=== PATIENT | female | born 1935 | race Caucasian/White ===

== ENCOUNTER 2016-08-29 16:06 | Observation (INO) | payer MEDICARE, OTHER ==
[2016-08-29 18:08] LABS: Hematocrit 27 % (35-47); Hemoglobin 8.6 g/dl (12.0-16.0); Mean Corpuscular HGB Conc 32 g/dl (31-36); Mean Corpuscular Hemoglobin 31 pg (27-31); Mean Corpuscular Volume 96 fL (80-97); Mean Platelet Volume 8 um3 (7.4-10.4); Red Blood Count 2.82 10^6/ul (4.0-5.4); Red Cell Distribution Width 15 % (10.5-15); White Blood Count 8.7 10^3/ul (3.5-10.8)
[2016-08-29 18:19] LABS: Albumin 4.2 g/dL (3.2-5.2); BUN/Creatinine Ratio 22.4 (8-20); Calcium 9.8 mg/dL (8.6-10.3); EGFR African American 18.7 (>60); EGFR Non-African American 14.5 (>60); Globulin 3.3 g/dL (2-4); Potassium 3.4 mmol/L (3.5-5.0); Total Bilirubin 0.4 mg/dL (0.2-1.0); Total Protein 7.5 g/dL (6.4-8.9)
[2016-08-29] MEDS ORDERED: NS 0.9% 1000 ML* 1,000 ML IV ONE (20:37)
[2016-08-29] MEDS ORDERED: Pantoprazole IV* 40 MG IV ONE (20:37)
--- NOTE | 2016-08-29 20:49 | ED ---
maeve Mccoy Timothy, scribed for Jarocho Molina MD on 08/29/16 at 1620 . GI/ HPI - HPI Summary HPI Summary: Annmarie Manning is an 81 yo female presenting to [facility] with blood in her stool, sent from [facility] for evaluation of bleeding, melena, and now anemia. Pt states she is here for admission and blood transfusion. She currently feels lightheaded and weak. Her PMHx includes thyroid disease, A fib, aortic and mitral valve disorder, hTN, RBBB, renal failure (not on dialysis). Her PCP is Dr. Brown. - History of Current Complaint Time Seen by Provider: 08/29/16 16:15 Stated Complaint: BLOOD IN STOOL Hx Obtained From: Patient Onset/Duration: Started Hours Ago, Still Present Timing: Constant Severity: Moderate Current Severity: Moderate Pain Intensity: 0 Associated Signs and Symptoms: Positive: Weakness, Black Tarry Stool, Lightheadedness - Additional Pertinent History Primary Care Physician: [id number] - Allergy/Home Medications Allergies/Adverse Reactions: Allergies Allergy/AdvReac Type Severity Reaction Status Date / Time Celecoxib [From Celebrex] Allergy Mild Rash Verified 05/23/16 11:38 Codeine Allergy Unknown Verified 05/23/16 11:38 Reaction Details BETABLOCKERS AdvReac Intermediate See Comment Uncoded 05/23/16 11:38 PMH/Surg Hx/FS Hx/Imm Hx Endocrine/Hematology History: Reports: Hx Anticoagulant Therapy, Hx Thyroid Disease Denies: Hx Diabetes Cardiovascular History: Reports: Hx Hypercholesterolemia, Hx Hypertension, Hx Valvular Heart Disease - aortic and mitral valve disorder, Other Cardiovascular Problems/Disorders - A-FIB, RBBB Denies: Hx Angina, Hx Congestive Heart Failure, Hx Pacemaker/ICD Respiratory History: Denies: Hx Asthma, Other Respiratory Problems/Disorders History: Reports: Hx Chronic Renal Failure - has fistula, never had dialysis Denies: Hx Renal Disease Musculoskeletal History: Reports: Hx Arthritis - left knee replacement march 2016 Sensory History: Reports: Hx Cataracts, Hx Contacts or Glasses Denies: Hx Hearing Aid Opthamlomology History: Reports: Hx Cataracts, Hx Contacts or Glasses Neurological History: Denies: Other Neuro Impairments/Disorders Psychiatric History: Denies: Hx Panic Disorder - Cancer History Hx Chemotherapy: No Hx Radiation Therapy: No Hx Palliative Cancer Treatment: No - Surgical History Surgery Procedure, Year, and Place: BILATERAL CATARACT REMOVAL/[place] SURGERY Hx Anesthesia Reactions: No Infectious Disease History: No Infectious Disease History: Denies: Hx Clostridium Difficile, Hx Hepatitis, Hx Human Immunodeficiency Virus (HIV), Hx of Known/Suspected MRSA, Hx Shingles, Hx Tuberculosis, Hx Known/ Suspected VRE, Hx Known/Suspected VRSA, History Other Infectious Disease, Traveled Outside the [place] in Last 30 Days - Family History Known Family History: Positive: Cardiac Disease - Social History Alcohol Use: None Substance Use Type: Reports: None Smoking Status (MU): Never Smoked Tobacco Have You Smoked in the Last Year: No Review of Systems Constitutional: Other - anemia Eyes: Negative ENT: Negative Cardiovascular: Negative Respiratory: Negative Gastrointestinal: Other - melena Genitourinary: Negative Musculoskeletal: Negative Skin: Negative Neurological: Other - lightheadedness Positive: Weakness Psychological: Normal All Other Systems Reviewed And Are Negative: Yes Physical Exam Triage Information Reviewed: Yes Vital Signs On Initial Exam: Initial Vitals Temp Pulse Resp BP Pulse Ox 97.0 F 78 20 121/54 100 08/29/16 16:08 08/29/16 16:08 08/29/16 16:08 08/29/16 16:08 08/29/16 16:08 Vital Signs Reviewed: Yes Appearance: Positive: Well-Appearing, No Pain Distress Skin: Positive: Warm, Skin Color Reflects Adequate Perfusion, Dry Head/Face: Positive: Normal Head/Face Inspection Eyes: Positive: Normal ENT: Positive: Normal ENT inspection Neck: Positive: Supple, Nontender Respiratory/Lung Sounds: Positive: Clear to Auscultation, Breath Sounds Present Cardiovascular: Positive: RRR Abdomen Description: Positive: Nontender, Soft Bowel Sounds: Positive: Present Musculoskeletal: Positive: Normal Neurological: Positive: Normal Psychiatric: Positive: Normal, Affect/Mood Appropriate Diagnostics - Vital Signs Vital Signs Temp Pulse Resp BP Pulse Ox 08/29/16 16:08 97.0 F 78 20 121/54 100 - Laboratory Lab Results: Lab Results 08/29/16 08/29/16 08/29/16 Range/Units 16:30 16:30 16:30 WBC 8.7 (3.5-10.8) 10^3/ul RBC 2.82 L (4.0-5.4) 10^6/ul Hgb 8.6 L (12.0-16.0) g/dl Hct 27 L (35-47) % MCV 96 (80-97) fL MCH 31 (27-31) pg MCHC 32 (31-36) g/dl RDW 15 (10.5-15) % Plt Count 197 (150-450) 10^3/ul MPV 8 (7.4-10.4) um3 Neut % (Auto) 75.2 (38-83) % Lymph % (Auto) 16.1 L (25-47) % Gila % (Auto) 5.9 (1-9) % Eos % (Auto) 2.1 (0-6) % Baso % (Auto) 0.7 (0-2) % Absolute Neuts (auto) 6.6 (1.5-7.7) 10^3/ul Absolute Lymphs (auto) 1.4 (1.0-4.8) 10^3/ul Absolute Monos (auto) 0.5 (0-0.8) 10^3/ul Absolute Eos (auto) 0.2 (0-0.6) 10^3/ul Absolute Basos (auto) 0.1 (0-0.2) 10^3/ul Absolute Nucleated RBC 0.01 10^3/ul Nucleated RBC % 0.1 INR (Anticoag Therapy) 0.90 (0.89-1.11) APTT 27.2 (26.0-36.3) seconds Sodium 136 (133-145) mmol/L Potassium 3.4 L (3.5-5.0) mmol/L Chloride 102 (101-111) mmol/L Carbon Dioxide 28 (22-32) mmol/L Anion Gap 6 (2-11) mmol/L BUN 69 H (6-24) mg/dL Creatinine 3.08 H (0.51-0.95) mg/dL Est GFR ( Amer) 18.7 (>60) Est GFR (Non-Af Amer) 14.5 (>60) BUN/Creatinine Ratio 22.4 H (8-20) Glucose 107 H (70-100) mg/dL Calcium 9.8 (8.6-10.3) mg/dL Total Bilirubin 0.40 (0.2-1.0) mg/dL AST 20 (13-39) U/L ALT 10 (7-52) U/L Alkaline Phosphatase 73 (34-104) U/L Total Protein 7.5 (6.4-8.9) g/dL Albumin 4.2 (3.2-5.2) g/dL Globulin 3.3 (2-4) g/dL Albumin/Globulin Ratio 1.3 (1-3) Result Diagrams: 08/29/16 16:30 08/29/16 16:30 Lab Statement: Any lab studies that have been ordered have been reviewed, and results considered in the medical decision making process. - EKG 1715 EKG Interpretation: Afib @ 59 BPM, RBBB, unchanged from 05/23/16 Re-Evaluation - Re-Evaluation First Eval Re-Evaluation Time: 19:12 Change: Unchanged Comment: Pt is refusing to be discharged. Second Eval Re-Evaluation Time: 20:03 Change: Unchanged Comment: Pt is informed of Dr. Marquez's recommendations. GIGU Course/Dx - Course Assessment/Plan: Annmarie Manning is an 81 yo female presenting to [facility] sent by Dr. Brown for melena, anemia, and weakness/lightheadedness. After review of her lab work and EKG, as well as discussion with Dr. Marquez, she will be signed out to Dr. Cardoza pending repeat H&H and other lab studies. - Diagnoses Provider Diagnoses: Anemia - Physician Notifications Discussed Care Of Patient With: 1623 - Dr. Garnica (GI and internal medicine) - discussed Pt condition. 1831 - Dr. Mullins (oncology and internal medicine) - discussed Pt condition, recommends discharging Pt. 1955 - Dr. Marquez ( hospitalist) - discussed Pt condition, recommends to check stool for blood. 2038 - Dr. Marquez (hospitalist) - discussed positive blood in stool. Discharge - Discharge Plan Condition: Stable Disposition: OTHER Discharge Disposition Comment: signed out to Dr. Cardoza Patient Education Materials: Anemia (ED) Referrals: Cesar Brown MD [Primary Care Provider] - Peterson Mejia MD [Medical Doctor] - 2 Days Additional Instructions: Please follow up with Dr. Mejia regarding your visit to the emergency department today. Return to the emergency department with any new or recurring symptoms. The documentation as recorded by the maeve churchill Timothy accurately reflects the service I personally performed and the decisions made by , Jarocho Molina MD.
[2016-08-29 22:33] LABS: Hematocrit 23 % (35-47); Hemoglobin 7.5 g/dl (12.0-16.0)
--- NOTE | 2016-08-29 23:21 | HP ---
H&P (Free Text) History and Physical: PCP: Ema Brown MD Date/Time of Evaluation: 08/29/2016 3269 CC: sent in by PCP for concern of GI bleed HPI: Mrs Manning is an 81YO female admitted 05/23-05/25/2017 for a suspected subacute GI bleed. She had a follow up appointment with her PCP today who reportedly checked a HGB finding it significantly worse as well as finding blood in her stool. Per her report, she was told to come to the ED for admission , a blood transfusion, and an endoscopy to "cauterize my ulcer". However, upon arrival her HGB here was 8.6, the highest it's been since April 2016. She was not tachycardic, hypotensive, or tachypneic. In fact, she states her SOB which worsened around the time of her May admission is much improved. Stool occult blood is positive. She was given ~800-1000cc NS with her HGB rechecked at 7.5 qualifying her for admission. She states that while her EGD in May was negative, she followed up with Dr Mejia and had a negative colonoscopy ~2 weeks after discharge. Additionally she underwent repeat EGD at the end of Jul 2016 finding an ulcer. The colonoscopy report describes 3 small polyps and diffuse diverticulosis, otherwise normal. The repeat EGD report could not be found. 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 hypothyroidism HLD OA osteoporosis Allergies Celecoxib [From Celebrex] Allergy (Mild, Verified 05/23/16 11:38) Rash Codeine Allergy (Verified 05/23/16 11:38) Unknown Reaction Details BETABLOCKERS Adverse Reaction (Intermediate, Uncoded 05/23/16 11:38) See Comment [facility] Ambulatory Orders Gabapentin CAP(*) [Neurontin 100 mg CAP(*)] 100 mg PO BID 03/17/16 Metolazone 2.5 mg PO DAILY PRN 03/17/16 Diltiazem HCl Extended Release [Diltiazem HCl ER] 240 mg PO DAILY 05/23/16 Furosemide TAB* [Lasix TAB*] 40 mg PO BID 05/23/16 Levothyroxine TAB* [Synthroid 25 MCG TAB*] 50 mcg PO DAILY 05/23/16 Multivitamins/Minerals TAB* [Thera M Plus TAB*] 1 tab PO DAILY 05/23/16 Ferrous Sulfate [Fe Tabs] 325 mg PO DAILY #30 tab 05/25/16 Acetaminophen TAB* [Tylenol TAB*] 1 tab PO BEDTIME PRN 08/29/16 Cholecalciferol [Vitamin D3] 2,000 unit PO DAILY 08/29/16 Omeprazole CAP* [Prilosec CAP* 20 MG] 20 mg PO DAILY 08/29/16 Senna TAB* [Senokot TAB*] 1 tab PO DAILY 08/29/16 PSurgHx L TKA AV fistula placement in anticipation of dialysis SocHx: no tobacco, alcohol, or recreational drugs; lives alone, uses a cane; full code status FamHx: positive for HTN & HLD ROS: as above, otherwise reviewed and all were negative Constitutional: NAD, normally developed, obese white female vitals: Vital Signs Temp 36.1 C 08/29/16 16:08 Pulse 76 08/29/16 22:25 Resp 20 08/29/16 16:08 BP 113/45 08/29/16 22:25 Pulse Ox 95 08/29/16 22:25 Intake & Output 08/28/16 08/29/16 08/29/16 23:59 11:59 23:59 Weight 76.204 kg HEENM: atraumatic; sclera/conjunctiva: non-icteric/clear; hearing: clinically intact; oropharynx: clear, mucosa moist Neck: soft tissue: non-tender; thyroid: normal Pulmonary: clear to auscultation bilaterally, good aeration, no accessory muscle use CV: RR/RR, normal S1S2, no carotid bruit, no jugular venous distention, 2+ B DP/ PT, no edema Abdominal: soft, non-distended, non-tender, no rebound/guarding/rigidity, normoactive bowel sounds, no hepatosplenomegaly or masses, no costovertebral angle tenderness Musculoskeletal: general: grossly intact; gait: stable Integumental: normal appearance and texture of exposed skin Psychiatric orientation: AA&O to PPS affect: calm mood: cooperative eye contact: good content: reliable responses: timely insight: good Testing: Lab Results 08/29/16 08/29/16 08/29/16 Range/Units 16:30 16:30 16:30 WBC 8.7 (3.5-10.8) 10^3/ul RBC 2.82 L (4.0-5.4) 10^6/ul Hgb 8.6 L (12.0-16.0) g/dl Hct 27 L (35-47) % MCV 96 (80-97) fL MCH 31 (27-31) pg MCHC 32 (31-36) g/dl RDW 15 (10.5-15) % Plt Count 197 (150-450) 10^3/ul MPV 8 (7.4-10.4) um3 Neut % (Auto) 75.2 (38-83) % Lymph % (Auto) 16.1 L (25-47) % Reeves % (Auto) 5.9 (1-9) % Eos % (Auto) 2.1 (0-6) % Baso % (Auto) 0.7 (0-2) % Absolute Neuts (auto) 6.6 (1.5-7.7) 10^3/ul Absolute Lymphs (auto) 1.4 (1.0-4.8) 10^3/ul Absolute Monos (auto) 0.5 (0-0.8) 10^3/ul Absolute Eos (auto) 0.2 (0-0.6) 10^3/ul Absolute Basos (auto) 0.1 (0-0.2) 10^3/ul Absolute Nucleated RBC 0.01 10^3/ul Nucleated RBC % 0.1 INR (Anticoag Therapy) 0.90 (0.89-1.11) APTT 27.2 (26.0-36.3) seconds Sodium 136 (133-145) mmol/L Potassium 3.4 L (3.5-5.0) mmol/L Chloride 102 (101-111) mmol/L Carbon Dioxide 28 (22-32) mmol/L Anion Gap 6 (2-11) mmol/L BUN 69 H (6-24) mg/dL Creatinine 3.08 H (0.51-0.95) mg/dL Est GFR ( Amer) 18.7 (>60) Est GFR (Non-Af Amer) 14.5 (>60) BUN/Creatinine Ratio 22.4 H (8-20) Glucose 107 H (70-100) mg/dL Calcium 9.8 (8.6-10.3) mg/dL Total Bilirubin 0.40 (0.2-1.0) mg/dL AST 20 (13-39) U/L ALT 10 (7-52) U/L Alkaline Phosphatase 73 (34-104) U/L Total Protein 7.5 (6.4-8.9) g/dL Albumin 4.2 (3.2-5.2) g/dL Globulin 3.3 (2-4) g/dL Albumin/Globulin Ratio 1.3 (1-3) 08/29/16 Range/Units 22:30 WBC (3.5-10.8) 10^3/ul RBC (4.0-5.4) 10^6/ul Hgb 7.5 L (12.0-16.0) g/dl Hct 23 L (35-47) % MCV (80-97) fL MCH (27-31) pg MCHC (31-36) g/dl RDW (10.5-15) % Plt Count (150-450) 10^3/ul MPV (7.4-10.4) um3 Neut % (Auto) (38-83) % Lymph % (Auto) (25-47) % Reeves % (Auto) (1-9) % Eos % (Auto) (0-6) % Baso % (Auto) (0-2) % Absolute Neuts (auto) (1.5-7.7) 10^3/ul Absolute Lymphs (auto) (1.0-4.8) 10^3/ul Absolute Monos (auto) (0-0.8) 10^3/ul Absolute Eos (auto) (0-0.6) 10^3/ul Absolute Basos (auto) (0-0.2) 10^3/ul Absolute Nucleated RBC 10^3/ul Nucleated RBC % INR (Anticoag Therapy) (0.89-1.11) APTT (26.0-36.3) seconds Sodium (133-145) mmol/L Potassium (3.5-5.0) mmol/L Chloride (101-111) mmol/L Carbon Dioxide (22-32) mmol/L Anion Gap (2-11) mmol/L BUN (6-24) mg/dL Creatinine (0.51-0.95) mg/dL Est GFR ( Amer) (>60) Est GFR (Non-Af Amer) (>60) BUN/Creatinine Ratio (8-20) Glucose (70-100) mg/dL Calcium (8.6-10.3) mg/dL Total Bilirubin (0.2-1.0) mg/dL AST (13-39) U/L ALT (7-52) U/L Alkaline Phosphatase (34-104) U/L Total Protein (6.4-8.9) g/dL Albumin (3.2-5.2) g/dL Globulin (2-4) g/dL Albumin/Globulin Ratio (1-3) ECG, personally reviewed: AFIB RBBB rate 59, similar to 05/23/2016 Impression: 81F presenting with heme positive stool and a 1point drop in hemaglobin after 1L NS DIAGNOSIS & PLAN Primary GI bleed : observe overnight : NPO x/ meds : serial H&H : IVFs : hold furosemide & metolazone : if no clinically significant further decrease in HGB, may f/u w/ PCP; otherwise consider GI consult : supplemental oxygen : supportive care hypoKalemia : replace & recheck Secondary moderate to severe aortic stenosis : monitor volume status closely : hold furosemide & metolazone in setting of potential GI bleeding AFIB : rate controlled : continue diltiazem HTN : continue diltiazem 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
[2016-08-30] MEDS ORDERED: Melatonin (NF) 3 MG TAB PO PRN (00:01)
[2016-08-30] MEDS ORDERED: Acetaminophen TAB* 325 MG PO PRN (00:01)
[2016-08-30] MEDS ORDERED: Pantoprazole IV* 40 MG IV ONE (00:02)
[2016-08-30] MEDS ORDERED: NS 0.9% 1000 ML* 1,000 ML IV SCH (00:15)
[2016-08-30] MEDS ORDERED: Pantoprazole IV* 80 MG in NS 0.9% 250 ML* 250 ML IVPB SCH (01:00)
[2016-08-30 02:20] LABS: Hematocrit 24 % (35-47); Hemoglobin 7.7 g/dl (12.0-16.0)
[2016-08-30 05:46] LABS: Hematocrit 24 % (35-47); Hemoglobin 7.6 g/dl (12.0-16.0)
[2016-08-30] MEDS ORDERED: Levothyroxine TAB* 25 MCG TAB PO SCH (06:00)
[2016-08-30 07:39] VITALS: BP 119/58
[2016-08-30] MEDS ORDERED: Gabapentin CAP(*) 100 MG PO SCH (09:00)
[2016-08-30] MEDS ORDERED: Omeprazole CAP* 20 MG PO SCH (09:00)
[2016-08-30] MEDS ORDERED: Senna TAB PO SCH (09:00)
[2016-08-30] MEDS ORDERED: Diltiazem CD CAP* 240 MG PO SCH (09:00)
[2016-08-30 10:06] LABS: Calcium 8.6 mg/dL (8.6-10.3); EGFR African American 19.6 (>60); EGFR Non-African American 15.3 (>60); Potassium 3.5 mmol/L (3.5-5.0)
[2016-08-30 10:17] LABS: Hematocrit 25 % (35-47)
--- NOTE | 2016-08-30 10:55 | PN ---
Subjective Date of Service: 08/30/16 Interval History: Patient seen this morning. No complaints. Has been NPO. No abdominal pain. Family History: Unchanged from Admission Social History: Unchanged from Admission Past Medical History: Unchanged from Admission Objective Active Medications: Acetaminophen (Tylenol Tab*) 650 mg PO Q6H PRN PRN Reason: FEVER/PAIN Diltiazem HCl (Cardizem Cd Cap*) 240 mg PO DAILY [facility] Last Admin: 08/30/16 09:29 Dose: 240 mg Gabapentin (Neurontin Cap(*)) 100 mg PO BID [facility] Last Admin: 08/30/16 09:31 Dose: 100 mg Sodium Chloride (Ns 0.9% 1000 Ml*) 1,000 mls @ 125 mls/hr IV PER RATE [facility] Last Admin: 08/30/16 03:14 Dose: 125 mls/hr Pantoprazole Sodium 80 mg/ (Sodium Chloride) 250 mls @ 25 mls/hr IVPB Q10H [facility] Last Admin: 08/30/16 03:13 Dose: 25 mls/hr Levothyroxine Sodium (Synthroid Tab*) 50 mcg PO DAILY@0600 [facility] Last Admin: 08/30/16 05:28 Dose: 50 mcg Melatonin (Melatonin (Nf)) 3 mg PO BEDTIME PRN; Protocol PRN Reason: Sleep Omeprazole (Prilosec Cap*) 20 mg PO DAILY [facility] Last Admin: 08/30/16 09:32 Dose: 20 mg Senna (Senokot Tab*) 1 tab PO DAILY [facility] Last Admin: 08/30/16 09:29 Dose: Not Given Vital Signs 08/30/16 08/30/16 08/30/16 02:00 03:00 04:49 Temperature 97.9 F Pulse Rate 79 83 Respiratory 16 Rate Blood Pressure 106/43 122/54 (mmHg) O2 Sat by Pulse 92 96 93 Oximetry 08/30/16 08/30/16 08/30/16 07:36 07:57 09:31 Temperature 98.1 F Pulse Rate 75 Respiratory 20 18 20 Rate Blood Pressure 119/58 (mmHg) O2 Sat by Pulse 96 Oximetry Oxygen Devices in Use Now: None Appearance: Elderly, F, sitting in chair in NAD Eyes: No Scleral Icterus Ears/Nose/Mouth/Throat: Mucous Membranes Moist Neck: NL Appearance and Movements; NL JVP Respiratory: Symmetrical Chest Expansion and Respiratory Effort, Clear to Auscultation Cardiovascular: NL Sounds; No Murmurs; No JVD, RRR Abdominal: NL Sounds; No Tenderness; No Distention Lymphatic: No Cervical Adenopathy Extremities: - - Trace LE edema, SCDs Skin: No Rash or Ulcers Neurological: Alert and Oriented x 3 Result Diagrams: 08/30/16 09:52 08/30/16 05:06 Additional Lab and Data: Assess/Plan/Problems-Billing Assessment: Anemia in an 81 yo F with hx of GI bleed, aortic stenosis - Patient Problems (1) Anemia Current Visit: Yes Comment: Not convinced she is having any active bleeding. Hb has been stable here, stop trending. Positive guaiac may be due to PO iron. Outpatient labs obtained (07/18 Hb 8.2, 08/01 Hb 10, 08/29 Hb 7.8). Wondering if was spurious. Will ask GI whether EGD is even indicated, may d/c home on continued PPI therapy and PO iron. (2) Moderate aortic stenosis Current Visit: No Comment: Stop IVF, holding diuretics (3) Afib Current Visit: No Comment: Continue CCB. Not on AC (4) DVT prophylaxis Current Visit: No Comment: SCDs
--- NOTE | 2016-08-31 06:12 | DS ---
DISCHARGE SUMMARY: DATE OF ADMISSION: 08/29/16 DATE OF DISCHARGE: 08/30/16 PRIMARY CARE PROVIDER: Dr. Brown. PRINCIPAL DISCHARGE DIAGNOSIS: Anemia. SECONDARY DIAGNOSES: 1. [id number] aortic stenosis. 2. Atrial fibrillation. 3. Hypertension. 4. Chronic kidney disease. 5. Hypothyroidism. 6. Hyperlipidemia. 7. Osteoarthritis. 8. Osteoporosis. STUDIES DONE DURING HOSPITALIZATION: No studies done during hospitalization. DISCHARGE MEDICATION REGIMEN: 1. Lasix 40 mg by mouth 2 times daily. 2. Senna 1 tablet by mouth daily. 3. Omeprazole 20 mg by mouth daily. 4. Vitamin D3 2000 units by mouth daily. 5. Tylenol 325 mg by mouth at bedtime as needed for pain. 6. Diltiazem 240 mg by mouth daily. 7. Synthroid 50 mcg by mouth daily. 8. Gabapentin 100 mg by mouth 2 times daily. 9. Ferrous sulfate 325 mg by mouth daily. 10. Multivitamin 1 tablet by mouth daily. 11. Metolazone 2.5 mg by mouth daily as needed for edema. HISTORY OF PRESENT ILLNESS AND HOSPITAL SUMMARY: Please see the full history and physical by Dr. Chadd Marquez for full details. Briefly, Ms. Manning is an 81- year-old female with a past medical history as above as well as GI bleed in May 2016, who presented to the hospital. She was sent in by her PCP, due to concerns for possible recurrence of GI bleed. In the ED, the patient's hemoglobin was stable; however, did drop some with IV fluids. However, after that, it remained stable on four consecutive draws. The patient had Hemoccult positive stool; however, she is taking iron supplements. I got in touch with Dr. Brown's office to have more recent labs from his system, which showed a hemoglobin of 8.2 on July 18, hemoglobin of 10 on August 01, and hemoglobin of 7.8 on August 29, just prior to this admission. I do not think that the patient has an active bleed ongoing. I spoke with Dr. Cobian, who is covering the GI consultation service for Dr. Mejia, who also agreed and did not feel that an EGD was indicated at this time. He recommends continuing omeprazole and iron supplementation and she will follow up with Dr. Mejia in the clinic in the next week or so. TIME SPENT: Total time spent on this discharge 40 minutes. This is a summary of the hospitalization. Please see the full medical records for further details. CC: Dr. Brown; Dr. Mejia, GI* [id number]/[facility] #: [id number] [facility]
== END 2016-08-30 13:30 | disposition home or self-care (01) ==
LOC: ED 16:06 → MEDTELE 08-30 01:38
PROVIDERS: ADMIT Hospitalist; ATTEND Hospitalist
DX: D64.9 Anemia, unspecified (principal); I35.0 Nonrheumatic aortic (valve) stenosis; I48.91 Unspecified atrial fibrillation; I12.9 Hypertensive chronic kidney disease with stage 1 through stage 4 chronic kidney disease, or unspecified chronic kidney disease; N18.9 Chronic kidney disease, unspecified; E03.9 Hypothyroidism, unspecified; E78.5 Hyperlipidemia, unspecified; M19.90 Unspecified osteoarthritis, unspecified site; M81.0 Age-related osteoporosis without current pathological fracture
CPT/HCPCS: 36415; 80048; 80053; 82272; 85014; 85018; 85025; 85610; 85730; 86850; 86900; 86901; 93005; 94760; 96374; 96375; 99284; A9270-GY; G0378

== ENCOUNTER 2018-11-20 10:11 | Inpatient (IN) | payer MEDICARE, OTHER ==
--- OUTSIDE RECORDS SUMMARY | 2018-11-20 10:40 | XMS REPORT | Continuity of Care Document ---
:1935 External Reference #:[id number] Author Name Demetrius Cobian MD Address [facility] [place] [address] Care Team Providers Name Role Phone Cesar Brown MD Care Team Information Personnel Recruiter Unavailable Cesar Brown MD Primary Care Physician Unavailable Payers Date Identification Numbers Payment Provider Subscriber Policy Number: [id number] Medicare Sarbjit Lovell PayID: [id number] [facility] [address] [facility] [address] Policy Number: [id number] [facility] Sarbjit Lovell Group Number: [id number] [address] PayID: [id number] [place] [address] Advance Directives Description No Information Available Problems Active Problems Provider Date Acute posthemorrhagic anemia Onset: Atrial fibrillation Onset: Chronic kidney disease stage 4 Onset: H/O: anticoagulant therapy Onset: For resuscitation Onset: Gastrointestinal hemorrhage Onset: Hyperkalemia Onset: Hyperlipidemia Onset: Hyponatremia Onset: Hypothyroidism Onset: Aortic valve stenosis Onset: Peripheral nerve disease Onset: Anemia following acute postoperative Onset: blood loss History of total knee arthroplasty Onset: End-stage renal disease Onset: Anemia Onset: Essential hypertension Riya Gibbs PA-C Onset: 08/14/2018 Iron deficiency anemia Riya Gibbs PA-C Onset: 08/14/2018 Melena Riya Gibbs PA-C Onset: 08/14/2018 Family History Description No Information Available Social History Type Date Description Comments Sex Unknown ETOH Use Denies alcohol use Tobacco Use Start: Unknown Patient has never smoked Smoking Status Reviewed: 08/14/18 Patient has never smoked Allergies, Adverse Reactions, Alerts Active Allergies Reaction Severity Comments Date Celebrex 05/31/2016 Beta Adrenergic Blockers 05/31/2016 Medications Active Medications SIG Qnty Indications Ordering Provider Date Omeprazole 1 by mouth every 90caps Cesar Brown MD 08/01/2018 20mg Capsules day Levothyroxine Sodium Take 1 Tablet By 90tabs Cesar Brown MD 12/12/2016 Mouth Every Day 50mcg Tablets Tylenol Bedtime prn For Unknown 08/29/2016 325mg Tablets Pain Nystatin apply 2-3 times 1units Cesar Brown MD 06/20/2016 [id number]/GM daily Powder Metolazone 1 by mouth every 60tabs Cesar Brown MD 06/20/2016 2.5mg Tablets day as needed edema Fe Tabs 2 Daily 30tabs Unknown 05/25/2016 325(65Fe) mg Tablets Diltiazem HCL ER Every Day Unknown 05/23/2016 240mg Caps ER 24HR Lasix Every Day Unknown 05/23/2016 40mg Tablets Neurontin bid Unknown 03/17/2016 100mg Capsules History Medications Ranitidine HCL Take 1 Tablet By 90tabs Cesar Brown MD 12/12/2016 - Mouth Every Day 08/14/2018 150mg Tablets Vitamin D3 Every Day Unknown 08/29/2016 - 1000Unit 08/14/2018 Tablets Prilosec Every Day Unknown 08/29/2016 - 20mg 08/14/[address] Armendariz-Flavor Packs As directed 4000ml K92.1 DENZEL Duran-Renee 2015 - 06/03/2016 240gm Solution Rec Colyte With Flavor by mouth as 4000ml Peterson Mejia MD 05/31/2016 - Packs directed 08/01/2016 240gm Solution Rec Synthroid Every Day Unknown 05/23/2016 - 25mcg 08/01/2016 Tablets Colace Twice Daily prn Unknown 05/23/2016 - 100mg For Constipation 08/14/2018 Capsules Coumadin 1700 Unknown 05/23/2016 - 2.5mg 08/01/2016 Tablets Synthroid Every Day Unknown 05/23/2016 - 25mcg 08/14/2018 Tablets Levothyroxine 1 by mouth every 90tabs Cesar Brown MD 04/19/2016 - Sodium day 08/14/2018 75mcg Tablets Metolazone Every Day prn For Unknown 03/17/2016 - 2.5mg Edema 08/14/2018 Tablets Cartia XT take 1 capsule 90caps Cesar Brown MD 01/23/2012 - 240mg daily 08/01/2016 Caps ER 24HR Coumadin 1/2 po qd or as 90tabs Cesar Brown MD 12/29/2006 - 5mg directed. 08/01/2016 Tablets Ferrous Sulfate 1 tab by mouth bid Cesar Brown MD - 08/01/2016 325(65Fe) mg Tablets Senna Lax 1 qd Cesar Brown MD - 8.6mg 08/14/2018 Tablets Vitamin D3 Super 1 by mouth every Cesar Brown MD - Strength day 08/14/2018 2000Unit Capsules Senna Lax 1 qod Cesar Brown MD - 8.6mg 08/14/2018 Tablets Immunizations Description No Information Available Vital Signs Date Vital Result Comment 08/14/2018 9:36am Height 62.5 inches 5'2.50" Weight 160.00 lb BP Systolic 115 mmHg BP Diastolic 55 mmHg Heart Rate 66 /min BMI (Body Mass Index) 28.8 kg/m2 09/05/2016 11:29am Height 62.5 inches 5'2.50" Weight 172.00 lb BP Systolic 114 mmHg BP Diastolic 66 mmHg Heart Rate 72 /min BMI (Body Mass Index) 31.0 kg/m2 08/01/2016 2:41pm Height 62.5 inches 5'2.50" Weight 168.00 lb BP Systolic 122 mmHg BP Diastolic 70 mmHg Heart Rate 78 /min BMI (Body Mass Index) 30.2 kg/m2 05/31/2016 11:11am Height 62.5 inches 5'2.50" Weight 170.00 lb BP Systolic 124 mmHg BP Diastolic 68 mmHg Heart Rate 72 /min BMI (Body Mass Index) 30.6 kg/m2 Results Test Date Facility Test Result H/L Range Note CBC Auto Diff 11/01/2018 [facility] White Blood Count 7.4 10^3/uL N 3.5-10.8 Red Blood Count 3.93 10^6/uL N 3.70-4.87 Hemoglobin 12.5 g/dL N 12.0-16.0 Hematocrit 37 % N 35-47 Mean Corpuscular Volume 93 fL N 80-97 Mean Corpuscular Hemoglobin 32 pg High 27-31 Mean Corpuscular HGB Conc 34 g/dL N 31-36 Red Cell Distribution Width 15 % N 10.5-15 Platelet Count 172 10^3/uL N 150-450 Mean Platelet Volume 7.6 fL N 7.4-10.4 Abs Neutrophils 5.4 10^3/uL N 1.5-7.7 Abs Lymphocytes 1.3 10^3/uL N 1.0-4.8 Abs Monocytes 0.5 10^3/uL N 0-0.8 Abs Eosinophils 0.1 10^3/uL N 0-0.6 Abs Basophils 0.0 10^3/uL N 0-0.2 Abs Nucleated RBC 0.0 10^3/uL Granulocyte % 73.1 % Lymphocyte % 17.3 % Monocyte % 7.0 % Eosinophil % 1.9 % Basophil % 0.7 % Nucleated Red Blood Cells % 0.0 Laboratory test 08/19/2018 [facility] Clotest SEE RESULT 1 finding BELOW CBC W/Auto 09/05/2016 [facility] White Blood 7.6 3/UL 4.8-10 Differential(!) [address] Count Ser .8 [place] [address] Auto CNT [phone] RBC Red Blood Count 2.46 X106/UL Low 4.20-6.20 Hemoglobin Blood 7.4 g/dL Low 12.0-18.0 Hematocrit 26.4 % Low 35-52 MCV (Corpuscular Volume) 107.1 FL High 79-97 MCH (Corpuscular Hemoglobin) 30.0 pg 27-31 MCHC (Corpuscular Hemog Conc) 28.0 g/dL Low 32.0-36.0 RDW 17.8 % High 10.5-15.0 Platelet Count Blood Auto CNT 190 X103/UL 150-450 MPV 6.4 FL Low 7.4-10.4 Lymph% 14.4 % Low 20.0-45.0 [place]% 10.6 % High 1.0-9.0 Neutrophil % 75.0 % 38.0-83.0 Absolute Lymphocytes 1.1 X103/UL 1.0-4.8 Absolute Monocytes 0.8 X103/UL 0.0-0.8 Absolute Neutrophils 5.7 X103/UL 1.5-7.7 Laboratory test 09/05/2016 [facility] Ferritin 11.8 Low 24-250 [address] Ser/Plas ng/[place] [address] Mass/Vol(!) [phone] Laboratory 08/30/2016 N2N/CCD Import Hematocrit 25 % Low 35-47 Studies Hemoglobin 8.0 g/dL Low 12.0-16.0 Laboratory Studies 08/30/2016 N2N/CCD Import Anion Gap 9 mmol/L 2-11 BUN/Creatinine Ratio 22.0 High 8-20 Blood Urea Nitrogen 65 mg/dL High 6-24 Calcium Level 8.6 mg/dL 8.6-10.3 Carbon Dioxide Level 26 mmol/L 22-32 Chloride Level 106 mmol/L 101-111 Creatinine 2.95 mg/dL High 0.51-0.95 Estimated GFR () 19.6 Estimated GFR (Non- 15.3 Glucose Level 131 mg/dL High 70-100 Potassium Level 3.5 mmol/L 3.5-5.0 Sodium Level 141 mmol/L 133-145 Laboratory Studies 08/29/2016 N2N/CCD Import Absolute Basophils 0.1 10^3/ ul 0-0.2 (auto) Absolute Eosinophils (auto) 0.2 10^3/ul 0-0.6 Absolute Lymphocytes (auto) 1.4 10^3/ul 1.0-4.8 Absolute Monocytes (auto) 0.5 10^3/ul 0-0.8 Absolute Neutrophils (auto) 6.6 10^3/ul 1.5-7.7 Activated Partial Thromboplast Time 27.2 seconds 26.0-36.3 Alanine Aminotransferase (Alt/SGPT) 10 U/L 7-52 Albumin 4.2 g/dL 3.2-5.2 Albumin/Globulin Ratio 1.3 1-3 Alkaline Phosphatase 73 U/L 34-104 Aspartate Amino Transf (Ast/Sgot) 20 U/L 13-39 Basophils (%) (Auto) 0.7 % 0-2 Eosinophils (%) (Auto) 2.1 % 0-6 Globulin 3.3 g/dL 2-4 International Ratio (Anticoag Ther) 0.90 0.89-1.11 Lymphocytes (%) (Auto) 16.1 % Low 25-47 Mean Corpuscular Hemoglobin 31 pg 27-31 Mean Corpuscular Hemoglobin Concent 32 g/dL 31-36 Mean Corpuscular Volume 96 fL 80-97 Mean Platelet Volume 8 um3 7.4-10.4 Monocytes (%) (Auto) 5.9 % 1-9 Neutrophils (%) (Auto) 75.2 % 38-83 Nucleated RBC Absolute Count (auto) 0.01 10^3/ul Nucleated Red Blood Cells % 0.1 Platelet Count 197 10^3/ul 150-450 Red Blood Count 2.82 10^6/ul Low 4.0-5.4 Red Cell Distribution Width 15 % 10.5-15 Total Bilirubin 0.40 mg/dL 0.2-1.0 Total Protein 7.5 g/dL 6.4-8.9 White Blood Count 8.7 10^3/ul 3.5-10.8 Laboratory test 08/01/2016 [facility] Erythropoietin 73.9 mIU/mL Abnormal 2.6 - 2 finding 18.5 Laboratory test 06/20/2016 N2N/CCD Import BUN 34 mg/dL High 6-26 finding BUN/Creat Ratio 15.5 CALC 8.0-36.0 Calcium 9.8 mg/dL 8.6-10.2 Carbon Dioxide 24 mEq/L 21-32 Chloride 97 mEq/L 94-112 Creatinine 2.2 mg/dL High 0.6-1.4 GFR 28 ml/min/1.73m^ Low >=60 GFR Non- 23 ml/min/1.73m^ Low >=60 Glucose 100 mg/dL 70-105 Potassium 3.6 mEq/L 3.6-5.5 Sodium 139 mEq/L 134-149 TSH 2.44 mIU/L 0.50-6.00 Laboratory test 06/07/2016 [facility] Surgical SEE RESULT 3 finding Pathology BELOW Laboratory test 06/01/2016 N2N/CCD Import Hematocrit 25.2 % Low 36.1 - finding (Fma/CMC/CTX) 50.3 Hemoglobin (Fma/CMC/CTX) 7.9 g/dL Low 12.1 - 17.2 Lymph% 11.0 % Low 17.0-48.0 Mean Corpuscular Hemo Concen 31.3 Low 32.0-36.0 Mean Corpuscular Hemoglobin 25.3 Low 27.6-33.3 Mean Corpuscular Vol 81 Low 82.2-97.4 Mean Platelet Volume 6.6 5.5-11.0 Mixed% 6.2 Neutrophils % 82.8 Platelets 219 10^3/ul 150-400 RBC 3.12 Low 3.90-5.70 RDW 17.2 High 11.6-13.7 WBC 6.9 3.6-9.6 4 Laboratory Studies 05/25/2016 N2N/CCD Import Anion Gap 8 mmol/L 2-11 BUN/Creatinine Ratio 18.7 8-20 Blood Urea Nitrogen 52 mg/dL High 6-24 Calcium Level 8.4 mg/dL Low 8.6-10.3 Carbon Dioxide Level 23 mmol/L 22-32 Chloride Level 106 mmol/L 101-111 Creatinine 2.78 mg/dL High 0.51-0.95 Estimated GFR () 21.0 Estimated GFR (Non- 16.4 Glucose Level 100 mg/dL 70-100 Hematocrit 25 % Low 35-47 Hemoglobin 7.9 g/dL Low 12.0-16.0 Mean Corpuscular Hemoglobin 25 pg Low 27-31 Mean Corpuscular Hemoglobin Concent 32 g/dL 31-36 Mean Corpuscular Volume 78 fL Low 80-97 Mean Platelet Volume 7 um3 Low 7.4-10.4 Platelet Count 234 10^3/ul 150-450 Potassium Level 3.9 mmol/L 3.5-5.0 Red Blood Count 3.19 10^6/ul Low 4.0-5.4 Red Cell Distribution Width 19 % High 10.5-15 Sodium Level 137 mmol/L 133-145 White Blood Count 8.6 10^3/ul 3.5-10.8 Laboratory 05/24/2016 N2N/CCD Import International Ratio 2.59 High 0.89- 1.11 Studies (Anticoag Ther) Laboratory 05/24/2016 N2N/CCD Import Percent Iron 3 % Low 15-55 Studies Saturation Total Iron Binding Capacity 438 g/dL 250-450 Unsaturated Iron Binding 423.96405 g/dL Laboratory Studies 05/23/2016 N2N/CCD Import Lactic Acid Level 1.5 mmol/L 0.5-2.0 Laboratory Studies 05/23/2016 N2N/CCD Import Absolute 0.1 10^3/ul 0-0.2 Basophils (auto) Absolute Eosinophils (auto) 0.1 10^3/ul 0-0.6 Absolute Lymphocytes (auto) 0.5 10^3/ul Low 1.0-4.8 Absolute Monocytes (auto) 0.6 10^3/ul 0-0.8 Absolute Neutrophils (auto) 7.7 10^3/ul 1.5-7.7 Alanine Aminotransferase (Alt/SGPT) 21 U/L 7-52 Albumin 3.6 g/dL 3.2-5.2 Albumin/Globulin Ratio 1.1 1-3 Alkaline Phosphatase 83 U/L 34-104 Aspartate Amino Transf (Ast/Sgot) 22 U/L 13-39 B-Type Natriuretic Peptide 599 pg/mL High Basophils (%) (Auto) 1.0 % 0-2 C-Reactive Protein 21.93 mg/L High 0-5.00 Eosinophils (%) (Auto) 1.1 % 0-6 Globulin 3.4 g/dL 2-4 Lymphocytes (%) (Auto) 5.1 % Low 25-47 Monocytes (%) (Auto) 6.8 % 1-9 Neutrophils (%) (Auto) 86.0 % High 38-83 Nucleated RBC Absolute Count (auto) 0.06 10^3/ul Nucleated Red Blood Cells % 0.6 Thyroid Stimulating Hormone (TSH) 1.61 mcIU/mL 0.34-5.60 Total Bilirubin 0.60 mg/dL 0.2-1.0 Total Protein 7.0 g/dL 6.4-8.9 Troponin I 0.02 ng/mL 1 SEE RESULT BELOW Name: SARBJIT LOVELL : [address]: Demetrius Cobian MD Acct: [id number] Unit: [id number] AGE: 83 Location: ENDO Re08/19/18 SEX: F Status: REG REF SPEC: [id number] HAI: 08/19/18-[address]: Demetrius Cobian MD REQ: [id number] RECD: 08/19/18 STATUS: COMP OTHR DR: Cesar Brown MD _ SOURCE: GAS ANTRUM SPDESC: ORDERED: Clotest Procedure Result Reported Site Clotest Final 08/20/18711 ML Clotest Negative * - Main Lab . END OF REPORT DEPARTMENT OF PATHOLOGY, [address] [place] [address] Demetri Elliott M.D. Director [facility] # [id number] SEE RESULT BELOW Name: SARBJIT LOVELL : [address]: Demetrius Cobian MD Acct: [id number] Unit: [id number] AGE: 83 Location: ENDO Re08/19/18 SEX: F Status: REG REF SPEC: [id number] HAI: 08/19/18-14[address] [facility] [address]: Demetrius Cobian MD REQ: [id number] RECD: 08/19/18-151 STATUS: CHANI AKPOOR DR: Cesar Brown MD _ SOURCE: GAS ANTRUM SPDESC: ORDERED: Clotest Procedure Result Reported Site Clotest Final 08/20/18711 ML Clotest Negative * ML - Main Lab . END OF REPORT DEPARTMENT OF PATHOLOGY, [address] [place] [address] Demetri Elliott M.D. Director [facility] # [id number] 2 Test Performed by: [facility] [place] [address] Assistant Unit Forester: Jeramy Pa II, M.D., Ph.D. 3 SEE RESULT BELOW Name: SARBJIT LOVELL : [address]: Peterson Mejia MD Acct: [id number] Unit: [id number] AGE: 81 Location: ENDO Re06/07/16 SEX: F Status: DEP REF SPEC: [id number] HAI: 06/07/161140 [facility] DR: Peterson Mejia MD REQ: [id number] RECD: 06/07/166749 STATUS: BARRY KAPO[place] DR: Cesar Brown MD _ ORDERED: LEVEL IV FINAL DIAGNOSIS Colon, transverse, biopsy: -- Tubular adenoma. -- No high grade dysplasia or malignancy. CLINICAL HISTORY Anemia, blood in stool POST-OPERATIVE DIAGNOSIS Colonoscopy into cecum, prep fair - 3 polyps removed, diffuse diverticulosis. Conclusions/Plan: Three polyps removed GROSS DESCRIPTION The specimen is received in formalin labeled, Transverse Colon Polyps, and consists of two berger irregular to polypoid soft tissue fragments measuring 0.4 x 0.3 x 0.2 cm and 0.5 x 0.3 x 0.2 cm, which are submitted entirely in one cassette. Signed (signature on file) Carly Diaz MD 02/14 1058 END OF REPORT * ML=Testing performed at Main Lab DEPARTMENT OF PATHOLOGY, [address] [place] [address] Demetri Elliott M.D. Director [facility] # [id number] SEE RESULT BELOW Name: SARBJIT LOVELL : [address]: Peterson Mejia MD Acct: [id number] Unit: [id number] AGE: 81 Location: ENDO Re06/07/16 SEX: F Status: DEP REF SPEC: [id number] HAI: 06/07/161140 SUBM DR: Peterson Mejia MD REQ: [id number] RECD: 06/07/162857 STATUS: BARRY KAPO[place] DR: Cesar Brown MD _ ORDERED: LEVEL IV FINAL DIAGNOSIS Colon, transverse, biopsy: -- Tubular adenoma. -- No high grade dysplasia or malignancy. CLINICAL HISTORY Anemia, blood in stool POST-OPERATIVE DIAGNOSIS Colonoscopy into cecum, prep fair - 3 polyps removed, diffuse diverticulosis. Conclusions/Plan: Three polyps removed GROSS DESCRIPTION The specimen is received in formalin labeled, Transverse Colon Polyps, and consists of two berger irregular to polypoid soft tissue fragments measuring 0.4 x 0.3 x 0.2 cm and 0.5 x 0.3 x 0.2 cm, which are submitted entirely in one cassette. Signed (signature on file) Carly Diaz MD 02/14 1058 END OF REPORT * ML=Testing performed at Main Lab DEPARTMENT OF PATHOLOGY, [address] [place] [address] Demetri Elliott M.D. Director [facility] # [id number] 4 result john'd provider aware Procedures Date Code Description Status 08/19/2018 96297 EGD+Biopsy Single Or Multiple Completed 10/11/2016 55403 Moderate Sedation Services; Same Phys Each Additional 15 Completed Mins 10/11/2016 51551 Moderate Sedation Services; Same Phys Each Additional 15 Completed Mins 10/11/2016 17675 Esoph. With Sub.Injection Completed 10/02/2016 77523 Capsule Endoscopy Completed 09/19/2016 5 Small Balance Write Off Completed 09/06/2016 13607 EGD- Upper Endoscopy Completed 06/07/2016 54766 Colonoscopy W/ Snare RM Of Polyp/Tumor/Lesion Completed 05/24/2016 88231 EGD+Biopsy Single Or Multiple Completed Encounters Type Date Location Provider Dx Diagnosis Office Visit 08/14/2018 [facility] Riya Hernandez D50.9 Iron deficiency 9:45a [facility] PA-C anemia, unspecified K92.1 Melena Z79.01 [facility] (current) use of anticoagulants Office Visit 09/05/2016 [facility] Peterson Monahan D50.0 Iron deficiency 11:45a [facility] Herman Mejia MD anemia secondary to blood loss (chronic) Office Visit 08/01/2016 [facility] Peterson Monahan D50.9 Iron deficiency 3:00p Bunny Mejia MD anemia, unspecified R06.02 Shortness of breath Office Visit 05/31/2016 11:15a [facility] Alba Thompson, K92.1 [facility] stanley Lindenecho MAHONEY-Renee D50.0 Iron deficiency anemia secondary to blood loss (chronic) Plan of Treatment No Information Available
--- NOTE | 2018-11-20 10:46 | ED ---
Adult Trauma - HPI Summary HPI Summary: An 83 y/o female brought in by [facility] ambulance presents to [facility] with a chief complaint of right hip pain post fall today. At triage she rated her pain as an 8/10 in severity. She says that she is unsure how she fell. She reports that she was at home, walked into back porch and found herself on the floor. Pt states she "must have passed out" as she does not have memory of the fall. She lives alone and was able to signal for help from her medical alert device. She claims that she cannot move her right leg and has pain down to her right ankle. Pt denies other injuries or complaints. no cp, sob, abd pain. No n/v/d. No fever, chills, rash. No blood HEENT. Pt does have a h/o A fib and ESRD on dialysis She last had dialysis one day ago. - History of Current Complaint Chief Complaint: EDHipPelvisInjury Stated Complaint: RT HIP PAIN Time Seen by Provider: 11/20/18 10:27 Hx Obtained From: Patient, EMS Mechanism of Injury: Fall Loss of Consciousness: unsure Onset/Duration: Started Hours Ago, Still Present Onset of Pain: Immediate, Post Accident, Prior to Arrival Onset Severity: Severe Current Severity: Severe Pain Intensity: 8 Pain Scale Used: 0-10 Numeric Location: Extremities - right lower extremity Aggravating Factor(s): Movement Alleviating Factor(s): Nothing Associated Signs & Symptoms: Positive: Loss of Consciousness - possible. Negative: Fever - Additional Pertinent History Primary Care Physician: [id number] - Allergy/Home Medications Allergies/Adverse Reactions: Allergies Allergy/AdvReac Type Severity Reaction Status Date / Time celecoxib Allergy Mild Rash Verified 08/05/18 11:35 Beta-Blockers Allergy Dizziness Verified 08/05/18 11:35 (Beta-Adrenergic Bloc codeine Allergy Unknown Verified 08/05/18 11:35 Reaction Details Home Medications: Home Medications Prochlorperazine TAB* [Compazine Tab*] 5 mg PO Q6H PRN 11/20/18 [History Confirmed 11/20/18] PMH/Surg Hx/FS Hx/Imm Hx Previously Healthy: No Endocrine/Hematology History: Reports: Hx Anticoagulant Therapy - None current, Hx Thyroid Disease Denies: Hx Diabetes Cardiovascular History: Reports: Hx Hypercholesterolemia, Hx Hypertension, Hx Valvular Heart Disease - aortic and mitral valve disorder, Other Cardiovascular Problems/Disorders - A-FIB, RBBB Denies: Hx Angina, Hx Congestive Heart Failure, Hx Pacemaker/ICD Respiratory History: Denies: Hx Asthma, Other Respiratory Problems/Disorders GI History: Reports: Hx Ulcer - upper GI done 07/18 History: Reports: Hx Chronic Renal Failure - has fistula, never had dialysis Denies: Hx Renal Disease Musculoskeletal History: Reports: Hx Arthritis - left knee replacement march 2016 Sensory History: Reports: Hx Cataracts, Hx Contacts or Glasses Denies: Hx Hearing Aid Opthamlomology History: Reports: Hx Cataracts, Hx Contacts or Glasses Neurological History: Denies: Other Neuro Impairments/Disorders Psychiatric History: Denies: Hx Panic Disorder - Cancer History Hx Chemotherapy: No Hx Radiation Therapy: No Hx Palliative Cancer Treatment: No - Surgical History Surgery Procedure, Year, and Place: BILATERAL CATARACT REMOVAL/[place] SURGERY Hx Anesthesia Reactions: No Infectious Disease History: No Infectious Disease History: Denies: Hx Clostridium Difficile, Hx Hepatitis, Hx Human Immunodeficiency Virus (HIV), Hx of Known/Suspected MRSA, Hx Shingles, Hx Tuberculosis, Hx Known/ Suspected VRE, Hx Known/Suspected VRSA, History Other Infectious Disease, Traveled Outside the [place] in Last 30 Days - Family History Known Family History: Positive: Cardiac Disease - Social History Occupation: Retired Lives: Alone Alcohol Use: None Substance Use Type: Reports: None Smoking Status (MU): Never Smoked Tobacco Have You Smoked in the Last Year: No Review of Systems Negative: Fever ENT: Negative Respiratory: Negative Gastrointestinal: Negative Positive: Arthralgia - right hip pain, ankle pain, Myalgia - right lower extremity pain Neurological: Other - positive: possible LOC All Other Systems Reviewed And Are Negative: Yes Physical Exam - Summary Physical Exam Summary: Vital Signs Reviewed: Yes A+Ox3, no distress Eyes: Conjunctiva Clear, TIMMY. EOM intact and full ENT: Hearing grossly normal TM x 2 clear, mmoist, uvula midline, no exudate, no erythema Neck: Positive: Supple Respiratory: Positive: No respiratory distress, No accessory muscle use + CTA throughout no w/r Cardiovascular: IRR nl s1, s2 no m/r CBT <2 sec foot warm abd soft + BS nt/nd no guarding, no distension. easily reducible umbilical hernia Musculoskeletal Exam: upper ext without deformity, pain - good ROM RLE slightly short, externally rotated Pain with palp along femur. No knee pain. no tib/fib pain + flextext ankle- not full - with discomfort in mid Neurological: Positive: Alert, + sensation throughout + movement left foot Psychological: Positive: Normal Response To Family Skin: Positive: no rash, no ecchymosis Triage Information Reviewed: Yes Vital Signs On Initial Exam: Initial Vitals Temp Pulse Resp BP Pulse Ox 96.5 F 57 18 124/52 100 11/20/18 10:25 11/20/18 10:25 11/20/18 10:25 11/20/18 10:25 11/20/18 10:25 Diagnostics - Vital Signs Vital Signs Temp Pulse Resp BP Pulse Ox 11/20/18 10:25 96.5 F 57 18 124/52 100 - Laboratory Result Diagrams: 11/20/18 11:59 11/20/18 11:59 Lab Statement: Any lab studies that have been ordered have been reviewed, and results considered in the medical decision making process. - Radiology CXR Radiology Interpretation Completed By: Radiologist Summary of Radiographic Findings: CARDIOMEGALY. INTERSTITIAL EDEMA WITH SUGGESTION OF LEFT PLEURAL EFFUSION. ED physician has reviewed this imaging report. femur x-ray Radiology Interpretation Completed By: Radiologist Summary of Radiographic Findings: Basicervical fracture on the RIGHT femoral neck with varus angulation. ED physician has reviewed this imaging report. hip/pelvis x-ray Radiology Interpretation Completed By: Radiologist Summary of Radiographic Findings: Basicervical fracture on the RIGHT femoral neck with varus angulation. ED physician has reviewed this imaging report. - CT cervical spine CT Interpretation Completed By: Radiologist Summary of CT Findings: Multilevel degenerative disc disease without evidence of fracture. ED physician has reviewed this imaging report. Brain CT Interpretation Completed By: Radiologist Summary of CT Findings: NO EVIDENCE FOR ACUTE INTRACRANIAL ABNORMALITY. ED physician has reviewed this imaging report. - EKG 11:28 Cardiac Rate: Other Rate - Atrial fibrillation at 61 bpm EKG Rhythm: Atrial Fibrillation Summary of EKG Findings: Atrial fibrillation at 61 bpm, RBBB, no change from August 2016. Re-Evaluation - Re-Evaluation First Eval Re-Evaluation Time: 12:15 Change: Improved Comment: Morphine helped, the patient's CTs were negative and is getting x-rays done. Second Eval Re-Evaluation Time: 12:38 Change: Improved Comment: discussed results. pain is well controlled. will put catheter in. Third Eval Re-Evaluation Time: 13:00 Adult Trauma Course/Dx - Course Course Of Treatment: Pt presents s/p fall at home - pt unsure why fell - walked into porch and found self on ground. Pt states may have passed out. Pt with right femur pain - unable to bear weight, move. Denies paresthesia. VSs. Pt with obvious discomfort RLE - distal CSM intact. Neurologic intact. Will check labs, EKG, head CT, C spine CT for fall. hip xray. analgesia. pt in agreement with plan - Diagnoses Provider Diagnoses: Femoral neck fracture, Fall, Syncope - Physician Notifications Time Discussed With Above Provider: 12:51 - Dr Torres - will see pt - Critical Care Time Critical Care Time: 30-74 min Discharge - Sign-Out/Discharge Documenting (check all that apply): Patient Departure Patient Received Moderate/Deep Sedation with Procedure: No - Discharge Plan Condition: Good Disposition: ADMITTED TO [facility] - Billing Disposition and Condition Condition: GOOD Disposition: Admitted to [facility] - Attestation Statements Document Initiated by Scribe: Yes Documenting Scribe: Finn Godoy Provider For Whom Scribe is Documenting (Include Credential): Bibiana Beasley MD Scribe Attestation: I, Finn Godoy, scribed for Bibiana Beasley MD on 11/20/18 at 1740. Scribe Documentation Reviewed: Yes Provider Attestation: The documentation as recorded by the Finn churchill accurately reflects the service I personally performed and the decisions made by me, Bibiana Beasley MD Status of Scribe Document: Viewed
[2018-11-20] MEDS ORDERED: NS 0.9% 1000 ML** 1,000 ML IV ONE (11:01)
[2018-11-20] MEDS ORDERED: Morphine 4 MG/ML VIAL (1 ml) 4 MG/ML VIAL IV ONE (11:03)
[2018-11-20] MEDS ORDERED: Ondansetron INJ* 2 MG/ML VIAL IV ONE (11:03)
[2018-11-20 12:20] LABS: ABS Basophils 0.1 10^3/ul (0-0.2); ABS Eosinophils 0.1 10^3/ul (0-0.6); ABS Lymphocytes 0.5 10^3/ul (1.0-4.8); ABS Monocytes 0.4 10^3/ul (0-0.8); ABS Neutrophils 6.7 10^3/ul (1.5-7.7); Eosinophil % 0.7 %; Hematocrit 35 % (35-47); Hemoglobin 11.6 g/dL (12.0-16.0); Lymphocyte % 6.8 %; Mean Corpuscular HGB Conc 34 g/dL (31-36); Mean Corpuscular Hemoglobin 31 pg (27-31); Mean Corpuscular Volume 93 fL (80-97); Mean Platelet Volume 7.3 fL (7.4-10.4); Platelet Count 167 10^3/uL (150-450); Red Blood Count 3.73 10^6 /uL (3.70-4.87); Red Cell Distribution Width 16 % (10.5-15); White Blood Count 7.7 10^3/uL (3.5-10.8)
[2018-11-20 12:27] LABS: INR 1.03 (0.82-1.09)
[2018-11-20 12:37] LABS: Albumin 4.2 g/dL (3.2-5.2); Albumin/Globulin Ratio 1.6 (1-3); BUN/Creatinine Ratio 8.8 (8-20); Calcium 9.3 mg/dL (8.6-10.3); EGFR African American 10.9 (>60); Globulin 2.7 g/dL (2-4); Magnesium 2.3 mg/dL (1.9-2.7); Potassium 3.5 mmol/L (3.5-5.0); Total Bilirubin 0.7 mg/dL (0.2-1.0); Total Protein 6.9 g/dL (6.4-8.9)
[2018-11-20] MEDS ORDERED: Docusate CAP* 100 MG PO PRN (15:16)
[2018-11-20] MEDS ORDERED: Senna TAB PO PRN (15:22)
[2018-11-20] MEDS ORDERED: Metolazone TAB* 5 MG PO PRN (15:22)
[2018-11-20] MEDS ORDERED: Morphine INJ* 2 MG/ML 1 ML SYRINGE (TWO MG - NEW SYRINGE VERSION) IV PRN (15:30)
[2018-11-20] MEDS ORDERED: Cyclobenzaprine TAB* 10 MG PO PRN (15:37)
--- NOTE | 2018-11-20 16:36 | CONS ---
CONSULTATION REPORT: DATE OF CONSULT: 11/20/18 ATTENDING ORTHOPEDIC PROVIDER: Dr. Ricardo Pedersen. CHIEF COMPLAINT: Right hip pain. HISTORY OF PRESENT ILLNESS: The patient is an 83-year-old female who presented to the emergency room after a fall at home, landing on her right hip. Her past medical history is significant for history of GI bleed; atrial fibrillation, not on any anticoagulation due to history of GI bleed; hypertension; aortic stenosis; dialysis at [facility] Tuesdays, and Saturdays. The patient states that fall occurred at her residence where she lives alone while she was walking with her walker. She does not recall tripping, dizziness , lightheadedness, chest pain or shortness of breath. She simply fell to the ground without warning landing on her right hip. She did not hit her head or lose consciousness. She reports no other injuries. She has a Life Alert and was able to call for help. Pain is localized to her right hip. It is sharp in nature, better with rest, worse with any movement of the right hip. She has no history of heart attack, stroke, or blood clot. She has no history of adverse reactions from anesthesia. PAST MEDICAL HISTORY: GI bleed; atrial fibrillation; hypertension; aortic stenosis; dialysis Tuesdays, , Saturdays. PAST SURGICAL HISTORY: Left total knee replacement. HOME MEDICATIONS: ALLERGIES: Include CELEBREX and BETA BLOCKERS. FAMILY HISTORY: No family history of adverse effects of anesthesia. SOCIAL HISTORY: The patient lives alone and cares for herself. Within her home , she walks by keeping balance on her furniture. Outside of the home, she uses a cane or a walker. She does not drink alcohol, smoke or use illicit drugs. REVIEW OF SYSTEMS: General: Negative for recent illness, fever or chills. HEENT: Negative for any acute change in vision, headache, or head trauma. Cardio: Denies chest pain or history of [place]. Confirms history of AFib as well as aortic stenosis with audible heart murmur. Respiratory: No shortness of breath or cough. Abdomen: No abdominal pain, nausea, vomiting or diarrhea. : No dysuria. Musculoskeletal: Positive for right hip pain. Neuro: Sensation is intact throughout all extremities. Patient does not report any numbness or paresthesias. Hematology: No history of blood clots. Skin: Reports skinning her right elbow. No other lesions or rash. PHYSICAL EXAM: Vital Signs: Temperature 97.5, pulse rate 59, respiratory rate 16, oxygen saturation 97 on room air, blood pressure 115/59. General: The patient appears well. She is in no acute distress. She is alert and oriented to person, place and time. HEENT: Normocephalic, atraumatic. Extraocular movements intact. Moist mucous membranes. Cardio: S1, S2. Audible systolic murmur. Respiratory: Clear to auscultation bilaterally without wheezes, rales or rhonchi. Abdomen: Bowel sounds are normoactive, nontender to palpation without guarding or rigidity. Musculoskeletal: Bilateral upper extremities: The skin envelope is intact. There is no obvious deformity, nontender to palpation. Nonpainful active flexion, extension of digits, wrist, elbows and forward flexion of shoulders. Lower extremities: Left lower extremity, skin envelope is intact . No obvious bony deformity, nontender to palpation. Active nonpainful flexion, extension of digits, ankle, knee and hip. Negative for log roll at the right hip. Right lower extremity, skin envelope is intact. Lower extremity is externally rotated and shortened. She is tender to palpation over the right hip. She is nontender otherwise from mid femur distally. She is able to flex and extend at the ankle and digits without pain. Any knee or hip movement produces pain in the hip. Neuro: Sensation is intact to light tough throughout bilateral upper and lower extremities. Vascular: DP pulses 2+ bilaterally. Capillary refill less than 2 seconds distally and bilateral upper and lower extremities. Psych: Appropriate affect. Skin: Small abrasion over the right elbow. DIAGNOSTIC STUDIES: Right hip, pelvis x-ray: Basicervical fracture of the right femoral neck with varus angulation. ASSESSMENT: Right femoral neck fracture. PLAN: The patient needs a CBC, BMP, type and screen and INR prior to surgery. She will need to have a hemiarthroplasty of her right hip. She should be on bedrest, nonweightbearing of her right lower extremity. The patient is aware and agreeable to right hip hemiarthroplasty as soon as she is medically optimized. Dr. Pedersen will see the patient this evening. She should use SCDs. She should be n.p.o. at midnight for potential surgery on 11/21/18 and also hold chemical DVT prophylaxis after midnight with anticipation of potential surgery tomorrow. VIRAL CHUN [id number]/[facility] #: [id number] [facility] HEALTHLin
[2018-11-20 20:17] LABS: Urine Appearance Cloudy; Urine Bacteria 3+ (Absent); Urine Bilirubin Negative (Negative); Urine Blood 2+ (Negative); Urine Color Yellow; Urine Glucose Negative (Negative); Urine Ketones Negative (Negative); Urine Nitrite Negative (Negative); Urine Protein 2+(100 mg/dL) (Negative); Urine Red Blood Cell 3+(>10/hpf) (Absent); Urine Specific Gravity 1.012 (1.010-1.030); Urine Squamous Epithelial Cell Present (Absent); Urine Urobilinogen Negative (Negative); Urine White Blood Cell 1+(6-10/hpf) (Absent)
--- NOTE | 2018-11-20 21:34 | HP ---
CC: Dr. Brown* HISTORY AND PHYSICAL: DATE OF ADMISSION: 11/20/18 PROVIDER: Sharon Ortiz NP. PRIMARY CARE PROVIDER: Dr. Brown. ATTENDING PHYSICIAN WHILE IN THE HOSPITAL: Dr. Kate Zapata* (dictated by Sharon Ortiz NP). CHIEF COMPLAINT: Fall. HISTORY OF PRESENT ILLNESS: Ms. Manning is an 83-year-old female with a past medical history significant for amhglxtx-nl-vhsndh aortic stenosis, atrial fibrillation, hypertension, stage 5 kidney disease; on hemodialysis, hypothyroid , hyperlipidemia, obstructive sleep apnea, osteoporosis, and recent history of GI bleed in August 2018 who presented to the emergency room after a fall complaining of right hip pain. The patient reports that she walked to her paper box and retrieved her paper and she was walking back onto her porch. She reports that she set her paper on the steps and then was reaching behind her for her chair and her chair was not there. The next thing she remembers is that she was on the ground and had severe pain in her right hip. She does report that she fell on her right side. The patient does report that prior to her fall today she has had right hip pain for approximately 1 week. She denied any dizziness. Denied any loss of consciousness. Denied any neck pain. While in the emergency room, the patient had routine lab work drawn and x-rays. She was found to have a basicervical fracture of the right femoral neck with valgus angulation. Due to her right hip fracture, we were asked to see and evaluate the patient for admission. PAST MEDICAL HISTORY: Significant for: 1. Lmgiutiz-js-jvntbb aortic stenosis. 2. Atrial fibrillation, not on anticoagulation, stopped Coumadin in August 2018. 3. Hypertension. 4. Chronic kidney disease stage 5, on hemodialysis, Sunday, , Sunday. 5. Hypothyroid. 6. Hyperlipidemia. 7. Obstructive sleep apnea. 8. Osteoporosis. 9. History of GI bleed in August 2018. PAST SURGICAL HISTORY: 1. AV fistula on the left. 2. Left total knee arthroplasty. HOME MEDICATIONS: 1. Vitamin D 2000 units p.o. daily. 2. Compazine 5 mg p.o. q.6 hours as needed. 3. Colace 100 mg p.o. b.i.d. p.r.n. 4. Acetaminophen 325 mg p.o. at bedtime p.r.n. 5. Diltiazem 240 mg p.o. daily. 6. Senna 1 tab p.o. p.r.n. 7. Omeprazole 20 mg p.o. daily. 8. Levothyroxine 50 mcg p.o. daily. 9. Gabapentin 100 mg p.o. b.i.d. 10. Furosemide 40 mg p.o. b.i.d. 11. Metolazone 2.5 mg p.o. daily p.r.n. ALLERGIES: She has an allergy to BETA BLOCKERS, CODEINE, CELECOXIB. FAMILY HISTORY: Father with an MN at age 68. No reported history of diabetes. Mother with history of breast cancer. SOCIAL HISTORY: The patient denies any tobacco, alcohol, or illicit drug use. She lives alone. Surrogate decision maker in the event she is unable to make her own decisions is her son, Celio. She is a full code. REVIEW OF SYSTEMS: She denies any fevers, chills, unintended weight loss. Denies any chest pain or edema, cough, hemoptysis, or shortness of breath. No nausea, vomiting, diarrhea, or abdominal pain. She denies any gross hematuria, dysuria, focal weakness, or sensory loss. Denies any visual complaints or dysphasia. She does complain of right hip pain. She denies any rashes. She does have an abrasion noted to her right elbow. No psychosis or anxiety. PHYSICAL EXAMINATION GENERAL: At this time, Ms. Manning is an 83-year-old female. She is alert and oriented x3, resting on the stretcher in the emergency room. She is in no acute distress. VITAL SIGNS: Blood pressure 115/59, heart rate 62, respirations are 20, O2 saturation 96%, temperature was 97.6. HEENT: Head is atraumatic, normocephalic. Eyes: EOMs are intact. Sclerae anicteric and not pale. Oral mucosa appeared to be moist. NECK: Supple. She has no C-spine tenderness to palpation. LUNGS: Clear to auscultation bilaterally. No wheezes, rales, or rhonchi. CARDIAC: S1, S2. She does have a murmur. No rubs or gallops. She does have an irregular rhythm. ABDOMEN: Soft, nontender. Bowel sounds are present x4. EXTREMITIES: She does have pain with palpation to the right hip. She also has an abrasion noted to the left elbow. Pedal pulses are +2 bilaterally. Sensation is intact to all extremities. NEUROLOGIC: The patient is awake, alert, oriented x3. Speech is clear. Thought process is intact. There are no gross focal deficits. Cranial nerves II through XII are grossly intact. SKIN: She has an abrasion noted to her right elbow. LABORATORY DATA AND DIAGNOSTIC STUDIES: WBCs are 7.7, RBCs 3.73, hemoglobin 11.6, hematocrit is 35, platelet count 167. INR is 1.03. Sodium 137, potassium 3.5, chloride 100, carbon dioxide is 25, anion gap is 12, BUN was 41, creatinine 4.65, glucose was 149. ASTs were 17, ALTs were 12, alkaline phosphatase was 137. Urine is currently pending. She had a CT of the brain, radiologist's impression: No acute intracranial pathology. She had a CT of the cervical spine, radiologist's impression: Multilevel degenerative disk disease without evidence of fracture. She had a chest x-ray, radiologist's impression: Cardiomegaly, interstitial edema with suggestion of left pleural effusion. The patient was noted to have basicervical fracture of the right femoral neck with valgus angulation. She had a hip and pelvis x-ray, which showed the fracture of the right femoral neck. She had an electrocardiogram, which showed atrial fibrillation with a right bundle- branch block at a rate of 61. ASSESSMENT AND PLAN: Ms. Manning is an 83-year-old female with a past medical history significant for frenxmga-ww-akdwgi aortic stenosis, atrial fibrillation , hypertension, chronic kidney disease stage 5; on hemodialysis, hypothyroid, hyperlipidemia, and history of recent gastrointestinal bleed who presented to the emergency room after a fall and was found to have a right hip fracture. She will be admitted inpatient for: 1. Status post fall, right hip pain. The patient does have a right hip fracture after her fall. I suspect this is the reason for her pain. Orthopedics was consulted and saw the patient in the emergency room. She will go to the OR tomorrow for surgery. The patient has a known history of aortic stenosis. Her last echocardiogram was from 06/03/18. At that time, she had normal global wall motion, EF was 50% to 55%. The right atrial cavity is moderately to severely dilated. She had Doppler evidence of grade 3 diastolic dysfunction. The right ventricular cavity is mildly dilated, moderate aortic valve stenosis, [place] mitral valve grade 1 regurgitation, moderately restricted mitral valve leaflets, mild mitral valve stenosis, moderate pulmonary hypertension, pulmonic valve with mild regurgitation, aortic root was normal. The patient has an average risk of serious complication of 12.6%, any complication of 13.3, risk of pneumonia is 1.9%, cardiac complication 2.6%, is 3.2%, return to the OR 2.6%, readmission is 11.4%, discharge to residential or rehab facility is 66%. Given the patient's chronic conditions, the patient will be at high risk of surgical intervention of her right hip. I would recommend that the patient have dialysis prior to her surgery. This is scheduled for tomorrow morning. Surgery is again scheduled at 1 p.m. I would use caution in giving the patient IV fluids as she is currently on hemodialysis and has a history of dgwpoafy-hc-qpauus aortic stenosis and atrial fibrillation. 2. End-stage renal disease. The patient should have hemodialysis tomorrow morning prior to her surgical intervention for her right hip fracture. 3. Atrial fibrillation. The patient is currently not on anticoagulation for her atrial fibrillation as she did have a recent gastrointestinal bleed in August 2018 and was taken off anticoagulation at that time. I would recommend that we continue her home medication as previously prescribed, metoprolol 12.5 mg. 4. Hypertension. The patient should continue on home hypertension medications as previously prescribed. 5. History of gastrointestinal bleed. The patient does have a history of gastrointestinal bleed. She denies any black or tarry stools at this time. She denies any vomiting of blood. I would proceed with caution due to recent gastrointestinal bleed with anticoagulation. 6. FEN. The patient can have a heart-healthy, caffeine-okay diet. 7. Code status. She is a full code. 8. DVT prophylaxis. I will place her on heparin subcu with holding after midnight. 9. Disposition. The patient will be placed inpatient on short-stay surgical on telemetry. TIME SPENT: Time spent on this admission was approximately 60 minutes, greater than half that time was spent at the bedside reviewing events leading thus far to her hospitalization, performing my physical exam, reviewing my plan of care. I have discussed this with my attending, Dr. Kate Zapata; she is in agreement with my plan. SHARON ORTIZ, TICKET PULLER [id number]/[facility] #: [id number] [facility]IT[facility]in
[2018-11-20] MEDS ORDERED: Heparin VIAL(*) 5000 UNITS/ML VIAL (FIVE THOUSAND) SUBCUT SCH (22:00)
[2018-11-20] MEDS: Gabapentin CAP(*) 100 MG PO SCH (22:32)
[2018-11-20] MEDS: Furosemide TAB* 40 MG PO SCH (22:33)
[2018-11-21 00:27] LABS: TSH (Thyroid Stimulating Horm) 2.16 mcIU/mL (0.34-5.60)
[2018-11-21] MEDS: Levothyroxine TAB* 50 MCG TAB PO SCH (05:19)
[2018-11-21 05:49] LABS: ABS Eosinophils 0.1 10^3/ul (0-0.6); ABS Lymphocytes 0.8 10^3/ul (1.0-4.8); ABS Monocytes 0.5 10^3/ul (0-0.8); ABS Neutrophils 6.3 10^3/ul (1.5-7.7); Eosinophil % 1.3 %; Hematocrit 32 % (35-47); Hemoglobin 10.7 g/dL (12.0-16.0); Lymphocyte % 9.6 %; Mean Corpuscular HGB Conc 33 g/dL (31-36); Mean Corpuscular Hemoglobin 31 pg (27-31); Mean Corpuscular Volume 93 fL (80-97); Mean Platelet Volume 7.3 fL (7.4-10.4); Platelet Count 153 10^3/uL (150-450); Red Blood Count 3.46 10^6 /uL (3.70-4.87); Red Cell Distribution Width 16 % (10.5-15); White Blood Count 7.8 10^3/uL (3.5-10.8)
[2018-11-21 06:05] LABS: BUN/Creatinine Ratio 8.7 (8-20); EGFR African American 8.9 (>60); EGFR Non-African American 7.4 (>60); Potassium 4.3 mmol/L (3.5-5.0)
[2018-11-21 06:11] LABS: INR 0.98 (0.82-1.09)
[2018-11-21] MEDS ORDERED: Diltiazem CD CAP* 240 MG PO SCH (09:00)
[2018-11-21] MEDS ORDERED: EPOETIN ALFA-EPBX * 3,000 UNIT/ML VIAL IV ONE (09:00)
[2018-11-21 10:25] LABS: Hepatitis B Surface Antigen Nonreactive (Nonreactive)
[2018-11-21] MEDS: Cholecalciferol TAB* 1000 UNITS PO SCH (10:47)
[2018-11-21] MEDS: Diltiazem CD CAP* 120 MG PO SCH (10:47)
[2018-11-21] MEDS: Furosemide TAB* 40 MG PO SCH ×2 (10:47→21:14)
[2018-11-21] MEDS: Gabapentin CAP(*) 100 MG PO SCH ×2 (10:48→21:14)
[2018-11-21] MEDS: Pantoprazole TAB * 40 MG TAB PO SCH (10:48)
[2018-11-21] MEDS: cefTRIAXone(*) 1 GM in NS 0.9% 50 ML* 50 ML IVPB SCH (12:05)
[2018-11-21] MEDS ORDERED: fentaNYL* 50 MCG/ML 2 ML VIAL (100 MCG VIAL) ONE (12:50)
[2018-11-21] MEDS ORDERED: HYDROmorphone INJ1* 1 MG/ML SYRINGE ONE (12:50)
[2018-11-21] MEDS ORDERED: Rocuronium* 10 MG/ML VIAL ONE (12:50)
[2018-11-21] MEDS ORDERED: Midazolam* 1 MG/ML 2 ML VIAL (2 MG) ONE (12:50)
[2018-11-21] MEDS ORDERED: Etomidate* 2 MG/ML 10 ML VIAL ONE (12:50)
[2018-11-21] MEDS ORDERED: Lidocaine 2% PF * 5 ML VIAL ONE (12:51)
[2018-11-21] MEDS ORDERED: Phenylephrine 10 MG/ML VIAL* 1 ML VIAL ONE (12:53)
[2018-11-21] MEDS ORDERED: Phenylephrine 40 MCG/ML SYRINGE ONE (12:53)
--- NOTE | 2018-11-21 12:54 | PN ---
PROGRESS NOTE/DIALYSIS NOTE: DATE OF SERVICE: 11/21/18 Please note, this is a brief dialysis note. SUBJECTIVE: The patient was seen and examined during dialysis. The patient tolerating the procedure well. Her usual prescription is being used. Vitals and labs have been reviewed. PHYSICAL EXAM: HEENT: NCAT. Heart: S1, S2 present, regular at time of exam. Lungs: Decreased breath sounds bilaterally. Abdomen: Soft. Extremities: Noted to have some edema. Neuro: Alert, oriented. ASSESSMENT AND PLAN: The patient tolerating her dialysis session well with no problems. The patient is scheduled for surgery around 1 p.m. today. The patient is usually a Sunday, , Sunday dialysis patient. As we do not have acute dialysis in the hospital on Sunday, we will evaluate her clinical status tomorrow to decide if she needs additional HD session tomorrow after her surgery. [id number]/[facility] #: [id number] MTDD
[2018-11-21 13:40] LABS: Hematocrit 34 % (35-47); Hemoglobin 11.4 g/dL (12.0-16.0); Mean Corpuscular HGB Conc 34 g/dL (31-36); Mean Corpuscular Hemoglobin 31 pg (27-31); Mean Corpuscular Volume 92 fL (80-97); Platelet Count 153 10^3/uL (150-450); Red Blood Count 3.69 10^6 /uL (3.70-4.87); Red Cell Distribution Width 16 % (10.5-15); White Blood Count 8.6 10^3/uL (3.5-10.8)
[2018-11-21] MEDS ORDERED: Buffered Lidocaine 1% SYRIN* 1 ML/SYRINGE INTRADERM ONE (13:44)
[2018-11-21 13:56] LABS: BUN/Creatinine Ratio 6.9 (8-20); Calcium 9.4 mg/dL (8.6-10.3); EGFR African American 21.4 (>60); EGFR Non-African American 17.7 (>60); Potassium 3.7 mmol/L (3.5-5.0)
[2018-11-21] MEDS ORDERED: ceFAZolin 2 GM PREMIX in ORs 2 GM/50 ML BAG IVPB ONE (13:56)
[2018-11-21] MEDS ORDERED: Bupivacaine 0.25% EPI 200,000* 30 ML SDV ONE (14:57)
[2018-11-21] MEDS ORDERED: Metoclopramide IV* 5 MG/ML 2 ML VIAL ONE (15:34)
[2018-11-21] MEDS ORDERED: Ondansetron INJ* 2 MG/ML VIAL ONE (15:56)
[2018-11-21] MEDS ORDERED: Sugammadex * 200 MG/2 ML VIAL IV PUSH ONE (16:00)
[2018-11-21] MEDS ORDERED: fentaNYL* 50 MCG/ML 2 ML VIAL (100 MCG VIAL) IV PRN (17:10)
[2018-11-21] MEDS ORDERED: DiMENhydriNATE IV* 50 MG/ML VIAL IV PUSH PRN (17:10)
[2018-11-21] MEDS ORDERED: Acetaminophen IV 1GM/100ML * 1,000 MG/100 ML VIAL IVPB ONE (17:10)
[2018-11-21] MEDS ORDERED: Naloxone* 0.4 MG/ML 1 ML VIAL IV PRN (17:10)
--- NOTE | 2018-11-21 17:54 | PN ---
Subjective Date of Service: 11/21/18 Interval History: Patient seen and examined in PACU. Post-anesthesia, very lethargic, family at bedside. Wakes to tactile stimulation. VS stable. Per ortho service, no acute intraoperative events. Received 1500ml IVF during procedure, blood loss minimal. Objective Active Medications: Cholecalciferol (Vitamin D Tab*) 2,000 units PO DAILY [facility] Last Admin: 11/21/18 10:47 Dose: Not Given Cyclobenzaprine HCl (Flexeril Tab*) 10 mg PO Q12H PRN PRN Reason: SPASMS Diltiazem HCl (Cardizem Cd Cap*) 120 mg PO DAILY [facility] Last Admin: 11/21/18 10:47 Dose: Not Given Dimenhydrinate (Dramamine Iv*) 25 mg IV PUSH ONCE PRN PRN Reason: NAUSEA/VOMITING Docusate Sodium (Colace Cap*) 100 mg PO BID PRN PRN Reason: CONSTIPATION Fentanyl Citrate (Fentanyl*) 25 mcg IV Q2M PRN PRN Reason: PAIN - MODERATE Furosemide (Lasix Tab*) 40 mg PO BID [facility] Last Admin: 11/21/18 10:47 Dose: Not Given Gabapentin (Neurontin Cap(*)) 100 mg PO BID [facility] Last Admin: 11/21/18 10:48 Dose: Not Given Ceftriaxone Sodium 1 gm/ (Sodium Chloride) 50 mls @ 200 mls/hr IVPB Q24H [facility] Last Admin: 11/21/18 12:05 Dose: 200 mls/hr Levothyroxine Sodium (Synthroid Tab*) 50 mcg PO DAILY@0600 [facility] Last Admin: 11/21/18 05:19 Dose: 50 mcg Metolazone (Zaroxolyn Tab*) 2.5 mg PO DAILY PRN PRN Reason: edema Morphine Sulfate (Morphine Inj (Syringe))*) 1 mg IV Q4H PRN PRN Reason: PAIN Last Admin: 11/20/18 17:16 Dose: 1 mg Naloxone HCl (Narcan*) 0.08 mg IV Q2M PRN PRN Reason: severe induced resp depression Pantoprazole Sodium (Protonix Tab*) 40 mg PO DAILY [facility] Last Admin: 11/21/18 10:48 Dose: Not Given Senna (Senokot Tab*) 1 tab PO DAILY PRN PRN Reason: CONSTIPATION Vital Signs - 8 hr 11/21/18 12:13 Temperature 97.9 F Pulse Rate 55 Respiratory 16 Rate Blood Pressure 107/44 (mmHg) O2 Sat by Pulse 95 Oximetry Oxygen Devices in Use Now: Simple Face Mask Appearance: drowsy, NAD Eyes: No Scleral Icterus, PERRLA Ears/Nose/Mouth/Throat: - - dry oral mucosa Neck: NL Appearance and Movements; NL JVP, Trachea Midline Respiratory: Symmetrical Chest Expansion and Respiratory Effort, Clear to Auscultation Cardiovascular: NL Sounds; No Murmurs; No JVD, RRR, No Edema Abdominal: NL Sounds; No Tenderness; No Distention, - - hypoactive BS Extremities: - - hip precautions, wedge in place Skin: No Rash or Ulcers Neurological: - - post-anesthesia state Result Diagrams: 11/21/18 12:40 11/21/18 12:40 Microbiology and Other Data: Microbiology 11/20/18 20:00 Urine Culture - Preliminary Urine Escherichia Coli Assess/Plan/Problems-Billing Assessment: This is an 83 year old female with hx of ESRD on HD T//Sun, , afib, HTN, ASHOK that presented to ER with mechanical fall and hip pain found to have right femoral neck fracture. - Patient Problems (1) Fracture of femoral neck, right Code(s): S72.001A - FRACTURE OF UNSP PART OF NECK OF RIGHT FEMUR, INIT SNOMED Code(s): 2895242 Comment: - POD0 ORIF, POC as per ortho - Hip precautions - Pain control, DVT prophy with heparin (GI bleed on coumadin, and patient on dialysis) - Bowel regimen (2) Afib Code(s): I48.91 - UNSPECIFIED ATRIAL FIBRILLATION SNOMED Code(s): 55465040 Comment: - Recent GI bleed on coumadin - Irregular, rate controlled on diltiazem - continue telemetry (3) Hypothyroidism Code(s): E03.9 - HYPOTHYROIDISM, UNSPECIFIED SNOMED Code(s): 41825587 Comment: - Levothyroxine daily (4) Moderate aortic stenosis Code(s): I35.0 - NONRHEUMATIC AORTIC (VALVE) STENOSIS SNOMED Code(s): 99553010 Comment: - continue lasix BID - continue telemetry (5) ESRD (end stage renal disease) Code(s): N18.6 - END STAGE RENAL DISEASE SNOMED Code(s): 06632507 Comment: - HD on //Sun - Had pre-op dialysis today, will be put on dialysis schedule for tomorrow (no inpatient dialysis on the weekend) (6) DVT prophylaxis Code(s): RNE2650 - SNOMED Code(s): 834839669 Comment: - SCDs, heparin - Will have to discuss longer term AC with Nephrology for 30 days post surgery (7) Full code status Code(s): Z78.9 - OTHER SPECIFIED HEALTH STATUS SNOMED Code(s): 803435836 Status and Disposition: Inpatient, likely [facility] at discharge.
[2018-11-21] MEDS ORDERED: Acetaminophen IV 1GM/100ML * 100 ML ONE (18:35)
[2018-11-21] MEDS ORDERED: oxyCODONE TAB* 5 MG TAB PO PRN ×2 (19:44→19:53)
[2018-11-21] MEDS ORDERED: Ondansetron INJ* 2 MG/ML VIAL IV PRN (19:53)
[2018-11-21] MEDS ORDERED: NS 0.9% 1000 ML** 1,000 ML IV SCH (20:00)
--- NOTE | 2018-11-21 23:58 | OP ---
DATE OF OPERATION: 11/21/18 - ROOM #337 DATE OF : 35 ATTENDING SURGEON: Ricardo Pedersen MD SHAKER SCREEN OPERATOR: Karissa Pillai RPA ANESTHESIA: General endotracheal. PRE-OP DIAGNOSIS: Displaced right femoral neck fracture. POST-OP DIAGNOSIS: Displaced right femoral neck fracture. OPERATIVE PROCEDURE: Right hip hemiarthroplasty. ESTIMATED BLOOD LOSS: Less than 75 cc. COMPLICATIONS: None. HARDWARE: Anya #9 M/L Taper, -3.5 mm, 28 mm head, 47 mm bipolar head. SUMMARY: Ms. Manning is an 83-year-old female who has renal failure. She does do dialysis 3 times a week and who still lives at home. Yesterday, she had tripped, landing hard on her right side. She was unable to get up and was brought to the emergency room here at [facility] [place] [facility]. X-rays were taken which found a displaced right femoral neck fracture. She was admitted by the hospitalist service and coordination was made with dialysis service, so that she would have dialysis this morning and will be able to go to the OR this afternoon. She was declared medically optimized, but high risk for surgery. I discussed with Ms. Manning and her family that the usual risk of surgery such as infection, scar formation, stiffness, DVT, pulmonary embolism, leg length discrepancy and instability also applied, plus she had the added risks of her medical complications. Even though she was high risk, they all had wished to proceed. DESCRIPTION OF PROCEDURE: The patient was brought to the OR and an A-line was placed. General endotracheal anesthesia was then established. She was transferred to the OR table and then rolled into the left lateral decubitus position. Axillary roll was placed and she was adjusted on the bed and care was taken to make sure that she was nicely padded. Pegboard had been used underneath and pegs were placed to hold her in place. Right hip area was prepped and then draped. Skin over the incision layer was infiltrated using 0.5 % Marcaine with epinephrine and 15 cc will be used and an additional 15 cc will be used deeper in an about hip to help with postoperative pain control. Incision was carried down through the skin and subcutaneous tissues. Small bleeders encountered were ligated using electrocautery. Fascia laterally was exposed and then sharply incised. Charnley retractor was placed and nice exposure of the short external rotators was obtained. Hohmann had been placed under the gluteus medius/gluteus minimus. Using electro-cautery, short external rotators were taken down and hematoma was evident. Remnant of capsule that was still remaining on the back side of the femoral neck was taken off and taken down using electrocautery. Using a bone hook and pulling the femur forward, nice exposure of the fracture was obtained. Cork screw was placed into the femoral head and nice bites obtained. She had very good suction fit. She still had her labrum intact and the Skid was then used to remove the femoral head. Head measured 47 mm in diameter and this corresponded well as I had measured on the template on the x-rays for 45 mm. Acetabulum was repeatedly swept for loose bony pieces and several were found. Part of the pulvinar was taken down as it was bulging upwards into the acetabulum as well. Damp lap was then was placed into the acetabulum and nice exposure of the femoral neck was obtained. Cutting guide was placed and femoral neck was marked and then reciprocating saw was used to resect the jagged edge of the fractured neck. Box osteotome was then used open the femoral canal and the canal finder was easily passed. Beginning with a 4-broach, she was progressively broach and she seems to correspond well to templating where I attempted to template her to a 9. The 9 had really nice fit and she was then trialed with standard neck and +0 28 mm head and 47 mm bipolar head. She seemed little long and trialing with the -3.5 seemed to have much better fit and I could bring her into extension without the knee extending. She was exclusively stable as I could hyperflex her easily and she could be internally rotated past 60 degrees and still did not come out with the hip in neutral and even in full adduction and rotating to 60 degrees, she did not lever out. Hip was then eventually dislocated and the stem was still solid within the femoral canal. Stem was removed and hip was copiously pulse lavaged. Implants were brought on the table. 9 M/L Taper was then impacted in to place. Head was assembled on the taper beginning with a -3 mm 28 mm head, the polyethylene liner and then the 47 mm shell. This was then nicely located. Capsule and short external rotators were repaired together to the back side of the femur. Hip was again copiously pulse lavaged and fascia repaired was using interrupted #1 Vicryl sutures. Subcutaneous tissues were reapproximated using 2-0 Vicryl. Skin was closed using christie. Sterile dressing was applied. The patient was rolled on the hospital bed and extubated in the OR. She was then stable and transferred to the recovery room. [id number]/CPS #: [id number] MTDD
[2018-11-22] MEDS: Levothyroxine TAB* 50 MCG TAB PO SCH (05:26)
[2018-11-22 07:18] LABS: Hematocrit 31 % (35-47); Hemoglobin 10.4 g/dL (12.0-16.0); Mean Platelet Volume 7.3 fL (7.4-10.4); Platelet Count 130 10^3/uL (150-450)
[2018-11-22 07:23] LABS: BUN/Creatinine Ratio 7.5 (8-20); Calcium 8.4 mg/dL (8.6-10.3); EGFR Non-African American 11.6 (>60); Potassium 4.3 mmol/L (3.5-5.0)
[2018-11-22] MEDS: Furosemide TAB* 40 MG PO SCH ×2 (09:00→21:45)
[2018-11-22] MEDS ORDERED: EPOETIN ALFA-EPBX * 4,000 UNIT/ML VIAL IV ONE (11:00)
[2018-11-22] MEDS: cefTRIAXone(*) 1 GM in NS 0.9% 50 ML* 50 ML IVPB SCH (11:30)
[2018-11-22] MEDS ORDERED: Epoetin Alfa (NF) 3,000 UNITS/ML VIAL IV ONE (11:45)
--- NOTE | 2018-11-22 13:34 | PN ---
Progress Note - Progress Note Date of Service: 11/22/18 SOAP: Subjective: []Patient seen at bedside in dialysis, just finished. Minimal complaints of hip pain. Denies SOB, CP, nausea. Objective: [] Vital Signs Temp 100.1 F 11/22/18 07:35 Pulse 89 11/22/18 07:35 Resp 15 11/22/18 07:35 BP 108/38 11/22/18 07:35 Pulse Ox 99 11/22/18 07:35 Intake & Output 11/21/18 11/22/18 11/22/18 18:59 06:59 18:59 Intake Total 1875 150 794 Output Total 330 125 Balance 1545 25 794 Intake: IV Fluids 1620 794 NS 1520 794 NS 100ML, Cefazolin 2G 100 IVPB 55 Ceftriaxone 55 Oral 200 150 Output: Osullivan 180 125 Estimated Blood Loss 150 Other: # Bowel Movements 0 Laboratory Results - last 24 hr 11/21/18 11/21/18 11/22/18 12:40 12:40 06:56 WBC 8.6 RBC 3.69 L Hgb 11.4 L Hct 34 L MCV 92 MCH 31 MCHC 34 RDW 16 H Plt Count 153 MPV 7.0 L Sodium 133 L 132 L Potassium 3.7 4.3 Chloride 96 L 100 L Carbon Dioxide 28 22 Anion Gap 9 10 BUN 18 28 H Creatinine 2.59 H 3.73 H Est GFR ( Amer) 21.4 14.0 Est GFR (Non-Af Amer) 17.7 11.6 BUN/Creatinine Ratio 6.9 L 7.5 L Glucose 103 H 96 Calcium 9.4 8.4 L 11/22/18 06:56 WBC RBC Hgb 10.4 L Hct 31 L MCV MCH MCHC RDW Plt Count 130 L MPV 7.3 L Sodium Potassium Chloride Carbon Dioxide Anion Gap BUN Creatinine Est GFR ( Amer) Est GFR (Non-Af Amer) BUN/Creatinine Ratio Glucose Calcium Right hip dressing is dry and intact +DF right ankle sensation and circulation intact distally Assessment: []s/p right hip hemiarthroplasty for femoral neck fracture POD#1 Plan: []PT/OT WBAT RLE Posterior hip precautions Heparin as per medicine for DVT prophylaxis Dressing change 11/23
[2018-11-22] MEDS: Diltiazem CD CAP* 120 MG PO SCH (14:19)
[2018-11-22] MEDS: Cholecalciferol TAB* 1000 UNITS PO SCH (14:20)
[2018-11-22] MEDS: Heparin VIAL(*) 5000 UNITS/ML VIAL (FIVE THOUSAND) SUBCUT SCH ×2 (14:20→22:05)
[2018-11-22] MEDS: Gabapentin CAP(*) 100 MG PO SCH ×2 (14:20→22:29)
[2018-11-22] MEDS: Pantoprazole TAB * 40 MG TAB PO SCH (16:16)
--- NOTE | 2018-11-22 18:52 | PN ---
Subjective Date of Service: 11/22/18 Interval History: Patient seen and examined. No acute events today. Had dialysis this AM, tolerated well. Lasix held per RN for low BP after dialysis. No bowel movement for several days. States surgical pain well controlled. Objective Active Medications: Cholecalciferol (Vitamin D Tab*) 2,000 units PO DAILY [facility] Last Admin: 11/22/18 14:20 Dose: 2,000 units Cyclobenzaprine HCl (Flexeril Tab*) 10 mg PO Q12H PRN PRN Reason: SPASMS Last Admin: 11/22/18 14:21 Dose: 10 mg Diltiazem HCl (Cardizem Cd Cap*) 120 mg PO DAILY [facility] Last Admin: 11/22/18 14:19 Dose: 120 mg Docusate Sodium (Colace Cap*) 100 mg PO BID PRN PRN Reason: CONSTIPATION Last Admin: 11/22/18 14:19 Dose: 100 mg Furosemide (Lasix Tab*) 40 mg PO BID [facility] Last Admin: 11/22/18 09:00 Dose: Not Given Gabapentin (Neurontin Cap(*)) 100 mg PO BID [facility] Last Admin: 11/22/18 14:20 Dose: 100 mg Heparin Sodium (Porcine) (Heparin Vial(*)) 5,000 units SUBCUT Q8H [facility] Last Admin: 11/22/18 14:20 Dose: 5,000 units Ceftriaxone Sodium 1 gm/ (Sodium Chloride) 50 mls @ 200 mls/hr IVPB Q24H [facility] Last Admin: 11/22/18 11:30 Dose: 200 mls/hr Levothyroxine Sodium (Synthroid Tab*) 50 mcg PO DAILY@0600 [facility] Last Admin: 11/22/18 05:26 Dose: 50 mcg Metolazone (Zaroxolyn Tab*) 2.5 mg PO DAILY PRN PRN Reason: edema Morphine Sulfate (Morphine Inj (Syringe))*) 1 mg IV Q4H PRN PRN Reason: PAIN Last Admin: 11/20/18 17:16 Dose: 1 mg Ondansetron HCl (Zofran Inj*) 4 mg IV Q4H PRN PRN Reason: NAUSEA Oxycodone HCl (Roxycodone Tab*) 2.5 mg PO Q4H PRN PRN Reason: PAIN - MODERATE Oxycodone HCl (Roxycodone Tab*) 5 mg PO Q4H PRN PRN Reason: PAIN - SEVERE Pantoprazole Sodium (Protonix Tab*) 40 mg PO DAILY [facility] Last Admin: 11/22/18 16:16 Dose: 40 mg Senna (Senokot Tab*) 1 tab PO DAILY PRN PRN Reason: CONSTIPATION Vital Signs - 8 hr 11/22/18 11/22/18 11/22/18 14:20 14:21 15:10 Temperature 99.1 F Pulse Rate 94 Respiratory 20 20 16 Rate Blood Pressure 99/55 (mmHg) O2 Sat by Pulse 98 Oximetry 11/22/18 15:27 Temperature 99.1 F Pulse Rate 94 Respiratory 16 Rate Blood Pressure 99/55 (mmHg) O2 Sat by Pulse 98 Oximetry Oxygen Devices in Use Now: None Appearance: alert, NAD Eyes: No Scleral Icterus, PERRLA Ears/Nose/Mouth/Throat: NL Teeth, Lips, Gums, Mucous Membranes Moist Neck: NL Appearance and Movements; NL JVP, Trachea Midline Respiratory: Symmetrical Chest Expansion and Respiratory Effort, Clear to Auscultation Cardiovascular: NL Sounds; No Murmurs; No JVD - irregular, systolic murmur noted , No Edema, - Abdominal: NL Sounds; No Tenderness; No Distention Extremities: No Clubbing, Cyanosis - dressing CDI Skin: No Rash or Ulcers Neurological: Alert and Oriented x 3 Nutrition: Taking PO's Result Diagrams: 11/22/18 06:56 11/22/18 06:56 Microbiology and Other Data: Microbiology 11/20/18 20:00 Urine Culture - Preliminary Urine Escherichia Coli Assess/Plan/Problems-Billing Assessment: This is an 83 year old female with hx of ESRD on HD T//Sun, , afib, HTN, ASHOK that presented to ER with mechanical fall and hip pain found to have right femoral neck fracture. - Patient Problems (1) Fracture of femoral neck, right Code(s): S72.001A - FRACTURE OF UNSP PART OF NECK OF RIGHT FEMUR, INIT SNOMED Code(s): 7907553 Comment: - POD1 ORIF, POC as per ortho - Hip precautions - Pain control, DVT prophy with heparin (GI bleed on coumadin, and patient on dialysis) - Increase bowel regimen today (2) Afib Code(s): I48.91 - UNSPECIFIED ATRIAL FIBRILLATION SNOMED Code(s): 81710520 Comment: - Recent GI bleed on coumadin - Irregular, rate controlled on diltiazem - continue telemetry (3) Hypothyroidism Code(s): E03.9 - HYPOTHYROIDISM, UNSPECIFIED SNOMED Code(s): 45347692 Comment: - Levothyroxine daily (4) Moderate aortic stenosis Code(s): I35.0 - NONRHEUMATIC AORTIC (VALVE) STENOSIS SNOMED Code(s): 54781883 Comment: - continue lasix BID - continue telemetry (5) ESRD (end stage renal disease) Code(s): N18.6 - END STAGE RENAL DISEASE SNOMED Code(s): 98298843 Comment: - HD on T//Sun - Had dialysis and Sunday (normally T//Sun) - Will defer to nephrology for continued ESRD management, currently stable (6) DVT prophylaxis Code(s): POE1877 - SNOMED Code(s): 085974730 Comment: - SCDs, heparin - Will have to discuss longer term AC with Nephrology for 30 days post surgery and ongoing for afib given recent GI bleed (7) Full code status Code(s): Z78.9 - OTHER SPECIFIED HEALTH STATUS SNOMED Code(s): 917569144 Status and Disposition: Inpatient, likely [facility] at discharge, referral made for PMRU.
[2018-11-22] MEDS ORDERED: NS 0.9% 1000 ML** 1,000 ML IV ONE (20:28)
[2018-11-22 20:54] LABS: ABS Lymphocytes 0.7 10^3/ul (1.0-4.8); ABS Neutrophils 8.6 10^3/ul (1.5-7.7); Eosinophil % 0.3 %; Hematocrit 29 % (35-47); Hemoglobin 9.8 g/dL (12.0-16.0); Lymphocyte % 6.4 %; Mean Corpuscular HGB Conc 34 g/dL (31-36); Mean Corpuscular Hemoglobin 32 pg (27-31); Mean Corpuscular Volume 92 fL (80-97); Mean Platelet Volume 7.4 fL (7.4-10.4); Platelet Count 124 10^3/uL (150-450); Red Blood Count 3.09 10^6 /uL (3.70-4.87); Red Cell Distribution Width 17 % (10.5-15); White Blood Count 10.3 10^3/uL (3.5-10.8)
--- NOTE | 2018-11-22 22:06 | PN ---
DIALYSIS NOTE: DATE OF VISIT: 11/22/18 DATE OF DIALYSIS: 11/22/18 Please note, this is a brief dialysis note. SUBJECTIVE: The patient was seen and examined at bedside. Did well with her surgery yesterday, rece ived about 1.5 L of fluids. Vitals and labs have been reviewed. PHYSICAL EXAM: HEENT: NCAT. Heart: S1, S2 present, regular at time of exam. Lungs: Decreased elton ath sounds bilaterally. Abdomen: Soft. Extremities: Noted to have some edema. Neuro: Alert, rodney ented. ASSESSMENT AND PLAN: End-stage renal disease, on hemodialysis. The patient is tolerating her dialys is session well today. The patient was dialyzed today as she just had surgery yesterday. We will pl an UF to her dry weight. The patient denies any problems during dialysis. We will plan to dialyze h er again either on Sunday or Sunday, mostly with planned dialysis session on Sunday. [id number]/[facility] #: [id number]
[2018-11-22] MEDS: Docusate CAP* 100 MG PO SCH (22:41)
[2018-11-23] MEDS: Heparin VIAL(*) 5000 UNITS/ML VIAL (FIVE THOUSAND) SUBCUT SCH ×2 (05:36→13:32)
[2018-11-23 05:37] LABS: Hematocrit 27 % (35-47); Hemoglobin 9.3 g/dL (12.0-16.0); Mean Platelet Volume 7.4 fL (7.4-10.4); Platelet Count 107 10^3/uL (150-450)
[2018-11-23] MEDS: Levothyroxine TAB* 50 MCG TAB PO SCH (05:38)
[2018-11-23 05:55] LABS: BUN/Creatinine Ratio 8.3 (8-20); Calcium 8.7 mg/dL (8.6-10.3); EGFR African American 16.4 (>60); EGFR Non-African American 13.6 (>60); Potassium 3.8 mmol/L (3.5-5.0)
[2018-11-23] MEDS: Gabapentin CAP(*) 100 MG PO SCH ×2 (08:52→21:22)
[2018-11-23] MEDS: Cholecalciferol TAB* 1000 UNITS PO SCH (08:52)
[2018-11-23] MEDS: Docusate CAP* 100 MG PO SCH ×2 (08:52→21:14)
[2018-11-23] MEDS: Pantoprazole TAB * 40 MG TAB PO SCH (08:52)
[2018-11-23] MEDS: Diltiazem CD CAP* 120 MG PO SCH (08:53)
[2018-11-23] MEDS: cefTRIAXone(*) 1 GM in NS 0.9% 50 ML* 50 ML IVPB SCH (08:53)
[2018-11-23] MEDS: Furosemide TAB* 20 MG PO SCH ×2 (09:11→21:14)
--- NOTE | 2018-11-23 10:51 | PN ---
Progress Note - Progress Note Date of Service: 11/23/18 SOAP: Subjective: []Patient seen lying in bed. Minimal complaints of hip pain. Denies SOB, CP, nausea. Objective: [] Dressing is c/d/i. Dressing changed today. incision is c/d no drainage or erythema. +DF right ankle sensation and circulation intact distally Vital Signs Temp 99.0 F 11/23/18 07:55 Pulse 79 11/23/18 07:55 Resp 14 11/23/18 08:52 BP 90/44 11/23/18 07:55 Pulse Ox 91 11/23/18 07:55 Intake & Output 11/22/18 11/23/18 11/23/18 18:59 06:59 18:59 Intake Total 1034 1579 65 Output Total 100 80 Balance 934 1499 65 Intake: IV Fluids 794 999 10 NS 794 999 10 IVPB 55 Ceftriaxone 55 Oral 240 580 Output: Osullivan 100 80 Other: # Bowel Movements 0 Assessment: []s/p right hip hemiarthroplasty for femoral neck fracture POD#2 Plan: []PT/OT WBAT RLE Posterior hip precautions Heparin as per medicine for DVT prophylaxis
--- NOTE | 2018-11-23 16:38 | PN ---
Subjective Date of Service: 11/23/18 Interval History: Patient seen and examined. OOB to chair, feeling tired but better than yesterday. States she wishes she was improving "faster", but is not complaining of any surgical pain, denies any SOB, no dizziness, no chest pain, no headache. Objective Active Medications: Apixaban (Eliquis*) 2.5 mg PO BID [facility] Cholecalciferol (Vitamin D Tab*) 2,000 units PO DAILY [facility] Last Admin: 11/23/18 08:52 Dose: 2,000 units Cyclobenzaprine HCl (Flexeril Tab*) 10 mg PO Q12H PRN PRN Reason: SPASMS Last Admin: 11/22/18 14:21 Dose: 10 mg Diltiazem HCl (Cardizem Cd Cap*) 120 mg PO DAILY [facility] Last Admin: 11/23/18 08:53 Dose: 120 mg Docusate Sodium (Colace Cap*) 100 mg PO BID [facility] Last Admin: 11/23/18 08:52 Dose: 100 mg Furosemide (Lasix Tab*) 20 mg PO BID [facility] Last Admin: 11/23/18 09:11 Dose: Not Given Gabapentin (Neurontin Cap(*)) 100 mg PO BID [facility] Last Admin: 11/23/18 08:52 Dose: 100 mg Ceftriaxone Sodium 1 gm/ (Sodium Chloride) 50 mls @ 200 mls/hr IVPB Q24H [facility] Last Admin: 11/23/18 08:53 Dose: 200 mls/hr Lactulose (Lactulose*) 30 ml PO DAILY [facility] Last Admin: 11/23/18 08:53 Dose: 30 ml Levothyroxine Sodium (Synthroid Tab*) 50 mcg PO DAILY@0600 [facility] Last Admin: 11/23/18 05:38 Dose: 50 mcg Metolazone (Zaroxolyn Tab*) 2.5 mg PO DAILY PRN PRN Reason: edema Morphine Sulfate (Morphine Inj (Syringe))*) 1 mg IV Q4H PRN PRN Reason: PAIN Last Admin: 11/20/18 17:16 Dose: 1 mg Ondansetron HCl (Zofran Inj*) 4 mg IV Q4H PRN PRN Reason: NAUSEA Oxycodone HCl (Roxycodone Tab*) 2.5 mg PO Q4H PRN PRN Reason: PAIN - MODERATE Oxycodone HCl (Roxycodone Tab*) 5 mg PO Q4H PRN PRN Reason: PAIN - SEVERE Pantoprazole Sodium (Protonix Tab*) 40 mg PO DAILY [facility] Last Admin: 11/23/18 08:52 Dose: 40 mg Senna (Senokot Tab*) 1 tab PO DAILY PRN PRN Reason: CONSTIPATION Vital Signs - 8 hr 11/23/18 11/23/18 11/23/18 08:52 11:06 11:36 Temperature 98.6 F Pulse Rate 77 Respiratory 14 16 16 Rate Blood Pressure 90/40 (mmHg) O2 Sat by Pulse 100 Oximetry Oxygen Devices in Use Now: Nasal Cannula Appearance: alert, NAD Eyes: No Scleral Icterus, PERRLA Ears/Nose/Mouth/Throat: NL Teeth, Lips, Gums, Mucous Membranes Moist Neck: NL Appearance and Movements; NL JVP Respiratory: Symmetrical Chest Expansion and Respiratory Effort, Clear to Auscultation Cardiovascular: NL Sounds; No Murmurs; No JVD - irregular, No Edema Abdominal: NL Sounds; No Tenderness; No Distention Extremities: No Edema, No Clubbing, Cyanosis, - - tender over surgical site Neurological: Alert and Oriented x 3, NL Muscle Strength and Tone Nutrition: Taking PO's Result Diagrams: 11/23/18 05:09 11/23/18 05:09 Microbiology and Other Data: Microbiology 11/20/18 20:00 Urine Culture - Preliminary Urine Escherichia Coli Assess/Plan/Problems-Billing Assessment: This is an 83 year old female with hx of ESRD on HD T//Sun, , afib, HTN, ASHOK that presented to ER with mechanical fall and hip pain found to have right femoral neck fracture. - Patient Problems (1) Fracture of femoral neck, right Code(s): S72.001A - FRACTURE OF UNSP PART OF NECK OF RIGHT FEMUR, INIT SNOMED Code(s): 6468230 Comment: - POD2 ORIF, POC as per ortho - Hip precautions - Pain control, DVT prophylaxis with eliquis 2.5mg BID, discussed with nephrology - Continue bowel regimen, had BM today (2) Afib Code(s): I48.91 - UNSPECIFIED ATRIAL FIBRILLATION SNOMED Code(s): 51437555 Comment: - Recent GI bleed on coumadin - Discussed AC with Dr Dany given ESRD, will start Eliquis 2.5mg BID tonight as she needs AC post fracture and will also cover her for afib. If patient wishes to stay on eliquis after 30 days, the benefits and risks should be discussed with her biology instructor given her recent GI bleed on coumadin - Rate controlled on diltiazem - Continue telemetry (3) Hypothyroidism Code(s): E03.9 - HYPOTHYROIDISM, UNSPECIFIED SNOMED Code(s): 77975609 Comment: - Levothyroxine daily (4) Moderate aortic stenosis Code(s): I35.0 - NONRHEUMATIC AORTIC (VALVE) STENOSIS SNOMED Code(s): 47489034 Comment: - Hold diuretics, BP soft last 24 hours, continue to monitor BP closely - continue telemetry (5) ESRD (end stage renal disease) Code(s): N18.6 - END STAGE RENAL DISEASE SNOMED Code(s): 65588919 Comment: - HD on T//Sun - Had dialysis and Sunday (normally T//Sun) - Will defer to nephrology for continued ESRD management, currently stable (6) DVT prophylaxis Code(s): TCM3251 - SNOMED Code(s): 493150538 Comment: - SCDs, transitioning to Eliquis this evening (7) Full code status Code(s): Z78.9 - OTHER SPECIFIED HEALTH STATUS SNOMED Code(s): 729190693 Status and Disposition: Inpatient, likely [facility] at discharge, referral made for PMRU.
[2018-11-23] MEDS: Apixaban* 2.5 MG TAB PO SCH (21:22)
[2018-11-24] MEDS: Levothyroxine TAB* 50 MCG TAB PO SCH (05:39)
[2018-11-24 06:02] LABS: Hematocrit 27 % (35-47); Hemoglobin 8.8 g/dL (12.0-16.0); Mean Platelet Volume 7.5 fL (7.4-10.4); Platelet Count 128 10^3/uL (150-450)
[2018-11-24 06:19] LABS: BUN/Creatinine Ratio 10.2 (8-20); Calcium 8.9 mg/dL (8.6-10.3); EGFR African American 11.3 (>60); EGFR Non-African American 9.3 (>60); Potassium 4.1 mmol/L (3.5-5.0)
[2018-11-24] MEDS: Furosemide TAB* 20 MG PO SCH (08:38)
[2018-11-24] MEDS: Docusate CAP* 100 MG PO SCH ×3 (08:38→20:53)
[2018-11-24] MEDS: cefTRIAXone(*) 1 GM in NS 0.9% 50 ML* 50 ML IVPB SCH (09:27)
[2018-11-24] MEDS: Pantoprazole TAB * 40 MG TAB PO SCH (09:34)
[2018-11-24] MEDS: Diltiazem CD CAP* 120 MG PO SCH (09:34)
[2018-11-24] MEDS: Gabapentin CAP(*) 100 MG PO SCH ×2 (09:34→20:54)
[2018-11-24] MEDS: Apixaban* 2.5 MG TAB PO SCH ×2 (09:34→20:54)
[2018-11-24] MEDS: Cholecalciferol TAB* 1000 UNITS PO SCH (09:35)
[2018-11-24] MEDS: Acetaminophen TAB* 325 MG PO PRN ×2 (10:08→16:42)
--- NOTE | 2018-11-24 11:22 | PN ---
Progress Note - Progress Note Date of Service: 11/24/18 SOAP: Subjective: Patient seen at bedside. Minimal complaints of hip pain, admits to mild pain along the medial patella, no pain elsewhere in the knee. Denies SOB, CP, nausea. Objective: +DF right ankle sensation and circulation intact distally Dressing is c/d/i She can fully extend her knee without pain. She has TTP along the medial patella. No joint line tenderness. No TTP along the anterior portion of the patella Vital Signs Temp 98.2 F 11/24/18 07:46 Pulse 74 11/24/18 07:46 Resp 18 11/24/18 09:34 BP 95/39 11/24/18 07:46 Pulse Ox 95 11/24/18 07:46 Intake & Output 11/23/18 11/24/18 11/24/18 18:59 06:59 18:59 Intake Total 295 440 80 Output Total 25 225 75 Balance 270 215 5 Intake: IV Fluids 10 80 Ceftriaxone 55 NS 10 25 IVPB 55 Ceftriaxone 55 Oral 230 440 Output: Osullivan 25 225 75 Other: # Bowel Movements 1 0 Estimated Stool Amount Large Assessment: []s/p right hip hemiarthroplasty for femoral neck fracture POD#3 Plan: []PT/OT WBAT RLE Posterior hip precautions Heparin as per medicine for DVT prophylaxis
--- NOTE | 2018-11-24 18:58 | PN ---
Subjective Date of Service: 11/24/18 Interval History: Resting in recliner on assessment. Reports moderate pain to right knee. Denies right hip pain. Denies cp, sob, fever, chills, palpitations. Objective Active Medications: Acetaminophen (Tylenol Tab*) 650 mg PO Q6H PRN PRN Reason: FEVER/PAIN Last Admin: 11/24/18 16:42 Dose: 650 mg Apixaban (Eliquis*) 2.5 mg PO BID [facility] Last Admin: 11/24/18 09:34 Dose: 2.5 mg Cholecalciferol (Vitamin D Tab*) 2,000 units PO DAILY [facility] Last Admin: 11/24/18 09:35 Dose: 2,000 units Cyclobenzaprine HCl (Flexeril Tab*) 10 mg PO Q12H PRN PRN Reason: SPASMS Last Admin: 11/22/18 14:21 Dose: 10 mg Diltiazem HCl (Cardizem Cd Cap*) 120 mg PO DAILY [facility] Last Admin: 11/24/18 09:34 Dose: 120 mg Docusate Sodium (Colace Cap*) 100 mg PO BID [facility] Last Admin: 11/24/18 08:38 Dose: Not Given Furosemide (Lasix Tab*) 20 mg PO BID [facility] Last Admin: 11/24/18 08:38 Dose: Not Given Gabapentin (Neurontin Cap(*)) 100 mg PO BID [facility] Last Admin: 11/24/18 09:34 Dose: 100 mg Ceftriaxone Sodium 1 gm/ (Sodium Chloride) 50 mls @ 200 mls/hr IVPB Q24H [facility] Last Admin: 11/24/18 09:27 Dose: 200 mls/hr Lactulose (Lactulose*) 30 ml PO DAILY [facility] Last Admin: 11/24/18 08:38 Dose: Not Given Levothyroxine Sodium (Synthroid Tab*) 50 mcg PO DAILY@0600 [facility] Last Admin: 11/24/18 05:39 Dose: 50 mcg Metolazone (Zaroxolyn Tab*) 2.5 mg PO DAILY PRN PRN Reason: edema Morphine Sulfate (Morphine Inj (Syringe))*) 1 mg IV Q4H PRN PRN Reason: PAIN Last Admin: 11/20/18 17:16 Dose: 1 mg Ondansetron HCl (Zofran Inj*) 4 mg IV Q4H PRN PRN Reason: NAUSEA Oxycodone HCl (Roxycodone Tab*) 2.5 mg PO Q4H PRN PRN Reason: PAIN - MODERATE Oxycodone HCl (Roxycodone Tab*) 5 mg PO Q4H PRN PRN Reason: PAIN - SEVERE Pantoprazole Sodium (Protonix Tab*) 40 mg PO DAILY [facility] Last Admin: 11/24/18 09:34 Dose: 40 mg Senna (Senokot Tab*) 1 tab PO DAILY PRN PRN Reason: CONSTIPATION Vital Signs - 8 hr 11/24/18 11/24/18 11:15 15:54 Temperature 98.1 F 98.2 F Pulse Rate 70 60 Respiratory 16 18 Rate Blood Pressure 97/39 88/35 (mmHg) O2 Sat by Pulse 95 Oximetry Oxygen Devices in Use Now: None Appearance: Comfortable, NAD Eyes: No Scleral Icterus Ears/Nose/Mouth/Throat: Clear Oropharnyx, Mucous Membranes Moist Neck: NL Appearance and Movements; NL JVP Respiratory: Symmetrical Chest Expansion and Respiratory Effort, Clear to Auscultation Cardiovascular: NL Sounds; No Murmurs; No JVD, RRR, No Edema Abdominal: NL Sounds; No Tenderness; No Distention Lymphatic: No Cervical Adenopathy Extremities: No Clubbing, Cyanosis Skin: No Rash or Ulcers Neurological: Alert and Oriented x 3 Nutrition: Taking PO's Result Diagrams: 11/24/18 05:35 11/24/18 05:35 Additional Lab and Data: Laboratory Results - last 24 hr 11/24/18 11/24/18 05:35 05:35 Hgb 8.8 L Hct 27 L Plt Count 128 L MPV 7.5 Sodium 134 L Potassium 4.1 Chloride 101 Carbon Dioxide 23 Anion Gap 10 BUN 46 H Creatinine 4.51 H Est GFR ( Amer) 11.3 Est GFR (Non-Af Amer) 9.3 BUN/Creatinine Ratio 10.2 Glucose 107 H Calcium 8.9 Microbiology and Other Data: Microbiology 11/20/18 20:00 Urine Urine Culture - Final Escherichia Coli Assess/Plan/Problems-Billing Assessment: This is an 83 year old female with hx of ESRD on HD T//Sun, , afib, HTN, ASHOK that presented to ER with mechanical fall and hip pain found to have right femoral neck fracture. - Patient Problems (1) Fracture of femoral neck, right Comment: - POD 3 ORIF, POC as per ortho - Hip precautions - Pain control, DVT prophylaxis with eliquis 2.5mg BID, discussed with nephrology - Continue bowel regimen - Remove bellamy soon. (2) Afib Comment: - Recent GI bleed on coumadin - AC was discussed with Dr Saenz given ESRD by previous provider; Started on Eliquis 2.5mg BID as she needs AC post fracture and will also cover her for afib. If patient wishes to stay on eliquis after 30 days, the benefits and risks should be discussed with her offset pressman given her recent GI bleed on coumadin - Rate controlled on diltiazem - Continue telemetry (3) Anemia Comment: - Mildly anemic. - Could be secondary to surgery and ESRD. - Monitor H&H - Asymptomatic (4) Hypothyroidism Comment: - Levothyroxine daily (5) Moderate aortic stenosis Comment: - Hold diuretics, BP soft last 24 hours, continue to monitor BP closely - continue telemetry (6) ESRD (end stage renal disease) Comment: - HD on / - Had dialysis and Sunday (normally T//Sun) - Will defer to nephrology for continued ESRD management who report she will be on inpatient schedule for Sunday and if discharged she can resume outpatient schedule for Sunday at 0600 (7) UTI (urinary tract infection) Comment: - Grew > 100,000 Ecoli - On Rocephin (8) DVT prophylaxis Comment: - Eliquis (9) Full code status Status and Disposition: Inpatient, likely [facility] at discharge, referral made for PMRU. Attending: Aristeo Mullins
[2018-11-25 05:14] LABS: ABS Eosinophils 0.2 10^3/ul (0-0.6); ABS Lymphocytes 0.5 10^3/ul (1.0-4.8); ABS Monocytes 0.6 10^3/ul (0-0.8); ABS Neutrophils 6.1 10^3/ul (1.5-7.7); Eosinophil % 3.1 %; Hematocrit 27 % (35-47); Hemoglobin 9.2 g/dL (12.0-16.0); Lymphocyte % 7.3 %; Mean Corpuscular HGB Conc 34 g/dL (31-36); Mean Corpuscular Hemoglobin 32 pg (27-31); Mean Corpuscular Volume 94 fL (80-97); Mean Platelet Volume 7.1 fL (7.4-10.4); Platelet Count 153 10^3/uL (150-450); Red Blood Count 2.92 10^6 /uL (3.70-4.87); Red Cell Distribution Width 18 % (10.5-15); White Blood Count 7.6 10^3/uL (3.5-10.8)
[2018-11-25 05:36] LABS: BUN/Creatinine Ratio 12.2 (8-20); Calcium 8.6 mg/dL (8.6-10.3); EGFR Non-African American 7.4 (>60); Potassium 4.4 mmol/L (3.5-5.0)
[2018-11-25] MEDS: Levothyroxine TAB* 50 MCG TAB PO SCH (06:15)
[2018-11-25] MEDS: Gabapentin CAP(*) 100 MG PO SCH ×2 (09:33→21:14)
[2018-11-25] MEDS: cefTRIAXone(*) 1 GM in NS 0.9% 50 ML* 50 ML IVPB SCH (09:34)
[2018-11-25] MEDS: Cholecalciferol TAB* 1000 UNITS PO SCH (09:34)
[2018-11-25] MEDS: Diltiazem CD CAP* 120 MG PO SCH (09:34)
[2018-11-25] MEDS: Apixaban* 2.5 MG TAB PO SCH ×2 (09:34→21:14)
[2018-11-25] MEDS: Acetaminophen TAB* 325 MG PO PRN (09:35)
[2018-11-25] MEDS: Docusate CAP* 100 MG PO SCH ×2 (09:35→21:13)
[2018-11-25] MEDS: Pantoprazole TAB * 40 MG TAB PO SCH (09:35)
--- NOTE | 2018-11-25 10:50 | PN ---
Progress Note - Progress Note Date of Service: 11/25/18 SOAP: Subjective: Patient seen at bedside. Minimal complaints of hip pain, admits to mild pain along the medial patella although she states it is slightly improved, no pain elsewhere in the knee. Denies SOB, CP, nausea. Objective: +DF right ankle sensation and circulation intact distally Dressing is c/d/i She can fully extend her knee without pain. She has TTP along the medial patella. No joint line tenderness. No TTP along the anterior portion of the patella Vital Signs Temp 97.7 F 11/25/18 07:25 Pulse 84 11/25/18 07:25 Resp 18 11/25/18 09:33 BP 101/51 11/25/18 07:25 Pulse Ox 96 11/25/18 07:25 Intake & Output 11/24/18 11/25/18 11/25/18 18:59 06:59 18:59 Intake Total 750 500 80 Output Total 115 300 250 Balance 635 200 -170 Weight 190 lb 3.2 oz Intake: IV Fluids 80 80 Ceftriaxone 55 55 NS 25 25 Oral 670 500 Output: Osullivan 115 300 250 Other: # Bowel Movements 0 Assessment: []s/p right hip hemiarthroplasty for femoral neck fracture POD#4 Plan: []PT/OT WBAT RLE Posterior hip precautions Heparin as per medicine for DVT prophylaxis
--- NOTE | 2018-11-25 15:05 | PN ---
Subjective Date of Service: 11/25/18 Interval History: Resting in bed on assessment. Denies right hip or knee pain today. Reports she feels "well". Reports she was able to get up to the chair with physical therapy yesterday. Denies cp, sob, palpitations, fever, chills, numbness/tingling. Objective Active Medications: Acetaminophen (Tylenol Tab*) 650 mg PO Q6H PRN PRN Reason: FEVER/PAIN Last Admin: 11/25/18 09:35 Dose: 650 mg Apixaban (Eliquis*) 2.5 mg PO BID [facility] Last Admin: 11/25/18 09:34 Dose: 2.5 mg Cholecalciferol (Vitamin D Tab*) 2,000 units PO DAILY [facility] Last Admin: 11/25/18 09:34 Dose: 2,000 units Cyclobenzaprine HCl (Flexeril Tab*) 10 mg PO Q12H PRN PRN Reason: SPASMS Last Admin: 11/22/18 14:21 Dose: 10 mg Diltiazem HCl (Cardizem Cd Cap*) 120 mg PO DAILY [facility] Last Admin: 11/25/18 09:34 Dose: 120 mg Docusate Sodium (Colace Cap*) 100 mg PO BID [facility] Last Admin: 11/25/18 09:35 Dose: 100 mg Gabapentin (Neurontin Cap(*)) 100 mg PO BID [facility] Last Admin: 11/25/18 09:33 Dose: 100 mg Ceftriaxone Sodium 1 gm/ (Sodium Chloride) 50 mls @ 200 mls/hr IVPB Q24H [facility] Last Admin: 11/25/18 09:34 Dose: 200 mls/hr Lactulose (Lactulose*) 30 ml PO DAILY [facility] Last Admin: 11/25/18 09:35 Dose: Not Given Levothyroxine Sodium (Synthroid Tab*) 50 mcg PO DAILY@0600 [facility] Last Admin: 11/25/18 06:15 Dose: 50 mcg Metolazone (Zaroxolyn Tab*) 2.5 mg PO DAILY PRN PRN Reason: edema Morphine Sulfate (Morphine Inj (Syringe))*) 1 mg IV Q4H PRN PRN Reason: PAIN Last Admin: 11/20/18 17:16 Dose: 1 mg Ondansetron HCl (Zofran Inj*) 4 mg IV Q4H PRN PRN Reason: NAUSEA Oxycodone HCl (Roxycodone Tab*) 2.5 mg PO Q4H PRN PRN Reason: PAIN - MODERATE Oxycodone HCl (Roxycodone Tab*) 5 mg PO Q4H PRN PRN Reason: PAIN - SEVERE Pantoprazole Sodium (Protonix Tab*) 40 mg PO DAILY [facility] Last Admin: 11/25/18 09:35 Dose: 40 mg Senna (Senokot Tab*) 1 tab PO DAILY PRN PRN Reason: CONSTIPATION Vital Signs - 8 hr 11/25/18 11/25/18 11/25/18 07:25 08:00 09:33 Temperature 97.7 F Pulse Rate 84 Respiratory 18 18 18 Rate Blood Pressure 101/51 (mmHg) O2 Sat by Pulse 96 Oximetry 11/25/18 11:24 Temperature 98.3 F Pulse Rate 79 Respiratory 18 Rate Blood Pressure 103/49 (mmHg) O2 Sat by Pulse 96 Oximetry Oxygen Devices in Use Now: Nasal Cannula Appearance: Comfortable, NAD Eyes: No Scleral Icterus Ears/Nose/Mouth/Throat: Clear Oropharnyx, Mucous Membranes Moist Neck: NL Appearance and Movements; NL JVP Respiratory: Symmetrical Chest Expansion and Respiratory Effort, Clear to Auscultation Cardiovascular: NL Sounds; No Murmurs; No JVD, RRR, - - Bilateral mild LE edeam right > left Abdominal: NL Sounds; No Tenderness; No Distention Lymphatic: No Cervical Adenopathy Extremities: No Clubbing, Cyanosis Skin: No Rash or Ulcers, - - Dressing to right hip CDI Neurological: Alert and Oriented x 3, NL Muscle Strength and Tone Nutrition: Taking PO's Result Diagrams: 11/25/18 05:09 11/25/18 05:09 Additional Lab and Data: Laboratory Results - last 24 hr 11/25/18 11/25/18 05:09 05:09 WBC 7.6 RBC 2.92 L Hgb 9.2 L Hct 27 L MCV 94 MCH 32 H MCHC 34 RDW 18 H Plt Count 153 MPV 7.1 L Neut % (Auto) 81.4 Lymph % (Auto) 7.3 Schley % (Auto) 7.7 Eos % (Auto) 3.1 Baso % (Auto) 0.5 Absolute Neuts (auto) 6.1 Absolute Lymphs (auto) 0.5 L Absolute Monos (auto) 0.6 Absolute Eos (auto) 0.2 Absolute Basos (auto) 0.0 Absolute Nucleated RBC 0.0 Nucleated RBC % 0.0 Sodium 134 L Potassium 4.4 Chloride 101 Carbon Dioxide 21 L Anion Gap 12 H BUN 67 H Creatinine 5.48 H Est GFR ( Amer) 9.0 Est GFR (Non-Af Amer) 7.4 BUN/Creatinine Ratio 12.2 Glucose 112 H Calcium 8.6 Microbiology and Other Data: Microbiology 11/20/18 20:00 Urine Urine Culture - Final Escherichia Coli Assess/Plan/Problems-Billing Assessment: This is an 83 year old female with hx of ESRD on HD /, , afib, HTN, ASHOK that presented to ER with mechanical fall and hip pain found to have right femoral neck fracture. - Patient Problems (1) Fracture of femoral neck, right Comment: - POD 4 ORIF, POC as per ortho - Hip precautions - Pain control, DVT prophylaxis with eliquis 2.5mg BID, discussed with nephrology - Continue bowel regimen - Osullivan removed today. Awaiting void. Post void bladder scan ordered. (2) Afib Comment: - Recent GI bleed on coumadin - AC was discussed with Dr Saenz given ESRD by previous provider; Started on Eliquis 2.5mg BID as she needs AC post fracture and will also cover her for afib. If patient wishes to stay on eliquis after 30 days, the benefits and risks should be discussed with her pointing machine operator given her recent GI bleed on coumadin - Rate controlled on diltiazem - Continue telemetry (3) Anemia Comment: - Mildly anemic, but stable. - Could be secondary to surgery and ESRD. - Monitor H&H - Asymptomatic (4) Hypothyroidism Comment: - Levothyroxine daily (5) Moderate aortic stenosis Comment: - Diuretics held given soft BPs - Normotensive today. Resume home Lasix BID at lower dose initially. - Continue telemetry (6) ESRD (end stage renal disease) Comment: - HD on - Had dialysis and Sunday (normally ) - Will defer to nephrology for continued ESRD management - Going to dialysis today per RN (7) UTI (urinary tract infection) Comment: - Grew > 100,000 Ecoli - Had 5 days of Rocephin. Transition to PO Keflex for 2 more days. (8) DVT prophylaxis Comment: - [place] (9) Full code status Status and Disposition: Inpatient, likely [facility] at discharge, referral made for PMRU. Attending: Aristeo Mullins
[2018-11-25] MEDS ORDERED: Epoetin Alfa (NF) 3,000 UNITS/ML VIAL IV ONE (16:30)
[2018-11-25] MEDS ORDERED: EPOETIN ALFA-EPBX * 3,000 UNIT/ML VIAL IV ONE (17:00)
[2018-11-25] MEDS ORDERED: Heparin DIALYSIS ONLY(*) 1,000 UNITS/ML VIAL DIALYSIS ONE (17:00)
[2018-11-25] MEDS: Furosemide TAB* 20 MG PO SCH (19:39)
[2018-11-26] MEDS: Levothyroxine TAB* 50 MCG TAB PO SCH (05:19)
[2018-11-26 05:41] LABS: BUN/Creatinine Ratio 12.4 (8-20); Calcium 8.7 mg/dL (8.6-10.3); EGFR African American 14.2 (>60); EGFR Non-African American 11.7 (>60); Potassium 3.8 mmol/L (3.5-5.0)
--- NOTE | 2018-11-26 08:16 | PN ---
Progress Note - Progress Note Date of Service: 11/26/18 SOAP: Subjective: resting comfortably with no complaints of pain Objective: Vital Signs Temp Pulse Resp BP Pulse Ox 99.4 F 72 18 100/44 96 11/26/18 03:44 11/26/18 03:44 11/26/18 03:44 11/26/18 03:44 11/26/18 03:44 Laboratory Last Values WBC 7.6 10^3/uL (3.5-10.8) 11/25/18 05:09 RBC 2.92 10^6 /uL (3.70-4.87) L 11/25/18 05:09 Hgb 9.2 g/dL (12.0-16.0) L 11/25/18 05:09 Hct 27 % (35-47) L 11/25/18 05:09 MCV 94 fL (80-97) 11/25/18 05:09 MCH 32 pg (27-31) H 11/25/18 05:09 MCHC 34 g/dL (31-36) 11/25/18 05:09 RDW 18 % (10.5-15) H 11/25/18 05:09 Plt Count 153 10^3/uL (150-450) 11/25/18 05:09 MPV 7.1 fL (7.4-10.4) L 11/25/18 05:09 Neut % (Auto) 81.4 % 11/25/18 05:09 Lymph % (Auto) 7.3 % 11/25/18 05:09 [place] % (Auto) 7.7 % 11/25/18 05:09 Eos % (Auto) 3.1 % 11/25/18 05:09 Baso % (Auto) 0.5 % 11/25/18 05:09 Absolute Neuts (auto) 6.1 10^3/ul (1.5-7.7) 11/25/18 05:09 Absolute Lymphs (auto) 0.5 10^3/ul (1.0-4.8) L 11/25/18 05:09 Absolute Monos (auto) 0.6 10^3/ul (0-0.8) 11/25/18 05:09 Absolute Eos (auto) 0.2 10^3/ul (0-0.6) 11/25/18 05:09 Absolute Basos (auto) 0.0 10^3/ul (0-0.2) 11/25/18 05:09 Absolute Nucleated RBC 0.0 10^3/ul 11/25/18 05:09 Nucleated RBC % 0.0 11/25/18 05:09 INR (Anticoag Therapy) 0.98 (0.82-1.09) 11/21/18 05:14 Sodium 132 mmol/L (135-145) L 11/26/18 05:18 Potassium 3.8 mmol/L (3.5-5.0) 11/26/18 05:18 Chloride 97 mmol/L (101-111) L 11/26/18 05:18 Carbon Dioxide 26 mmol/L (22-32) 11/26/18 05:18 Anion Gap 9 mmol/L (2-11) 11/26/18 05:18 BUN 46 mg/dL (6-24) H 11/26/18 05:18 Creatinine 3.70 mg/dL (0.51-0.95) H 11/26/18 05:18 Est GFR ( Amer) 14.2 (>60) 11/26/18 05:18 Est GFR (Non-Af Amer) 11.7 (>60) 11/26/18 05:18 BUN/Creatinine Ratio 12.4 (8-20) 11/26/18 05:18 Glucose 108 mg/dL (70-100) H 11/26/18 05:18 POC Glucose (mg/dL) 140 mg/dL (70-100) H 11/22/18 20:22 Calcium 8.7 mg/dL (8.6-10.3) 11/26/18 05:18 Magnesium 2.3 mg/dL (1.9-2.7) 11/20/18 11:59 Total Bilirubin 0.70 mg/dL (0.2-1.0) 11/20/18 11:59 AST 17 U/L (13-39) 11/20/18 11:59 ALT 12 U/L (7-52) 11/20/18 11:59 Alkaline Phosphatase 137 U/L (34-104) H 11/20/18 11:59 Total Protein 6.9 g/dL (6.4-8.9) 11/20/18 11:59 Albumin 4.2 g/dL (3.2-5.2) 11/20/18 11:59 Globulin 2.7 g/dL (2-4) 11/20/18 11:59 Albumin/Globulin Ratio 1.6 (1-3) 11/20/18 11:59 TSH 2.16 mcIU/mL (0.34-5.60) 11/20/18 11:59 Urine Color Yellow 11/20/18 20:00 Urine Appearance Cloudy 11/20/18 20: Urine pH 5.0 (5-9) 11/20/18 20:00 Ur Specific [place] 1.012 (1.010-1.030) 11/20/18 20:00 Urine Protein 2+(100 mg/dl) (Negative) A 11/20/18 20:00 Urine Ketones Negative (Negative) 11/20/18 20:00 Urine Blood 2+ (Negative) A 11/20/18 20:00 Urine Nitrate Negative (Negative) 11/20/18 20:00 Urine Bilirubin Negative (Negative) 11/20/18 20:00 Urine Urobilinogen Negative (Negative) 11/20/18 20:00 Ur Leukocyte Esterase Trace (Negative) A 11/20/18 20:00 Urine WBC (Auto) 1+(6-10/hpf) (Absent) A 11/20/18 20:00 Urine RBC (Auto) 3+(>10/hpf) (Absent) A 11/20/18 20:00 Ur Squamous Epith Cells Present (Absent) A 11/20/18 20:00 Urine Bacteria 3+ (Absent) A 11/20/18 20:00 Urine Glucose Negative (Negative) 11/20/18 20:00 Urine Ascorbic Acid * (Negative) A 11/20/18 20:00 Hep Bs Antigen Nonreactive (Nonreactive) 11/20/18 11:59 Blood Type O Positive 11/20/18: Antibody Screen Negative 11/20/18:59 incision: c/d; dressing changed PE: able to dorsi flex/plantar flex, intact sensation, 2+DP pulse Assessment: s/p right hip gio Plan: 1) Continue DVT prophylaxis 2) PT/OT-WBAT with hip precautions 3) pain medication prn
[2018-11-26] MEDS: Cholecalciferol TAB* 1000 UNITS PO SCH (08:23)
[2018-11-26] MEDS: Gabapentin CAP(*) 100 MG PO SCH (08:23)
[2018-11-26] MEDS: Furosemide TAB* 20 MG PO SCH (08:23)
[2018-11-26] MEDS: Pantoprazole TAB * 40 MG TAB PO SCH (08:24)
[2018-11-26] MEDS: Diltiazem CD CAP* 120 MG PO SCH (08:24)
[2018-11-26] MEDS: Acetaminophen TAB* 325 MG PO PRN (08:25)
[2018-11-26] MEDS: Apixaban* 2.5 MG TAB PO SCH (08:25)
[2018-11-26] MEDS: Docusate CAP* 100 MG PO SCH (08:26)
[2018-11-26] MEDS ORDERED: Cephalexin CAP* 500 MG PO SCH (09:00)
[2018-11-26] MEDS ORDERED: cefTRIAXone(*) 1 GM in NS 0.9% 50 ML* 50 ML IVPB SCH (09:00)
--- NOTE | 2018-11-26 10:30 | PN ---
PROGRESS NOTE/DIALYSIS NOTE: DATE OF SERVICE: 11/25/18 DATE OF DIALYSIS: 11/25/18/Sunday. This is a brief dialysis note. SUBJECTIVE: The patient seen and examined. The patient tolerated her dialysis well. Her usual prescription was followed and goal for you have to dry weight. PHYSICAL EXAM: HEENT: NCAT. Heart: S1, S2 present. Regular at time of exam. Lungs: Decreased breath sounds bilaterally. Abdomen: Soft. Extremities : Noted to have minimal edema. Neuro: Alert, oriented x3. ASSESSMENT AND PLAN: Case also discussed with the hospitalist team. We will schedule further dialysis sessions based on her discharge plan with respect to her outpatient spot. The patient currently has a spot on Sunday, , Sunday in the morning and if she ends up going to rehab in the hospital or outside, can come to her usual outpatient appointments. We will follow with a medical team. [id number]/CPS #: [id number] ROBERT
[2018-11-26] MEDS ORDERED: Heparin DIALYSIS ONLY(*) 1,000 UNITS/ML VIAL DIALYSIS ONE ×2 (12:00)
[2018-11-26] MEDS ORDERED: Heparin VIAL(*) 10000 UNITS/ML VIAL (TEN THOUSAND) ONE (12:08)
[2018-11-26 14:24] VITALS: BP 98/39
--- NOTE | 2018-11-26 14:33 | DS ---
CC: Dr. Brown; Dr. Saenz; Dr. Pedersen* DISCHARGE SUMMARY: DATE OF ADMISSION: 11/20/18 DATE OF DISCHARGE: 11/26/18 ATTENDING PHYSICIAN: Dr. Tiffanie Cordova* (dictated by Laquita Camargo NP) PRIMARY CARE PROVIDER: Dr. Brown. OUTPATIENT CINDER BLOCK MAKER: Dr. Saenz. PHYSICIAN ON CONSULTATION: Dr. Pedersen, orthopedist. PRIMARY DIAGNOSES: 1. Fracture of the right femoral neck, status post ORIF. 2. Atrial fibrillation. 3. Anemia. 4. Hypothyroidism. 5. Moderate aortic stenosis. 6. End-stage renal disease. 7. Urinary tract infection. HISTORY OF PRESENT ILLNESS/HOSPITAL COURSE: Ms. Manning is an 83-year-old female with a past medical history significant for [id number] aortic stenosis, atrial fibrillation, hypertension, stage V chronic kidney disease, on hemodialysis, hypothyroidism, hyperlipidemia, obstructive sleep apnea, osteoporosis, and recent history of GI bleed in August 2018, who presented to the emergency department on 11/20/18 with complaints of right hip pain. Please see history and physical dictated by Sharon Ortiz NP, for complete summary of the events leading up to this hospitalization, but in short, the patient had a mechanical fall when she missed a chair and found her right side. While in the emergency department, she had imaging, which revealed basicervical fracture of the right femoral neck with valgus angulation. Given the findings, the patient was admitted to short-stay surgical, and Orthopedics were consulted. While in the hospital, the patient was evaluated by Orthopedics, who decided surgical intervention would be appropriate. Risk assessment for surgery was completed and the patient agreed to surgery. The patient underwent a right hip hemiarthroplasty on 11/21/18. Since that time, the patient has been on short- stay surgical unit recovering and receiving therapy services. The patient was evaluated by Physical Therapy and it was deemed that she would benefit from acute rehab at [facility]. It should also be mentioned that during this hospitalization, the patient was noted to have a urinalysis that was consistent with a urinary tract infection and her culture grew E. coli. Therefore, she was started on ceftriaxone. The patient has completed a 6-day course and therefore does not need any further antibiotics. In addition, the patient did have a Osullivan in the postoperative period, which has been removed and she is voiding without difficulty. The patient only voids small amount given her ESRD. Finally, the patient has been followed by Nephrology, who has been monitoring her ESRD and scheduling her inpatient dialysis. The patient's last dialysis was yesterday, 11/25/18. The patient is stable for discharge to [facility] today. REVIEW OF SYSTEMS: The patient reports mild swelling to bilateral lower extremities. The patient reports mild pain to right hip and right knee, which has much improved from previously. The patient reports the pain is well controlled with current pain medication regimen. The patient denies numbness and tingling. The patient denies chest pain, palpitations, shortness of breath, nausea, vomiting, diarrhea, burning with urination, cough, fever, chills. A 14- point review of systems was completed and all other were negative. PHYSICAL EXAMINATION: Vital Signs: Temperature 99.0, HR 77, RR 15, O2 saturation 96% on 2L, BP 103/50. General: Ms. Manning is an 83-year-old female, who is sitting on the edge of the bed. Appears to be stated age. Appears to be in no acute distress. HEENT: EOMs intact. Oral mucosa is moist without lesions. Posterior pharynx is clear. Neck: Supple. No lymphadenopathy. Respiratory: Lungs are clear to auscultation. No wheezes, rhonchi, or rubs. Cardiac: S1, S2 present. The patient has systolic murmur. Regular rate and rhythm. No rubs or gallops. Abdomen: Soft, nontender. Bowel sounds normoactive. Last BM was last night. Extremities: The patient has trace to + 1 pedal edema on right lower extremity and trace edema to left lower extremity. Pedal pulses are 2+ bilaterally. No clubbing or cyanosis. Musculoskeletal: The patient reports mild right hip pain that is tolerable. No other pain or deformities. Skin: Skin is grossly intact without lesions. Dressing to right hip is clean, dry, and intact. Neuro: Neuro exam is grossly intact. The patient is free from any focal deficits or weakness. DIAGNOSTIC STUDIES/LABORATORY DATA: WBC 7.6, hemoglobin 9.2, hematocrit 27, platelets 153. Sodium 132, potassium 3.8, chloride 97, carbon dioxide 26, BUN 46, creatinine 3.70, glucose 108. DISCHARGE PLAN/FOLLOWUP: 1. Right hip hemiarthroplasty/right femoral neck fracture: The patient is postop day 5. The patient should continue hip precautions. The patient should continue physical therapy and occupational therapy. The patient is to weight bear as tolerated. The patient should continue DVT prophylaxis and p.r.n. pain medication. The patient should also continue bowel medication. The patient should follow up with Orthopedics. 2. Atrial fibrillation: The patient has known atrial fibrillation and is rate controlled on diltiazem. The patient should continue her diltiazem. It should be mentioned that the patient was previously on Coumadin and it was stopped given a gastrointestinal bleed in August 2018. The patient is currently renally dosed on Eliquis and this was discussed with Dr. Saenz, Nephrology before it was started and she agreed with the plan. The patient will need to stay on Eliquis 30 days for anticoagulation post fracture. If she wishes to stay on Eliquis after 30 days, the benefits and risks should be discussed with her and her assistant sales director given her recent gastrointestinal bleed on Coumadin. I would also recommend routinely monitoring her H and H. 3. Anemia: The patient is noted to be mildly anemic at 9.2 and 27. This has been stable since the postop period. The patient has no signs of overt bleeding. It should be noted that the patient's hemoglobin and hematocrit baseline is variable probably given her ESRD. I would monitor her hemoglobin and hematocrit routinely. 4. Hypothyroid: The patient should continue her levothyroxine daily. 5. Moderate aortic stenosis: The patient should continue her Lasix as previously prescribed. 6. Endstage renal disease: As mentioned above, the patient has had hemodialysis while in the hospital. Her normal hemodialysis days as an outpatient are Sunday, , and Sunday. Her last hemodialysis was yesterday on 11/25/18. I have been in contact with Nephrology, Dr. Saenz, who reports that she will receive a short dialysis session today 11/26/18 before going to [facility] and then she can resume her normal dialysis outpatient appointments starting with morning and then she will continue her Sunday, , and Sunday schedule. 7. Urinary tact infection: As mentioned above, the patient had UA which is concerning for urinary tract infection and her culture grew greater than 10,000 E. coli. The patient has had 6 days of Rocephin. She will not need any further antibiotics at this time. 8. Followup: The patient should follow up with her primary care provider after discharge from [facility]. The patient will be followed by [facility] on [facility]. The patient should follow up with Orthopedics as they recommend. TIME SPENT: Approximately 40 minutes was spent on this discharge; greater than half of the time was spent [id number] with the patient discussing discharge plans and instructions. This is a summarized report of a complex medical history and hospital stay. For further details, please see the entire medical record. This plan was discussed with my attending, Dr. Cordova, who agrees with my plan. LAQUITA CAMARGO, KIKO [id number]/[facility] #: [id number] ROBERT
--- NOTE | 2018-11-26 20:49 | PN ---
DIALYSIS NOTE: DATE OF DIALYSIS: 11/26/18 SUBJECTIVE: The patient seen and examined at dialysis and the patient tolerating the procedure well. PHYSICAL EXAM: HEENT: NCAT. Heart: S1, S2 present. Regular at the time of exam. Lungs: Clear to auscultation bilaterally. Abdomen: Soft. Extremities : Noted to have edema. Neuro: Alert and oriented. ASSESSMENT AND PLAN: End-stage renal disease, on hemodialysis. The patient was dialyzed yesterday; however, as the patient is going to be discharged to [facility] today, we will dialyze the patient again today and the patient can come to her outpatient appointment from PM. Her slot has been switched to 6:30 in the morning, so she can participate in the rehab activities, and the patient can come from [facility] to her outpatient dialysis sessions on Sunday, , Sunday 6:30 in the morning, to be there at 6 a.m. The patient tolerating today's session well. HD orders discussed with the patient's nurse. [id number]/[facility] #: [id number] ROBERT
== END 2018-11-26 15:15 | DRG 469 ==
LOC: ED 10:11 → SSU 14:59
PROVIDERS: ADMIT Internal Medicine; ATTEND Orthopaedic Surgery
PROC: 5A1D70Z Performance of Urinary Filtration, Intermittent, Less than 6 Hours Per Day (ICD-10-PCS; 2018-11-21)
PROC: 0SRR0JA Replacement of Right Hip Joint, Femoral Surface with Synthetic Substitute, Uncemented, Open Approach (ICD-10-PCS; principal; 2018-11-21 13:00)
PROC: 5A1D70Z Performance of Urinary Filtration, Intermittent, Less than 6 Hours Per Day (ICD-10-PCS; 2018-11-22)
PROC: 5A1D70Z Performance of Urinary Filtration, Intermittent, Less than 6 Hours Per Day (ICD-10-PCS; 2018-11-23)
PROC: 5A1D70Z Performance of Urinary Filtration, Intermittent, Less than 6 Hours Per Day (ICD-10-PCS; 2018-11-25)
DX: S72.041A Displaced fracture of base of neck of right femur, initial encounter for closed fracture (principal); N18.6 End stage renal disease; J90 Pleural effusion, not elsewhere classified; I12.0 Hypertensive chronic kidney disease with stage 5 chronic kidney disease or end stage renal disease; N39.0 Urinary tract infection, site not specified; S50.312A Abrasion of left elbow, initial encounter; W08.XXXA Fall from other furniture, initial encounter; I48.91 Unspecified atrial fibrillation; D64.9 Anemia, unspecified; E03.9 Hypothyroidism, unspecified; I35.0 Nonrheumatic aortic (valve) stenosis; B96.20 Unspecified Escherichia coli [E. coli] as the cause of diseases classified elsewhere; E78.5 Hyperlipidemia, unspecified; G47.33 Obstructive sleep apnea (adult) (pediatric); M81.0 Age-related osteoporosis without current pathological fracture; I45.10 Unspecified right bundle-branch block; Z96.652 Presence of left artificial knee joint; Y92.009 Unspecified place in unspecified non-institutional (private) residence as the place of occurrence of the external cause; Z79.1 Long term (current) use of non-steroidal anti-inflammatories (NSAID); Z99.2 Dependence on renal dialysis; Z79.899 Other long term (current) drug therapy; Z88.5 Allergy status to narcotic agent; Z88.8 Allergy status to other drugs, medicaments and biological substances; Z82.49 Family history of ischemic heart disease and other diseases of the circulatory system; Z80.3 Family history of malignant neoplasm of breast
CPT/HCPCS: 36415; 70450; 71045; 72125; 72170; 80048; 80053; 81003; 81015; 83735; 84443; 85014; 85018; 85025; 85027; 85049; 85610; 86850; 86900; 86901; 87077; 87086; 87186; 87340; 93005; 99284; A9270-GY; C1776; G8978-GP-CM; G8979-GP-CK; G8987-GO-CM; G8988-GO-CI; J0690; J0696; J1170; J1644; J2250; J2270; J2405; J2765; J3010; Q5106

== ENCOUNTER 2018-11-26 09:55 | Inpatient (IN) | payer MEDICARE, OTHER ==
[2018-11-26] MEDS ORDERED: Senna TAB PO PRN (17:48)
[2018-11-26] MEDS ORDERED: oxyCODONE TAB* 5 MG TAB PO PRN (18:02)
[2018-11-26] MEDS: Acetaminophen TAB* 325 MG PO PRN (19:21)
--- NOTE | 2018-11-26 20:23 | HP ---
ADMISSION HISTORY AND PHYSICAL: DATE OF ADMISSION: 11/26/18 REASON FOR ADMISSION: Right hip fracture. HISTORY OF PRESENT ILLNESS: Annmarie Manning is an 83-year-old white female. She has a medical history significant for aortic stenosis as well as atrial fibrillation. She also has a history of end-stage renal disease and is on hemodialysis 3 times a week. On 11/20/18, the patient had gone across the street to get her mail and was coming back in to her porch. She somewhat lost her balance and reached out for a chair, but missed the chair and fell to the ground. She lied on the ground for a few minutes, but nobody could hear her. She pressed her MedicAlert button and EMS arrived. They called [facility] and she was brought by ambulance to [facility]. She had x-rays taken in the emergency room, which showed a basicervical fracture of the femoral neck of the right hip. She also had a CAT scan of her brain, which was negative and a CAT scan of the cervical spine, which did not reveal a fracture. The patient was admitted to the hospital. She was admitted to the medical service and had a consultation done by Dr. Pedersen. She was taken to the operating room on 11/21/18 after she had dialysis. She underwent a right hip hemiarthroplasty. Postoperatively, the patient continued to receive dialysis. She was started on Eliquis for DVT prophylaxis. She was put on a proton pump inhibitor because the patient did have a recent GI bleed. The patient was felt to have physical therapy and occupational therapy needs. She is now being admitted for inpatient rehab so that she might return to independent living. PAST MEDICAL HISTORY: Significant for the aforementioned end-stage renal disease. She also has a history of atrial fibrillation, a recent GI bleed, hypertension, hypothyroidism, obstructive sleep apnea. She was on Coumadin for atrial fibrillation, but this was stopped after her GI bleed this year. Her GI bleed was in late August. MEDICATIONS: Current medications include: 1. Eliquis. 2. Cardizem. 3. Lasix. 4. Gabapentin. 5. Synthroid. 6. Oxycodone. 7. Protonix. ALLERGIES: She has allergies to BETA-BLOCKERS and CELEBREX as well as CODEINE. SOCIAL HISTORY: She is a nonsmoker, nondrinker. She lives alone. She was driving herself to dialysis 3 times a week. She lives in a 1-story house. She lives in [place]. She has a son who lives in [place]. She has 4 steps to enter her house. REVIEW OF SYSTEMS: The patient reports no current shortness of breath or chest pain. PHYSICAL EXAMINATION VITAL SIGNS: The patient's temperature is 97.9, blood pressure is 102/42, pulse 76, respirations 20. HEENT: Her extraocular movements are intact. Tongue is midline. NECK: Supple. LUNGS: Lungs sound clear to auscultation bilaterally. HEART: Heart sounds are regular. There is a grade 2/6 holosystolic murmur. ABDOMEN: Soft and nontender. EXTREMITIES: Her right hip has a wound, which is clean and dry. She has a shunt in her left arm. Peripheral pulses were intact. NEUROLOGIC: Sensation may have been diminished in her feet. Her muscle strength was about 5/5 in her arms, 3/5 in the right leg secondary to pain and 5 /5 in the left leg. FUNCTIONAL EXAM: She transfers with moderate amount of assistance. ASSESSMENT: Right hip fracture in a patient with end-stage renal disease, on hemodialysis. PLAN: Integrate her into a comprehensive and therapeutic rehab program with the following goals: 1. Physical Therapy will see with the patient. They are going to work on functional transfer training, ambulation training with a walker. 2. Occupational Therapy will see the patient, work on her activities of daily living including toileting and toilet transfers. 3. Eliquis for DVT prophylaxis. 4. For atrial fibrillation, we will continue Cardizem. 5. For her end-stage renal disease, we are going to continue hemodialysis. 6. Continue Synthroid for hypothyroidism. 7. Continue Protonix for recent history of GI bleed. 8. Retort Operator will be closely involved and make sure that any services and equipment the patient requires are in place prior to discharge. 9. Advance directives: The patient is a full code. 10. Family training as appropriate. 11. Home with appropriate services. ESTIMATED LENGTH OF STAY: 12 to 14 days. [id number]/[facility] #: [id number] ROBERT
[2018-11-26] MEDS: Apixaban* 2.5 MG TAB PO SCH (20:57)
[2018-11-26] MEDS: Gabapentin CAP(*) 100 MG PO SCH (20:57)
[2018-11-26] MEDS: Docusate CAP* 100 MG PO SCH (20:58)
[2018-11-27 04:56] LABS: ABS Eosinophils 0.3 10^3/ul (0-0.6); ABS Lymphocytes 0.8 10^3/ul (1.0-4.8); ABS Monocytes 0.7 10^3/ul (0-0.8); ABS Neutrophils 4.5 10^3/ul (1.5-7.7); Hematocrit 26 % (35-47); Hemoglobin 8.7 g/dL (12.0-16.0); Lymphocyte % 12.4 %; Mean Corpuscular HGB Conc 34 g/dL (31-36); Mean Corpuscular Hemoglobin 31 pg (27-31); Mean Corpuscular Volume 93 fL (80-97); Mean Platelet Volume 6.9 fL (7.4-10.4); Platelet Count 183 10^3/uL (150-450); Red Blood Count 2.79 10^6 /uL (3.70-4.87); Red Cell Distribution Width 17 % (10.5-15); White Blood Count 6.3 10^3/uL (3.5-10.8)
[2018-11-27] MEDS: Levothyroxine TAB* 25 MCG TAB PO SCH (05:05)
[2018-11-27 05:13] LABS: Albumin 3.1 g/dL (3.2-5.2); Albumin/Globulin Ratio 1.1 (1-3); BUN/Creatinine Ratio 12.5 (8-20); Calcium 9.1 mg/dL (8.6-10.3); EGFR African American 14.9 (>60); EGFR Non-African American 12.4 (>60); Globulin 2.9 g/dL (2-4); Potassium 4.2 mmol/L (3.5-5.0); Total Bilirubin 0.6 mg/dL (0.2-1.0)
[2018-11-27] MEDS: Apixaban* 2.5 MG TAB PO SCH ×2 (09:29→20:27)
[2018-11-27] MEDS: Furosemide TAB* 40 MG PO SCH ×2 (09:29→16:52)
[2018-11-27] MEDS: Gabapentin CAP(*) 100 MG PO SCH ×2 (09:30→20:27)
[2018-11-27] MEDS: Pantoprazole TAB * 40 MG TAB PO SCH (09:30)
[2018-11-27] MEDS: Diltiazem CD CAP* 120 MG PO SCH (09:30)
[2018-11-27] MEDS: Docusate CAP* 100 MG PO SCH ×2 (09:31→20:28)
[2018-11-27] MEDS: Acetaminophen TAB* 325 MG PO PRN (09:36)
[2018-11-27] MEDS: Nystatin TOP POWDER* 15 GM BTL TOPICAL SCH (20:41)
--- NOTE | 2018-11-27 20:53 | PN ---
Progress Note Date of Service: 11/27/18 Note: SARBJIT LOVELL was visited. Therapy notes read and reviewed. Her Hb/Hct stable. She has no complaints of pain. She will have HD tomorrow. She is otherwise ok, a yeasty rash under breasts. Current Medications: Active Medications Generic Name Dose Route Start Last Admin Trade Name Freq PRN Reason Stop Dose Admin Acetaminophen 650 mg 11/26/18 17:48 11/27/18 09:36 Tylenol Tab* PO 650 mg Q6H PRN Administration FEVER/PAIN Apixaban 2.5 mg 11/26/18 21:00 11/27/18 20:27 Eliquis* PO 2.5 mg BID GULSHAN Administration Diltiazem HCl 120 mg 11/27/18 09:00 11/27/18 09:30 Cardizem Cd Cap* PO 120 mg DAILY GULSHAN Administration Docusate Sodium 100 mg 11/26/18 21:00 11/27/18 20:28 Colace Cap* PO Not Given BID GULSHAN Furosemide 40 mg 11/27/18 08:00 11/27/18 16:52 Lasix Tab* PO 40 mg 0800,1700 GULSHAN Administration Gabapentin 100 mg 11/26/18 21:00 11/27/18 20:27 Neurontin Cap(*) PO 100 mg BID GULSHAN Administration Levothyroxine Sodium 50 mcg 11/27/18 06:00 11/27/18 05:05 Synthroid Tab* PO 50 mcg DAILY@0600 GULSHAN Administration Nystatin 1 applic 11/27/18 21:00 11/27/18 20:41 Nystatin Top Powder* TOPICAL 1 applic BID GULSHAN Administration Oxycodone HCl 2.5 mg 11/26/18 18:02 Roxycodone Tab* PO Q6H PRN PAIN - MODERATE TO SEVERE Pantoprazole Sodium 40 mg 11/27/18 09:00 11/27/18 09:30 Protonix Tab* PO 40 mg DAILY GULSHAN Administration Senna 2 tab 11/26/18 17:48 Senokot Tab* PO BEDTIME PRN CONSTIPATION Vital Signs: Vital Signs Temp Pulse Resp BP Pulse Ox 97.5 F 72 18 113/45 100 11/27/18 16:20 11/27/18 16:20 11/27/18 20:27 11/27/18 16:20 11/27/18 17:44 Lab Results: Laboratory Results - last 24 hr 11/27/18 11/27/18 04:48 04:49 WBC 6.3 RBC 2.79 L Hgb 8.7 L Hct 26 L MCV 93 MCH 31 MCHC 34 RDW 17 H Plt Count 183 MPV 6.9 L Neut % (Auto) 72.0 Lymph % (Auto) 12.4 Charles % (Auto) 11.0 Eos % (Auto) 4.0 Baso % (Auto) 0.6 Absolute Neuts (auto) 4.5 Absolute Lymphs (auto) 0.8 L Absolute Monos (auto) 0.7 Absolute Eos (auto) 0.3 Absolute Basos (auto) 0.0 Absolute Nucleated RBC 0.0 Nucleated RBC % 0.0 Sodium 132 L Potassium 4.2 Chloride 96 L Carbon Dioxide 27 Anion Gap 9 BUN 44 H Creatinine 3.53 H Est GFR ( Amer) 14.9 Est GFR (Non-Af Amer) 12.4 BUN/Creatinine Ratio 12.5 Glucose 101 H Calcium 9.1 Total Bilirubin 0.60 AST 17 ALT 5 L Alkaline Phosphatase 99 Total Protein 6.0 L Albumin 3.1 L Globulin 2.9 Albumin/Globulin Ratio 1.1 Exam: HEENT: EOMI LUNGS: Clear bilaterally HEART: II/ Holosystolic murmur, heart sounds regular ABDOMEN: Soft, +BS EXTREMITIES: Right hip wound C/D/I NEUROLOGIC: alert, oriented. Muscle strength 5/5 except RLE due to pain Assessment/Plan: 1. Right hip Fracture: S/P HAP. PT/OT. WBAT 2. ESRD: HD tomorrow, // 3. Atrial fibrillation: Cardizem CD. Eliquis for now 4. GI Bleed: PPI daily. Monitor Hb/Hct 5. DVT Prophylaxis: Eliquis 6. Advanced Directives: Full Code 11/27/18 20:51 11/27/18 20:54
[2018-11-28] MEDS: Acetaminophen TAB* 325 MG PO PRN ×3 (03:47→22:25)
[2018-11-28] MEDS: Levothyroxine TAB* 25 MCG TAB PO SCH (07:07)
[2018-11-28] MEDS: Nystatin TOP POWDER* 15 GM BTL TOPICAL SCH ×2 (08:13→21:02)
[2018-11-28] MEDS: Furosemide TAB* 40 MG PO SCH ×2 (08:15→16:35)
[2018-11-28] MEDS: Apixaban* 2.5 MG TAB PO SCH ×2 (08:15→20:52)
[2018-11-28] MEDS: Gabapentin CAP(*) 100 MG PO SCH ×2 (08:15→20:52)
[2018-11-28] MEDS: Docusate CAP* 100 MG PO SCH ×2 (08:15→20:54)
[2018-11-28] MEDS: Pantoprazole TAB * 40 MG TAB PO SCH (08:16)
[2018-11-28] MEDS: Diltiazem CD CAP* 120 MG PO SCH (08:25)
--- NOTE | 2018-11-28 19:14 | PN ---
Progress Note Date of Service: 11/28/18 Note: SARBJIT LOVELL was visited. Therapy notes read and reviewed. She complains of a lack of appetite but otherwise is doing okay. Pain complaints minimal. Current Medications: Active Medications Generic Name Dose Route Start Last Admin Trade Name Freq PRN Reason Stop Dose Admin Acetaminophen 650 mg 11/26/18 17:48 11/28/18 16:35 Tylenol Tab* PO 650 mg Q6H PRN Administration FEVER/PAIN Apixaban 2.5 mg 11/26/18 21:00 11/28/18 08:15 Eliquis* PO 2.5 mg BID GULSHAN Administration Diltiazem HCl 120 mg 11/27/18 09:00 11/28/18 08:25 Cardizem Cd Cap* PO 120 mg DAILY GULSHAN Administration Docusate Sodium 100 mg 11/26/18 21:00 11/28/18 08:15 Colace Cap* PO 100 mg BID GULSHAN Administration Furosemide 40 mg 11/27/18 08:00 11/28/18 16:35 Lasix Tab* PO 40 mg 0800,1700 GULSHAN Administration Gabapentin 100 mg 11/26/18 21:00 11/28/18 08:15 Neurontin Cap(*) PO 100 mg BID GULSHAN Administration Levothyroxine Sodium 50 mcg 11/27/18 06:00 11/28/18 07:07 Synthroid Tab* PO 50 mcg DAILY@0600 GULSHAN Administration Nystatin 1 applic 11/27/18 21:00 11/28/18 08:13 Nystatin Top Powder* TOPICAL 1 applic BID GULSHAN Administration Oxycodone HCl 2.5 mg 11/26/18 18:02 Roxycodone Tab* PO Q6H PRN PAIN - MODERATE TO SEVERE Pantoprazole Sodium 40 mg 11/27/18 09:00 11/28/18 08:16 Protonix Tab* PO 40 mg DAILY GULSHAN Administration Senna 2 tab 11/26/18 17:48 Senokot Tab* PO BEDTIME PRN CONSTIPATION Vital Signs: Vital Signs Temp Pulse Resp BP Pulse Ox 98.1 F 77 14 100/49 99 11/28/18 16:06 11/28/18 16:06 11/28/18 16:06 11/28/18 16:06 11/28/18 17:53 Exam: HEENT: EOMI LUNGS: Clear bilaterally HEART: II/ Holosystolic murmur, heart sounds regular ABDOMEN: Soft, +BS EXTREMITIES: Right hip wound C/D/I NEUROLOGIC: alert, oriented. Muscle strength 5/5 except RLE due to pain Assessment/Plan: 1. Right hip Fracture: S/P HAP. PT/OT. WBAT 2. ESRD: HD // 3. Atrial fibrillation: Cardizem CD. Eliquis for now 4. GI Bleed: PPI daily. Monitor Hb/Hct 5. DVT Prophylaxis: Eliquis 6. Advanced Directives: Full Code 11/28/18 19:14
[2018-11-29] MEDS: Levothyroxine TAB* 25 MCG TAB PO SCH (05:30)
[2018-11-29] MEDS: Gabapentin CAP(*) 100 MG PO SCH ×2 (07:34→20:59)
[2018-11-29] MEDS: Diltiazem CD CAP* 120 MG PO SCH (07:34)
[2018-11-29] MEDS: Docusate CAP* 100 MG PO SCH ×2 (07:35→21:20)
[2018-11-29] MEDS: Furosemide TAB* 40 MG PO SCH ×2 (07:35→17:09)
[2018-11-29] MEDS: Pantoprazole TAB * 40 MG TAB PO SCH (07:35)
[2018-11-29] MEDS: Apixaban* 2.5 MG TAB PO SCH ×2 (07:35→21:00)
[2018-11-29] MEDS: Nystatin TOP POWDER* 15 GM BTL TOPICAL SCH ×2 (07:36→21:19)
[2018-11-29] MEDS: Acetaminophen TAB* 325 MG PO PRN ×2 (10:04→15:59)
--- NOTE | 2018-11-29 12:38 | PMRUTEAM ---
PMRU: Team Meeting Current Status: Nursing: Current Status Skin Deviations [Bilateral Rash Buttocks] Skin Deviations [Left Upper Other Anterior Arm] Skin Deviations [Right Elbow] Abrasion Skin Deviations [Bilateral Abrasion Posterior Thigh] Skin Deviations [Right Hip] Incision Skin Deviation Description [ washed, dried, cream applied Bilateral Buttocks] Skin Deviation Description [ fistula Left Upper Anterior Arm] Skin Deviation Description [ reddened d/t fall prior to adm Right Elbow] Skin Deviation Description [ scabbed, healing Bilateral Posterior Thigh] Skin Deviation Description [ drsg in place Right Hip] Physical Therapy: Current Status Bed Mobility Assistance Min Assist Transfer Mobility Assistance Contact Guard Assist Transfer/Bed Mobility Rolling Walker Recommended Devices Ambulation Assistance Supervision,Contact Guard Assist Ambulation Assistive Devices Rolling Walker Number of Feet Patient 200, 100, 50 Ambulated Stairs Assistance Contact Guard Assist Stairs Recommended Devices Two Rails Number of Stairs 2x2 Occupational Therapy: Current Status Upper Body Dressing Min Assist Lower Body Dressing Mod Assist Bathing Min Assist Toileting Max Asst Toilet Transfer Min Assist Eating Ind with Adaptive Equip Rec Therapy: Current Status Summary of Assessment and Pt. was open to conversation. 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 Pt. identified with numerous interests and active involvement in them prior to admission . Pt. states she is happy with her life and hopeful she can continue with her many interests after d/c. Treatment Goals Pt. will engage in leisure activities while on the unit. Treatment Plan Provide recreation therapy services and encourage involvement. Social Work: Current Status Discharge Plan return home with home care svs and family support Potential for Family Training TBD Anticipated Discharge Home Destination Discharge With home care svs and family support Goals: Physical Therapy: Initial Goals Bed Mobility Assistance Independent Transfer Mobility Assistance Independent Transfer/Bed Mobility Rolling Walker Recommended Devices Ambulation Independent Ambulation Recommended Devices Rolling Walker Ambulation Distance 150 Stairs Assistance Independent Stair Recommended Devices One Rail Number of Stairs 12 Physical Therapy: Updated Goals Transfer/Bed Mobility Rolling Walker Recommended Devices Occupational Therapy: Initial Goals Goals to be Completed in (Days 14-21 ) Upper Body Bathing Routine Independent Lower Body Bathing Routine Modified Independent with Upper Body Dressing Routine Independent Lower Body Dressing Routine Modified Independent with Toilet Hygeine and Clothing Modified Independent with Management Routine Toilet Transfer Routine Modified Independent with Step-In Shower Transfer Modified Independent with Routine Tub Transfer Routine Modified Independent with Functional Transfers for ADL Modified Independent with Grooming Routine Independent Feeding Routine Independent Light Housekeeping Tasks Modified Independent with Light Housekeeping Tasks light meal prep Genna Assistive Devices Social Work: Goals Discharge Plan return home with home care svs and family support Potential for Family Training TBD Anticipated Discharge Home Destination Discharge With home care svs and family support Care Plan: Care Plan ADL's - Improve/Maintain Start: 11/27/18 15:42 Freq: DAILY Status: Active Target: Protocol: Activity Type Activity Date Activity User E-Sign Co-Sign Detail Recorded Client Recorded Date Recorded By Document 11/28/18 12:57 [id number] 11/28/18 12:57 [id number] 11/28/18 12:57 PMRU Outcome: ADL's/ADL Transfers Orders/Interventions Occupational Therapy Evaluation & Treatment Communication Tool in Patient Room Device Yes Address Deficits Secondary To: s/p R hip hemiarthroplast y Patient to receive OT 5x/wk for 60-120 Therex min/day Self Care Management Group Therapy UE/LE ADL's with Assist Yes: Genna ADL Transfers with Assist Yes: Genna Toileting: Transfers,Clothing Management Yes: Genna ,Hygeine w/Assist Light Kitchen/Laundry w/Assist Yes: Genna Progression Toward Outcome/Goals Progressing Outcome/Goals Met Pt participated well in ADL treatment session, able to utilize AE with some initial assistance, will benefit from continued practice with AE during ADL routine. Cardiovascular- Improve/Maintain Start: 11/26/18 21:17 Freq: QSHIFT Status: Active Target: Protocol: Activity Type Activity Date Activity User E-Sign Co-Sign Detail Recorded Client Recorded Date Recorded By Document 11/28/18 18:01 [id number] 11/28/18 18:03 [id number] 11/28/18 18:01 PMRU Outcome: Cardiovascular Vital Signs q Shift for 48hrs Then BID Yes Daily Weight Ordered Yes Current Cardiovascular Outcome/Goal Maintain/ Achieve Baseline HR, BP , Perfusion Maintain/ Achieve Hemodynamic Stability Free of Abnormal Cardiac Symptoms Progression Toward Outcome/Goal Progressing DVT Prophylaxis- Improve/Maintain Start: 11/26/18 21:17 Freq: QSHIFT Status: Active Target: Protocol: Activity Type Activity Date Activity User E-Sign Co-Sign Detail Recorded Client Recorded Date Recorded By Document 11/28/18 18:01 [id number] 11/28/18 18:03 [id number] 11/28/18 18:01 PMRU Outcome: DVT Prophylaxis Outcome/Goals Remains Free of DVT Progression Toward Outcome/Goals Progressing /GI-Improve/Maintain Start: 11/26/18 21:17 Freq: QSHIFT Status: Active Target: Protocol: Activity Type Activity Date Activity User E-Sign Co-Sign Detail Recorded Client Recorded Date Recorded By Document 11/28/18 18:01 [id number] 11/28/18 18:03 [id number] 11/28/18 18:01 PMRU Outcome: Genitourinary/ Gastrointestinal Genitourinary- Outcome/Goals Maintain/ Achieve Urinary Continence Remain Free of Hospital- Acquired UTI Gastrointestinal-Outcome/Goals Remain Free of Emesis Progression Toward Outcome/Goals - Progressing Progression Toward Outcome/Goals - GI Progressing Pain/Comfort- Improve/Maintain Start: 11/26/18 21:17 Freq: QSHIFT Status: Active Target: Protocol: Activity Type Activity Date Activity User E-Sign Co-Sign Detail Recorded Client Recorded Date Recorded By Document 11/28/18 18:01 [id number] 11/28/18 18:03 [id number] 11/28/18 18:01 PMRU Outcome: Pain/Comfort Outcome/Goals Demonstrates Knowledge and Use of Available Comfort Measures Achieves Acceptable Comfort/Pain Level as Determined by Patient/Condit Maintain Comfort Level Allowing Patient to Fully Participate in Rehab Progression Toward Outcome/Goals Progressing Safety- Improve/Maintain Start: 11/26/18 21:17 Freq: QSHIFT Status: Active Target: Protocol: Activity Type Activity Date Activity User E-Sign Co-Sign Detail Recorded Client Recorded Date Recorded By Document 11/28/18 18:01 [id number] 11/28/18 18:03 [id number] 11/28/18 18:01 PMRU Outcome: Safety Outcome/Goals Remain Free of Injury or Harm Cooperates with Safety Measures for Least Restrictive Environment Prevent Falls/ Injury Progression Toward Outcome/Goals Progressing Skin- Improve/Maintain Start: 11/26/18 21:30 Freq: QSHIFT Status: Active Target: Protocol: Activity Type Activity Date Activity User E-Sign Co-Sign Detail Recorded Client Recorded Date Recorded By Document 11/28/18 18:01 [id number] 11/28/18 18:03 [id number] 11/28/18 18:01 PMRU Outcome: Skin Skin Risk Level Low Outcome/Goals Maintain/ Improve Skin Intergrity Free from Decubitus Surgical Incisions Healing Progression Toward Outcome/Goals Progressing Medicine Note: Length of Stay: 10 days Anticipated Discharge Destination: Home Tentative Discharge Date: 12/10/18 Discharged to: Home
--- NOTE | 2018-11-29 14:19 | PN ---
Progress Note Date of Service: 11/29/18 Note: SARBJIT LOVELL was visited. Therapy notes read and reviewed. She was discussed in interdisciplinary plan of care rounds. She is doing pretty well and has no complaints today. Current Medications: Active Medications Generic Name Dose Route Start Last Admin Trade Name Freq PRN Reason Stop Dose Admin Acetaminophen 650 mg 11/26/18 17:48 11/29/18 10:04 Tylenol Tab* PO 650 mg Q6H PRN Administration FEVER/PAIN Apixaban 2.5 mg 11/26/18 21:00 11/29/18 07:35 Eliquis* PO 2.5 mg BID GULSHAN Administration Diltiazem HCl 120 mg 11/27/18 09:00 11/29/18 07:34 Cardizem Cd Cap* PO 120 mg DAILY GULSHAN Administration Docusate Sodium 100 mg 11/26/18 21:00 11/29/18 07:35 Colace Cap* PO 100 mg BID GULSHAN Administration Furosemide 40 mg 11/27/18 08:00 11/29/18 07:35 Lasix Tab* PO 40 mg 0800,1700 GULSHAN Administration Gabapentin 100 mg 11/26/18 21:00 11/29/18 07:34 Neurontin Cap(*) PO 100 mg BID GULSHAN Administration Levothyroxine Sodium 50 mcg 11/27/18 06:00 11/29/18 05:30 Synthroid Tab* PO 50 mcg DAILY@0600 GULSHAN Administration Nystatin 1 applic 11/27/18 21:00 11/29/18 07:36 Nystatin Top Powder* TOPICAL 1 applic BID GULSHAN Administration Oxycodone HCl 2.5 mg 11/26/18 18:02 Roxycodone Tab* PO Q6H PRN PAIN - MODERATE TO SEVERE Pantoprazole Sodium 40 mg 11/27/18 09:00 11/29/18 07:35 Protonix Tab* PO 40 mg DAILY GULSHAN Administration Senna 2 tab 11/26/18 17:48 Senokot Tab* PO BEDTIME PRN CONSTIPATION Vital Signs: Vital Signs Temp Pulse Resp BP Pulse Ox 98.0 F 65 18 103/43 96 11/29/18 05:49 11/29/18 05:49 11/29/18 12:10 11/29/18 05:49 11/29/18 05:49 Exam: HEENT: EOMI LUNGS: Clear bilaterally HEART: II/ Holosystolic murmur, heart sounds regular ABDOMEN: Soft, +BS EXTREMITIES: Right hip wound C/D/I NEUROLOGIC: alert, oriented. Muscle strength 5/5 except RLE due to pain Assessment/Plan: 1. Right hip Fracture: S/P HAP. PT/OT. WBAT 2. ESRD: HD // 3. Atrial fibrillation: Cardizem CD. Eliquis for now 4. GI Bleed: PPI daily. Monitor Hb/Hct 5. DVT Prophylaxis: Eliquis 6. Advanced Directives: Full Code 11/29/18 14:19
[2018-11-30] MEDS: Levothyroxine TAB* 25 MCG TAB PO SCH (05:40)
[2018-11-30] MEDS: Gabapentin CAP(*) 100 MG PO SCH ×2 (07:43→19:38)
[2018-11-30] MEDS: Diltiazem CD CAP* 120 MG PO SCH (07:43)
[2018-11-30] MEDS: Apixaban* 2.5 MG TAB PO SCH ×2 (07:43→19:39)
[2018-11-30] MEDS: Furosemide TAB* 40 MG PO SCH ×2 (07:43→16:58)
[2018-11-30] MEDS: Docusate CAP* 100 MG PO SCH ×2 (07:44→19:43)
[2018-11-30] MEDS: Pantoprazole TAB * 40 MG TAB PO SCH (07:44)
[2018-11-30] MEDS: Nystatin TOP POWDER* 15 GM BTL TOPICAL SCH ×2 (07:44→19:44)
[2018-11-30] MEDS: Acetaminophen TAB* 325 MG PO PRN ×2 (08:03→19:39)
--- NOTE | 2018-11-30 21:22 | PN ---
Progress Note Date of Service: 11/30/18 Note: SARBJIT LOVELL was visited. Therapy notes read and reviewed. She had some left shoulder pain in HD this morning but otherwise is ok Current Medications: Active Medications Generic Name Dose Route Start Last Admin Trade Name Freq PRN Reason Stop Dose Admin Acetaminophen 650 mg 11/26/18 17:48 11/30/18 19:39 Tylenol Tab* PO 650 mg Q6H PRN Administration FEVER/PAIN Apixaban 2.5 mg 11/26/18 21:00 11/30/18 19:39 Eliquis* PO 2.5 mg BID GULSHAN Administration Diltiazem HCl 120 mg 11/27/18 09:00 11/30/18 07:43 Cardizem Cd Cap* PO 120 mg DAILY GULSHAN Administration Docusate Sodium 100 mg 11/26/18 21:00 11/30/18 19:43 Colace Cap* PO Not Given BID GULSHAN Furosemide 40 mg 11/27/18 08:00 11/30/18 16:58 Lasix Tab* PO 40 mg 0800,1700 GULSHAN Administration Gabapentin 100 mg 11/26/18 21:00 11/30/18 19:38 Neurontin Cap(*) PO 100 mg BID GULSHAN Administration Levothyroxine Sodium 50 mcg 11/27/18 06:00 11/30/18 05:40 Synthroid Tab* PO 50 mcg DAILY@0600 GULSHAN Administration Nystatin 1 applic 11/27/18 21:00 11/30/18 19:44 Nystatin Top Powder* TOPICAL Not Given BID GULSHAN Oxycodone HCl 2.5 mg 11/26/18 18:02 Roxycodone Tab* PO Q6H PRN PAIN - MODERATE TO SEVERE Pantoprazole Sodium 40 mg 11/27/18 09:00 11/30/18 07:44 Protonix Tab* PO 40 mg DAILY GULSHAN Administration Senna 2 tab 11/26/18 17:48 Senokot Tab* PO BEDTIME PRN CONSTIPATION Vital Signs: Vital Signs Temp Pulse Resp BP Pulse Ox 97.7 F 72 16 115/44 95 11/30/18 15:58 11/30/18 15:58 11/30/18 19:38 11/30/18 15:58 11/30/18 18:10 Exam: HEENT: EOMI LUNGS: Clear bilaterally HEART: II/ Holosystolic murmur, heart sounds regular ABDOMEN: Soft, +BS EXTREMITIES: Right hip wound C/D/I NEUROLOGIC: alert, oriented. Muscle strength 5/5 except RLE due to pain Assessment/Plan: 1. Right hip Fracture: S/P HAP. PT/OT. WBAT 2. ESRD: HD // 3. Atrial fibrillation: Cardizem CD. Eliquis for now 4. GI Bleed: PPI daily. Monitor Hb/Hct 5. DVT Prophylaxis: Eliquis 6. Advanced Directives: Full Code 11/30/18 21:22
[2018-12-01] MEDS: Levothyroxine TAB* 25 MCG TAB PO SCH (06:30)
[2018-12-01] MEDS: Furosemide TAB* 40 MG PO SCH ×2 (09:35→17:02)
[2018-12-01] MEDS: Apixaban* 2.5 MG TAB PO SCH ×2 (09:36→20:12)
[2018-12-01] MEDS: Pantoprazole TAB * 40 MG TAB PO SCH (09:36)
[2018-12-01] MEDS: Diltiazem CD CAP* 120 MG PO SCH (09:36)
[2018-12-01] MEDS: Docusate CAP* 100 MG PO SCH ×2 (09:36→20:13)
[2018-12-01] MEDS: Gabapentin CAP(*) 100 MG PO SCH ×2 (09:37→20:12)
[2018-12-01] MEDS: Nystatin TOP POWDER* 15 GM BTL TOPICAL SCH ×2 (09:37→20:13)
--- NOTE | 2018-12-01 12:52 | PN ---
Progress Note Date of Service: 12/01/18 Note: SARBJIT LOVELL was visited. Nursing notes read and reviewed. She offers no complaints today. Feels good. No shoulder pain. Appetite better Current Medications: Active Medications Generic Name Dose Route Start Last Admin Trade Name Freq PRN Reason Stop Dose Admin Acetaminophen 650 mg 11/26/18 17:48 11/30/18 19:39 Tylenol Tab* PO 650 mg Q6H PRN Administration FEVER/PAIN Apixaban 2.5 mg 11/26/18 21:00 12/01/18 09:36 Eliquis* PO 2.5 mg BID GULSHAN Administration Diltiazem HCl 120 mg 11/27/18 09:00 12/01/18 09:36 Cardizem Cd Cap* PO 120 mg DAILY GULSHAN Administration Docusate Sodium 100 mg 11/26/18 21:00 12/01/18 09:36 Colace Cap* PO Not Given BID GULSHAN Furosemide 40 mg 11/27/18 08:00 12/01/18 09:35 Lasix Tab* PO 40 mg 0800,1700 GULSHAN Administration Gabapentin 100 mg 11/26/18 21:00 12/01/18 09:37 Neurontin Cap(*) PO 100 mg BID GULSHAN Administration Levothyroxine Sodium 50 mcg 11/27/18 06:00 12/01/18 06:30 Synthroid Tab* PO 50 mcg DAILY@0600 GULSHAN Administration Nystatin 1 applic 11/27/18 21:00 12/01/18 09:37 Nystatin Top Powder* TOPICAL Not Given BID GULSHAN Oxycodone HCl 2.5 mg 11/26/18 18:02 Roxycodone Tab* PO Q6H PRN PAIN - MODERATE TO SEVERE Pantoprazole Sodium 40 mg 11/27/18 09:00 12/01/18 09:36 Protonix Tab* PO 40 mg DAILY GULSHAN Administration Senna 2 tab 11/26/18 17:48 Senokot Tab* PO BEDTIME PRN CONSTIPATION Vital Signs: Vital Signs Temp Pulse Resp BP Pulse Ox 98.4 F 70 18 111/49 97 12/01/18 06:48 12/01/18 06:48 12/01/18 09:37 12/01/18 06:48 12/01/18 08:00 Exam: HEENT: EOMI LUNGS: Clear bilaterally HEART: II/ Holosystolic murmur, heart sounds regular ABDOMEN: Soft, +BS EXTREMITIES: Right hip wound C/D/I NEUROLOGIC: alert, oriented. Muscle strength 5/5 except RLE due to pain Assessment/Plan: 1. Right hip Fracture: S/P HAP. PT/OT. WBAT 2. ESRD: HD // 3. Atrial fibrillation: Cardizem CD. Eliquis for now 4. GI Bleed: PPI daily. Monitor Hb/Hct 5. DVT Prophylaxis: Eliquis 6. Advanced Directives: Full Code 12/01/18 12:52
[2018-12-02] MEDS: Levothyroxine TAB* 25 MCG TAB PO SCH (05:59)
[2018-12-02] MEDS: Pantoprazole TAB * 40 MG TAB PO SCH (08:56)
[2018-12-02] MEDS: Diltiazem CD CAP* 120 MG PO SCH (08:56)
[2018-12-02] MEDS: Apixaban* 2.5 MG TAB PO SCH ×2 (08:56→19:55)
[2018-12-02] MEDS: Gabapentin CAP(*) 100 MG PO SCH ×2 (08:56→19:55)
[2018-12-02] MEDS: Furosemide TAB* 40 MG PO SCH ×2 (08:56→17:02)
[2018-12-02] MEDS: Docusate CAP* 100 MG PO SCH ×2 (08:56→20:04)
[2018-12-02] MEDS: Nystatin TOP POWDER* 15 GM BTL TOPICAL SCH ×2 (08:57→19:56)
--- NOTE | 2018-12-02 18:44 | PN ---
Progress Note Date of Service: 12/02/18 Note: SARBJIT LOVELL was visited. Therapy notes read and reviewed. Tired after therapy today, otherwise doing ok. Eating well. Current Medications: Active Medications Generic Name Dose Route Start Last Admin Trade Name Freq PRN Reason Stop Dose Admin Acetaminophen 650 mg 11/26/18 17:48 11/30/18 19:39 Tylenol Tab* PO 650 mg Q6H PRN Administration FEVER/PAIN Apixaban 2.5 mg 11/26/18 21:00 12/02/18 08:56 Eliquis* PO 2.5 mg BID GULSHAN Administration Diltiazem HCl 120 mg 11/27/18 09:00 12/02/18 08:56 Cardizem Cd Cap* PO 120 mg DAILY GULSHAN Administration Docusate Sodium 100 mg 11/26/18 21:00 12/02/18 08:56 Colace Cap* PO Not Given BID GULSHAN Furosemide 40 mg 11/27/18 08:00 12/02/18 17:02 Lasix Tab* PO 40 mg 0800,1700 GULSHAN Administration Gabapentin 100 mg 11/26/18 21:00 12/02/18 08:56 Neurontin Cap(*) PO 100 mg BID GULSHAN Administration Levothyroxine Sodium 50 mcg 11/27/18 06:00 12/02/18 05:59 Synthroid Tab* PO 50 mcg DAILY@0600 GULSHAN Administration Nystatin 1 applic 11/27/18 21:00 12/02/18 08:57 Nystatin Top Powder* TOPICAL Not Given BID GULSHAN Oxycodone HCl 2.5 mg 11/26/18 18:02 Roxycodone Tab* PO Q6H PRN PAIN - MODERATE TO SEVERE Pantoprazole Sodium 40 mg 11/27/18 09:00 12/02/18 08:56 Protonix Tab* PO 40 mg DAILY GULSHAN Administration Senna 2 tab 11/26/18 17:48 Senokot Tab* PO BEDTIME PRN CONSTIPATION Vital Signs: Vital Signs Temp Pulse Resp BP Pulse Ox 97.7 F 59 20 104/46 100 12/02/18 16:06 12/02/18 16:06 12/02/18 16:06 12/02/18 16:06 12/02/18 16:52 Exam: HEENT: EOMI LUNGS: Clear bilaterally HEART: II/ Holosystolic murmur, heart sounds regular ABDOMEN: Soft, +BS EXTREMITIES: Right hip wound C/D/I NEUROLOGIC: alert, oriented. Muscle strength 5/5 except RLE due to pain Assessment/Plan: 1. Right hip Fracture: S/P HAP. PT/OT. WBAT 2. ESRD: HD // 3. Atrial fibrillation: Cardizem CD. Eliquis for now 4. GI Bleed: PPI daily. Monitor Hb/Hct 5. DVT Prophylaxis: Eliquis 6. Advanced Directives: Full Code 12/02/18 18:44
[2018-12-03] MEDS: Levothyroxine TAB* 25 MCG TAB PO SCH (05:49)
[2018-12-03] MEDS: Diltiazem CD CAP* 120 MG PO SCH (07:29)
[2018-12-03] MEDS: Apixaban* 2.5 MG TAB PO SCH ×2 (07:29→20:09)
[2018-12-03] MEDS: Pantoprazole TAB * 40 MG TAB PO SCH (07:29)
[2018-12-03] MEDS: Gabapentin CAP(*) 100 MG PO SCH ×2 (07:29→20:09)
[2018-12-03] MEDS: Furosemide TAB* 40 MG PO SCH ×2 (07:29→16:53)
[2018-12-03] MEDS: Nystatin TOP POWDER* 15 GM BTL TOPICAL SCH (07:29)
[2018-12-03] MEDS: Docusate CAP* 100 MG PO SCH ×2 (07:31→20:13)
--- NOTE | 2018-12-03 12:48 | PMRUTEAM ---
PMRU: Team Meeting Current Status: Nursing: Current Status Skin Deviations [Right Upper Other Medial Thigh] Skin Deviations [Bilateral Rash Buttocks] Skin Deviations [Left Upper Other Anterior Arm] Skin Deviations [Right Elbow] Abrasion Skin Deviations [Bilateral Rash Posterior Thigh] Skin Deviations [Right Hip] Incision Skin Deviation Description [ pt c/o pruritis; no obvious deviation noted; Right Upper Medial Thigh] lotion applied Skin Deviation Description [ lotion applied Bilateral Buttocks] Skin Deviation Description [ dialysis fistula Left Upper Anterior Arm] Skin Deviation Description [ sl reddened - unchanged on adm Right Elbow] Skin Deviation Description [ scabbed, healing Bilateral Posterior Thigh] Skin Deviation Description [ incision intact with christie-open to air Right Hip] Bladder Current Status voids occasionally. dialysis patient Bowel Current Status declined colace this am. Nutrition Current Status appetite good Medication Current Status routine neurontin given this am. no pain. Physical Therapy: Current Status Bed Mobility Assistance Not Tested Transfer Mobility Assistance Supervision Transfer/Bed Mobility Rolling Walker Recommended Devices Ambulation Assistance Supervision Ambulation Assistive Devices Rolling Walker Number of Feet Patient 150' Ambulated Stairs Assistance Supervision,Contact Guard Assist Stairs Recommended Devices Straight Cane,One Rail Number of Stairs 2 x 3 Curb Not Tested Objective Comments tenzin works on stair ascent and descent with sc. needs cuing for procedure and steadying primarily on descent. patient improves throughout session. Occupational Therapy: Current Status Upper Body Dressing Supervision Lower Body Dressing Min Assist Bathing Min Assist Toileting Supervision Toilet Transfer Supervision Shower Transfer Progress n/a Eating Independent Rec Therapy: Current Status Summary of Assessment and Pt. was open to conversation. 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 Pt. identified with numerous interests and active involvement in them prior to admission . Pt. states she is happy with her life and hopeful she can continue with her many interests after d/c. Treatment Goals Pt. will engage in leisure activities while on the unit. Treatment Plan Provide recreation therapy services and encourage involvement. Social Work: Current Status Discharge Plan return home with home care svs and family support Potential for Family Training TBD pt lives alone Anticipated Discharge Home Destination Discharge With home care svs and family support Nutrition: Current Status Monitoring Pt with hx ESRD on HD 3x/week. Pt s/p fall at home with R hip fx, s/p R hip hemiarthroplasty 11/21. Pt on appropriate renal diet (K+ restriction, low sodium), and is eating 100% of meals per meal record. K+ 4.2, BUN/Cr 44/3.53 (11/27). Eating independently without evidence of difficulty chewing/swallowing per nursing assessments. Regular BMs noted per stool record. Skin intact with low risk for breakdown per Jeovany 18. Full assessment to follow today. Goals: Physical Therapy: Initial Goals Bed Mobility Assistance Independent Transfer Mobility Assistance Independent Transfer/Bed Mobility Rolling Walker Recommended Devices Ambulation Independent Ambulation Recommended Devices Rolling Walker Ambulation Distance 150 Stairs Assistance Independent Stair Recommended Devices One Rail Number of Stairs 12 Physical Therapy: Updated Goals Transfer/Bed Mobility Rolling Walker Recommended Devices Occupational Therapy: Initial Goals Goals to be Completed in (Days 14- ) Upper Body Bathing Routine Independent Lower Body Bathing Routine Modified Independent with Upper Body Dressing Routine Independent Lower Body Dressing Routine Modified Independent with Toilet Hygeine and Clothing Modified Independent with Management Routine Toilet Transfer Routine Modified Independent with Step-In Shower Transfer Modified Independent with Routine Tub Transfer Routine Modified Independent with Functional Transfers for ADL Modified Independent with Grooming Routine Independent Feeding Routine Independent Light Housekeeping Tasks Modified Independent with Light Housekeeping Tasks light meal prep Genna Assistive Devices Nursing: Goals Bladder Goal independent Bowel Goal bm 12/02 Nutrition Goal 100 % of all meals consumed Medication Goal independent Nutrition: Goals Intervention Goals 1. Intake will remain adequate to meet needs in setting of HD 2. renal labs will remain within acceptable limits in setting of ESRD 3. Pt will maintain regular bowel pattern without constipation/diarrhea 4. Skin will remain intact without breakdown Social Work: Goals Discharge Plan return home with home care svs and family support Potential for Family Training TBD pt lives alone Anticipated Discharge Home Destination Discharge With home care svs and family support Care Plan: Care Plan ADL's - Improve/Maintain Start: 11/27/18 15:42 Freq: DAILY Status: Active Target: Protocol: Activity Type Activity Date Activity User E-Sign Co-Sign Detail Recorded Client Recorded Date Recorded By Document 11/29/18 15:00 [id number] 11/29/18 15:00 [id number] 11/29/18 15:00 PMRU Outcome: ADL's/ADL Transfers Orders/Interventions Occupational Therapy Evaluation & Treatment Communication Tool in Patient Room Device Yes Address Deficits Secondary To: s/p R hip hemiarthroplast y Patient to receive OT 5x/wk for 60-120 Therex min/day Self Care Management Group Therapy UE/LE ADL's with Assist Yes: Genna ADL Transfers with Assist Yes: Genna Toileting: Transfers,Clothing Management Yes: Genna ,Hygeine w/Assist Light Kitchen/Laundry w/Assist Yes: Genna Progression Toward Outcome/Goals Progressing Outcome/Goals Met Pt participated well in treatment session, c/o hip/groin pain, but able to participate well in session . Cardiovascular- Improve/Maintain Start: 11/26/18 21:17 Freq: QSHIFT Status: Active Target: Protocol: Activity Type Activity Date Activity User E-Sign Co-Sign Detail Recorded Client Recorded Date Recorded By Document 12/03/18 08:00 [id number] 12/03/18 09:12 [id number] 12/03/18 08:00 PMRU Outcome: Cardiovascular Vital Signs q Shift for 48hrs Then BID Yes Daily Weight Ordered Yes Current Cardiovascular Outcome/Goal Maintain/ Achieve Baseline HR, BP , Perfusion Improve HR Within Prescribed Parameters Free of Abnormal Cardiac Symptoms Progression Toward Outcome/Goal Progressing DVT Prophylaxis- Improve/Maintain Start: 11/26/18 21:17 Freq: QSHIFT Status: Active Target: Protocol: Activity Type Activity Date Activity User E-Sign Co-Sign Detail Recorded Client Recorded Date Recorded By Document 12/03/18 08:00 [id number] 12/03/18 09:12 [id number] 12/03/18 08:00 PMRU Outcome: DVT Prophylaxis Outcome/Goals Remains Free of DVT Complies with DVT Prophylaxis /Treatment Demonstrates Knowledge of DVT Prevention/ Treatment TEDS Stockings on Every AM, Off at HS Progression Toward Outcome/Goals Progressing /GI-Improve/Maintain Start: 11/26/18 21:17 Freq: QSHIFT Status: Active Target: Protocol: Activity Type Activity Date Activity User E-Sign Co-Sign Detail Recorded Client Recorded Date Recorded By Document 12/03/18 08:00 [id number] 12/03/18 09:12 [id number] 12/03/18 08:00 PMRU Outcome: Genitourinary/ Gastrointestinal Genitourinary- Outcome/Goals Maintain/ Achieve Urinary Continence Remain Free of Hospital- Acquired UTI Gastrointestinal-Outcome/Goals Maintain/ Achieve Bowel Regularity in Accordance with Pt's Baseline Remain Free of Emesis Prevent Constipation Laxatives as Ordered Progression Toward Outcome/Goals - Progressing Progression Toward Outcome/Goals - GI Progressing Pain/Comfort- Improve/Maintain Start: 11/26/18 21:17 Freq: QSHIFT Status: Active Target: Protocol: Activity Type Activity Date Activity User E-Sign Co-Sign Detail Recorded Client Recorded Date Recorded By Document 12/03/18 08:00 [id number] 12/03/18 09:12 [id number] 12/03/18 08:00 PMRU Outcome: Pain/Comfort Outcome/Goals Demonstrates Knowledge and Use of Available Comfort Measures Achieves Acceptable Comfort/Pain Level as Determined by Patient/Condit Maintain Comfort Level Allowing Patient to Fully Participate in Rehab Progression Toward Outcome/Goals Progressing Outcome/Goals Met Comment routine neurontin given . no c/o pain verbalized Safety- Improve/Maintain Start: 11/26/18 21:17 Freq: QSHIFT Status: Active Target: Protocol: Activity Type Activity Date Activity User E-Sign Co-Sign Detail Recorded Client Recorded Date Recorded By Document 12/03/18 08:00 [id number] 12/03/18 09:12 [id number] 12/03/18 08:00 PMRU Outcome: Safety Outcome/Goals Remain Free of Injury or Harm Cooperates with Safety Measures for Least Restrictive Environment Prevent Falls/ Injury Progression Toward Outcome/Goals Progressing Outcome/Goals Met Comment uses gait belt appropriately Skin- Improve/Maintain Start: 11/26/18 21:30 Freq: QSHIFT Status: Active Target: Protocol: Activity Type Activity Date Activity User E-Sign Co-Sign Detail Recorded Client Recorded Date Recorded By Document 12/03/18 08:00 [id number] 12/03/18 09:12 [id number] 12/03/18 08:00 PMRU Outcome: Skin Skin Risk Level Medium Skin Orders Spenco Boots Outcome/Goals Maintain/ Improve Skin Intergrity Maintain/ Improve Wound Status Surgical Incisions Healing Progression Toward Outcome/Goals Progressing Outcome/Goals Met Comment r hip incision intact and healing well. open to air Medicine Note: Length of Stay: 7 days Anticipated Discharge Destination: Home Tentative Discharge Date: 12/10/18 Discharged to: Home
--- NOTE | 2018-12-03 19:00 | PN ---
Progress Note Date of Service: 12/03/18 Note: SARBJIT LOVELL was visited. Therapy notes read and reviewed. She was discussed in interdisciplinary team rounds. She is doing well with therapy. Will have to do stairs with a ramp. Current Medications: Active Medications Generic Name Dose Route Start Last Admin Trade Name Freq PRN Reason Stop Dose Admin Acetaminophen 650 mg 11/26/18 17:48 11/30/18 19:39 Tylenol Tab* PO 650 mg Q6H PRN Administration FEVER/PAIN Apixaban 2.5 mg 11/26/18 21:00 12/03/18 07:29 Eliquis* PO 2.5 mg BID GULSHAN Administration Diltiazem HCl 120 mg 11/27/18 09:00 12/03/18 07:29 Cardizem Cd Cap* PO 120 mg DAILY GULSHAN Administration Docusate Sodium 100 mg 11/26/18 21:00 12/03/18 07:31 Colace Cap* PO Not Given BID GULSHAN Furosemide 40 mg 11/27/18 08:00 12/03/18 16:53 Lasix Tab* PO 40 mg 0800,1700 GULSHAN Administration Gabapentin 100 mg 11/26/18 21:00 12/03/18 07:29 Neurontin Cap(*) PO 100 mg BID GULSHAN Administration Levothyroxine Sodium 50 mcg 11/27/18 06:00 12/03/18 05:49 Synthroid Tab* PO 50 mcg DAILY@0600 GULSHAN Administration Non-Formulary Medication 1 drop 12/04/18 09:00 Senait 128 BOTH EYES DAILY GULSHAN Oxycodone HCl 2.5 mg 11/26/18 18:02 Roxycodone Tab* PO Q6H PRN PAIN - MODERATE TO SEVERE Pantoprazole Sodium 40 mg 11/27/18 09:00 12/03/18 07:29 Protonix Tab* PO 40 mg DAILY GULSHAN Administration Senna 2 tab 11/26/18 17:48 Senokot Tab* PO BEDTIME PRN CONSTIPATION Vital Signs: Vital Signs Temp Pulse Resp BP Pulse Ox 98.4 F 72 18 110/43 94 12/03/18 16:26 12/03/18 16:26 12/03/18 16:26 12/03/18 16:26 12/03/18 16:26 Exam: HEENT: EOMI LUNGS: Clear bilaterally HEART: II/ Holosystolic murmur, heart sounds regular ABDOMEN: Soft, +BS EXTREMITIES: Right hip wound C/D/I NEUROLOGIC: alert, oriented. Muscle strength 5/5 except RLE due to pain Assessment/Plan: 1. Right hip Fracture: S/P HAP. PT/OT. WBAT 2. ESRD: HD // 3. Atrial fibrillation: Cardizem CD. Eliquis for now 4. GI Bleed: PPI daily. Monitor Hb/Hct 5. DVT Prophylaxis: Eliquis 6. Advanced Directives: Full Code 12/03/18 19:01
[2018-12-03] MEDS: Acetaminophen TAB* 325 MG PO PRN (20:15)
[2018-12-04 05:24] LABS: ABS Basophils 0.1 10^3/ul (0-0.2); ABS Eosinophils 0.1 10^3/ul (0-0.6); ABS Lymphocytes 0.9 10^3/ul (1.0-4.8); ABS Monocytes 0.6 10^3/ul (0-0.8); ABS Neutrophils 5.9 10^3/ul (1.5-7.7); Eosinophil % 1.9 %; Hematocrit 19 % (35-47); Hemoglobin 6.6 g/dL (12.0-16.0); Lymphocyte % 11.6 %; Mean Corpuscular HGB Conc 34 g/dL (31-36); Mean Corpuscular Hemoglobin 32 pg (27-31); Mean Corpuscular Volume 92 fL (80-97); Platelet Count 324 10^3/uL (150-450); Red Blood Count 2.08 10^6 /uL (3.70-4.87); Red Cell Distribution Width 17 % (10.5-15); White Blood Count 7.6 10^3/uL (3.5-10.8)
[2018-12-04 05:42] LABS: Albumin 3.1 g/dL (3.2-5.2); Albumin/Globulin Ratio 1.2 (1-3); BUN/Creatinine Ratio 11.5 (8-20); Calcium 9.1 mg/dL (8.6-10.3); EGFR African American 14.3 (>60); EGFR Non-African American 11.8 (>60); Globulin 2.5 g/dL (2-4); Potassium 4.1 mmol/L (3.5-5.0); Total Bilirubin 0.5 mg/dL (0.2-1.0); Total Protein 5.6 g/dL (6.4-8.9)
[2018-12-04] MEDS: Levothyroxine TAB* 25 MCG TAB PO SCH (05:59)
[2018-12-04] MEDS: Gabapentin CAP(*) 100 MG PO SCH ×2 (08:34→20:55)
[2018-12-04] MEDS: Apixaban* 2.5 MG TAB PO SCH (08:34)
[2018-12-04] MEDS: Pantoprazole TAB * 40 MG TAB PO SCH (08:34)
[2018-12-04] MEDS: Diltiazem CD CAP* 120 MG PO SCH (08:34)
[2018-12-04] MEDS: Furosemide TAB* 40 MG PO SCH ×2 (08:34→18:10)
[2018-12-04] MEDS: Docusate CAP* 100 MG PO SCH ×2 (08:35→20:54)
[2018-12-04] MEDS: MURO BOTH EYES SCH (11:48)
--- NOTE | 2018-12-04 19:32 | PN ---
Progress Note Date of Service: 12/04/18 Note: SARBJIT LOVELL was visited. Therapy notes read and reviewed. On routine labs this morning, her hemoglobin was 6.6 with a hematocrit of 19. She was asymptomatic. He Eliquis was stopped and she received a unit of PRBCs. Another CBC is ordered for tomorrow. This is similar to her hospitalization in May, when she had a drop in hemoglobin to 6. She was seen by Dr. Mejia and had a colonoscopy and EGD. Will discuss with GI tomorrow. She can not have anticoagulation Current Medications: Active Medications Generic Name Dose Route Start Last Admin Trade Name Freq PRN Reason Stop Dose Admin Acetaminophen 650 mg 11/26/18 17:48 12/03/18 20:15 Tylenol Tab* PO 650 mg Q6H PRN Administration FEVER/PAIN Diltiazem HCl 120 mg 11/27/18 09:00 12/04/18 08:34 Cardizem Cd Cap* PO 120 mg DAILY GULSHAN Administration Docusate Sodium 100 mg 11/26/18 21:00 12/04/18 08:35 Colace Cap* PO Not Given BID GULSHAN Furosemide 40 mg 11/27/18 08:00 12/04/18 18:10 Lasix Tab* PO Not Given 0800,1700 GULSHAN Gabapentin 100 mg 11/26/18 21:00 12/04/18 08:34 Neurontin Cap(*) PO 100 mg BID GULSHAN Administration Levothyroxine Sodium 50 mcg 11/27/18 06:00 12/04/18 05:59 Synthroid Tab* PO 50 mcg DAILY@0600 GULSHAN Administration Pto: Senait 128 Drop 1 drop 12/04/18 09:00 12/04/18 11:48 BOTH EYES 1 drop DAILY GULSHAN Administration Oxycodone HCl 2.5 mg 11/26/18 18:02 Roxycodone Tab* PO Q6H PRN PAIN - MODERATE TO SEVERE Pantoprazole Sodium 40 mg 11/27/18 09:00 12/04/18 08:34 Protonix Tab* PO 40 mg DAILY GULSHAN Administration Senna 2 tab 11/26/18 17:48 Senokot Tab* PO BEDTIME PRN CONSTIPATION Vital Signs: Vital Signs Temp Pulse Resp BP Pulse Ox 98.5 F 70 18 105/47 95 12/04/18 19:15 12/04/18 19:15 12/04/18 19:15 12/04/18 19:15 12/04/18 19:15 Lab Results: Laboratory Results - last 24 hr 12/04/18 12/04/18 12/04/18 05:14 05:14 05:14 WBC 7.6 RBC 2.08 L Hgb 6.6 L Hct 19 L MCV 92 MCH 32 H MCHC 34 RDW 17 H Plt Count 324 MPV 6.0 L Neut % (Auto) 78.0 Lymph % (Auto) 11.6 [place] % (Auto) 7.5 Eos % (Auto) 1.9 Baso % (Auto) 1.0 Absolute Neuts (auto) 5.9 Absolute Lymphs (auto) 0.9 L Absolute Monos (auto) 0.6 Absolute Eos (auto) 0.1 Absolute Basos (auto) 0.1 Absolute Nucleated RBC 0.0 Nucleated RBC % 0.0 Sodium 133 L Potassium 4.1 Chloride 98 L Carbon Dioxide 28 Anion Gap 7 BUN 42 H Creatinine 3.66 H Est GFR ( Amer) 14.3 Est GFR (Non-Af Amer) 11.8 BUN/Creatinine Ratio 11.5 Glucose 99 Calcium 9.1 Total Bilirubin 0.50 AST 13 ALT 6 L Alkaline Phosphatase 86 Total Protein 5.6 L Albumin 3.1 L Globulin 2.5 Albumin/Globulin Ratio 1.2 Blood Type O Positive Antibody Screen Negative Crossmatch See Detail Exam: HEENT: EOMI LUNGS: Clear bilaterally HEART: II/ Holosystolic murmur, heart sounds regular ABDOMEN: Soft, +BS EXTREMITIES: Right hip wound C/D/I NEUROLOGIC: alert, oriented. Muscle strength 5/5 except RLE due to pain Assessment/Plan: 1. Right hip Fracture: S/P HAP. PT/OT. WBAT 2. ESRD: HD // 3. Atrial fibrillation: Cardizem CD. Eliquis d/c'd 4. GI Bleed: PPI daily. Hb/Hct again shows a large drop. CBC in am, will d/w GI tomorrow 5. DVT Prophylaxis: Eliquis d/c'd 6. Advanced Directives: Full Code 12/04/18 19:32
[2018-12-04] MEDS: Acetaminophen TAB* 325 MG PO PRN (20:55)
[2018-12-05 05:25] LABS: ABS Basophils 0.1 10^3/ul (0-0.2); ABS Eosinophils 0.1 10^3/ul (0-0.6); ABS Lymphocytes 1.1 10^3/ul (1.0-4.8); ABS Monocytes 0.5 10^3/ul (0-0.8); Eosinophil % 1.9 %; Hematocrit 23 % (35-47); Hemoglobin 7.8 g/dL (12.0-16.0); Lymphocyte % 13.5 %; Mean Corpuscular HGB Conc 34 g/dL (31-36); Mean Corpuscular Hemoglobin 31 pg (27-31); Mean Corpuscular Volume 92 fL (80-97); Mean Platelet Volume 6.3 fL (7.4-10.4); Platelet Count 323 10^3/uL (150-450); Red Cell Distribution Width 17 % (10.5-15); White Blood Count 7.8 10^3/uL (3.5-10.8)
[2018-12-05] MEDS: Levothyroxine TAB* 25 MCG TAB PO SCH (05:46)
[2018-12-05] MEDS: Furosemide TAB* 40 MG PO SCH ×2 (07:27→17:00)
[2018-12-05] MEDS: Pantoprazole TAB * 40 MG TAB PO SCH (07:27)
[2018-12-05] MEDS: Gabapentin CAP(*) 100 MG PO SCH ×2 (07:28→21:47)
[2018-12-05] MEDS: MURO BOTH EYES SCH (07:28)
[2018-12-05] MEDS: Diltiazem CD CAP* 120 MG PO SCH (07:28)
[2018-12-05] MEDS: Docusate CAP* 100 MG PO SCH ×2 (07:29→21:47)
--- NOTE | 2018-12-05 18:00 | CONS ---
CC: Dr. Cobian * CONSULTATION REPORT: DATE OF CONSULT: 12/05/18 REASON FOR CONSULT: Anemia. HISTORY OF PRESENT ILLNESS: This is a pleasant 83-year-old female with a past medical history of aortic stenosis, AFib, end-stage renal disease; on hemodialysis Sunday; ; Saturdays who on 11/20/18 lost her balance and fell and broke the femoral neck of the right hip. She was taken to the operating room on 11/21/18. Postoperatively, she has done well. 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 She did have a push enteroscopy with AVM ablation by Dr. Mejia in 2016. However, given the recent fracture, she was started on Eliquis for DVT prophylaxis. After the Eliquis was started, it has been noted that her hemoglobin has been downtrending. She denies any black or blood in the stool. Denies any diarrhea or constipation; however, she states occasionally the stool will be a little bit loose in nature. She denies any abdominal pain. Denies any dysphagia or odynophagia. Denies any weight loss or gain. No skin rash or lesions. Appetite has been good. The remainder of the 14 -point review of systems is grossly negative. PAST MEDICAL HISTORY: Multiple endoscopies and colonoscopies and push enteroscopy. The last EGD was done by Dr. Cobian in August 2018 without a clear source of bleeding. No AVMs were visualized. She was recommended to have a capsule endoscopy, but was unable to swallow the capsule. Other medical history includes end-stage renal disease, AFib, hypothyroidism, obstructive sleep apnea. MEDICATIONS: Prior to admission were: 1. Eliquis, now held. 2. Cardizem. 3. Lasix. 4. Gabapentin. 5. Synthroid. 6. Oxycodone. 7. Protonix. ALLERGIES: Include BETA ADRIANA, CELEBREX, and CODEINE. FAMILY HISTORY: No family history of colorectal cancer or IBD. SOCIAL HISTORY: Nonsmoker, nondrinker. REVIEW OF SYSTEMS: Remainder of the 14-point review of systems is grossly negative. PHYSICAL EXAM: Vital Signs: Blood pressure is 118/41, pulse is 67, temperature is 98.2, respiratory rate is 18, she is 92% on room air. In general , alert and oriented x3, in no acute distress. HEENT: Atraumatic, normocephalic. Pupils equal, round, reactive to light. Extraocular movements are intact. Neck: Supple. Trachea midline. Lungs: Clear to auscultation bilaterally. Heart: Irregular rate and rhythm. Systolic ejection murmur appreciated. Abdomen: Soft and nontender. Bowel sounds positive. No guarding or rebound. Extremities: Shunt in left arm. Psych: Appropriate mood and affect. DIAGNOSTIC STUDIES/LAB DATA: Hemoglobin 7.8 with a low of 6.6 on 12/04/18. Previously had normal hemoglobin on 11/01/18 of 12.5. Platelet count 323. Sodium 133, chloride 98, BUN 42, creatinine 3.66. AST is 13, ALT is 6, albumin is 3.1. ASSESSMENT AND PLAN: This is an 83-year-old female with history of occult gastrointestinal bleed with extensive workup in the past, eventually finding small- bowel avascular formation, who now presents with worsening anemia after anticoagulation postop. 1. Anemia due to chronic blood loss, high suspicion for avascular formation that may have been exacerbated by the Eliquis usage. Eliquis has widely been held. She had an appropriate rise with her transfusion to 7.8. Given the recent Eliquis, I think it would be appropriate to consider doing a push enteroscopy to evaluate for potential avascular formations within the small- bowel including the proximal jejunum. We will plan on push enteroscopy with Dr. Cobian on 12/06/18. She unfortunately was not able to swallow a capsule. If further evaluation considered in the future, we can endoscopically place capsule. 2. End-stage renal disease, on hemodialysis on Sunday, , and Sunday per primary team. 3. Recent hip fracture per primary team. [id number]/[facility] #: [id number] [facility]
--- NOTE | 2018-12-05 19:41 | PN ---
Progress Note Date of Service: 12/05/18 Note: SARBJIT LOVELL was visited. Therapy notes read and reviewed. She is now off anticoagulation and her Hb fernando after transfusion to 7.8. A GI consult was obtained and she will have a push endoscopy tomorrow Current Medications: Active Medications Generic Name Dose Route Start Last Admin Trade Name Freq PRN Reason Stop Dose Admin Acetaminophen 650 mg 11/26/18 17:48 12/04/18 20:55 Tylenol Tab* PO 650 mg Q6H PRN Administration FEVER/PAIN Diltiazem HCl 120 mg 11/27/18 09:00 12/05/18 07:28 Cardizem Cd Cap* PO 120 mg DAILY GULSHAN Administration Docusate Sodium 100 mg 11/26/18 21:00 12/05/18 07:29 Colace Cap* PO Not Given BID GULSHAN Furosemide 40 mg 11/27/18 08:00 12/05/18 17:00 Lasix Tab* PO 40 mg 0800,1700 GULSHAN Administration Gabapentin 100 mg 11/26/18 21:00 12/05/18 07:28 Neurontin Cap(*) PO 100 mg BID GULSHAN Administration Levothyroxine Sodium 50 mcg 11/27/18 06:00 12/05/18 05:46 Synthroid Tab* PO 50 mcg DAILY@0600 GULSHAN Administration Pto: Senait 128 Drop 1 drop 12/04/18 09:00 12/05/18 07:28 BOTH EYES 1 drop DAILY GULSHAN Administration Oxycodone HCl 2.5 mg 11/26/18 18:02 Roxycodone Tab* PO Q6H PRN PAIN - MODERATE TO SEVERE Pantoprazole Sodium 40 mg 11/27/18 09:00 12/05/18 07:27 Protonix Tab* PO 40 mg DAILY GULSHAN Administration Senna 2 tab 11/26/18 17:48 Senokot Tab* PO BEDTIME PRN CONSTIPATION Vital Signs: Vital Signs Temp Pulse Resp BP Pulse Ox 98.3 F 64 22 110/47 97 12/05/18 16:50 12/05/18 16:50 12/05/18 17:11 12/05/18 16:50 12/05/18 17:11 Lab Results: Laboratory Results - last 24 hr 12/05/18 05:14 WBC 7.8 RBC 2.50 L Hgb 7.8 L Hct 23 L MCV 92 MCH 31 MCHC 34 RDW 17 H Plt Count 323 MPV 6.3 L Neut % (Auto) 77.2 Lymph % (Auto) 13.5 [place] % (Auto) 6.4 Eos % (Auto) 1.9 Baso % (Auto) 1.0 Absolute Neuts (auto) 6.0 Absolute Lymphs (auto) 1.1 Absolute Monos (auto) 0.5 Absolute Eos (auto) 0.1 Absolute Basos (auto) 0.1 Absolute Nucleated RBC 0.0 Nucleated RBC % 0.0 Exam: HEENT: EOMI LUNGS: Clear bilaterally HEART: II/ Holosystolic murmur, heart sounds regular ABDOMEN: Soft, +BS EXTREMITIES: Right hip wound C/D/I NEUROLOGIC: alert, oriented. Muscle strength 5/5 except RLE due to pain Assessment/Plan: 1. Right hip Fracture: S/P HAP. PT/OT. WBAT 2. ESRD: HD // 3. Atrial fibrillation: Cardizem CD. Eliquis d/c'd 4. GI Bleed: PPI daily. Hb/Hct again shows a large drop. CBC in am, will d/w GI tomorrow 5. DVT Prophylaxis: Eliquis d/c'd 6. Advanced Directives: Full Code 12/05/18 19:42
[2018-12-06 05:12] LABS: ABS Basophils 0.1 10^3/ul (0-0.2); ABS Eosinophils 0.1 10^3/ul (0-0.6); ABS Lymphocytes 1.1 10^3/ul (1.0-4.8); ABS Monocytes 0.5 10^3/ul (0-0.8); ABS Neutrophils 6.2 10^3/ul (1.5-7.7); Eosinophil % 1.4 %; Hematocrit 22 % (35-47); Hemoglobin 7.7 g/dL (12.0-16.0); Lymphocyte % 13.6 %; Mean Corpuscular HGB Conc 35 g/dL (31-36); Mean Corpuscular Hemoglobin 32 pg (27-31); Mean Corpuscular Volume 93 fL (80-97); Mean Platelet Volume 6.3 fL (7.4-10.4); Platelet Count 333 10^3/uL (150-450); Red Cell Distribution Width 17 % (10-15)
[2018-12-06] MEDS: Levothyroxine TAB* 25 MCG TAB PO SCH (05:37)
[2018-12-06] MEDS: Diltiazem CD CAP* 120 MG PO SCH (09:27)
[2018-12-06] MEDS: Furosemide TAB* 40 MG PO SCH ×2 (09:27→17:12)
[2018-12-06] MEDS: Pantoprazole TAB * 40 MG TAB PO SCH (09:28)
[2018-12-06] MEDS: MURO BOTH EYES SCH (09:28)
[2018-12-06] MEDS: Gabapentin CAP(*) 100 MG PO SCH ×2 (09:28→20:56)
[2018-12-06] MEDS: Docusate CAP* 100 MG PO SCH ×2 (09:29→20:56)
--- NOTE | 2018-12-06 10:04 | PN ---
Progress Note Date of Service: 12/06/18 Note: SARBJIT LOVELL was visited. Nursing and therapy notes read and reviewed. No chest pain, shortness of breath or abdominal pain. Denies any lightheaded or dizziness. Scheduled for EGD today. Current Medications: Active Medications Generic Name Dose Route Start Last Admin Trade Name Freq PRN Reason Stop Dose Admin Acetaminophen 650 mg 11/26/18 17:48 12/04/18 20:55 Tylenol Tab* PO 650 mg Q6H PRN Administration FEVER/PAIN Diltiazem HCl 120 mg 11/27/18 09:00 12/06/18 09:27 Cardizem Cd Cap* PO 120 mg DAILY GULSHAN Administration Docusate Sodium 100 mg 11/26/18 21:00 12/06/18 09:29 Colace Cap* PO Not Given BID GULSHAN Furosemide 40 mg 11/27/18 08:00 12/06/18 09:27 Lasix Tab* PO 40 mg 0800,1700 GULSHAN Administration Gabapentin 100 mg 11/26/18 21:00 12/06/18 09:28 Neurontin Cap(*) PO 100 mg BID GULSHAN Administration Levothyroxine Sodium 50 mcg 11/27/18 06:00 12/06/18 05:37 Synthroid Tab* PO 50 mcg DAILY@0600 GULSHAN Administration Pto: Senait 128 Drop 1 drop 12/04/18 09:00 12/06/18 09:28 BOTH EYES 1 drop DAILY GULSHAN Administration Oxycodone HCl 2.5 mg 11/26/18 18:02 Roxycodone Tab* PO Q6H PRN PAIN - MODERATE TO SEVERE Pantoprazole Sodium 40 mg 11/27/18 09:00 12/06/18 09:28 Protonix Tab* PO 40 mg DAILY GULSHAN Administration Senna 2 tab 11/26/18 17:48 Senokot Tab* PO BEDTIME PRN CONSTIPATION Vital Signs: Vital Signs Temp Pulse Resp BP Pulse Ox 98.3 F 77 14 114/50 92 12/06/18 05:00 12/06/18 05:00 12/06/18 09:28 12/06/18 05:00 12/06/18 05:00 Lab Results: Laboratory Results - last 24 hr 12/06/18 04:54 WBC 8.0 RBC 2.40 L Hgb 7.7 L Hct 22 L MCV 93 MCH 32 H MCHC 35 RDW 17 H Plt Count 333 MPV 6.3 L Neut % (Auto) 77.5 Lymph % (Auto) 13.6 [place] % (Auto) 6.8 Eos % (Auto) 1.4 Baso % (Auto) 0.7 Absolute Neuts (auto) 6.2 Absolute Lymphs (auto) 1.1 Absolute Monos (auto) 0.5 Absolute Eos (auto) 0.1 Absolute Basos (auto) 0.1 Absolute Nucleated RBC 0.0 Nucleated RBC % 0.0 + blood in stool Exam: GEN: no acute distress. alert and appropriate LUNGS: Clear to auscultation bilaterally HEART: II/ Holosystolic murmur, regular rate and rhythm ABDOMEN: Soft, + bowel sounds, non-tender, non-distended EXTREMITIES: No edema. NEUROLOGIC: Visited with her standing up with walker. Able to DF toes. Normal BLE sensation. Demonstrated few steps and turning with supervision. Appears stable. No loss of balance. Assessment/Plan: 1. Right hip Fracture: S/P hemiarthroplasty. PT/OT. WBAT 2. ESRD: hemodialysis // 3. Atrial fibrillation: Cardizem CD. Eliquis d/c'd due to blood loss 4. 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 PPI daily. Off eliquis. Seen by GI, Dr. Leslie and plan is for EGD with Dr. Cobian today. Hgb/Hct stable post transfusion 12/04/18. Follow CBC. 5. DVT Prophylaxis: Eliquis d/c'd. SCDs/TEDs. Chemical ppx contraindicated due to GI bleed 6. Advanced Directives: Full Code 12/06/18 10:04
[2018-12-07 05:13] LABS: ABS Basophils 0.1 10^3/ul (0-0.2); ABS Eosinophils 0.2 10^3/ul (0-0.6); ABS Lymphocytes 0.8 10^3/ul (1.0-4.8); ABS Monocytes 0.6 10^3/ul (0-0.8); ABS Neutrophils 7.1 10^3/ul (1.5-7.7); Eosinophil % 1.9 %; Hematocrit 23 % (35-47); Hemoglobin 7.7 g/dL (12.0-16.0); Mean Corpuscular HGB Conc 33 g/dL (31-36); Mean Corpuscular Hemoglobin 31 pg (27-31); Mean Corpuscular Volume 93 fL (80-97); Mean Platelet Volume 6.4 fL (7.4-10.4); Platelet Count 330 10^3/uL (150-450); Red Blood Count 2.48 10^6 /uL (3.70-4.87); Red Cell Distribution Width 17 % (10-15); White Blood Count 8.7 10^3/uL (3.5-10.8)
[2018-12-07] MEDS: Levothyroxine TAB* 25 MCG TAB PO SCH (05:45)
[2018-12-07] MEDS: Furosemide TAB* 40 MG PO SCH ×2 (08:33→16:16)
[2018-12-07] MEDS: MURO BOTH EYES SCH (08:35)
--- NOTE | 2018-12-07 10:43 | PN ---
Progress Note Date of Service: 12/07/18 Note: SARBJIT LOVELL was visited. Nursing and therapy notes read and reviewed. No chest pain, shortness of breath or abdominal pain. EGD yesterday was well tolerated. No AVM or bleeding source seen by Dr. Cobian. He said bed course may be to hold anticoagulation. No lightheaded or dizziness. No nausea or vomiting. Her stools are still black. She reports lost nightgown earlier in the week and staff has been unable to locate. Current Medications: Active Medications Generic Name Dose Route Start Last Admin Trade Name Freq PRN Reason Stop Dose Admin Acetaminophen 650 mg 11/26/18 17:48 12/04/18 20:55 Tylenol Tab* PO 650 mg Q6H PRN Administration FEVER/PAIN Diltiazem HCl 120 mg 11/27/18 09:00 12/06/18 09:27 Cardizem Cd Cap* PO 120 mg DAILY GULSHAN Administration Docusate Sodium 100 mg 11/26/18 21:00 12/06/18 20:56 Colace Cap* PO Not Given BID GULSHAN Furosemide 40 mg 11/27/18 08:00 12/07/18 08:33 Lasix Tab* PO 40 mg 0800,1700 GULSHAN Administration Gabapentin 100 mg 11/26/18 21:00 12/06/18 20:56 Neurontin Cap(*) PO 100 mg BID GULSHAN Administration Levothyroxine Sodium 50 mcg 11/27/18 06:00 12/07/18 05:45 Synthroid Tab* PO 50 mcg DAILY@0600 GULSHAN Administration Pto: Senait 128 Drop 1 drop 12/04/18 09:00 12/07/18 08:35 BOTH EYES 1 drop DAILY GULSHAN Administration Oxycodone HCl 2.5 mg 11/26/18 18:02 Roxycodone Tab* PO Q6H PRN PAIN - MODERATE TO SEVERE Pantoprazole Sodium 40 mg 11/27/18 09:00 12/06/18 09:28 Protonix Tab* PO 40 mg DAILY GULSHAN Administration Senna 2 tab 11/26/18 17:48 Senokot Tab* PO BEDTIME PRN CONSTIPATION Vital Signs: Vital Signs Temp Pulse Resp BP Pulse Ox 98.0 F 71 20 109/44 93 12/07/18 05:13 12/07/18 05:13 12/07/18 05:13 12/07/18 05:13 12/07/18 05:13 Lab Results: Laboratory Results - last 24 hr 12/07/18 04:57 WBC 8.7 RBC 2.48 L Hgb 7.7 L Hct 23 L MCV 93 MCH 31 MCHC 33 RDW 17 H Plt Count 330 MPV 6.4 L Neut % (Auto) 81.5 Lymph % (Auto) 9.0 [place] % (Auto) 6.9 Eos % (Auto) 1.9 Baso % (Auto) 0.7 Absolute Neuts (auto) 7.1 Absolute Lymphs (auto) 0.8 L Absolute Monos (auto) 0.6 Absolute Eos (auto) 0.2 Absolute Basos (auto) 0.1 Absolute Nucleated RBC 0.0 Nucleated RBC % 0.0 Exam: GEN: no acute distress. alert and appropriate LUNGS: Clear to auscultation bilaterally HEART: II/ Holosystolic murmur, regular rate and rhythm ABDOMEN: Soft, + bowel sounds, non-tender, non-distended EXTREMITIES: No edema. NEUROLOGIC: BLE motor 5/5 with some limitation to right hip and knee due to pain. normal sensation. Assessment/Plan: 1. Right hip Fracture: S/P hemiarthroplasty. PT/OT. WBAT 2. ESRD: hemodialysis // 3. Atrial fibrillation: Stacey ESCALANTE. Eliquis d/c'd due to blood loss. I d/w there is an increased risk of stroke off Eliquis. She is aware. 4. GI Bleed: EGD 12/06/18 without source visualized. H/H has been stable last 3 days since off Eliquis. Per GI should stay off anticoagulation. 5. DVT Prophylaxis: Eliquis d/c'd. SCDs/TEDs. Chemical ppx contraindicated due to GI bleed. I discussed with her increased risk for DVT, PE and stroke while off Eliquis and have to weigh risks and benefits. She is ok staying off Eliquis and using SCDs/TEDs while here. I advised her to also keep up with ankle pumps and exercises to prevent DVT. She understands. 6. Advanced Directives: Full Code 7. I will message refinery operator crude unit about her lost nightgown. It was her favorite. 12/07/18 10:39
[2018-12-07] MEDS: Pantoprazole TAB * 40 MG TAB PO SCH (13:55)
[2018-12-07] MEDS: Gabapentin CAP(*) 100 MG PO SCH ×2 (13:55→21:57)
[2018-12-07] MEDS: Diltiazem CD CAP* 120 MG PO SCH (13:55)
[2018-12-07] MEDS: Docusate CAP* 100 MG PO SCH ×2 (13:56→21:55)
[2018-12-08] MEDS: Levothyroxine TAB* 25 MCG TAB PO SCH (06:05)
[2018-12-08] MEDS: Furosemide TAB* 40 MG PO SCH ×2 (07:56→17:02)
[2018-12-08] MEDS: Pantoprazole TAB * 40 MG TAB PO SCH (07:56)
[2018-12-08] MEDS: Diltiazem CD CAP* 120 MG PO SCH (07:56)
[2018-12-08] MEDS: Gabapentin CAP(*) 100 MG PO SCH ×2 (07:56→22:19)
[2018-12-08] MEDS: MURO BOTH EYES SCH (07:57)
[2018-12-08] MEDS: Docusate CAP* 100 MG PO SCH ×2 (08:01→21:49)
--- NOTE | 2018-12-08 09:30 | PN ---
Progress Note Date of Service: 12/08/18 Note: SARBJIT LOVELL was visited. Nursing notes read and reviewed. No issues with dialysis yesterday. No chest pain, shortness of breath or abdominal pain. Current Medications: Active Medications Generic Name Dose Route Start Last Admin Trade Name Freq PRN Reason Stop Dose Admin Acetaminophen 650 mg 11/26/18 17:48 12/04/18 20:55 Tylenol Tab* PO 650 mg Q6H PRN Administration FEVER/PAIN Diltiazem HCl 120 mg 11/27/18 09:00 12/08/18 07:56 Cardizem Cd Cap* PO 120 mg DAILY GULSHAN Administration Docusate Sodium 100 mg 11/26/18 21:00 12/08/18 08:01 Colace Cap* PO Not Given BID GULSHAN Furosemide 40 mg 11/27/18 08:00 12/08/18 07:56 Lasix Tab* PO 40 mg 0800,1700 GULSHAN Administration Gabapentin 100 mg 11/26/18 21:00 12/08/18 07:56 Neurontin Cap(*) PO 100 mg BID GULSHAN Administration Levothyroxine Sodium 50 mcg 11/27/18 06:00 12/08/18 06:05 Synthroid Tab* PO 50 mcg DAILY@0600 GULSHAN Administration Pto: Senait 128 Drop 1 drop 12/04/18 09:00 12/08/18 07:57 BOTH EYES 1 drop DAILY GULSHAN Administration Oxycodone HCl 2.5 mg 11/26/18 18:02 Roxycodone Tab* PO Q6H PRN PAIN - MODERATE TO SEVERE Pantoprazole Sodium 40 mg 11/27/18 09:00 12/08/18 07:56 Protonix Tab* PO 40 mg DAILY GULSHAN Administration Senna 2 tab 11/26/18 17:48 Senokot Tab* PO BEDTIME PRN CONSTIPATION Vital Signs: Vital Signs Temp Pulse Resp BP Pulse Ox 98.1 F 74 18 111/43 94 12/08/18 06:16 12/08/18 06:16 12/08/18 07:56 12/08/18 06:16 12/08/18 08:00 Exam: GEN: no acute distress. alert and appropriate LUNGS: Clear to auscultation bilaterally HEART: II/ Holosystolic murmur, regular rate and rhythm ABDOMEN: Soft, + bowel sounds, non-tender, non-distended EXTREMITIES: No edema. [place] to right hip c/d/i NEUROLOGIC: BLE motor 5/5 with some limitation to right hip and knee due to pain. normal sensation. Assessment/Plan: 1. Right hip Fracture: S/P hemiarthroplasty. f/u Dr. Pedersen. PT/OT. WBAT 2. ESRD: hemodialysis 3. Atrial fibrillation: Cardizem CD. Eliquis d/c'd due to blood loss. I d/w her there is an increased risk of stroke off Eliquis. She is aware. 4. GI Bleed: EGD 12/06/18 without source visualized. H/H has been stable since off Eliquis. Per GI should stay off anticoagulation. Recheck CBC Sunday. If stable d/c IV. 5. DVT Prophylaxis: Eliquis d/c'd. SCDs/TEDs. Chemical ppx contraindicated due to GI bleed. I discussed with her increased risk for DVT, PE and stroke while off Eliquis and have to weigh risks and benefits. She is ok staying off Eliquis and using SCDs/TEDs while here. I advised her to also keep up with ankle pumps and exercises to prevent DVT. She understands. 6. Advanced Directives: Full Code 7. I messaged community product specialist about her lost nightgown. 8. Estimated LOS: anticipate d/c Sunday12/08/18 09:27
[2018-12-09] MEDS: Levothyroxine TAB* 25 MCG TAB PO SCH (05:37)
[2018-12-09 05:57] LABS: ABS Basophils 0.1 10^3/ul (0-0.2); ABS Eosinophils 0.2 10^3/ul (0-0.6); ABS Lymphocytes 0.8 10^3/ul (1.0-4.8); ABS Monocytes 0.5 10^3/ul (0-0.8); ABS Neutrophils 5.6 10^3/ul (1.5-7.7); Eosinophil % 2.8 %; Hematocrit 23 % (35-47); Hemoglobin 7.7 g/dL (12.0-16.0); Lymphocyte % 11.3 %; Mean Corpuscular HGB Conc 34 g/dL (31-36); Mean Corpuscular Hemoglobin 32 pg (27-31); Mean Corpuscular Volume 93 fL (80-97); Mean Platelet Volume 6.3 fL (7.4-10.4); Platelet Count 298 10^3/uL (150-450); Red Blood Count 2.45 10^6 /uL (3.70-4.87); Red Cell Distribution Width 17 % (10-15); White Blood Count 7.2 10^3/uL (3.5-10.8)
[2018-12-09] MEDS: Furosemide TAB* 40 MG PO SCH ×2 (08:20→16:49)
[2018-12-09] MEDS: Docusate CAP* 100 MG PO SCH ×2 (08:20→19:56)
[2018-12-09] MEDS: Gabapentin CAP(*) 100 MG PO SCH ×2 (08:21→19:56)
[2018-12-09] MEDS: Pantoprazole TAB * 40 MG TAB PO SCH (08:21)
[2018-12-09] MEDS: Diltiazem CD CAP* 120 MG PO SCH (08:21)
[2018-12-09] MEDS: MURO BOTH EYES SCH (08:22)
--- NOTE | 2018-12-09 18:28 | PN ---
Progress Note Date of Service: 12/09/18 Note: SARBJIT LOVELL was visited. Therapy notes read and reviewed. I met with her son and discussed home therapies, and regulations governing them, rationale for stopping anticoagulation, medical update. They will go home tomorrow. Family plans to transport to dialysis Current Medications: Active Medications Generic Name Dose Route Start Last Admin Trade Name Freq PRN Reason Stop Dose Admin Acetaminophen 650 mg 11/26/18 17:48 12/04/18 20:55 Tylenol Tab* PO 650 mg Q6H PRN Administration FEVER/PAIN Diltiazem HCl 120 mg 11/27/18 09:00 12/09/18 08:21 Cardizem Cd Cap* PO 120 mg DAILY GULSHAN Administration Docusate Sodium 100 mg 11/26/18 21:00 12/09/18 08:20 Colace Cap* PO Not Given BID GULSHAN Furosemide 40 mg 11/27/18 08:00 12/09/18 16:49 Lasix Tab* PO 40 mg 0800,1700 GULSHAN Administration Gabapentin 100 mg 11/26/18 21:00 12/09/18 08:21 Neurontin Cap(*) PO 100 mg BID GULSHAN Administration Levothyroxine Sodium 50 mcg 11/27/18 06:00 12/09/18 05:37 Synthroid Tab* PO 50 mcg DAILY@0600 GULSHAN Administration Pto: Senait 128 Drop 1 drop 12/04/18 09:00 12/09/18 08:22 BOTH EYES 1 drop DAILY GULSHAN Administration Oxycodone HCl 2.5 mg 11/26/18 18:02 Roxycodone Tab* PO Q6H PRN PAIN - MODERATE TO SEVERE Pantoprazole Sodium 40 mg 11/27/18 09:00 12/09/18 08:21 Protonix Tab* PO 40 mg DAILY GULSHAN Administration Senna 2 tab 11/26/18 17:48 Senokot Tab* PO BEDTIME PRN CONSTIPATION Vital Signs: Vital Signs Temp Pulse Resp BP Pulse Ox 97.6 F 80 18 111/48 97 12/09/18 16:56 12/09/18 16:56 12/09/18 16:56 12/09/18 16:56 12/09/18 16:56 Lab Results: Laboratory Results - last 24 hr 12/09/18 05:32 WBC 7.2 RBC 2.45 L Hgb 7.7 L Hct 23 L MCV 93 MCH 32 H MCHC 34 RDW 17 H Plt Count 298 MPV 6.3 L Neut % (Auto) 77.7 Lymph % (Auto) 11.3 [place] % (Auto) 7.3 Eos % (Auto) 2.8 Baso % (Auto) 0.9 Absolute Neuts (auto) 5.6 Absolute Lymphs (auto) 0.8 L Absolute Monos (auto) 0.5 Absolute Eos (auto) 0.2 Absolute Basos (auto) 0.1 Absolute Nucleated RBC 0.0 Nucleated RBC % 0.0 Exam: GENERAL: no acute distress. alert and appropriate LUNGS: Clear to auscultation bilaterally HEART: II/ Holosystolic murmur, regular rate and rhythm ABDOMEN: Soft, + bowel sounds, non-tender, non-distended EXTREMITIES: No edema. NEUROLOGIC: BLE motor 5/5 with some limitation to right hip and knee due to pain. normal sensation. Assessment/Plan: 1. Right hip Fracture: S/P hemiarthroplasty. f/u Dr. Pedersen. PT/OT. WBAT 2. ESRD: hemodialysis // 3. Atrial fibrillation: Cardizem CD. Eliquis d/c'd due to blood loss. 4. GI Bleed: EGD 12/06/18 without source visualized. H/H has been stable since off Eliquis. 5. DVT Prophylaxis: Eliquis d/c'd. SCDs/TEDs. 6. Advanced Directives: Full Code 7. Estimated LOS: anticipate d/c Sunday12/09/18 18:29
[2018-12-10] MEDS: Levothyroxine TAB* 25 MCG TAB PO SCH (06:09)
[2018-12-10 06:34] VITALS: BP 124/51
[2018-12-10] MEDS: Diltiazem CD CAP* 120 MG PO SCH (08:05)
[2018-12-10] MEDS: Furosemide TAB* 40 MG PO SCH (08:05)
[2018-12-10] MEDS: Gabapentin CAP(*) 100 MG PO SCH (08:05)
[2018-12-10] MEDS: Docusate CAP* 100 MG PO SCH (08:05)
[2018-12-10] MEDS: Pantoprazole TAB * 40 MG TAB PO SCH (08:06)
[2018-12-10] MEDS: MURO BOTH EYES SCH (08:07)
--- NOTE | 2018-12-13 21:15 | DS ---
CC: Dr. Cesar Brown * DISCHARGE SUMMARY: DATE OF ADMISSION: 11/26/18 DATE OF DISCHARGE: 12/10/18 DISCHARGE DIAGNOSES: 1. Right hip fracture. 2. End-stage renal disease, on hemodialysis. 3. Atrial fibrillation. 4. Gastrointestinal bleed. 5. Hypothyroidism. 6. Hypertension. HISTORY OF PRESENT ILLNESS AND HOSPITAL COURSE: For complete history of the events leading up to her rehab stay, please see the history and physical dictated by me on 11/26/18. While on the rehab unit, the patient was fairly stable from medical point of view. She was maintained on Eliquis for DVT prophylaxis. Routine labs drawn on 12/04/18 showed a drop in her hemoglobin and hematocrit. Her hemoglobin had dropped to 6.6 and hematocrit was 19. She was transfused 1 unit of packed cells. A GI consultation with Dr. Leslie was done on 12/05/18. Arrangements were made for the patient to have a push endoscopy done. She had the procedure performed by Dr. Cobian on 12/06/18. No source of bleeding was found. Her Eliquis had been stopped after her drop in her hemoglobin and hematocrit. Her hemoglobin and hematocrit remained stable following that. After transfusion on 12/05/18, her hemoglobin was 7.8, hematocrit was 23. At the time of discharge, her hemoglobin was 7.7 and hematocrit was 23. The patient otherwise was medically stable. The patient was seen by both Physical Therapy and Occupational Therapy and made good gains with both disciplines. With physical therapy at the time of admission, the patient required contact guard for transfers. She was able to ambulate 40 feet with contact guard and a rolling walker. With occupational therapy at the time of admission, the patient required min assist for upper body dressing, total assistance for lower body dressing, max assist for toileting. By the time of discharge, the patient was independent in transfers, independent ambulating 150 feet with a walker, independent with a stair and 1 rail going up and down 4 steps, she was independent dressing, independent toileting and toilet transfers. The patient was discharged home on 12/10/18. Please note that the patient did get dialysis while on the rehab unit on Tuesdays, , and Saturdays. Also note, the patient's christie were removed prior to discharge. DISCHARGE DIET: Renal. DISCHARGE MEDICATIONS: 1. Tylenol 650 mg every 6 hours as needed. 2. Cardizem CD 120 mg daily. 3. Lasix 40 mg at 8 a.m. and 5 p.m. 4. Neurontin 100 mg twice daily. 5. Synthroid 50 mcg daily. 6. Omeprazole 20 mg daily. SERVICES AFTER DISCHARGE: Through visiting nurse service, she will have home nursing, home physical therapy, home occupational therapy, and a home health aide. FOLLOWUP: Follow up with Dr. Ricardo Pedersen in 1 to 2 weeks. She will also follow up with her primary care doctor, Dr. Cesar Brown. CONDITION AT DISCHARGE: Stable. TIME SPENT: Time for this discharge was approximately 50 minutes, greater than half of that was spent with the patient and her son and [id number] explaining post rehabilitation therapies, services, and followup. [id number]/[facility] #: [id number] MTDD
== END 2018-12-10 17:35 | disposition home health service (06) | DRG 559 ==
LOC: PMRU 15:31
PROVIDERS: ADMIT Physical Medicine & Rehabilitation; ATTEND Physical Medicine & Rehabilitation
PROC: F07Z5ZZ Bed Mobility Treatment (ICD-10-PCS; 2018-11-26)
PROC: F07Z9ZZ Gait Training/Functional Ambulation Treatment (ICD-10-PCS; 2018-11-26)
PROC: F07Z8ZZ Transfer Training Treatment (ICD-10-PCS; 2018-11-26)
PROC: F08Z0ZZ Bathing/Showering Techniques Treatment (ICD-10-PCS; 2018-11-26)
PROC: F08Z1ZZ Dressing Techniques Treatment (ICD-10-PCS; 2018-11-26)
PROC: F08Z3ZZ Feeding/Eating Treatment (ICD-10-PCS; 2018-11-26)
PROC: 30233N1 Transfusion of Nonautologous Red Blood Cells into Peripheral Vein, Percutaneous Approach (ICD-10-PCS; principal; 2018-12-04)
DX: S72.001D Fracture of unspecified part of neck of right femur, subsequent encounter for closed fracture with routine healing (principal); N18.6 End stage renal disease; I12.0 Hypertensive chronic kidney disease with stage 5 chronic kidney disease or end stage renal disease; K92.2 Gastrointestinal hemorrhage, unspecified; I35.0 Nonrheumatic aortic (valve) stenosis; D50.0 Iron deficiency anemia secondary to blood loss (chronic); I48.91 Unspecified atrial fibrillation; E03.9 Hypothyroidism, unspecified; G47.33 Obstructive sleep apnea (adult) (pediatric); R01.1 Cardiac murmur, unspecified; W18.30XD Fall on same level, unspecified, subsequent encounter; Z99.2 Dependence on renal dialysis; Z79.899 Other long term (current) drug therapy; Z88.5 Allergy status to narcotic agent; Z88.8 Allergy status to other drugs, medicaments and biological substances
CPT/HCPCS: 36415; 80053; 82272; 85025; 86850; 86900; 86901; 86922; A9270-GY; P9016

== ENCOUNTER → 2019-05-30 08:23 | Day surgery (SDC) | payer MEDICARE, OTHER ==
[~2019-05-30 08:23] MED LIST: Acetaminophen TAB* 325 MG PO PRN; Cholecalciferol TAB* 1000 UNITS PO SCH; DILTIAZEM HCL 240 MG PO SCH; FOLIC ACID PO SCH; Furosemide TAB* 40 MG PO SCH; Gabapentin CAP(*) 100 MG PO SCH; Heparin 2 UNITS/ML IVPREMIX* 2,000 ML IV ONE; Iodixanol 320 (CONTRAST) 100 ML SDV ONE; Levothyroxine TAB* 25 MCG TAB PO SCH; Lidocaine 1% INJ* 10 MG/ML 30 ML SDV ONE; Midazolam* 1 MG/ML 5 ML VIAL (5 MG) ONE; NS 0.9% 1000 ML** 1,000 ML IV SCH; Omeprazole CAP (NF) 20 MG CAP.DR PO SCH; VIT B COMPLX C PO SCH; ZINC PO SCH; [UNRECOGNIZED DRUG - OTHER] PO SCH; fentaNYL* 50 MCG/ML 2 ML VIAL (100 MCG VIAL) ONE
[2019-05-30 09:34] LABS: Activated Partial Thrombo Time 32.2 seconds (26.0-38.0); INR 1.03 (0.82-1.09)
--- NOTE | 2019-05-30 12:26 | CATH ---
CC: Dr. Cesar Brown; Dr. Casper, [facility]; Dr. Boni Khan, [facility], [facility] * CARDIAC CATHETERIZATION REPORT: DATE OF PROCEDURE: 05/30/19 - [facility] CATH INDICATION FOR THE PROCEDURE: The patient diagnosed with severe aortic stenosis , now for coronary arteriography as part of a pre-TAVR procedure. PROCEDURE: Coronary arteriography, placement of a Mynx closure device in the right femoral groin. CONSENT: The patient was interviewed and examined in the holding area where the risks and benefits were explained. She understood them and wished to proceed. APPROACH UTILIZED: The right radial artery was assessed and found to be heavily calcified and small in nature in the mid portion of the forearm, as such the decision was made to go via the right femoral artery. PRE-CARDIAC CATHETERIZATION LABORATORY RESULTS: Hemoglobin and hematocrit of 12.8 and 38 with a platelet count of 116,000, BUN and creatinine of 38 and 4.26 (patient is on hemodialysis). EQUIPMENT UTILIZED: 1. Right radial artery sheath 5-Jamaican Ariana 11-cm sheath. 2. Diagnostic coronary catheters, a 5-Jamaican FL4 and a 5-Jamaican FR4 curved catheter. 3. Closure device utilized was a 5-Jamaican Mynx closure device. MEDICATIONS: Given during the procedure included: 1. Versed 0.5 mg IV. 2. Xylocaine 1% locally. DESCRIPTION OF PROCEDURE: The patient was brought to the cardiovascular laboratory where a formal time-out was performed. She was prepped and draped in sterile fashion and the right coronary was anesthetized with 1% lidocaine. The right femoral artery was cannulated with an anterior wall only stick performed. The sheath was placed and coronary arteriography was performed. At the end of the case, an injection was made into the right femoral sheath to assess the eligibility to use closure device. It was found to be acceptable for this and as such, a 5- Jamaican Mynx closure device was deployed with reported good hemostasis. The total contrast used was 55 cc of Visipaque dye. The radiation exposure included 6.9 minutes of fluoro time. The air kerma radiation was 1012 milligray. The DAP radiation was 6202 microgray per meter squared. RESULTS: CORONARY ARTERIOGRAPHY: A. Left coronary artery: 1. Left main: There was calcium seen in the left main into the proximal and mid LAD and proximal circumflex. The distal left main had a 30% narrowing noted. 2. Left anterior descending artery: The ostium in the left anterior descending artery appeared to have a 65% calcified lesion. The proximal LAD had a mild-to- moderate narrowing of 40% to 45%, followed by a 75% to 80% lesion after the take off of a first diagonal branch. The rest of the LAD did not have significant disease. 3. Circumflex artery: The circumflex appeared to be a co-dominant system with multiple obtuse marginal branches ending in the low lying posterior left ventricular branch, which probably paralleled a posterior descending artery from the right coronary artery. The circumflex artery had a bifurcating first obtuse marginal branch with a small superior branch with a bifurcating lower branch, which had 45% to 50% narrowing within its proximal portion. Of note, the left coronary artery did appear to supply collateral blood flow , which appeared to be to the posterior descending artery of the right coronary artery, which was extremely small in caliber. B. Right coronary artery - a probable dominant vessel, although difficulty to assess totally occluded in its proximal portion with some bridging collaterals, which poorly filled the mid vessel. There was no good blood flow seen to be getting to the inferior surface from the right coronary artery. OVERALL ASSESSMENT: Significant coronary artery disease involving a 75% to 80% calcified mid LAD with moderate ostial disease of the LAD of 65% with calcium. Distal left main had a 30% narrowing noted. The circumflex had mild-to- moderate disease in its lower branch of the first obtuse marginal branch and the right coronary artery, which probably was a dominant vessel was totally occluded, most likely chronic with bridging collaterals, which did not fill the distal vessel well at all. Collateral blood flow was seen from the left system to the right system as described above. This information will be shared with Dr. Boni Khan, who will make decisions for timing of TAVR and potential intervention due to coronary artery disease. Consideration for perhaps rotational atherectomy of the mid LAD with stent placement with possible DFR and/or FFR of that area of the vessel at that point to see if the lesion is significant and if it is, placement of an ostial LAD stent could be considered. I do not believe the right coronary artery appears to be of a large enough size that it could be bypassed. Further analysis will be made by Dr. Khan, who is considering TAVR procedure on Mrs. Manning. [id number]/[facility] #: [id number] MTDD
[2019-05-30 14:36] VITALS: BP 132/58
== END | disposition home or self-care (01) ==
LOC: CHICATH 08:23
PROVIDERS: ATTEND Internal Medicine Cardiovascular Disease
DX: I08.0 Rheumatic disorders of both mitral and aortic valves (principal); I25.10 Atherosclerotic heart disease of native coronary artery without angina pectoris; I70.208 Unspecified atherosclerosis of native arteries of extremities, other extremity; I48.91 Unspecified atrial fibrillation; N18.6 End stage renal disease; I50.9 Heart failure, unspecified; I12.9 Hypertensive chronic kidney disease with stage 1 through stage 4 chronic kidney disease, or unspecified chronic kidney disease; E03.9 Hypothyroidism, unspecified; I45.10 Unspecified right bundle-branch block
CPT/HCPCS: 36415; 85610; 85730; 93454; C1887; J1644; J2250; J3010

== ENCOUNTER 2019-07-01 10:23 | Inpatient (IN) | payer MEDICARE, OTHER ==
--- OUTSIDE RECORDS SUMMARY | 2019-07-01 10:39 | XMS REPORT ---
:1935 Author Organization [facility] Care Team Providers Name Role Phone Unavailable Unavailable Unavailable Problems Condition Condition Condition Status Onset Resolution Last Treating Comments Name Details Category Date Date Treatment Clinician Date Encounter Encounter Diagnosis Active 2018-07 [facility] for for 08-12 [place] [facility] surgical surgical [id number] aftercare aftercare following following surgery on surgery on the the circulatory circulatory system system Hypertensiv Hypertensiv Diagnosis Active 2018-07 [facility] e heart and e heart and 08-06 [facility] chronic chronic [id number] kidney kidney 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 and stage 1 stage 1 through through stage 4 stage 4 chronic chronic kidney kidney disease, or disease, or unspecified unspecified chronic chronic kidney kidney disease disease Acute on Acute on Diagnosis Active 2018-07 [facility] chronic chronic 2- [place] [facility] diastolic diastolic [id number] (congestive (congestive ) heart ) heart failure failure 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 - [facility] disease disease [id number] 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 [facility] c aortic c aortic 08-06 [facility] (valve) (valve) [id number] stenosis stenosis 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 [facility] [place] fibrillatio fibrillatio [id number] n, n, unspecified unspecified 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 [place] [place] 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) Hypothyroid Hypothyroid Diagnosis Active Mary ism, ism, Chad unspecified unspecified [id number] Diverticulo 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 [place] intestine, intestine, [id number] part part unspecified unspecified , without , without perforation perforation or abscess or abscess without without bleeding bleeding Age-related Age-related Diagnosis Active Mary physical physical [place] debility debility [id number] Presence of Presence of Diagnosis Active Mary 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 [id number] Presence of Presence of Diagnosis Active Mary cardiac cardiac [place] pacemaker pacemaker [id number] 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 dialysis 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 (current) (current) [place] use of use of [id number] aspirin aspirin Presence of Presence of Diagnosis Active Mary right right [place] artificial artificial [id number] hip joint hip joint Presence of Presence of Diagnosis Active Mary left left [place] artificial artificial [id number] knee joint knee joint Pain frequent Pain Mgmt Resolve 2018-072019-06-11 Mary pain d 2- 12:00:00 [place] [place] 12:00: [id number] 00 Cardio pacemaker/I Cardiovasc Resolve 2018-072019-06-11 Mary CD ular d 2- 12:00:00 [facility] 12:00: [id number] 00 Respiratory dyspnea Respirator Resolve 2018-072019-06-11 Mary present y d 2- 12:00:00 [facility] 12:00: [id number] 00 Endo/Sanket anti-coagul Endo/Sanket Resolve 2018-072019-06-11 Mary ation d 2-11 12:00:00 [facility] therapy 12:00: [id number] 00 Integument surgical Integument Resolve 2018-072019-06-11 Mary wound d 2-11 12:00:00 [facility] present 12:00: [id number] 00 Nutrition nutritional Nutrition Resolve 2018-072019-06-11 Mary restriction d 2-11 12:00:00 [facility] s 12:00: [id number] 00 Neuro confusion Neuro/Emot Resolve 2018-072019-06-11 Mary present ion d 2-11 12:00:00 [facility] 12:00: [id number] 00 Activity ADL Activity Resolve 2018-072019-06-11 Mary assistance d 2-11 12:00:00 [facility] required 12:00: [id number] 00 Activity self-care Activity Resolve 2018-072019-06-11 Mary deficit d 2-11 13:30:00 [facility] 12:00: [id number] 00 Safety structural Safety Resolve 2018-072019-06-11 Mary barriers d 2-11 13:30:00 [place] present 12:00: [id number] 00 Safety fall risk Safety Resolve 2018-072019-06-11 Mary factor d 2-11 13:30:00 [facility] present 12:00: [id number] 00 Safety risk for Safety Resolve 2018-072019-06-11 Mary hospitaliza d 2-11 13:30:00 [facility] tion 12:00: [id number] 00 Medication oral med Meds Resolve 2018-072019-06-11 Mary assistance d 2-11 12:00:00 [facility] required 12:00: [id number] 00 Musculoskel transfer Musculoske Resolve 2018-072019-06-11 Mary etal assistance letal d 2-11 12:00:00 [place] required 12:00: [id number] 00 Bed mobility/tr PT/OT: Bed Resolve 2018-072019-06-11 Markos Mobility/Tr ansfer Mobility/T d 2-11 13:30:00 Nila vinson device ransfer 13:30: [id number] present 00 Bed transfer PT/OT: Bed Resolve 2018-072019-06-11 Mark[facility] Mobility/Tr deficit: Mobility/T d 2-11 13:30:00 Nila gabrielfer vehicle ransfer 13:30: [id number] 00 Balance/End balance/transaction coordinator PT/OT: Resolve 2018-072019-06-11 Markos urance rdination Balance/En d 2-11 13:30:00 Nila deficit durance 13:30: [id number] 00 OT: Self self-care OT: Resolve 2018-072019-06-11 Markos Care deficit Self-Care d 2-11 13:30:00 Nila 13:30: [id number] 00 Gait/Locomo stair PT/OT: Resolve 2018-072019-06-11 Markos tion management Gait/Locom d 2-11 13:30:00 Nila problems req otion 13:30: [id number] 00 Gait/Locomo gait PT/OT: Resolve 2018-072019-06-11 Markos tion assistive Gait/Locom d 2-11 13:30:00 Nila problems device otion 13:30: [id number] present 00 Gait/Locomo gait PT/OT: Resolve 2018-072019-06-11 Markos fernandez deficit Gait/Locom d 08-12 13:30:00 Nila problems otion 13:30: [id number] 00 Allergies, Adverse Reactions, Alerts Allergy Allergy Status Severity Reaction(s) Onset Inactive Treating Comments Name Type Date Date Clinician celebrex Unknown Active Unknown Reaction 2016-04 Wendy Unknown -19 (Tim) Heath [id number] codeine Unknown Active Unknown Reaction 2016-04 Wendy Unknown -19 (Tim) Heath [id number] beta Unknown Active Unknown Reaction 2016-04 Wendy luis e Unknown -19 (Tim) Heath [id number] Medications Ordered Filled Start Stop Current Ordering Indication Dosage Frequency Signature Comments Components Medication Medication Date Date Medication? Clinician (SIG) Name Name levothyroxi levothyroxi 2018-07- Yes Shallish Unknown Unknown ne 50 mcg ne 50 mcg 08-12 ,Cesar tablet tablet Vitamin D3 Vitamin D3 2018-07- Yes Shallish Unknown Unknown 2,000 unit 2,000 unit 08-12 ,Cesar tablet tablet gabapentin gabapentin 2018-07- Yes Shallish Unknown Unknown 100 mg 100 mg 08-12 ,Cesar capsule capsule furosemide furosemide 2018-07- Yes Shallish Unknown Unknown 40 mg 40 mg 08-12 ,Cesar tablet tablet dilTIAZem dilTIAZem 2018-07- Yes Shallish Unknown Unknown CD 120 mg CD 120 mg 08-12 ,Cesar capsule,ext capsule,ext ended ended release 24 release 24 hr hr Dialyvite 1 Dialyvite 1 2018-07- Yes Shallish Unknown Unknown mg-100 mg-100 08-12 ,Cesar mg-300 mg-300 mcg-50 mg mcg-50 mg tablet tablet Aspirin Low Aspirin Low 2018-07- Yes Shallish Unknown Unknown Dose 81 mg Dose 81 mg 08-12 ,Cesar tablet,imer tablet,imer yed release yed release clopidogrel clopidogrel 2018-07- Yes Shallish Unknown Unknown 75 mg 75 mg 08-12 ,Cesar tablet tablet atorvastati atorvastati 2018-07- Yes Shallish Unknown Unknown n 40 mg n 40 mg 08-12 ,Cesar tablet tablet omeprazole omeprazole 2018-07- Yes Shallish Unknown Unknown 20 mg 20 mg 08-12 ,Cesar capsule,del capsule,del ayed ayed release release Vital Signs Vital Name Observation Time Observation Value Comments SYSTOLIC mm[Hg] 2019-06-11 18:09:18 112 mm[Hg] mm[Hg] Method: Sit SYSTOLIC mm[Hg] 2019-06-11 18:09:18 108 mm[Hg] mm[Hg] Method: Stand DIASTOLIC mm[Hg] 2019-06-11 18:09:18 60 mm[Hg] mm[Hg] Method: Sit DIASTOLIC mm[Hg] 2019-06-11 18:09:18 66 mm[Hg] mm[Hg] Method: Stand PULSE 2019-06-11 18:09:18 65 /min /min Procedures This patient has no known procedures. Results This patient has no known results.
--- OUTSIDE RECORDS SUMMARY | 2019-07-01 10:39 | XMS REPORT ---
:1935 Author Organization [facility] Care Team Providers Name Role Phone Unavailable Unavailable Unavailable Problems Condition Condition Condition Status Onset Resolution Last Treating Comments Name Details Category Date Date Treatment Clinician Date Encounter Encounter Diagnosis Active 2018-07 [facility] for for 08-12 [place] surgical surgical [id number] aftercare aftercare following following surgery on surgery on the the circulatory circulatory system system Hypertensiv Hypertensiv Diagnosis Active 2018-07 [facility] e heart and e heart and 08-06 [place] chronic chronic [id number] kidney kidney 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 and stage 1 stage 1 through through stage 4 stage 4 chronic chronic kidney kidney disease, or disease, or unspecified unspecified chronic chronic kidney kidney disease disease Acute on Acute on Diagnosis Active 2018-07 [facility] chronic chronic 2- [place] diastolic diastolic [id number] (congestive (congestive ) heart ) heart failure failure 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 - [place] disease disease [id number] 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 [id number] [place]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 aortic 08-06 [place] (valve) (valve) [id number] stenosis stenosis 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 [place] fibrillatio fibrillatio [id number] n, n, unspecified unspecified 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 [place] anemia anemia [id number] 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) (chronic) Hypothyroid Hypothyroid Diagnosis Active Mary ism, ism, Chad unspecified unspecified [id number] Diverticulo 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 [place] intestine, intestine, [id number] part part unspecified unspecified , without , without perforation perforation or abscess or abscess without without bleeding bleeding Age-related Age-related Diagnosis Active Mary physical physical [place] debility debility [id number] Presence of Presence of Diagnosis Active 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 [id number] Presence of Presence of Diagnosis Active Mary cardiac cardiac [place] pacemaker pacemaker [id number] 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 (current) (current) [place] use of use of [id number] aspirin aspirin Presence of Presence of Diagnosis Active Mary right right [place] artificial artificial [id number] hip joint hip joint Presence of Presence of Diagnosis Active Mary left left [place] artificial artificial [id number] knee joint knee joint Pain frequent Pain Mgmt Resolve 2018-072019-06-11 Mary pain d 2- 12:00:00 [place] 12:00: [id number] 00 Cardio pacemaker/I Cardiovasc Resolve 2018-072019-06-11 Mary CD ular d 2- 12:00:00 [place] 12:00: [id number] 00 Respiratory dyspnea Respirator Resolve 2018-072019-06-11 Mary present y d 2- 12:00:00 [place] 12:00: [id number] 00 Endo/Sanket anti-coagul Endo/Sanket Resolve 2018-072019-06-11 Mary ation d 2-11 12:00:00 [place] therapy 12:00: [id number] 00 Integument surgical Integument Resolve 2018-072019-06-11 Mary wound d 2-11 12:00:00 [place] present 12:00: [id number] 00 Nutrition nutritional Nutrition Resolve 2018-072019-06-11 Mary restriction d 2-11 12:00:00 [place] s 12:00: [id number] 00 Neuro confusion Neuro/Emot Resolve 2018-072019-06-11 Mary present ion d 2-11 12:00:00 [place] 12:00: [id number] 00 Activity ADL Activity Resolve 2018-072019-06-11 Mary assistance d 2-11 12:00:00 [place] required 12:00: [id number] 00 Activity self-care Activity Resolve 2018-072019-06-11 Mary deficit d 2-11 13:30:00 [place] 12:00: [id number] 00 Safety structural Safety Resolve 2018-072019-06-11 Mary barriers d 2-11 13:30:00 [place] present 12:00: [id number] 00 Safety fall risk Safety Resolve 2018-072019-06-11 Mary factor d 2-11 13:30:00 [place] present 12:00: [id number] 00 Safety risk for Safety Resolve 2018-072019-06-11 Mary hospitaliza d 2-11 13:30:00 [place] tion 12:00: [id number] 00 Medication oral med Meds Resolve 2018-072019-06-11 Mary assistance d 2-11 12:00:00 [place] required 12:00: [id number] 00 Musculoskel transfer Musculoske Resolve 2018-072019-06-11 Mary etal assistance letal d 2-11 12:00:00 [place] required 12:00: [id number] 00 Bed mobility/tr PT/OT: Bed Resolve 2018-072019-06-11 Markos Mobility/Tr ansfer Mobility/T d 2-11 13:30:00 Nila vinson device ransfer 13:30: [id number] present 00 Bed transfer PT/OT: Bed Resolve 2018-072019-06-11 Markos Mobility/Tr deficit: Mobility/T d 2-11 13:30:00 Nila gabrielfer vehicle ransfer 13:30: [id number] 00 Balance/End balance/regulatory coordinator PT/OT: Resolve 2018-072019-06-11 Markos urance rdination Balance/En d 2-11 13:30:00 Nila deficit durance 13:30: [id number] 00 OT: Self self-care OT: Resolve 2018-072019-06-11 Markos Care deficit Self-Care d 2-11 13:30:00 Nila 13:30: [id number] 00 Gait/Locomo stair PT/OT: Resolve 2018-072019-06-11 Markos tion management Gait/Locom d 2-11 13:30:00 Nila problems req otion 13:30: [id number] 00 Gait/Locomo gait PT/OT: Resolve 2018-072019-06-11 Markos tion assistive Gait/Locom d 2-11 13:30:00 Nila problems device otion 13:30: [id number] present 00 Gait/Locomo gait PT/OT: Resolve 2018-072019-06-11 Markos fernandez deficit Gait/Locom d 08-12 13:30:00 Nila problems otion 13:30: [id number] 00 Allergies, Adverse Reactions, Alerts Allergy Allergy Status Severity Reaction(s) Onset Inactive Treating Comments Name Type Date Date Clinician celebrex Unknown Active Unknown Reaction 2016-04 Wendy Unknown -19 (Tim) Heath [id number] codeine Unknown Active Unknown Reaction 2016-04 Wendy Unknown -19 (Tim) Heath [id number] beta Unknown Active Unknown Reaction 2016-04 Wendy luis e Unknown -19 (Tim) Heath [id number] Medications Ordered Filled Start Stop Current Ordering [...]
--- OUTSIDE RECORDS SUMMARY | 2019-07-01 10:39 | XMS REPORT ---
:1935 Author Organization [facility] Nurse [facility] Care Team Providers Name Role Phone Unavailable Unavailable Unavailable Problems Condition Condition Condition Status Onset Resolution Last Treating Comments Name Details Category Date Date Treatment Clinician Date Encounter Encounter Diagnosis Active 2018-07 [facility] for for 08-12 [place] surgical surgical [id number] aftercare aftercare following following surgery on surgery on the the circulatory circulatory system system Hypertensiv Hypertensiv Diagnosis Active 2018-07 [facility] e heart and e heart and 08-06 [place] chronic chronic [id number] kidney kidney 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 and stage 1 stage 1 through through stage 4 stage 4 chronic chronic kidney kidney disease, or disease, or unspecified unspecified chronic chronic kidney kidney disease disease Acute on Acute on Diagnosis Active 2018-07 [facility] chronic chronic 2- [place] diastolic diastolic [id number] (congestive (congestive ) heart ) heart failure failure 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 - [place] disease disease [id number] 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 [id number] [place] 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 [facility]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 aortic 08-06 [place] (valve) (valve) [id number] stenosis stenosis 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 [place] fibrillatio fibrillatio [id number] n, n, unspecified unspecified 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 [place] anemia anemia [id number] 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) (chronic) Hypothyroid Hypothyroid Diagnosis Active Mary ism, ism, Chad unspecified unspecified [id number] Diverticulo 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 [place] intestine, intestine, [id number] part part unspecified unspecified , without , without perforation perforation or abscess or abscess without without bleeding bleeding Age-related Age-related Diagnosis Active Mary physical physical [place] debility debility [id number] Presence of Presence of Diagnosis Active Mary prosthetic prosthetic [place] heart valve heart valve [id number] Presence of Presence of Diagnosis Active Mary cardiac cardiac [place] pacemaker pacemaker [id number] 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 dialysis 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 Mary (current) (current) [place] use of use of [id number] aspirin aspirin Presence of Presence of Diagnosis Active Mary right right [place] artificial artificial [id number] hip joint hip joint Presence of Presence of Diagnosis Active Mary left left [place] artificial artificial [id number] knee joint knee joint Pain frequent Pain Mgmt Resolve 2018-072019-06-11 Mary pain d 2- 12:00:00 [place] 12:00: [id number] 00 Cardio pacemaker/I Cardiovasc Resolve 2018-072019-06-11 Mary CD ular d 2- 12:00:00 [place] 12:00: [id number] 00 Respiratory dyspnea Respirator Resolve 2018-072019-06-11 Mary present y d 2- 12:00:00 [place] 12:00: [id number] 00 Endo/Sanket anti-coagul Endo/Sanket Resolve 2018-072019-06-11 Mary ation d 2-11 12:00:00 [place] therapy 12:00: [id number] 00 Integument surgical Integument Resolve 2018-072019-06-11 Mary wound d 2-11 12:00:00 [place] present 12:00: [id number] 00 Nutrition nutritional Nutrition Resolve 2018-072019-06-11 Mary restriction d 2-11 12:00:00 [place] s 12:00: [id number] 00 Neuro confusion Neuro/Emot Resolve 2018-072019-06-11 Mary present ion d 2-11 12:00:00 [place] 12:00: [id number] 00 Activity ADL Activity Resolve 2018-072019-06-11 Mary assistance d 2-11 12:00:00 [place] required 12:00: [id number] 00 Activity self-care Activity Resolve 2018-072019-06-11 Mary deficit d 2-11 13:30:00 [place] 12:00: [id number] 00 Safety structural Safety Resolve 2018-072019-06-11 Mary barriers d 2-11 13:30:00 [place] present 12:00: [id number] 00 Safety fall risk Safety Resolve 2018-072019-06-11 Mary factor d 2-11 13:30:00 [place] present 12:00: [id number] 00 Safety risk for Safety Resolve 2018-072019-06-11 Mary hospitaliza d 2-11 13:30:00 [place] tion 12:00: [id number] 00 Medication oral med Meds Resolve 2018-072019-06-11 Mary assistance d 2-11 12:00:00 [place] required 12:00: [id number] 00 Musculoskel transfer Musculoske Resolve 2018-072019-06-11 Mary etal assistance letal d 2-11 12:00:00 [place] required 12:00: [id number] 00 Bed mobility/tr PT/OT: Bed Resolve 2018-072019-06-11 Markos Mobility/Tr ansfer Mobility/T d 2-11 13:30:00 Nila vinson device ransfer 13:30: [id number] present 00 Bed transfer PT/OT: Bed Resolve 2018-072019-06-11 Mark[place] Mobility/Tr deficit: Mobility/T d 2-11 13:30:00 Nila gabrielfer vehicle ransfer 13:30: [id number] 00 Balance/End balance/hospice coordinator PT/OT: Resolve 2018-072019-06-11 Markos urance rdination Balance/En d 2-11 13:30:00 Nila deficit durance 13:30: [id number] 00 OT: Self self-care OT: Resolve 2018-072019-06-11 Markos Care deficit Self-Care d 2-11 13:30:00 Nila 13:30: [id number] 00 Gait/Locomo stair PT/OT: Resolve 2018-072019-06-11 Markos tion management Gait/Locom d 2-11 13:30:00 Nila problems req otion 13:30: [id number] 00 Gait/Locomo gait PT/OT: Resolve 2018-072019-06-11 Markos tion assistive Gait/Locom d 2-11 13:30:00 Nila problems device otion 13:30: [id number] present 00 Gait/Locomo gait PT/OT: Resolve 2018-072019-06-11 Markos fernandez deficit Gait/Locom d 08-12 13:30:00 Nila problems otion 13:30: [id number] 00 Allergies, Adverse Reactions, Alerts Allergy Allergy Status Severity Reaction(s) Onset Inactive Treating Comments Name Type Date Date Clinician celebrex Unknown Active Unknown Reaction 2016-04 Wendy Unknown -19 (Tim) Heath [id number] codeine Unknown Active Unknown Reaction 2016-04 Wendy Unknown -19 (Tim) Heath [id number] beta Unknown Active Unknown Reaction 2016-04 Wendy luis e Unknown -19 (Tim) Heath [id number] Medications Ordered Filled Start Stop Current Ordering [...]
--- OUTSIDE RECORDS SUMMARY | 2019-07-01 10:40 | XMS REPORT | Continuity of Care Document ---
:1935 External Reference #:[id number] Author Name Ricardo Pedersen M.D. 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 Onset: 08/14/2011 Electrocardiogram abnormal Julian Casper M.D. Onset: 08/14/2011 Aortic valve disorder Julian Casper M.D. Onset: 08/14/2011 Right bundle branch block Julian Casper M.D. Onset: 08/14/2011 Mitral valve disorder Julian Casper M.D. Onset: 08/14/2011 Benign essential hypertension Julian Casper M.D. Onset: 08/14/2011 Heart murmur Julian Casper M.D. Onset: 03/25/2012 Dyspnea Julian Casper M.D. Onset: 07/21/2013 Edema Julian Casper M.D. Onset: 07/21/2013 Malaise and fatigue Julian Casper M.D. Onset: 09/19/2013 Preoperative cardiovascular examination Julian Casper M.D. Onset: End-stage renal disease VIRAL Daniel Onset: 11/11/2013 Localized, primary osteoarthritis Yaima Whyte M.D. Onset: 03/22/2015 Chronic atrial fibrillation Julian Casper M.D. Onset: 08/12/2015 Arthroplasty of knee Yaima Whyte M.D. Onset: 06/04/2017 Closed fracture of base of neck of Ricardo Pedersen M.D. Onset: 11/22/2018 femur Prosthetic arthroplasty of the hip Ricardo Pedersen M.D. Onset: 01/22/2019 Social History Type Date Description Comments Sex Unknown Tobacco Use Start: Unknown Never Smoked Cigarettes Smoking Status Reviewed: 05/07/19 Never Smoked Cigarettes ETOH Use Denies alcohol use Tobacco Use Start: Unknown Patient has never smoked Recreational Drug Use Denies Drug Use Exercise Type/Frequency Does not exercise Allergies, Adverse Reactions, Alerts Active Allergies Reaction Severity Comments Date Celebrex rash 12/28/2006 betablocker syncope 12/28/2006 Codeine 02/12/2013 Medications Active Medications SIG Qnty Indications Ordering Provider Date Gabapentin 1 capsule two Unknown 03/18/2019 100mg times daily. Capsules Furosemide 1 tab by mouth Other Ordering 05/31/2013 40mg Tablets twice daily Provider Cardizem 1 po qam Unknown 240mg Tablets Synthroid 1 by mouth every Unknown 50mcg Tablets day Vitamin D3 Super 1 capsule by mouth Unknown Strength daily Capsule Nystatin apply twice daily Unknown [id number]/GM as needed Powder Lidocaine-Prilocaine- apply to fistula 1 Unknown Cream Base hour before 2.5-2.5% dialysis three Cream times weekly Omeprazole 1 by mouth every Unknown 10mg day Capsules DR Medications Administered in Office Medication SIG Qnty Indications Ordering Provider Date Depomedrol 40MG Jarrett Marie M.D. 06/02/2016 Injection Depomedrol 80MG Yaima Whyte M.D. 03/22/2015 Injection Immunizations Description No Information Available Vital Signs Date Vital Result Comment 05/07/2019 1:22pm Height 63 inches 5'3" Weight 164.00 lb Heart Rate 75 /min Body Temperature 96.2 F O2 % BldC Oximetry 90 % BMI (Body Mass Index) 29.0 kg/m2 04/08/2019 3:18pm Height 61.25 inches 5'1.25" Weight 158.00 lb with shoes Heart Rate 64 /min BP Systolic Sitting 120 mmHg lue reg cuff BP Diastolic Sitting 62 mmHg lue reg cuff BP Systolic Standing 120 mmHg lue reg cuff BP Diastolic Standing 62 mmHg lue reg cuff Respiratory Rate 14 /min BMI (Body Mass Index) 29.6 kg/m2 Ejection Fraction 50-55% echo. 04/04/19 Results Description No Information Available Procedures Date Code Description Status 04/07/2019 74957 Holter Monitor Review (24 hr)dr review & interp only Completed 04/04/2019 21939 ECHO Transthoracic, Real-Time 2D With Doppler And Color Completed Flow 04/04/2019 73849 ECHO Transthoracic, Real-Time 2D With Doppler And Color Completed Flow 04/04/2019 12012 ECG Monitor/Recording W/Visual Superimposition Scanning Completed 11/26/2018 68711 Hemodialysis, One Evaluation Completed 11/25/2018 37178 Hemodialysis, One Evaluation Completed 11/22/2018 86341 Hemodialysis, One Evaluation Completed 11/21/2018 20956 Hemodialysis, One Evaluation Completed 11/21/2018 59952 Open TX Of Femoral FX,Promimal End,Neck Internal Fixation Completed 11/21/2018 12527 Open TX Of Femoral FX,Promimal End,Neck Internal Fixation Completed Medical Devices Description No Information Available Encounters Type Date Location Provider Dx Diagnosis Office Visit 04/08/2019 [facility] Zakiya Stallworth, I48.20 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 I48.91 Unspecified atrial 2:00p [facility] Shanon Casper fibrillation D64.9 Anemia, unspecified I35.0 Nonrheumatic aortic (valve) stenosis I45.10 Unspecified right bundle-branch block I27.20 Pulmonary hypertension, unspecified I77.819 Aortic ectasia, unspecified site Office Visit 11/26/2018 9:50a [facility] S72.041A Disp fx of Assoc,pc Shortle, CARPET FLOOR LAYER APPRENTICE base of neck Hospitalists of right femur, init for clos fx I48.91 Unspecified atrial fibrillation D64.9 Anemia, unspecified N18.6 End stage renal disease I35.0 Nonrheumatic aortic (valve) stenosis E03.9 Hypothyroidism, unspecified N39.0 Urinary tract infection, site not specified Office Visit 11/25/2018 [facility] I48.91 Unspecified atrial 9:50a yulisa Jamil CARPET FLOOR LAYER APPRENTICE fibrillation Hospitalists D64.9 Anemia, unspecified N39.0 Urinary tract infection, site not specified Office Visit 11/24/2018 [facility] I48.91 Unspecified atrial 9:49a yulisa Jamil NP fibrillation Hospitalists D64.9 Anemia, unspecified N39.0 Urinary tract infection, site not specified Office Visit 11/23/2018 [facility] I48.91 Unspecified atrial 9:49a yulisa Jamil, fibrillation Hospitalists CARPET FLOOR LAYER APPRENTICE E03.9 Hypothyroidism, unspecified I35.0 Nonrheumatic aortic (valve) stenosis Office Visit 11/22/2018 [facility] I48.91 Unspecified atrial 9:49a yulisa Jamil, fibrillation Hospitalists CARPET FLOOR LAYER APPRENTICE N18.6 End stage renal disease E03.9 Hypothyroidism, unspecified I35.0 Nonrheumatic aortic (valve) stenosis Office Visit 11/21/2018 9:48a [facility] S72.001A Fracture of yulisa Jamil, unsp part of Hospitalists [employer] FLOOR LAYER APPRENTICE neck of right femur, init I48.91 Unspecified atrial fibrillation I35.0 Nonrheumatic aortic (valve) stenosis Office Visit 11/20/2018 9:48a [facility] Sharon S72.041A Disp fx of yulisa Jamil NP base of neck Hospitalists of right femur, init for clos fx N18.6 End stage renal disease I12.0 Hyp chr kidney disease w stage 5 chr kidney disease or Esrd W19.xxxA Unspecified fall, initial encounter Office Visit 11/20/2018 6:00p [facility] Karissa Pillai S72.041A Disp fx of at [facility] base of neck of right femur, init for clos fx Assessments Date Code Description Provider 05/07/2019 M70.61 Trochanteric bursitis, right hip Ricardo Pedersen M.D. 04/08/2019 I48.20 Chronic atrial fibrillation, Zakiya Stallworth, N.P. unspecified 04/08/2019 I35.0 Nonrheumatic aortic (valve) stenosis Zakiya Stallworth, N.P. 04/08/2019 I45.10 Unspecified right bundle-branch block Zakiya Stallworth, N.P. 04/08/2019 I27.20 Pulmonary hypertension, unspecified Zakiya Stallworth, N.P. 04/07/2019 I48.91 Unspecified atrial fibrillation Julian Casper M.D. 04/07/2019 I35.0 Nonrheumatic aortic (valve) stenosis Julian Casper M.D. 04/04/2019 I35.0 Nonrheumatic aortic (valve) stenosis Julian Casper M.D. 04/04/2019 I48.91 Unspecified atrial fibrillation Nurse Visit IC 04/04/2019 I35.0 Nonrheumatic aortic (valve) stenosis Nurse Visit IC 04/04/2019 I35.0 Nonrheumatic aortic (valve) stenosis [facility] ECHO Schedule 04/04/2019 I48.91 Unspecified atrial fibrillation [facility]ca ECHO Schedule 04/04/2019 I45.10 Unspecified right bundle-branch block [facility]ca ECHO Schedule 04/04/2019 I27.20 Pulmonary hypertension, unspecified [facility] ECHO Schedule 04/04/2019 I77.819 Aortic ectasia, unspecified site [facility] ECHO Schedule 03/19/2019 I48.91 Unspecified atrial fibrillation Julian Casper M.D. 03/19/2019 D64.9 Anemia, unspecified Julian Casper M.D. 03/19/2019 I35.0 Nonrheumatic aortic (valve) stenosis Julian Casper M.D. 03/19/2019 I45.10 Unspecified right bundle-branch block Julian Casper M.D. 03/19/2019 I27.20 Pulmonary hypertension, unspecified Julian Casper M.D. 03/19/2019 I77.819 Aortic ectasia, unspecified site Julian Casper M.D. 01/22/2019 S72.041D Displaced fracture of base of neck of Ricardo Pedersen M.D. right femur, subsequen 01/22/2019 Z96.641 Presence of right artificial hip Ricardo Pedersen M.D. joint 12/17/2018 S72.041D Displaced fracture of base of neck of Macrina Graham, RPA- C right femur, subsequen 11/26/2018 N18.6 End stage renal disease Geovanna Saenz MD 11/26/2018 S72.041A Disp fx of base of neck of right Tatiana Shortle, CARPET FLOOR LAYER APPRENTICE femur, init for clos fx 11/26/2018 Z99.2 Dependence on renal dialysis Geovanna Saenz MD 11/26/2018 I48.91 Unspecified atrial fibrillation Tatiana Shortle, CARPET FLOOR LAYER APPRENTICE 11/26/2018 D64.9 Anemia, unspecified Tatiana Shortle, CARPET FLOOR LAYER APPRENTICE 11/26/2018 N18.6 End stage renal disease Tatiana Shortle, CARPET FLOOR LAYER APPRENTICE 11/26/2018 I35.0 Nonrheumatic aortic (valve) stenosis Tatiana Shortle, CARPET FLOOR LAYER APPRENTICE 11/26/2018 E03.9 Hypothyroidism, unspecified Tatiana Shortle, CARPET FLOOR LAYER APPRENTICE 11/26/2018 N39.0 Urinary tract infection, site not Tatiana Shortle, CARPET FLOOR LAYER APPRENTICE specified 11/25/2018 N18.6 End stage renal disease Geovanna Saenz MD 11/25/2018 I48.91 Unspecified atrial fibrillation Tatiana Shortle, CARPET FLOOR LAYER APPRENTICE 11/25/2018 Z99.2 Dependence on renal dialysis Geovanna Saenz MD 11/25/2018 S72.041D Disp fx of base of nk of r femr, 7thD Hubert Thomas PA-C 11/25/2018 D64.9 Anemia, unspecified Tatiana Shortle, CARPET FLOOR LAYER APPRENTICE 11/25/2018 N39.0 Urinary tract infection, site not Tatiana Shortle, CARPET FLOOR LAYER APPRENTICE specified 11/24/2018 I48.91 Unspecified atrial fibrillation Tatiana Shortle, CARPET FLOOR LAYER APPRENTICE 11/24/2018 S72.041D Disp fx of base of nk of r femr, 7thD Hubert Thomas PA-C 11/24/2018 D64.9 Anemia, unspecified Tatiana Shortle, CARPET FLOOR LAYER APPRENTICE 11/24/2018 N39.0 Urinary tract infection, site not Tatiana Silvermanrosy, CARPET FLOOR LAYER APPRENTICE specified 11/23/2018 I48.91 Unspecified atrial fibrillation Kim Hollidayairam, CARPET FLOOR LAYER APPRENTICE 11/23/2018 S72.041D Disp fx of base of nk of r femr, 7thD ALAINA RobertoC 11/23/2018 E03.9 Hypothyroidism, unspecified Kim Lam Jeanie, CARPET FLOOR LAYER APPRENTICE 11/23/2018 I35.0 Nonrheumatic aortic (valve) stenosis Kim Crockettfield Ware , CARPET FLOOR LAYER APPRENTICE 11/22/2018 N18.6 End stage renal disease Geovanna Saenz MD 11/22/2018 I48.91 Unspecified atrial fibrillation Kim Crockettfield Ware, CARPET FLOOR LAYER APPRENTICE 11/22/2018 Z99.2 Dependence on renal dialysis Geovanna Saenz MD 11/22/2018 N18.6 End stage renal disease Kim Crockettfield Ware, KIKO 11/22/2018 E03.9 Hypothyroidism, unspecified Kim Lam Jeanie, CARPET FLOOR LAYER APPRENTICE 11/22/2018 S72.041D Disp fx of base of nk of r femr, 7thD KOTA Hill C 11/22/2018 I35.0 Nonrheumatic aortic (valve) stenosis Kim Hollidayairam , CARPET FLOOR LAYER APPRENTICE 11/21/2018 S72.001A Fracture of unsp part of neck of Kim HollidayKIKO alegria right femur, init 11/21/2018 Z99.2 Dependence on renal dialysis Geovanna Saenz MD 11/21/2018 I48.91 Unspecified atrial fibrillation Kim Lam Jeanie, CARPET FLOOR LAYER APPRENTICE 11/21/2018 S72.041A Disp fx of base of neck of right VIRAL Warner femur, init for clos fx 11/21/2018 I35.0 Nonrheumatic aortic (valve) stenosis Kim Hollidayairam , CARPET FLOOR LAYER APPRENTICE 11/21/2018 S72.041A Disp fx of base of neck of right Ricardo Pedersen M.D. femur, init for clos fx 11/20/2018 S72.041A Displaced fracture of base of neck of Sharon Ortiz, CARPET FLOOR LAYER APPRENTICE right femur, initial encounter for closed fracture 11/20/2018 S72.041A Disp fx of base of neck of right VIRAL Warner femur, init for clos fx 11/20/2018 N18.6 End stage renal disease Sharon Ortiz NP 11/20/2018 I12.0 Hypertensive chronic kidney disease Sharon Ortiz NP with stage 5 chronic kidney disease or end stage renal disease 11/20/2018 W19.xxxA Unspecified fall, initial encounter Sharon Ortiz NP Plan of Treatment Future Appointment(s):07/09/2019 8:15 am - Ricardo Pedersen M.D. at [facility] at [place]05/07/2019 - Ricardo Pedersen M.D.M70.61 Trochanteric bursitis, right hipNew Therapy:Physical TherapyFollow up:8 weeks Functional Status Description No Information Available Mental Status Description No Information Available Referrals Refer to Reason for Referral Status Appt Date DepBoni rodriges MD severe Sent [address] [place] [address] [phone]
--- OUTSIDE RECORDS SUMMARY | 2019-07-01 10:40 | XMS REPORT ---
:1935 Author Organization [facility] Care Team Providers Name Role Phone Unavailable Unavailable Unavailable Problems This patient has no known problems. Allergies, Adverse Reactions, Alerts Allergy Allergy Status Severity Reaction(s) Onset Inactive Treating Comments Name Type Date Date Clinician celebrex Unknown Active Unknown Reaction 2016-04 Wendy Unknown -19 (Tim) Heath [id number] codeine Unknown Active Unknown Reaction 2016-04 Wendy Unknown -19 (Tim) Heath [id number] beta Unknown Active Unknown Reaction 2016-04 Wendy luis e Unknown -19 (Tim) Heath [id number] Medications Ordered Filled Start Stop Current Ordering Indication Dosage Frequency Signature Comments Components Medication Medication Date Date Medication? Clinician (SIG) Name Name No Known No Known No None None None Medications Medications For This For This Patient Patient Procedures This patient has no known procedures. Results This patient has no known results.
--- OUTSIDE RECORDS SUMMARY | 2019-07-01 10:40 | XMS REPORT ---
:1935 Author Organization [facility] Care Team Providers Name Role Phone Unavailable Unavailable Unavailable Problems Condition Condition Condition Status Onset Resolution Last Treating Comments Name Details Category Date Date Treatment Clinician Date Encounter Encounter Diagnosis Active 2018-07 [facility] for for 08-12 [place] surgical surgical [id number] aftercare aftercare following following surgery on surgery on the the circulatory circulatory system system Hypertensiv Hypertensiv Diagnosis Active 2018-07 [facility] e heart and e heart and 08-06 [place] chronic chronic [id number] kidney kidney 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 and stage 1 stage 1 through through stage 4 stage 4 chronic chronic kidney kidney disease, or disease, or unspecified unspecified chronic chronic kidney kidney disease disease Acute on Acute on Diagnosis Active 2018-07 [facility] chronic chronic 2- [place] diastolic diastolic [id number] (congestive (congestive ) heart ) heart failure failure End stage End stage Diagnosis Active 2018-07 [facility] renal renal - [place] disease disease [id number] 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 [facility] c aortic c aortic 08-06 [place] (valve) (valve) [id number] stenosis stenosis 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 [place] fibrillatio fibrillatio [id number] n, n, unspecified unspecified 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 [place] anemia 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) (chronic) Hypothyroid Hypothyroid Diagnosis Active Mary ism, ism, Chad unspecified unspecified [id number] Diverticulo 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, intestine, [id number] part part unspecified unspecified , without , without perforation perforation or abscess or abscess without without bleeding bleeding Age-related Age-related Diagnosis Active Mary physical physical [place] debility debility [id number] Presence of Presence of Diagnosis Active Mary prosthetic prosthetic [place] heart valve heart valve [id number] Presence of Presence of Diagnosis Active Mary cardiac cardiac [place] pacemaker pacemaker [id number] Dependence Dependence Diagnosis Active Mary on renal on renal [place] dialysis 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 Mary (current) (current) [place] use of use of [id number] aspirin aspirin Presence of Presence of Diagnosis Active Mary right right Chad artificial artificial [id number] hip joint hip joint Presence of Presence of Diagnosis Active Mary left left [place] artificial artificial [id number] knee joint knee joint Pain frequent Pain Mgmt Resolve 2018-072019-06-11 Mary pain d 08-12 12:00:00 [place] 12:00: [id number] Cardio pacemaker/I Cardiovasc Resolve 2018-072019-06-11 Mary CD ular d 08-12 12:00:00 [place] 12:00: [id number] 00 Respiratory dyspnea Respirator Active 2018-07 Mary present y 08-12 [place] 12:00: [id number] 00 Endo/Sanket anti-coagul Endo/Sanket Resolve 2018-072019-06-11 Mary ation d 08-12 12:00:00 [place] therapy 12:00: [id number] 00 Integument surgical Integument Resolve 2018-072019-06-11 Mary wound d 08-12 12:00:00 [place] present 12:00: [id number] 00 Nutrition nutritional Nutrition Resolve 2018-072019-06-11 Mary restriction d 08-12 12:00:00 [place] s 12:00: [id number] 00 Neuro confusion Neuro/Emot Active 2018-07 Mary present ion 08-12 [place] 12:00: [id number] 00 Activity ADL Activity Active 2018-07 Mary assistance 08-12 [place] required 12:00: [id number] Activity self-care Activity Active 2018-07 Mary deficit 08-12 [place] 12:00: [id number] 00 Safety structural Safety Active 2018-07 Mary barriers 08-12 [place] present 12:00: [id number] 00 Safety fall risk Safety Active 2018-07 Mary factor 08-12 Chad present 12:00: [id number] 00 Safety risk for Safety Active 2018-07 Mary hospitaliza - [place] tion 12:00: [id number] 00 Medication oral med Meds Resolve 2018-072019-06-11 Mary assistance d 2- 12:00:00 Chad required 12:00: [id number] 00 Musculoskel transfer Musculoske Resolve 2018-072019-06-11 Mary etal assistance letal d 2- 12:00:00 [place] required 12:00: [id number] 00 Bed mobility/tr PT/OT: Bed Active 2018-07 Markos Mobility/Tr ansfer Mobility/T 2-11 [place] ansfer device ransfer 13:30: [id number] present 00 Bed transfer PT/OT: Bed Active 2018-07 Markos Mobility/Tr deficit: Mobility/T 2-11 [place]ziewicz ansfer vehicle ransfer 13:30: [id number] 00 Balance/End balance/grievance and appeals coordinator PT/OT: Active 2018-07 Markos urance rdination Balance/En 2-11 Kobziewicz deficit durance 13:30: [id number] 00 OT: Self self-care OT: Active 2018-07 Markos Care deficit Self-Care 2-11 [place] 13:30: [id number] 00 Gait/Locomo stair PT/OT: Active 2018-07 Markos tion management Gait/Locom 2-11 Kobziewicz problems req otion 13:30: [id number] 00 Gait/Locomo gait PT/OT: Active 2018-07 Markos tion assistive Gait/Locom 2-11 Kobziewicz problems device otion 13:30: [id number] present 00 Gait/Locomo gait PT/OT: Active 2018-07 Markos tion deficit Gait/Locom 2-11 Kobziewicz problems otion 13:30: [id number] 00 Allergies, Adverse Reactions, Alerts Allergy Allergy Status Severity Reaction(s) Onset Inactive Treating Comments Name Type Date Date Clinician celebrex Unknown Active Unknown Reaction 2016-04 Wendy Unknown -19 (Tim) Heath [id number] codeine Unknown Active Unknown Reaction 2016-04 Wendy Unknown -19 (Tim) Heath [id number] beta Unknown Active Unknown Reaction 2016-04 Wendy luis e Unknown -19 (Tim) Heath [id number] Medications Ordered Filled Start Stop Current Ordering Indication Dosage Frequency Signature Comments Components Medication Medication Date Date Medication? Clinician (SIG) Name Name levothyroxi levothyroxi 2018-07 Yes Shallish Unknown Unknown ne 50 mcg ne 50 mcg 2- MD,Cesar tablet tablet Vitamin D3 Vitamin D3 2018-07 Yes Shallish Unknown Unknown 2,000 unit 2,000 unit 2 MD,Cesar tablet tablet gabapentin gabapentin 2018-07 Yes Shallish Unknown Unknown 100 mg 100 mg 2- MD,Cesar capsule capsule furosemide furosemide 2018-07 Yes Shallish Unknown Unknown 40 mg 40 mg 2- MD,Cesar tablet tablet dilTIAZem dilTIAZem 2018-07 Yes Shallish Unknown Unknown CD 120 mg CD 120 mg 2 MD,Cesar capsule,ext capsule,ext ended ended release 24 release 24 hr hr Dialyvite 1 Dialyvite 1 2018-07 Yes Shallish Unknown Unknown mg-100 mg-100 2- MD,Cesar mg-300 mg-300 mcg-50 mg mcg-50 mg tablet tablet Aspirin Low Aspirin Low 2018-07 Yes Shallish Unknown Unknown Dose 81 mg Dose 81 mg 2- MD,Cesar tablet,imer tablet,imer yed release yed release clopidogrel clopidogrel 2018-07 Yes Shallish Unknown Unknown 75 mg 75 mg 2- MD,Cesar tablet tablet atorvastati atorvastati 2018-07 Yes Shallish Unknown Unknown n 40 mg n 40 mg 2- MD,Cesar tablet tablet omeprazole omeprazole 2018-07 Yes Shallish Unknown Unknown 20 mg 20 mg 2- MD,Cesar capsule,del capsule,del ayed ayed release release Vital Signs Vital Name Observation Time Observation Value Comments SYSTOLIC mm[Hg] 2019-06-11 18:09:18 112 mm[Hg] mm[Hg] Method: Sit SYSTOLIC mm[Hg] 2019-06-11 18:09:18 108 mm[Hg] mm[Hg] Method: Stand DIASTOLIC mm[Hg] 2019-06-11 18:09:18 60 mm[Hg] mm[Hg] Method: Sit DIASTOLIC mm[Hg] 2019-06-11 18:09:18 66 mm[Hg] mm[Hg] Method: Stand PULSE 2019-06-11 18:09:18 65 /min /min RESP RATE 2019-06-11 18:09:18 18 /min /min TEMP 2019-06-11 18:09:18 98.2 [degF] Procedures This patient has no known procedures. Results This patient has no known results.
--- OUTSIDE RECORDS SUMMARY | 2019-07-01 10:40 | XMS REPORT ---
:1935 Author Organization [facility] Care Team Providers Name Role Phone Unavailable Unavailable Unavailable Problems Condition Condition Condition Status Onset Resolution Last Treating Comments Name Details Category Date Date Treatment Clinician Date Encounter Encounter Diagnosis Active 2018-07 [facility] for for 08-12 [place] surgical surgical [id number] aftercare aftercare following following surgery on surgery on the the circulatory circulatory system system Hypertensiv Hypertensiv Diagnosis Active 2018-07 [facility] e heart and e heart and 08-06 [place] chronic chronic [id number] kidney kidney 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 and stage 1 stage 1 through through stage 4 stage 4 chronic chronic kidney kidney disease, or disease, or unspecified unspecified chronic chronic kidney kidney disease disease Acute on Acute on Diagnosis Active 2018-07 [facility] chronic chronic 2- [place] diastolic diastolic [id number] (congestive (congestive ) heart ) heart failure failure 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) Hypothyroid Hypothyroid Diagnosis Active Mary ism, ism, Chad unspecified unspecified [id number] Diverticulo 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 [place] intestine, intestine, [id number] part part unspecified unspecified , without , without perforation perforation or abscess or abscess without without bleeding bleeding Age-related Age-related Diagnosis Active Mary physical physical [place] debility debility [id number] Presence of Presence of Diagnosis Active Mary 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 [id number] Presence of Presence of Diagnosis Active Mary cardiac cardiac [place] pacemaker pacemaker [id number] Dependence Dependence Diagnosis Active Mary on renal on renal [place] dialysis dialysis [id number] 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 Diagnosis Active Mary (current) (current) [place] use of use of [id number] aspirin aspirin Presence of Presence of Diagnosis Active Mary right right Chad artificial artificial [id number] hip joint hip joint Presence of Presence of Diagnosis Active Mary left left [place] artificial artificial [id number] knee joint knee joint Pain frequent Pain Mgmt Resolve 2018-072019-06-11 Mary pain d 08-12 12:00:00 [place] 12:00: [id number] 00 Cardio pacemaker/I Cardiovasc Resolve 2018-072019-06-11 Mary CD ular d 08-12 12:00:00 [place] 12:00: [id number] 00 Respiratory dyspnea Respirator Active 2018-07 Mary present y 08-12 [place] 12:00: [id number] 00 Endo/Sanket anti-coagul Endo/Sanket Resolve 2018-072019-06-11 Mary ation d 08-12 12:00:00 [place] therapy 12:00: [id number] 00 Integument surgical Integument Resolve 2018-072019-06-11 Mary wound d 08-12 12:00:00 [place] present 12:00: [id number] 00 Nutrition nutritional Nutrition Resolve 2018-072019-06-11 Mary restriction d 08-12 12:00:00 [place] s 12:00: [id number] 00 Neuro confusion Neuro/Emot Active 2018-07 [facility] present ion 08-12 [place] 12:00: [id number] Activity ADL Activity Active 2018-07 [facility] assistance 08-12 [place] required 12:00: [id number] 00 Activity self-care Activity Active 2018-07 [facility] deficit 08-12 [place] 12:00: [id number] 00 Safety structural Safety Active 2018-07 Mary barriers 08-12 [place] present 12:00: [id number] 00 Safety fall risk Safety Active 2018-07 Mary factor 08-12 Chad present 12:00: [id number] 00 Safety risk for Safety Active 2018-07 [facility] - [place] tion 12:00: [id number] 00 Medication oral med Meds Resolve 2018-072019-06-11 Mary assistance d 2- 12:00:00 Chad required 12:00: [id number] 00 Musculoskel transfer Musculoske Resolve 2018-072019-06-11 Mary etal assistance letal d 2- 12:00:00 [place] required 12:00: [id number] 00 Bed mobility/tr PT/OT: Bed Active 2018-07 Markos Mobility/Tr ansfer Mobility/T 2-11 Kobziewicz ansfer device ransfer 13:30: [id number] present 00 Bed transfer PT/OT: Bed Active 2018-07 Markos Mobility/Tr deficit: Mobility/T 2-11 Kobziewicz ansfer vehicle ransfer 13:30: [id number] 00 Balance/End balance/retort pre cooker PT/OT: Active 2018-07 Markos urance rdination Balance/En 2-11 Kobziewicz deficit durance 13:30: [id number] 00 OT: Self self-care OT: Active 2018-07 Markos Care deficit Self-Care 2-11 Kobziewicz 13:30: [id number] 00 Gait/Locomo stair PT/OT: Active 2018-07 Markos tion management Gait/Locom 2-11 Kobziewicz problems req otion 13:30: [id number] 00 Gait/Locomo gait PT/OT: Active 2018-07 Markos tion assistive Gait/Locom 2-11 Kobziewicz problems device otion 13:30: [id number] present 00 Gait/Locomo gait PT/OT: Active 2018-07 Markos tion deficit Gait/Locom 2-11 Kobziewicz problems otion 13:30: [id number] 00 Allergies, Adverse Reactions, Alerts Allergy Allergy Status Severity Reaction(s) Onset Inactive Treating Comments Name Type Date Date Clinician celebrex Unknown Active Unknown Reaction 2016-04 Wendy Unknown -19 (Tim) Heath [id number] codeine Unknown Active Unknown Reaction 2016-04 Wendy Unknown -19 (Tim) Heath [id number] beta Unknown Active Unknown Reaction 2016-04 Wendy luis e Unknown -19 (Tim) Heath [id number] Medications Ordered Filled Start Stop Current Ordering [...]
--- OUTSIDE RECORDS SUMMARY | 2019-07-01 10:40 | XMS REPORT | Continuity of Care Document ---
:1935 External Reference #:[id number] Author Name Zakiya Stallworth N.P. (transmitted by agent of provider Tiffanie Hunt) Address [address] [place] [address] Care Team Providers Name Role Phone Cesar Brown MD - Family Medicine Care Team Information Sheet [employer]ator Problems Active Problems Provider Date Atrial fibrillation Julian Casper M.D. Onset: 08/14/2011 Electrocardiogram abnormal Julian Casper M.D. Onset: 08/14/2011 Aortic valve disorder Julian Casper M.D. Onset: 08/14/2011 Right bundle branch block Julian Casper M.D. Onset: 08/14/2011 Mitral valve disorder Julina Casper M.D. Onset: 08/14/2011 Benign essential hypertension Julian Casper M.D. Onset: 08/14/2011 Heart murmur Julian Casper M.D. Onset: 03/25/2012 Dyspnea Julian Casper M.D. Onset: 07/21/2013 Edema Julian Casper M.D. Onset: 07/21/2013 Malaise and fatigue Julian Casper M.D. Onset: 09/19/2013 Preoperative cardiovascular Julian Casper M.D. Onset: 09/19/2013 examination End-stage renal disease VIRAL aDniel Onset: 11/11/2013 Localized, primary osteoarthritis Yaima Whyte M.D. Onset: 03/22/2015 Chronic atrial fibrillation Julian Casper M.D. Onset: 08/12/2015 Arthroplasty of knee Yaima Whyte M.D. Onset: 06/04/2017 Closed fracture of base of neck of Ricardo Pedersen M.D. Onset: 11/22/2018 femur Prosthetic arthroplasty of the hip Ricardo Pedersen M.D. Onset: 01/22/2019 Encounter for planned postprocedural Finn Yi M.D., [facility], Onset: 2018 wound closure [facility] Social History Type Date Description Comments Sex Unknown Tobacco Use Start: Unknown Never Smoked Cigarettes Smoking Status Reviewed: 06/16/19 Never Smoked Cigarettes ETOH Use Denies alcohol use Tobacco Use Start: Unknown Patient has never smoked Recreational Drug Use Denies Drug Use Exercise Type/Frequency Does not exercise Allergies, Adverse Reactions, Alerts Active Allergies Reaction Severity Comments Date Celebrex rash 12/28/2006 betablocker syncope 12/28/2006 Codeine 02/12/2013 Celebrex 06/03/2019 Medications Active Medications SIG Qnty Indications Ordering Provider Date Clopidogrel Bisulfate 1 by mouth every Unknown 06/15/2019 day 75mg Tablets Cartia XT 1 by mouth every Unknown 06/15/2019 120mg Caps ER day 24HR Atorvastatin Calcium 1 by mouth every Unknown 06/15/2019 40mg day Tablets Loperamide HCL 1 cap by mouth Unknown 06/15/2019 2mg every 6 hours Tablets after each stool as needed Aspirin 81 1 by mouth every Unknown 06/15/[address] Fluticasone Propionate 2 sprays each Unknown 06/15/2019 nostril qd. 50mcg/Act Suspension Dialyvite W/ Zinc Take one tablet by Unknown 05/19/2019 mouth once daily Amoxicillin prn before dental Unknown 05/19/2019 work Gabapentin 1 capsule two Unknown 03/18/2019 100mg Capsules times daily. Furosemide 1 tab by mouth Other Ordering 05/31/2013 40mg Tablets twice daily Provider Synthroid 1 by mouth every Unknown 50mcg Tablets day Vitamin D3 Super 25 mcg-1 capsule Unknown Strength by mouth daily Capsule Nystatin apply twice daily Unknown [id number] as needed Powder Ucmvrleif-Qmflksdwiq-O apply to fistula 1 Unknown ream Base hour before 2.5-2.5% Cream dialysis three times weekly Omeprazole 1 by mouth every Unknown 20mg Capsules day DR Medications Administered in Office Medication SIG Qnty Indications Ordering Provider Date Depomedrol 40MG Jarrett Marie M.D. 06/02/2016 Injection Depomedrol 80MG Yaima Whyte M.D. 03/22/2015 Injection Immunizations Description No Information Available Vital Signs Date Vital Result Comment 06/16/2019 8:33am Height 63 inches 5'3" Weight 157.12 lb with shoes Heart Rate 64 /min right radial BP Systolic Sitting 116 mmHg Rue, reg cuff BP Diastolic Sitting 60 mmHg Rue, reg cuff BP Systolic Standing 120 mmHg Rue, reg cuff BP Diastolic Standing 58 mmHg Rue, reg cuff BMI (Body Mass Index) 27.8 kg/m2 Ejection Fraction 50%-55% 04/07/19 echocardiogram 06/03/2019 2:35pm Height 63 inches 5'3" Weight 157.12 lb w/ shoes Heart Rate 54 /min R. radial, regular BP Systolic 114 mmHg Ra, reg cuff BP Diastolic 50 mmHg Ra, reg cuff BP Systolic Sitting 114 mmHg Ra, reg cuff BP Diastolic Sitting 52 mmHg Ra, reg cuff BMI (Body Mass Index) 27.8 kg/m2 Ejection Fraction 50-55% 04/04/19 Results Test Acquired Date Facility Test Result H/L Range Note Inr/Protime 05/30/2019 [facility] Inr 1.03 Normal 0.82-1.[address] [place] [address] [phone] Laboratory test 05/30/2019 [facility] Partial 32.2 Normal 26.0 -38.[address] [address] PTT [phone] CBC No Diff 05/27/2019 [facility] White Blood 6.2 10^3/uL Normal 3.5-10.[address] [place] [address] [phone] Red Blood Count 3.77 10^6/uL Normal 3.70-4.87 Hemoglobin 12.8 g/dL Normal 12.0-16.0 Hematocrit 38 % Normal 35-47 Mean Corpuscular Volume 100 fL High 80-97 Mean Corpuscular Hemoglobin 34 pg High 27-31 Mean Corpuscular HGB Conc 34 g/dL Normal 31-36 Red Cell Distribution Width 15 % Normal 10-15 Platelet Count 116 10^3/uL Low 150-450 Mean Platelet Volume 7.7 fL Normal 7.4-10.4 Basic Metabolic 05/27/2019 [facility] Sodium 143 mmol/L Normal 135-[address] [place] [address] [phone] Potassium 3.7 mmol/L Normal 3.5-5.0 Chloride 98 mmol/L Low 101-111 Co2 Carbon Dioxide 34 mmol/L High 22-32 Anion Gap 11 mmol/L Normal 2-11 Glucose 105 mg/dL High 70-100 Blood Urea Nitrogen 38 mg/dL High 6-24 Creatinine 4.26 mg/dL High 0.51-0.95 BUN/Creatinine Ratio 8.9 Normal 8-20 Calcium 9.8 mg/dL Normal 8.6-10.3 Egfr Non- 9.9 >60 Egfr 12.0 >60 2 Hemoglobin 04/23/2019 N2N/CCD Import Hemoglobin 11.1 Low 12.0 - 16.0 HCT Calc (HGBX3) 04/23/2019 N2N/CCD Import HCT Calc (HGBX3) 33.3 Low 37.0 - 47.0 # Days/WK Treated 04/16/2019 N2N/CCD Import # Days/WK Treated 3 2 - 3 VT (KT/V TX Vol) 04/16/2019 N2N/CCD Import VT (KT/V TX Vol) 33.4 VM (KT/V Mean Vol) 04/16/2019 N2N/CCD Import VM (KT/V Mean 31.2 Vol) KT/V Prescribed 04/16/2019 N2N/CCD Import KT/V Prescribed 1.74 SPKT/V Total 04/16/2019 N2N/CCD Import SPKT/V Total 1.42 NPCR HD Ukm 04/16/2019 N2N/CCD Import NPCR HD Ukm 0.89 Gender 04/16/2019 N2N/CCD Import Gender F Race 04/16/2019 N2N/CCD Import Race C Amputation Factor 04/16/2019 N2N/CCD Import Amputation Factor 0.000 TBW ([place]) 04/16/2019 N2N/CCD Import TBW ([place]) 32.37 STDKRT/V Renal 04/16/2019 N2N/CCD Import STDKRT/V Renal N/A STDKT/V Total 04/16/2019 N2N/CCD Import STDKT/V Total N/A HRS/Week Treated 04/16/2019 N2N/CCD Import HRS/Week Treated 9.0 Blood Flow-QWB 04/16/2019 N2N/CCD Import Blood Flow-QWB 350 Hemoglobin 04/16/2019 N2N/CCD Import Hemoglobin 11.8 Low 12.0 - 16.0 HCT Calc (HGBX3) 04/16/2019 N2N/CCD Import HCT Calc (HGBX3) 35.4 Low 37.0 - 47.0 PTH Intact 04/16/2019 N2N/CCD Import PTH Intact 378 High 18 - 80 CA/Phos W/Products 04/16/2019 N2N/CCD Import Calcium 9.5 8.7 - 10.4 Phosphorus 3.6 2.4 - 5.1 Caxphos Product 34.2 21 - 53 C[place]os Corrected 34.2 21 - 53 KT/V By Ukm Panel 04/16/2019 N2N/CCD Import Urr 73 65 - 100 BUN 60 High 9 - 23 BUN - Post 16 9 - 23 Dialyzer Series 04/16/2019 N2N/CCD Import Dialyzer Series Revaclr Dialyzer Model 04/16/2019 N2N/CCD Import Dialyzer Model 300 Dialyzer Make(MFG) 04/16/2019 N2N/CCD Import Dialyzer Gambro Make(MFG) Dialyzer Flow-qd 04/16/2019 N2N/CCD Import Dialyzer Flow-qd 600 Dialyzer Thiago 04/16/2019 N2N/CCD Import Dialyzer Thiago 1209 Minutes Dialyzed 04/16/2019 N2N/CCD Import Minutes Dialyzed 182 Calcium Corrected 04/16/2019 N2N/CCD Import Calcium Corrected 9.5 8.7 - 10.4 SPKDT/V Dialysis 04/16/2019 N2N/CCD Import SPKDT/V Dialysis 1.42 Ekdt/V Dialysis 04/16/2019 N2N/CCD Import Ekdt/V Dialysis 1.18 STDKDT/V Dialysis 04/16/2019 N2N/CCD Import STDKDT/V Dialysis N/A Age Of Patient 04/16/2019 N2N/CCD Import Age Of Patient 83 Bsa ([place]) 04/16/2019 N2N/CCD Import Bsa ([place]) 1.73 Weight-Post (KG) 04/16/2019 N2N/CCD Import Weight-Post (KG) 71.5 Weight-Pre (KG) 04/16/2019 N2N/CCD Import Weight-Pre (KG) 71.8 Height (Inches) 04/16/2019 N2N/CCD Import Height (Inches) 62 Weight (KG) 04/16/2019 N2N/CCD Import Weight (KG) 71.5 Hemoglobin 04/09/2019 N2N/CCD Import Hemoglobin 12.4 12.0 - 16.0 HCT Calc (HGBX3) 04/09/2019 N2N/CCD Import HCT Calc (HGBX3) 37.2 37.0 - 47.0 Hemoglobin 04/02/2019 N2N/CCD Import Hemoglobin 12.1 12.0 - 16.0 HCT Calc (HGBX3) 04/02/2019 N2N/CCD Import HCT Calc (HGBX3) 36.3 Low 37.0 - 47.0 Iron Panel 03/26/2019 N2N/CCD Import Iron 66 50 - 170 Iron Saturation 26 16 - 46 Tibc 252 250 - 450 Uibc 186 80 - 375 Sodium 03/26/2019 N2N/CCD Import Sodium 142 132 - 146 Chem 1 W/O CA/P 03/26/2019 N2N/CCD Import Alk Phos 159 High 46 - 116 Albumin 4.5 3.2 - 4.8 Chloride 106 99 - 109 Co2 24 20 - 31 LDH, Total 165 120 - 246 Potassium 4.6 3.5 - 5.5 Ast/Sgot 19 0 - 34 Protein - Total 6.4 5.7 - 8.2 A/G Ratio 2.4 1 - 2.5 Globulin 1.9 0.9 - 5 CBC With Autodiff 03/26/2019 N2N/CCD Import Basophils 0.7 Neutrophils 79.4 Lymphocytes 12.7 Monocytes 5.5 Eosinophils 1.8 RDW 16.6 High 11.0 - 15.0 WBC 4.6 4.5 - 11.0 RBC 3.83 Low 4.20 - 5.40 Hematocrit 38.4 37.0 - 47.0 Hemoglobin 12.0 12.0 - 16.0 MCV 100.3 High 80.0 - 100.0 MCH 31.4 High 27.0 - 31.0 MCHC 31.3 Low 32.0 - 36.0 Platelet-CT 153 150 - 400 Neuts-Abs 3676.22 2000 - 8800 Lymphs-Abs 588.01 Low 1100 - 4800 Monos-Abs 254.65 0 - 1100 Basos-Abs 32.41 0 - 400 Eosins-Abs 83.34 0 - 700 HCT Calc (HGBX3) 36.0 Low 37.0 - 47.0 Creatinine 03/26/2019 N2N/CCD Import Creatinine 5.45 High 0.50 - 1.10 Alt/SGPT 03/26/2019 N2N/CCD Import Alt/SGPT 16 10 - 49 Hemoglobin 03/19/2019 N2N/CCD Import Hemoglobin 11.8 Low 12.0 - 16.0 HCT Calc (HGBX3) 03/19/2019 N2N/CCD Import HCT Calc (HGBX3) 35.4 Low 37.0 - 47.0 VT (KT/V TX Vol) 03/13/2019 N2N/CCD Import VT (KT/V TX Vol) 33.0 VM (KT/V Mean Vol) 03/13/2019 N2N/CCD Import VM (KT/V Mean 30.5 Vol) KT/V Prescribed 03/13/2019 N2N/CCD Import KT/V Prescribed 1.74 SPKT/V Total 03/13/2019 N2N/CCD Import SPKT/V Total 1.43 NPCR HD Ukm 03/13/2019 N2N/CCD Import NPCR HD Ukm 0.71 Gender 03/13/2019 N2N/CCD Import Gender F Race 03/13/2019 N2N/CCD Import Race C Amputation Factor 03/13/2019 N2N/CCD Import Amputation Factor 0.000 TBW ([place]) 03/13/2019 N2N/CCD Import TBW ([place]) 32.34 STDKRT/V Renal 03/13/2019 N2N/CCD Import STDKRT/V Renal N/A STDKT/V Total 03/13/2019 N2N/CCD Import STDKT/V Total N/A HRS/Week Treated 03/13/2019 N2N/CCD Import HRS/Week Treated 9.0 Blood Flow-QWB 03/13/2019 N2N/CCD Import Blood Flow-QWB 350 Hemoglobin 03/13/2019 N2N/CCD Import Hemoglobin 11.3 Low 12.0 - 16.0 HCT Calc (HGBX3) 03/13/2019 N2N/CCD Import HCT Calc (HGBX3) 33.9 Low 37.0 - 47.0 CA/Phos W/Products 03/13/2019 N2N/CCD Import Calcium 9.1 8.7 - 10.4 Phosphorus 3.8 2.4 - 5.1 Caxphos Product 34.6 21 - 53 C[place]os Corrected 34.6 21 - 53 KT/V By Ukm Panel 03/13/2019 N2N/CCD Import Urr 73 65 - 100 BUN 45 High 9 - 23 BUN - Post 12 9 - 23 Dialyzer Series 03/13/2019 N2N/CCD Import Dialyzer Series Revaclr Dialyzer Model 03/13/2019 N2N/CCD Import Dialyzer Model 300 Dialyzer Make(MFG) 03/13/2019 N2N/CCD Import Dialyzer Gambro Make(MFG) Dialyzer Flow-qd 03/13/2019 N2N/CCD Import Dialyzer Flow-qd 600 Dialyzer Thiago 03/13/2019 N2N/CCD Import Dialyzer Thiago 1209 Minutes Dialyzed 03/13/2019 N2N/CCD Import Minutes Dialyzed 182 Calcium Corrected 03/13/2019 N2N/CCD Import Calcium Corrected 9.1 8.7 - 10.4 # Days/WK Treated 03/13/2019 N2N/CCD Import # Days/WK Treated 3 2 - 3 Weight (KG) 03/13/2019 N2N/CCD Import Weight (KG) 71.5 Height (Inches) 03/13/2019 N2N/CCD Import Height (Inches) 62 Weight-Pre (KG) 03/13/2019 N2N/CCD Import Weight-Pre (KG) 72.0 Weight-Post (KG) 03/13/2019 N2N/CCD Import Weight-Post (KG) 71.4 SPKDT/V Dialysis 03/13/2019 N2N/CCD Import SPKDT/V Dialysis 1.43 Ekdt/V Dialysis 03/13/2019 N2N/CCD Import Ekdt/V Dialysis 1.19 STDKDT/V Dialysis 03/13/2019 N2N/CCD Import STDKDT/V Dialysis N/A Bsa ([place]) 03/13/2019 N2N/CCD Import Bsa ([place]) 1.73 Age Of Patient 03/13/2019 N2N/CCD Import Age Of Patient 83 Iron Panel 02/26/2019 N2N/CCD Import Iron 53 50 - 170 Iron Saturation 20 16 - 46 Tibc 265 250 - 450 Uibc 212 80 - 375 Sodium 02/26/2019 N2N/CCD Import Sodium 139 132 - 146 Chem 1 W/O CA/P 02/26/2019 N2N/CCD Import Alk Phos 156 High 46 - 116 Albumin 4.5 3.2 - 4.8 Chloride 103 99 - 109 Co2 24 20 - 31 LDH, Total 155 120 - 246 Potassium 4.5 3.5 - 5.5 Ast/Sgot 18 0 - 34 Protein - Total 6.3 5.7 - 8.2 A/G Ratio 2.5 1 - 2.5 Globulin 1.8 0.9 - 5 CBC With Autodiff 02/26/2019 N2N/CCD Import Basophils 0.4 Neutrophils 82.8 Lymphocytes 9.9 Monocytes 4.0 Eosinophils 2.8 RDW 15.2 High 11.0 - 15.0 WBC 6.8 4.5 - 11.0 RBC 3.34 Low 4.20 - 5.40 Hematocrit 32.9 Low 37.0 - 47.0 Hemoglobin 10.5 Low 12.0 - 16.0 MCV 98.3 80.0 - 100.0 MCH 31.3 High 27.0 - 31.0 MCHC 31.8 Low 32.0 - 36.0 Platelet-CT 167 150 - 400 Neuts-Abs 5671.80 2000 - 8800 Lymphs-Abs 678.15 Low 1100 - 4800 Monos-Abs 274.00 0 - 1100 Eosins-Abs 191.80 0 - 700 HCT Calc (HGBX3) 31.5 Low 37.0 - 47.0 Basos-Abs 27.40 0 - 400 Creatinine 02/26/2019 N2N/CCD Import Creatinine 4.61 High 0.50 - 1.10 Alt/SGPT 02/26/2019 N2N/CCD Import Alt/SGPT 14 10 - 49 Hemoglobin 02/19/2019 N2N/CCD Import Hemoglobin 10.8 Low 12.0 - 16.0 HCT Calc (HGBX3) 02/19/2019 N2N/CCD Import HCT Calc (HGBX3) 32.4 Low 37.0 - 47.0 VT (KT/V TX Vol) 02/12/2019 N2N/CCD Import VT (KT/V TX Vol) 29.6 VM (KT/V Mean Vol) 02/12/2019 N2N/CCD Import VM (KT/V Mean 29.7 Vol) KT/V Prescribed 02/12/2019 N2N/CCD Import KT/V Prescribed 1.73 SPKT/V Total 02/12/2019 N2N/CCD Import SPKT/V Total 1.59 NPCR HD Ukm 02/12/2019 N2N/CCD Import NPCR HD Ukm 0.87 Gender 02/12/2019 N2N/CCD Import Gender F Race 02/12/2019 N2N/CCD Import Race C Amputation Factor 02/12/2019 N2N/CCD Import Amputation Factor 0.000 TBW ([place]) 02/12/2019 N2N/CCD Import TBW ([place]) 32.39 STDKRT/V Renal 02/12/2019 N2N/CCD Import STDKRT/V Renal N/A STDKT/V Total 02/12/2019 N2N/CCD Import STDKT/V Total N/A HRS/Week Treated 02/12/2019 N2N/CCD Import HRS/Week Treated 8.0 Blood Flow-QWB 02/12/2019 N2N/CCD Import Blood Flow-QWB 350 Hemoglobin 02/12/2019 N2N/CCD Import Hemoglobin 11.5 Low 12.0 - 16.0 HCT Calc (HGBX3) 02/12/2019 N2N/CCD Import HCT Calc (HGBX3) 34.5 Low 37.0 - 47.0 CA/Phos W/Products 02/12/2019 N2N/CCD Import Calcium 9.7 8.7 - 10.4 Phosphorus 3.5 2.4 - 5.1 Caxphos Corrected 33.9 21 - 53 KT/V By Ukm Panel 02/12/2019 N2N/CCD Import Urr 77 65 - 100 BUN 56 High 9 - 23 BUN - Post 13 9 - 23 Dialyzer Series 02/12/2019 N2N/CCD Import Dialyzer Series Revaclr Dialyzer Model 02/12/2019 N2N/CCD Import Dialyzer Model 300 Dialyzer Make(MFG) 02/12/2019 N2N/CCD Import Dialyzer Make(MFG) Gambro Dialyzer Flow-qd 02/12/2019 N2N/CCD Import Dialyzer Flow-qd 600 Dialyzer Thiago 02/12/2019 N2N/CCD Import Dialyzer Thiago 1209 Minutes Dialyzed 02/12/2019 N2N/CCD Import Minutes Dialyzed 181 Calcium Corrected 02/12/2019 N2N/CCD Import Calcium Corrected 9.7 8.7 - 10.4 # Days/WK Treated 02/12/2019 N2N/CCD Import # Days/WK Treated 3 2 - 3 Weight (KG) 02/12/2019 N2N/CCD Import Weight (KG) 71.5 Height (Inches) 02/12/2019 N2N/CCD Import Height (Inches) 62 Weight-Pre (KG) 02/12/2019 N2N/CCD Import Weight-Pre (KG) 72.3 Weight-Post (KG) 02/12/2019 N2N/CCD Import Weight-Post (KG) 71.6 SPKDT/V Dialysis 02/12/2019 N2N/CCD Import SPKDT/V Dialysis 1.59 Ekdt/V Dialysis 02/12/2019 N2N/CCD Import Ekdt/V Dialysis 1.32 STDKDT/V Dialysis 02/12/2019 N2N/CCD Import STDKDT/V Dialysis N/A Bsa ([place]) 02/12/2019 N2N/CCD Import Bsa ([place]) 1.73 Age Of Patient 02/12/2019 N2N/CCD Import Age Of Patient 83 Hemoglobin 02/05/2019 N2N/CCD Import Hemoglobin 11.5 Low 12.0 - 16.0 HCT Calc (HGBX3) 02/05/2019 N2N/CCD Import HCT Calc (HGBX3) 34.5 Low 37.0 - 47.0 CBC With Autodiff 01/23/2019 N2N/CCD Import Basophils 0.8 Neutrophils 85.7 Lymphocytes 7.0 Monocytes 4.6 Eosinophils 1.9 RDW 15.4 High 11.0 - 15.0 WBC 7.2 4.5 - 11.0 RBC 3.67 Low 4.20 - 5.40 Hematocrit 34.9 Low 37.0 - 47.0 Hemoglobin 11.4 Low 12.0 - 16.0 MCV 95.0 80.0 - 100.0 MCH 31.1 High 27.0 - 31.0 MCHC 32.7 32.0 - 36.0 Platelet-CT 205 150 - 400 Neuts-Abs 6178.97 2000 - 8800 Lymphs-Abs 504.70 Low 1100 - 4800 Monos-Abs 331.66 0 - 1100 Basos-Abs 57.68 0 - 400 Eosins-Abs 136.99 0 - 700 HCT Calc (HGBX3) 34.2 Low 37.0 - 47.0 Hcvpanelprotoco 01/23/2019 N2N/CCD Import Hep C AB Reflex 0.08 0.00 - 0.79 Rna Hep C see commen Alt/SGPT 01/23/2019 N2N/CCD Import Alt/SGPT 14 10 - 49 Hep B Surfce AB 01/23/2019 N2N/CCD Import Hep B Surfce AB 767 High 0 - 9 Chem 1 W/O CA/P 01/23/2019 N2N/CCD Import Alk Phos 136 High 46 - 116 Albumin 4.5 3.2 - 4.8 Chloride 103 99 - 109 Co2 25 20 - 31 LDH, Total 159 120 - 246 Potassium 4.1 3.5 - 5.5 Ast/Sgot 17 0 - 34 Protein - Total 6.4 5.7 - 8.2 A/G Ratio 2.4 1 - 2.5 Globulin 1.9 0.9 - 5 Aluminum 01/23/2019 N2N/CCD Import Aluminum <10 0 - 9 Sodium 01/23/2019 N2N/CCD Import Sodium 140 132 - 146 Iron Panel 01/23/2019 N2N/CCD Import Iron 30 Low 50 - 170 Iron Saturation 11 Low 16 - 46 Tibc 263 250 - 450 Uibc 233 80 - 375 Glucose 01/23/2019 N2N/CCD Import Glucose 135 High 70 - 99 Creatinine 01/23/2019 N2N/CCD Import Creatinine 4.87 High 0.50 - 1.10 Ferritin 01/23/2019 N2N/CCD Import Ferritin 564 High 10 - 291 Hemoglobin 01/17/2019 N2N/CCD Import Hemoglobin 10.3 Low 12.0 - 16.0 HCT Calc (HGBX3) 01/17/2019 N2N/CCD Import HCT Calc (HGBX3) 30.9 Low 37.0 - 47.0 Alt/SGPT 12/25/2018 N2N/CCD Import Alt/SGPT <9 Low 10 - 49 Sodium 12/25/2018 N2N/CCD Import Sodium 141 132 - 146 Iron Panel 12/25/2018 N2N/CCD Import Iron 35 Low 50 - 170 Iron Saturation 12 Low 16 - 46 Tibc 294 250 - 450 Uibc 259 80 - 375 Chem 1 W/O CA/P 12/25/2018 N2N/CCD Import Alk Phos 131 High 46 - 116 Albumin 4.3 3.2 - 4.8 Chloride 103 99 - 109 Co2 26 20 - 31 LDH, Total 163 Low 208 - 378 Potassium 4.2 3.5 - 5.5 Ast/Sgot 16 0 - 34 Protein - Total 6.4 5.7 - 8.2 A/G Ratio 2.0 1 - 2.5 Globulin 2.1 0.9 - 5 CBC With Autodiff 12/25/2018 N2N/CCD Import Basophils 0.7 Neutrophils 85.1 Lymphocytes 8.0 Monocytes 4.6 Eosinophils 1.6 RDW 15.8 High 11.0 - 15.0 WBC 7.0 4.5 - 11.0 RBC 2.98 Low 4.20 - 5.40 Hematocrit 29.8 Low 37.0 - 47.0 Hemoglobin 9.1 Low 12.0 - 16.0 MCV 99.7 80.0 - 100.0 MCH 30.6 27.0 - 31.0 MCHC 30.7 Low 32.0 - 36.0 Platelet-CT 234 150 - 400 Neuts-Abs 5922.96 2000 - 8800 Lymphs-Abs 556.80 Low 1100 - 4800 Monos-Abs 320.16 0 - 1100 Basos-Abs 48.72 0 - 400 Eosins-Abs 111.36 0 - 700 HCT Calc (HGBX3) 27.3 Low 37.0 - 47.0 Creatinine 12/25/2018 N2N/CCD Import Creatinine 5.26 High 0.50 - 1.10 1 Standard intensity warfarin therapeutic range: 2.0-3.0 High intensity warfarin therapeutic range: 2.5-3.5 2 Because ethnic data is not always readily available, this report includes an eGFR for both -Americans and non- Americans. The National Kidney Disease Education Program (NKDEP) does not endorse the use of the MDRD equation for patients that are not between the ages of 18 and 70, are , have extremes of body size, muscle mass, or nutritional status, or are non- or non-. According to the National Kidney Foundation, irrespective of diagnosis, the stage of the disease is based on the level of kidney function: Stage Description GFR(mL/min/1.73 m(2)) 1 Kidney damage with normal or decreased GFR 90 2 Kidney damage with mild decrease in GFR 60-89 3 Moderate decrease in GFR 30-59 4 Severe decrease in GFR 15-29 5 Kidney failure <15 (or dialysis) Procedures Date Code Description Status 05/30/2019 16990 Cath PLMT&NJX L Ventriculog Img S&I Completed 05/20/2019 20548 EKG Tracing & Interpretation Completed 04/07/2019 12932 Holter Monitor Review (24 hr)dr review & interp only Completed 04/04/2019 23454 ECHO Transthoracic, Real-Time 2D With Doppler And Color Completed Flow 04/04/2019 06542 ECHO Transthoracic, Real-Time 2D With Doppler And Color Completed Flow 04/04/2019 94089 ECG Monitor/Recording W/Visual Superimposition Scanning Completed Medical Devices Description No Information Available Encounters Type Date Location Provider Dx Diagnosis Office Visit 06/16/2019 [facility] Zakiya Stallworth, 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 wound closure I25.10 Athscl heart disease of [place] coronary artery w/o ang pctrs Office Visit 05/07/2019 [place] [facility] M70.61 Trochanteric 1:30p Orthoped[facility] at [facility] bursitis, right [place] hip Office Visit 04/08/2019 [facility] Zakiya John I48.20 Chronic atrial 3:30p Of Ema Powell.PKalani fibrillation, unspecified I35.0 Nonrheumatic aortic (valve) stenosis I45.10 Unspecified right bundle-branch block I27.20 Pulmonary hypertension, unspecified Office Visit 03/19/2019 [place] Julian John I48.91 Unspecified atrial 2:00p Cardiology [facility] fibrillation D64.9 Anemia, unspecified I35.0 Nonrheumatic aortic (valve) stenosis I45.10 Unspecified right bundle-branch block I27.20 Pulmonary hypertension, unspecified I77.819 Aortic ectasia, unspecified site Assessments Date Code Description Provider 06/16/2019 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 unspecified 06/16/2019 I35.0 Nonrheumatic aortic (valve) stenosis Zakiya Stallworth, N.P. 06/16/2019 I45.10 Unspecified right bundle-branch Zakiya Stallworth, N.P. block 06/16/2019 Z95.0 Presence of cardiac pacemaker Zakiya Stallworth N.P. 06/03/2019 Z48.1 Encounter for planned postprocedural Finn Yi M.D., [facility], wound closure [facility] 06/03/2019 I25.10 Atherosclerotic heart disease of Finn Yi M.D., [facility], [place] coronary artery without [facility] angina pectoris 05/30/2019 I25.10 Atherosclerotic heart disease of Finn Yi M.D., [facility], [place] coronary artery without [facility] angina pectoris 05/07/2019 M70.61 Trochanteric bursitis, right hip Ricardo Pedersen M.D. 04/08/2019 I48.20 Chronic atrial fibrillation, Zakiya Stallworth, N.P. unspecified 04/08/2019 I35.0 Nonrheumatic aortic (valve) stenosis Zakiya Stallworth, N.P. 04/08/2019 I45.10 Unspecified right bundle-branch Zakiya Stallworth, N.P. block 04/08/2019 I27.20 Pulmonary hypertension, unspecified Zakiya Stallworth, [...] ECHO Schedule 04/04/2019 I45.10 Unspecified right bundle-branch [facility] ECHO Schedule block 04/04/2019 I27.20 Pulmonary hypertension, unspecified [facility] ECHO Schedule 04/04/2019 I77.819 Aortic ectasia, unspecified site [facility] ECHO Schedule 03/19/2019 I48.91 Unspecified atrial fibrillation Julian Casper M.D. 03/19/2019 D64.9 Anemia, unspecified Julian Casper M.D. 03/19/2019 I35.0 Nonrheumatic aortic (valve) stenosis Julian Casper M.D. 03/19/2019 I45.10 Unspecified right bundle-branch Julian Casper M.D. block 03/19/2019 I27.20 Pulmonary hypertension, unspecified Julian Casper M.D. 03/19/2019 I77.819 Aortic ectasia, unspecified site Julian Casper M.D. 01/22/2019 S72.041D Displaced fracture of base of neck Ricardo Pedersen M.D. of right femur, subsequen 01/22/2019 Z96.641 Presence of right artificial hip Ricardo Pedersen M.D. joint 12/17/2018 S72.041D Displaced fracture of base of neck Macrina Graham, RPA-C of right femur, subsequen Plan of Treatment Future Appointment(s):07/08/2019 2:30 pm - Nurse Visit cc at [facility]07/10/2019 2:30 pm - [place] [facility] at [facility]2019 8:15 am - Ricardo Pedersen M.D. 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
--- OUTSIDE RECORDS SUMMARY | 2019-07-01 10:40 | XMS REPORT | Continuity of Care Document ---
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 Onset: 03/22/2015 Chronic atrial fibrillation Julian Casper M.D. Onset: 08/12/2015 Arthroplasty of knee Yaima Whyte M.D. Onset: 06/04/2017 Closed fracture of base of neck of Ricardo Pedersen M.D. Onset: 11/22/2018 femur Prosthetic arthroplasty of the hip Ricardo Pedersen M.D. Onset: 01/22/2019 Encounter for planned postprocedural Finn Yi M.D., [facility], Onset: 2018 wound closure [facility] Social History Type Date Description Comments Sex Unknown Tobacco Use Start: Unknown Never Smoked Cigarettes Smoking Status Reviewed: 06/03/19 Never Smoked Cigarettes ETOH Use Denies alcohol use Tobacco Use Start: Unknown Patient has never smoked Recreational Drug Use Denies Drug Use Exercise Type/Frequency Does not exercise Allergies, Adverse Reactions, Alerts Active Allergies Reaction Severity Comments Date Celebrex rash 12/28/2006 betablocker syncope 12/28/2006 Codeine 02/12/2013 Celebrex 06/03/2019 Medications Active Medications SIG Qnty Indications Ordering Provider Date Dialyvite W/ Zinc Take one tablet by [...] daily Capsule Nystatin apply twice daily Unknown [id number]/GM as needed Powder Lidocaine-Prilocaine- apply to fistula 1 Unknown Cream Base hour before 2.5-2.5% dialysis three Cream times weekly Omeprazole 1 by mouth every Unknown 20mg day Capsules DR Medications Administered in Office Medication SIG Qnty Indications Ordering Provider Date Depomedrol 40MG Jarrett Marie M.D. 06/02/2016 Injection Depomedrol 80MG Yaima Whyte M.D. 03/22/2015 Injection Immunizations Description No Information Available Vital Signs Date Vital Result Comment 06/03/2019 2:35pm Height 63 inches 5'3" Weight 157.12 lb w/ shoes Heart Rate 54 /min R. radial, regular BP Systolic 114 mmHg Ra, reg cuff BP Diastolic 50 mmHg Ra, reg cuff BP Systolic Sitting 114 mmHg Ra, reg cuff BP Diastolic Sitting 52 mmHg Ra, reg cuff BMI (Body Mass Index) 27.8 kg/m2 Ejection Fraction 50-55% 04/04/19 05/07/2019 1:22pm Height 63 inches 5'3" Weight 164.00 lb Heart Rate 75 /min Body Temperature 96.2 F O2 % BldC Oximetry 90 % BMI (Body Mass Index) 29.0 kg/m2 Results Test Acquired Date Facility Test Result H/L Range Note Inr/Protime 05/30/2019 [facility] Inr 1.03 Normal 0.82-1.[address] [place] [address] [phone] Laboratory test 05/30/2019 [facility] Partial 32.2 Normal 26.0 -38.0 finding [address] [place] [address] PTT [phone] CBC No Diff 05/27/2019 [facility] White Blood 6.2 10^3/uL Normal 3.5-10.8 [place] [address] [phone] Red Blood Count 3.77 10^6/uL Normal 3.70-4.87 Hemoglobin 12.8 g/dL Normal 12.0-16.0 Hematocrit 38 % Normal 35-47 Mean Corpuscular Volume 100 fL High 80-97 Mean Corpuscular Hemoglobin 34 pg High 27-31 Mean Corpuscular HGB Conc 34 g/dL Normal 31-36 Red Cell Distribution Width 15 % Normal 10-15 Platelet Count 116 10^3/uL Low 150-450 Mean Platelet Volume 7.7 fL Normal 7.4-10.4 Basic Metabolic 05/27/2019 [facility] Sodium 143 mmol/L Normal 135-[address] [place] [address] [phone] Potassium 3.7 mmol/L Normal 3.5-5.0 Chloride 98 [...] N2N/CCD Import Age Of Patient 83 Bsa ([facility]) 04/16/2019 N2N/CCD Import Bsa ([facility]) 1.73 Weight-Post (KG) 04/16/2019 N2N/CCD Import Weight-Post [...] HD Ukm 03/13/2019 N2N/CCD Import NPCR HD Uk 0.71 Gender 03/13/2019 N2N/CCD Import Gender F [...] 03/13/2019 N2N/CCD Import STDKDT/V Dialysis N/A Bsa ([facility]) 03/13/2019 N2N/CCD Import Bsa ([facility]) 1.73 Age Of Patient 03/13/2019 N2N/CCD Import [...] 02/12/2019 N2N/CCD Import Dialyzer Model 300 Dialyzer 02/12/2019 N2N/CCD Import Dialyzer Gambro Make(MFG) Make(MFG) Dialyzer Flow-qd 02/12/2019 N2N/CCD Import Dialyzer Flow-qd [...] 02/12/2019 N2N/CCD Import STDKDT/V Dialysis N/A Bsa ([facility]) 02/12/2019 N2N/CCD Import Bsa ([place]) 1.73 Age Of Patient 02/12/2019 N2N/CCD Import Age Of Patient 83 Hemoglobin 02/05/2019 N2N/CCD Import Hemoglobin 11.5 Low 12.0 - 16.0 HCT Calc (HGBX3) 02/05/2019 N2N/CCD Import HCT Calc (HGBX3) 34.5 Low 37.0 - 47.0 Sodium 01/23/2019 N2N/CCD Import Sodium 140 132 - 146 Ferritin 01/23/2019 N2N/CCD Import Ferritin 564 High 10 - 291 CBC With Autodiff 01/23/2019 N2N/CCD Import Basophils [...] Calc (HGBX3) 34.2 Low 37.0 - 47.0 Alt/SGPT 01/23/2019 N2N/CCD Import Alt/SGPT 14 10 - 49 Chem 1 W/O CA/P 01/23/2019 N2N/CCD Import Alk Phos 136 High 46 - 116 Albumin 4.5 3.2 - 4.8 Chloride 103 99 - 109 Co2 25 20 - 31 LDH, Total 159 120 - 246 Potassium 4.1 3.5 - 5.5 Ast/Sgot 17 0 - 34 Protein - Total 6.4 5.7 - 8.2 A/G Ratio 2.4 1 - 2.5 Globulin 1.9 0.9 - 5 Iron Panel 01/23/2019 N2N/CCD Import Iron 30 Low 50 - 170 Iron Saturation 11 Low 16 - 46 Tibc 263 250 - 450 Uibc 233 80 - 375 Glucose 01/23/2019 N2N/CCD Import Glucose 135 High 70 - 99 Hep B Surfce AB 01/23/2019 N2N/CCD Import Hep B Surfce AB 767 High 0 - 9 Hcvpanelprotoco 01/23/2019 N2N/CCD Import Hep C AB Reflex 0.08 0.00 - 0.79 Rna Hep C see commen Aluminum 01/23/2019 N2N/CCD Import Aluminum <10 0 - 9 Creatinine 01/23/2019 N2N/CCD Import Creatinine 4.87 High 0.50 - 1.10 HCT Calc (HGBX3) 01/17/2019 N2N/CCD Import HCT Calc (HGBX3) 30.9 Low 37.0 - 47.0 Hemoglobin 01/17/2019 N2N/CCD Import Hemoglobin 10.3 Low 12.0 - 16.0 Alt/SGPT 12/25/2018 N2N/CCD Import Alt/SGPT <9 Low [...] Import Creatinine 5.26 High 0.50 - 1.10 Weight-Pre (KG) 12/11/2018 N2N/CCD Import Weight-Pre (KG) 73.2 Height (Inches) 12/11/2018 N2N/CCD Import Height (Inches) 62 Weight (KG) 12/11/2018 N2N/CCD Import Weight (KG) 71.5 VT (KT/V TX Vol) 12/11/2018 N2N/CCD Import VT (KT/V TX Vol) 30.2 VM (KT/V Mean Vol) 12/11/2018 N2N/CCD Import VM (KT/V Mean 29.6 Vol) KT/V By [facility] Panel 12/11/2018 N2N/CCD Import Urr 77 65 - 100 BUN 69 High 9 - 23 BUN - Post 16 9 - 23 KT/V Prescribed 12/11/2018 N2N/CCD Import KT/V Prescribed 1.74 Weight-Post (KG) 12/11/2018 N2N/CCD Import Weight-Post (KG) 73.0 NPCR HD [place]km 12/11/2018 N2N/CCD Import NPCR HD [facility] 1.02 # Days/WK Treated 12/11/2018 N2N/CCD Import # Days/WK Treated 3 2 - 3 CA/Phos W/Products 12/11/2018 N2N/CCD Import Calcium 9.1 8.7 - 10.4 Phosphorus 4.5 2.4 - 5.1 Caxphos Product 41.0 21 - 53 Caxphos Corrected 42.8 21 - 53 Dialyzer Model 12/11/2018 N2N/CCD Import Dialyzer Model 300 Race 12/11/2018 N2N/CCD Import Race C SPKT/V Total 12/11/2018 N2N/CCD Import SPKT/V Total 1.56 Dialyzer Series 12/11/2018 N2N/CCD Import Dialyzer Series Revaclr Gender 12/11/2018 N2N/CCD Import Gender F TBW ([place]) 12/11/2018 N2N/CCD Import TBW ([place]) 32.74 STDKRT/V Renal 12/11/2018 N2N/CCD Import STDKRT/V Renal N/A Dialyzer Flow-qd 12/11/2018 N2N/CCD Import Dialyzer Flow-qd 587 STDKT/V Total 12/11/2018 N2N/CCD Import STDKT/V Total N/A Amputation Factor 12/11/2018 N2N/CCD Import Amputation Factor 0.000 Dialyzer Make(MFG) 12/11/2018 N2N/CCD Import Dialyzer Make(MFG) Gambro HRS/Week Treated 12/11/2018 N2N/CCD Import HRS/Week Treated 9.0 Dialyzer Thiago 12/11/2018 N2N/CCD Import Dialyzer Thiago 1209 Blood Flow-QWB 12/11/2018 N2N/CCD Import Blood Flow-QWB 350 Hemoglobin 12/11/2018 N2N/CCD Import Hemoglobin 7.5 Low 12.0 - 16.0 Minutes Dialyzed 12/11/2018 N2N/CCD Import Minutes Dialyzed 182 HCT Calc (HGBX3) 12/11/2018 N2N/CCD Import HCT Calc (HGBX3) 22.5 Low 37.0 - 47.0 Calcium Corrected 12/11/2018 N2N/CCD Import Calcium Corrected 9.5 8.7 - 10.4 SPKDT/V Dialysis 12/11/2018 N2N/CCD Import SPKDT/V Dialysis 1.56 Ekdt/V Dialysis 12/11/2018 N2N/CCD Import Ekdt/V Dialysis 1.29 STDKDT/V Dialysis 12/11/2018 N2N/CCD Import STDKDT/V Dialysis N/A Age Of Patient 12/11/2018 N2N/CCD Import Age Of Patient 83 Bsa ([facility]) 12/11/2018 N2N/CCD Import Bsa ([facility]) 1.73 1 Standard intensity warfarin therapeutic range: 2.0-3.0 [...] (or dialysis) Procedures Date Code Description Status 05/20/2019 08523 EKG Tracing & Interpretation Completed 04/07/2019 05717 Holter Monitor Review (24 hr)dr carrasco & interp only Completed 04/04/2019 56557 ECHO Transthoracic, Real-Time 2D With Doppler And Color Completed Flow 04/04/2019 61691 ECHO Transthoracic, Real-Time 2D With Doppler And Color Completed Flow 04/04/2019 66076 ECG Monitor/Recording W/Visual Superimposition Scanning Completed Medical Devices Description No Information Available Encounters Type Date Location Provider Dx Diagnosis Office Visit 05/07/2019 [facility] Ricardo Pedersen, M70.61 Trochanteric 1:30p at [facility] bursitis, right hip Office Visit 04/08/2019 [facility] Zakiya Stallworth, I48.20 Chronic atrial 3:30p Of Movement Education Specialist N.PKalani fibrillation, unspecified I35.0 Nonrheumatic aortic (valve) stenosis I45.10 Unspecified right bundle-branch block I27.20 Pulmonary hypertension, unspecified Office Visit 03/19/2019 [facility] I48.91 Unspecified atrial 2:00p Cardiology Shanon Casper fibrillation D64.9 Anemia, unspecified I35.0 Nonrheumatic aortic (valve) stenosis I45.10 Unspecified right bundle-branch block I27.20 Pulmonary hypertension, unspecified I77.819 Aortic ectasia, unspecified site Assessments Date Code Description Provider 06/03/2019 Z48.1 Encounter for planned postprocedural Finn Yi M.D., [facility], wound closure [facility] 05/07/2019 M70.61 Trochanteric bursitis, right hip Ricardo [...] Displaced fracture of base of neck Macrina Santos, RPA-C of right femur, subsequen Plan of Treatment Future Appointment(s):07/09/2019 8:15 am - Ricardo Pedersen M.D. at [facility] at [facility]qr7706/03/2019 - Finn Yi M.D., [facility], KREKEK41.1 Encounter for planned postprocedural wound closureComments:Your catheterization site appears to be healing well.Recommendations:Continue current medications and follow up with Dr. Khan as you are scheduled. You will add one baby aspirin a day , 81 mg. Functional Status Description No Information Available Mental Status Description No Information Available Referrals Refer to Dr Reason for Referral Status Appt Date Boni Khan MD severe Sent [address] [place] [address] [phone]
--- OUTSIDE RECORDS SUMMARY | 2019-07-01 10:40 | XMS REPORT ---
:1935 Author Organization [facility] Care Team Providers Name Role Phone Unavailable Unavailable Unavailable Problems This patient has no known problems. Allergies, Adverse Reactions, Alerts Allergy Allergy Status Severity Reaction(s) Onset Inactive Treating Comments Name Type Date Date Clinician celebrex Unknown Active Unknown Reaction 2016-04 Wendy Unknown -19 (Tim) Heath [id number] codeine Unknown Active Unknown Reaction 2016-04 Wendy Unknown -19 (Tim) Heath [id number] beta Unknown Active Unknown Reaction 2016-04 Wendy luis e Unknown -19 (Tim) Heath [id number] Medications Ordered Filled Start Stop Current Ordering Indication Dosage Frequency Signature Comments Components Medication Medication Date Date Medication? Clinician (SIG) Name Name No Known No Known No None None None Medications Medications For This For This Patient Patient Procedures This patient has no known procedures. Results This patient has no known results.
--- OUTSIDE RECORDS SUMMARY | 2019-07-01 10:40 | XMS REPORT | Continuity of Care Document ---
:1935 External Reference #:[id number] Author Name Zakiya Stallworth N.P. (transmitted by agent of provider Tiffanie Hunt) Address [address] [place] [address] Care Team Providers Name Role Phone Cesar Brown MD - Family Medicine Care Team Information Process Lead Problems Active Problems Provider Date Atrial fibrillation [...] Encounter for planned postprocedural Finn Yi M.D., [facility], Onset: 2018 wound closure [facility] Social [...] daily Capsule Nystatin apply twice daily Unknown [id number]/GM as needed Powder Zbnbrigzt-Swglqeugtp-E apply to fistula 1 Unknown ream Base [...] Test Result H/L Range Note Inr/Protime 05/30/2019 [facility] Inr 1.03 Normal 0.82-1.[address] [place] [address] [phone] Laboratory test 05/30/2019 [facility] Partial 32.2 Normal 26.0 -38.[address] [place] [address] PTT [phone] CBC No Diff 05/27/2019 [facility] White Blood 6.2 10^3/uL Normal 3.5-10.[address] [place] [address] [phone] Red Blood Count 3.77 10^6/uL Normal 3.70-4.87 Hemoglobin 12.8 g/dL Normal 12.0-16.0 Hematocrit 38 % Normal 35-47 Mean Corpuscular Volume 100 fL High 80-97 Mean Corpuscular Hemoglobin 34 pg High 27-31 Mean Corpuscular HGB Conc 34 g/dL Normal 31-36 Red Cell Distribution Width 15 % Normal 10-15 Platelet Count 116 10^3/uL Low 150-450 Mean Platelet Volume 7.7 fL Normal 7.4-10.4 Basic Metabolic 05/27/2019 [facility] Sodium 143 mmol/L Normal 135-[address] [place] [address] [phone] Potassium 3.7 mmol/L Normal 3.5-5.0 Chloride 98 [...] N2N/CCD Import Age Of Patient 83 Bsa ([place]) 04/16/2019 N2N/CCD Import Bsa ([facility]) 1.73 Weight-Post [...] 03/13/2019 N2N/CCD Import STDKDT/V Dialysis N/A [facility]sa ([place]) 03/13/2019 N2N/CCD Import Bsa ([place]) 1.73 Age Of Patient 03/13/2019 N2N/CCD Import [...] 02/12/2019 N2N/CCD Import STDKDT/V Dialysis N/A [facility]sa ([place]) 02/12/2019 N2N/CCD Import [facility]sa ([place]) 1.73 Age Of Patient 02/12/2019 N2N/CCD Import [...] dialysis) Procedures Date Code Description Status 05/30/2019 85585 Cath PLMT&NJX L Ventriculog Img S&I Completed 05/20/2019 16857 EKG Tracing & Interpretation Completed 04/07/2019 50158 Holter Monitor Review (24 hr)dr review & interp only Completed 04/04/2019 20593 ECHO Transthoracic, Real-Time 2D With Doppler And Color Completed Flow 04/04/2019 57060 ECHO Transthoracic, Real-Time 2D With Doppler And Color Completed Flow 04/04/2019 88668 ECG Monitor/Recording W/Visual Superimposition Scanning Completed Medical Devices Description No Information Available Encounters Type Date Location Provider Dx Diagnosis Office Visit 06/16/2019 [facility] Zakiya Stallworth, 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 Office Visit 05/07/2019 [facility] M70.61 Trochanteric 1:30p Orthopedics at Shanon Pedersen bursitis, right [facility] hip Office Visit 04/08/2019 [facility] Zakiya John I48.20 Chronic atrial 3:30p Of Ema Powell.PKalani fibrillation, unspecified I35.0 Nonrheumatic aortic (valve) stenosis I45.10 Unspecified right bundle-branch block I27.20 Pulmonary hypertension, unspecified Office Visit 03/19/2019 [facility] Julian John I48.91 Unspecified atrial 2:00p Cardiology Shanon Casper fibrillation D64.9 Anemia, unspecified I35.0 Nonrheumatic aortic (valve) stenosis I45.10 Unspecified right bundle-branch block I27.20 Pulmonary hypertension, unspecified I77.819 Aortic ectasia, unspecified site Assessments Date Code Description Provider 06/16/2019 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 unspecified 06/16/2019 I35.0 Nonrheumatic aortic (valve) stenosis Zakiya Stallworth, N.P. 06/16/2019 I45.10 Unspecified right bundle-branch Zakiya Stallworth, N.P. block 06/16/2019 Z95.0 Presence of cardiac pacemaker Zakiya Stallworth N.P. 06/03/2019 Z48.1 Encounter for planned postprocedural Finn Yi M.D., [facility], wound closure [facility] 06/03/2019 I25.10 Atherosclerotic heart disease of Finn Yi M.D., [facility], ewiiaapaayp coronary artery without [facility] angina pectoris 05/30/2019 I25.10 Atherosclerotic heart disease of Finn Yi M.D., [facility], ewiiaapaayp coronary artery without [facility] angina pectoris 05/07/2019 [...] right femur, subsequen Plan of Treatment Future Appointment(s):09/08/2019 11:00 am - Julian Casper M.D. at [facility]07/08/2019 2:30 pm - Nurse Visit cc at [facility]2019 2:30 pm - [place] [facility] at [facility]07/09/2019 8:15 am - Ricardo Pedersen M.D. 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
--- OUTSIDE RECORDS SUMMARY | 2019-07-01 10:40 | XMS REPORT ---
:1935 Author Organization [facility] Care Team Providers Name Role Phone Unavailable Unavailable Unavailable Problems Condition Condition Condition Status Onset Resolution Last Treating Comments Name Details Category Date Date Treatment Clinician Date Pain frequent Pain Mgmt Active 2018-07 Mary pain 08-12 [place] 12:00: [id number] Cardio pacemaker/I Cardiovasc Active 2018-07 Mary CD ular 08-12 [place] 12:00: [id number] 00 Respiratory dyspnea Respirator Active 2018-07 Mary present y 08-12 [place] 12:00: [id number] 00 Endo/Sanket anti-coagul Endo/Sanket Active 2018-07 Mary ation 08-12 [place] therapy 12:00: [id number] 00 Integument surgical Integument Active 2018-07 Mary wound 08-12 [place] present 12:00: [id number] 00 Nutrition nutritional Nutrition Active 2018-07 Mary restriction 08-12 [place] s 12:00: [id number] 00 Neuro confusion Neuro/Emot Active 2018-07 Mary present ion 08-12 [place] 12:00: [id number] 00 Activity ADL Activity Active 2018-07 Mary assistance 08-12 [place] required 12:00: [id number] 00 Activity self-care Activity Active 2018-07 Mary deficit 08-12 [place] 12:00: [id number] 00 Safety structural Safety Active 2018-07 Mary barriers 08-12 [place] present 12:00: [id number] 00 Safety fall risk Safety Active 2018-07 Mary factor 08-12 [place] present 12:00: [id number] 00 Safety risk for Safety Active 2018-07 Mary hospitaliza 08-12 [place] tion 12:00: [id number] 00 Medication oral med Meds Active 2018-07 Mary assistance 08-12 [place] required 12:00: [id number] 00 Musculoskel transfer Musculoske Active 2018-07 Mary etal assistance letal 2- [place] required 12:00: [id number] 00 Bed mobility/tr PT/OT: Bed Active 2018-07 Markos Mobility/Tr ansfer Mobility/T 2-11 Kobskylarewicz ansfer device ransfer 13:30: [id number] present 00 Bed transfer PT/OT: Bed Active 2018-07 Markos Mobility/Tr deficit: Mobility/T 2-11 Kobziurbanoicz ansfer vehicle ransfer 13:30: [id number] 00 Balance/End balance/cafeteria cook PT/OT: Active 2018-07 Markos urance rdination Balance/En 2- Kobziewicz deficit durance 13:30: [id number] 00 OT: Self self-care OT: Active 2018-07 Markos Care deficit Self-Care 2-11 Kobziewicz 13:30: [id number] 00 Gait/Locomo stair PT/OT: Active 2018-07 Markos tion management Gait/Locom 2-11 Kobziewicz problems req otion 13:30: [id number] 00 Gait/Locomo gait PT/OT: Active 2018-07 Markos tion assistive Gait/Locom 2-11 Kobziewicz problems device otion 13:30: [id number] present 00 Gait/Locomo gait PT/OT: Active 2018-07 Markos tion deficit Gait/Locom 2-11 Kobziewicz problems otion 13:30: [id number] 00 Allergies, Adverse Reactions, Alerts Allergy Allergy Status Severity Reaction(s) Onset Inactive Treating Comments Name Type Date Date Clinician celebrex Unknown Active Unknown Reaction 2016-04 Wendy Unknown -19 (Tim) Heath [id number] codeine Unknown Active Unknown Reaction 2016-04 Wendy Unknown -19 (Tim) Heath [id number] beta Unknown Active Unknown Reaction 2016-04 Wendy luis e Unknown -19 (Tim) Heath [id number] Medications Ordered Filled Start Stop Current Ordering Indication Dosage Frequency Signature Comments Components Medication Medication Date Date Medication? Clinician (SIG) Name Name No Known No Known No None None None Medications Medications For This For This Patient Patient Vital Signs Vital Name Observation Time Observation [...]
[2019-07-01] MEDS ORDERED: Pantoprazole IV* 40 MG IV ONE (11:18)
[2019-07-01] MEDS ORDERED: NS 0.9% 1000 ML** 1,000 ML IV ONE (11:22)
[2019-07-01 11:25] LABS: Albumin 3.5 g/dL (3.2-5.2); Albumin/Globulin Ratio 1.6 (1-3); Calcium 8.9 mg/dL (8.6-10.3); Globulin 2.2 g/dL (2-4); Potassium 3.6 mmol/L (3.5-5.0); Total Bilirubin 0.5 mg/dL (0.2-1.0); Total Protein 5.7 g/dL (6.4-8.9)
[2019-07-01 11:32] LABS: Activated Partial Thrombo Time 26.5 seconds (26.0-38.0); INR 1.04 (0.82-1.09)
[2019-07-01 11:42] LABS: ABS Basophils 0.1 10^3/ul (0-0.2); ABS Eosinophils 0.1 10^3/ul (0-0.6); ABS Lymphocytes 0.6 10^3/ul (1.0-4.8); ABS Monocytes 0.5 10^3/ul (0-0.8); ABS Neutrophils 6.2 10^3/ul (1.5-7.7); Eosinophil % 1.4 %; Hematocrit 23 % (35-47); Hemoglobin 7.5 g/dL (12.0-16.0); Lymphocyte % 7.7 %; Mean Corpuscular HGB Conc 33 g/dL (31-36); Mean Corpuscular Hemoglobin 36 pg (27-31); Mean Corpuscular Volume 108 fL (80-97); Mean Platelet Volume 7.4 fL (7.4-10.4); Nucleated Red Blood Cells % 0.2; Platelet Count 133 10^3/uL (150-450); Red Blood Count 2.11 10^6 /uL (3.70-4.87); Red Cell Distribution Width 18 % (10-15); White Blood Count 7.4 10^3/uL (3.5-10.8)
--- NOTE | 2019-07-01 12:17 | ED ---
Dizziness - HPI Summary HPI Summary: This patient is a 84-year-old female with a complicated PMH presenting to the ED from her PCP, Dr. Brown office with concern for dizziness, melena, lightheadedness, SOB and fall yesterday. Per notes from PCP, this patient has had anemia due to GI bleeds anytime placed on anticoagulation medications. H&H was noted to be 7.3 and 23 today in office. Patient has felt lightheaded and noted her blood pressure was running low around 90 systolic. 06/03 underwent cardiac cath by Dr. Yi--Hx of severe aortic stenosis (85%) and is followed by Dr. Casper. Recently underwent a TAVR in [place] 3 weeks ago on Jun 05 and again, was placed on Plavix. 2 weeks following, pt felt well and feeling stronger everyday up until about 5 days ago. Patient does have a history of GI bleed, from a lesion in the proximal jejunum which was cauterized by Dr. Cobian. Patient had a right hip fracture in October of this year, was postoperatively placed on Eliquis and again developed severe anemia. At that time a push enteroscopy was performed by Dr. Cobian which was negative. Doctor Mango suggested no further use of anticoagulant therapy due to her recurrent GI bleeding. Hx of CKD and has PD T//. Recent dialysis yesterday and noted her BP to rise to systolic of 100. Prior to this, she was persistently running in the 90 s. She endorses melena, but denies hematochezia. She denies hemoptysis, hematemesis. Continues to feel SOB and states this is typical during her anemia phase. Pt lives alone. - History Of Current Complaint Chief Complaint: EDGeneral Stated Complaint: NEEDS A BLOOD TRANFUSION PER PT Time Seen by Provider: 07/01/19 10:36 Hx Obtained From: Patient, Family/Business Intelligence Architect, Medical Records, Other: - PCP Onset/Duration: Gradually - x 5 days Timing: Days Severity Initially: Moderate Severity Currently: Moderate Aggravating Factor(s): Nothing Alleviating Factor(s): Nothing Associated Signs And Symptoms: Positive: Blood In Stool - Allergies/Home Medications Allergies/Adverse Reactions: Allergies Allergy/AdvReac Type Severity Reaction Status Date / Time celecoxib Allergy Mild Rash Verified 07/01/19 10:29 Beta-Blockers Allergy Dizziness Verified 07/01/19 10:29 (Beta-Adrenergic Bloc codeine Allergy Unknown Verified 07/01/19 10:29 Reaction Details Home Medications: Home Medications Aspirin EC TAB* [Ecotrin EC Low Dose 81 MG*] 81 mg PO DAILY 07/01/19 [History Confirmed 07/01/19] Atorvastatin* [Lipitor*] 40 mg PO DAILY 07/01/19 [History Confirmed 07/01/19] Clopidogrel TAB* [Plavix TAB*] 75 mg PO DAILY 07/01/19 [History Confirmed ] Furosemide TAB* [Lasix TAB*] 40 mg PO BID 07/01/19 [History Confirmed 07/01/19] Levothyroxine TAB* [Synthroid 25 MCG TAB*] 50 mcg PO DAILY 07/01/19 [History Confirmed 07/01/19] dilTIAZem HCl [Cartia Xt] 120 mg PO DAILY 07/01/19 [History Confirmed 07/01/19] PMH/Surg Hx/FS Hx/Imm Hx Previously Healthy: No Endocrine/Hematology History: Reports: Hx Anticoagulant Therapy - None current, Hx Thyroid Disease Denies: Hx Diabetes Cardiovascular History: Reports: Hx Hypercholesterolemia, Hx Hypertension, Hx Valvular Heart Disease - aortic and mitral valve disorder, Other Cardiovascular Problems/Disorders - a-fib Denies: Hx Angina, Hx Congestive Heart Failure, Hx Pacemaker/ICD Respiratory History: Denies: Hx Asthma, Hx Chronic Obstructive Pulmonary Disease (COPD), Other Respiratory Problems/Disorders GI History: Reports: Hx Ulcer - upper GI done 07/18 History: Reports: Hx Chronic Renal Failure, Hx Dialysis Denies: Hx Renal Disease Musculoskeletal History: Reports: Hx Arthritis - left knee replacement march 2016 Sensory History: Reports: Hx Cataracts, Hx Contacts or Glasses Denies: Hx Hearing Aid Opthamlomology History: Reports: Hx Cataracts, Hx Contacts or Glasses Neurological History: Denies: Other Neuro Impairments/Disorders Psychiatric History: Denies: Hx Panic Disorder - Cancer History Hx Chemotherapy: No Hx Radiation Therapy: No Hx Palliative Cancer Treatment: No - Surgical History Surgery Procedure, Year, and Place: BILATERAL CATARACT REMOVAL/[place] SURGERY. L knee replacement 2015. [place] hip [place] [place] Hx Anesthesia Reactions: No - Immunization History Hx Pertussis Vaccination: No Immunizations Up to Date: Yes Infectious Disease History: No Infectious Disease History: Denies: Hx Clostridium Difficile, Hx Hepatitis, Hx Human Immunodeficiency Virus (HIV), Hx of Known/Suspected MRSA, Hx Shingles, Hx Tuberculosis, Hx Known/ Suspected VRE, Hx Known/Suspected VRSA, History Other Infectious Disease, Traveled Outside the [place] in Last 30 Days - Family History Known Family History: Positive: Cardiac Disease - Social History Occupation: Unemployed Lives: Alone Alcohol Use: None Hx Substance Use: No Substance Use Type: Reports: None Hx Tobacco Use: No Smoking Status (MU): Never Smoked Tobacco Have You Smoked in the Last Year: No Review of Systems Positive: Fatigue. Negative: Fever, Chills, Skin Diaphoresis Negative: Sore Throat Negative: Palpitations, Chest Pain Positive: Shortness Of Breath. Negative: Cough Negative: Abdominal Pain, Vomiting, Diarrhea, Nausea Negative: Arthralgia, Myalgia Positive: Bruising - bruise to the posterior L arm and L knee - no evidence of trauma to the head Positive: Weakness. Negative: Headache, Paresthesia, Numbness, Syncope, Slurred Speech Psychological: Normal All Other Systems Reviewed And Are Negative: Yes Physical Exam Triage Information Reviewed: Yes Vital Signs On Initial Exam: Initial Vitals Temp Pulse Resp BP Pulse Ox 97.2 F 80 16 131/59 95 07/01/19 10:25 07/01/19 10:25 07/01/19 10:25 07/01/19 10:25 07/01/19 10:25 Vital Signs Reviewed: Yes Appearance: Positive: Well-Appearing, Well-Nourished Skin: Positive: Warm, Pale Eyes: Positive: EOMI, TIMMY, Conjunctiva Clear Neck: Positive: Supple, Nontender, No Lymphadenopathy Respiratory/Lung Sounds: Positive: Clear to Auscultation, Breath Sounds Present Cardiovascular: Positive: Tachycardia - IRR Musculoskeletal: Positive: Normal, Strength/ROM Intact Neurological: Positive: Sensory/Motor Intact, Alert, Oriented to Person Place, Time, Speech Normal Psychiatric: Positive: Normal, Affect/Mood Appropriate Procedures - Sedation Patient Received Moderate/Deep Sedation with Procedure: No Diagnostics - Vital Signs Vital Signs Temp Pulse Resp BP Pulse Ox 07/01/19 11:34 65 25 101/53 86 07/01/19 11:04 64 23 113/54 93 07/01/19 11:00 71 25 93 07/01/19 10:49 68 24 95 07/01/19 10:25 97.2 F 80 16 131/59 95 - Laboratory Lab Results: Lab Results 07/01/19 07/01/19 07/01/19 Range/Units 10:59 10:59 10:59 WBC 7.4 (3.5-10.8) 10^3/uL RBC 2.11 L (3.70-4.87) 10^6 /uL Hgb 7.5 L (12.0-16.0) g/dL Hct 23 L (35-47) % MCV 108 H (80-97) fL MCH 36 H (27-31) pg MCHC 33 (31-36) g/dL RDW 18 H (10-15) % Plt Count 133 L (150-450) 10^3/uL MPV 7.4 (7.4-10.4) fL Neut % (Auto) 82.9 % Lymph % (Auto) 7.7 % [place] % (Auto) 7.1 % Eos % (Auto) 1.4 % Baso % (Auto) 0.9 % Absolute Neuts (auto) 6.2 (1.5-7.7) 10^3/ul Absolute Lymphs (auto) 0.6 L (1.0-4.8) 10^3/ul Absolute Monos (auto) 0.5 (0-0.8) 10^3/ul Absolute Eos (auto) 0.1 (0-0.6) 10^3/ul Absolute Basos (auto) 0.1 (0-0.2) 10^3/ul Absolute Nucleated RBC 0.0 10^3/ul Nucleated RBC % 0.2 INR (Anticoag Therapy) 1.04 (0.82-1.09) APTT 26.5 (26.0-38.0) seconds Sodium (135-145) mmol/L Potassium (3.5-5.0) mmol/L Chloride (101-111) mmol/L Carbon Dioxide (22-32) mmol/L Anion Gap (2-11) mmol/L BUN (6-24) mg/dL Creatinine Est GFR ( Amer) Est GFR (Non-Af Amer) BUN/Creatinine Ratio Glucose (70-100) mg/dL Calcium (8.6-10.3) mg/dL Total Bilirubin (0.2-1.0) mg/dL AST (13-39) U/L ALT (7-52) U/L Alkaline Phosphatase (34-104) U/L Total Protein (6.4-8.9) g/dL Albumin (3.2-5.2) g/dL Globulin (2-4) g/dL Albumin/Globulin Ratio (1-3) Blood Type O Positive Antibody Screen Negative Crossmatch See Detail 07/01/19 Range/Units 10:59 WBC (3.5-10.8) 10^3/uL RBC (3.70-4.87) 10^6 /uL Hgb (12.0-16.0) g/dL Hct (35-47) % MCV (80-97) fL MCH (27-31) pg MCHC (31-36) g/dL RDW (10-15) % Plt Count (150-450) 10^3/uL MPV (7.4-10.4) fL Neut % (Auto) % Lymph % (Auto) % [place] % (Auto) % Eos % (Auto) % Baso % (Auto) % Absolute Neuts (auto) (1.5-7.7) 10^3/ul Absolute Lymphs (auto) (1.0-4.8) 10^3/ul Absolute Monos (auto) (0-0.8) 10^3/ul Absolute Eos (auto) (0-0.6) 10^3/ul Absolute Basos (auto) (0-0.2) 10^3/ul Absolute Nucleated RBC 10^3/ul Nucleated RBC % INR (Anticoag Therapy) (0.82-1.09) APTT (26.0-38.0) seconds Sodium 140 (135-145) mmol/L Potassium 3.6 (3.5-5.0) mmol/L Chloride 102 (101-111) mmol/L Carbon Dioxide 27 (22-32) mmol/L Anion Gap 11 (2-11) mmol/L BUN 33 H (6-24) mg/dL Creatinine Pending Est GFR ( Amer) Pending Est GFR (Non-Af Amer) Pending BUN/Creatinine Ratio Pending Glucose 101 H (70-100) mg/dL Calcium 8.9 (8.6-10.3) mg/dL Total Bilirubin 0.50 (0.2-1.0) mg/dL AST 28 (13-39) U/L ALT 11 (7-52) U/L Alkaline Phosphatase 132 H (34-104) U/L Total Protein 5.7 L (6.4-8.9) g/dL Albumin 3.5 (3.2-5.2) g/dL Globulin 2.2 (2-4) g/dL Albumin/Globulin Ratio 1.6 (1-3) Blood Type Antibody Screen Crossmatch Result Diagrams: 07/01/19 10:59 07/01/19 10:59 Lab Statement: Any lab studies that have been ordered have been reviewed, and results considered in the medical decision making process. Dizzy Course/Dx - Course Course Of Treatment: During his course of treatment, the patient's evaluated for shortness of breath, dizziness, melena, lightheadedness and a fall yesterday. Patient denies hitting her head. She was placed on aspirin and Plavix following a TAVR on Jun.05. She states over the past few weeks, she has felt well just up until approx. 5-7 days ago. Since that time, she has developed increased weakness. Labs were obtained at her PCP office which noted a 7.3 and 23 H&H respectively. She was also consistently running a 90 systolic. Patient is on dialysis for CKD T//S. Denies weight gain. Denies hx of PE. Despite her anemia and GI bleeds, she has been placed on anticoagulation medications twice this year, status post right hip arthroplasty as well as the recent TAVR, both with subsequent severe anemia. GI bleed x 2, however last enteroscopy performed by Dr. Cobian, this was negative. Occult stool obtained and is pending, stool dark brown, however no ashish blood on exam. Labs show a 7.5 and 23 H&H respectively. Platelet count 133,000. INR 1.04, APTT 26.5. Electrolytes WNL. Patient appears fatigued. Vital signs: 97.2, heart rate of 80, respirations 16, O2 sat 95% and BP of 131/59. Upon reexamination, heart rate continues to remain stable at 65, BP lowers at 101/53 and O2 sat is noted to be 86%. However, pt is sleeping. O2 2L was placed. PRBC x 2 ordered with type and screen. 1L NS and protonix. Discussed with Dr. Dillon who will admit for further workup. - Diagnoses Provider Diagnoses: GI bleed, Anemia, Shortness of breath - Provider Notifications Discussed Care Of Patient With: Yary Dillon Discharge ED - Sign-Out/Discharge Documenting (check all that apply): Patient Departure - Discharge Plan Condition: Fair Disposition: ADMITTED TO [facility] Referrals: Cesar Brown MD [Primary Care Provider] - - Billing Disposition and Condition Condition: FAIR Disposition: Admitted to [facility]
[2019-07-01 12:19] LABS: Polychromasia 1+
[2019-07-01 12:20] LABS: EGFR African American 16.2 (>60); EGFR Non-African American 13.4 (>60)
[2019-07-01] MEDS ORDERED: Furosemide IV* 10 MG/ML 2 ML VIAL (20 MG) IV SLOW PU ONE ×2 (14:32→17:37)
[2019-07-01 15:19] LABS: TSH (Thyroid Stimulating Horm) 9.42 mcIU/mL (0.34-5.60)
[2019-07-01] MEDS: Gabapentin CAP(*) 100 MG PO SCH (19:33)
[2019-07-01] MEDS: Pantoprazole IV* 40 MG IV SCH (19:34)
[2019-07-01 20:16] LABS: Hematocrit 26 % (35-47); Hemoglobin 8.6 g/dL (12.0-16.0)
--- NOTE | 2019-07-01 20:17 | HP ---
CC: Dr. Brown; Dr. Casper * HISTORY AND PHYSICAL: DATE OF ADMISSION: 07/01/19 TIME OF EVALUATION: 2:15 p.m. PRIMARY CARE PHYSICIAN: Dr. Brown. AGING DEPARTMENT SUPERVISOR: Dr. Casper. CHIEF COMPLAINT: "I am very weak." HISTORY OF PRESENT ILLNESS: Mrs. Manning is an 84-year-old female with a past medical history of hypertension; hypothyroidism; atrial fibrillation, off anticoagulation due to recurrent GI bleed; end-stage renal disease, on hemodialysis; coronary artery disease; aortic stenosis, status post recent TAVR , who presented to the emergency room with complaints of weakness. The patient has a complex past medical history including a history of recurrent GI bleed. She had a push enteroscopy done by Dr. Cobian in November 2018 and on that study, there was no source of bleeding, but Dr. Cobian thought that unfortunately it seems that every time the patient goes on anticoagulation, she becomes anemic. There were no AVMs, no signs or other clues for culprits that have been found. She was unable to swallow the capsule endoscopy and he thought that at that point consideration should be given to benefits versus risks of anticoagulation. The patient's warfarin was discontinued and she had significant improvement of her hemoglobin. In November, she was down to 6.6 and her numbers slowly went up and in May, her hemoglobin went up all the way to 12.8 prior to her TAVR procedure. She underwent TAVR with a 23 mm Arnoldo valve by Dr. Khan on 06/05/19 that was complicated by a heart block and the patient is status post leadless Micra pacemaker. She states that after the procedure, she did not feel much improved , but everyone kept telling her that it would take some time for the new valve to improve her condition. She states a couple weeks ago, she noted that her stools were dark and she attributed that to the atorvastatin that had been added to her regimen. She continued to have dark bowel movements and developed progressive weakness, fatigue and dyspnea. She states that yesterday she tried to stand up too fast, became lightheaded and fell. She contacted her primary care provider and as per Dr. Brown's note, he had talked to the patient last night and the patient had described a horrible day after sustaining a fall with lightheadedness and there is also documentation that her blood pressure was running in the 90s systolic. She had a CBC done that showed a WBC of 7.3, so he referred her to the emergency room for further evaluation. At the time of my interview, the patient has received her first PRBC and states that she is feeling a little better and not as lightheaded as before, but still feels "crummy." PAST MEDICAL HISTORY: 1. Aortic stenosis, status post TAVR on 06/05/[address] Khan, complicated by heart block, status post leadless Micra pacemaker. 2. Coronary artery disease with heart cath done in May 2009 that showed an occluded right coronary artery, 30% disease of the distal left main, 65% LAD lesion, followed by 75% to 80% lesion after takeoff of the other diagonal. As far as I can see from her records, there were no interventions performed during her TAVR and the plan was for medical management only. 3. Chronic atrial fibrillation, off anticoagulation with warfarin due to recurrent GI bleed. 4. ESRD, on hemodialysis Tuesdays, , and Saturdays. 5. Hyperlipidemia. 6. Hypothyroidism. 7. Obstructive sleep apnea. 8. Osteoporosis. PAST SURGICAL HISTORY: 1. Status post AV fistula on the left upper extremity. 2. Status post left total knee arthroplasty. 3. Status post right hip replacement. MEDICATION LIST: 1. Aspirin 81 mg p.o. daily. 2. Atorvastatin 40 mg p.o. daily. 3. Cholecalciferol 1000 units p.o. daily. 4. Clopidogrel 75 mg p.o. daily. 5. Diltiazem 120 mg p.o. daily. 6. Furosemide 40 mg p.o. b.i.d. 7. Gabapentin 100 mg p.o. b.i.d. 8. Levothyroxine 50 mcg p.o. daily. 9. Omeprazole 20 mg p.o. daily. 10. Dialyvite 1 tablet p.o. daily. ALLERGIES: To CELECOXIB, BETA-BLOCKERS and CODEINE. FAMILY HISTORY: Father of an [place] at age 68. Mother had a history of breast cancer. SOCIAL HISTORY: She denies tobacco, alcohol, or drug use. She lives by herself and surrogate decision maker is her son, Celio Manning, phone number is [phone]. REVIEW OF SYSTEMS: A 14-point review of systems was performed and all the pertinent negative and positive findings are in the HPI. PHYSICAL EXAMINATION GENERAL: The patient is a pleasant overweight elderly lady, sitting up in the ED stretcher, in no acute distress. VITAL SIGNS: Temperature 97.2, heart rate is 64, respiratory rate is 17, oxygen saturation is 99% on room air, blood pressure is 115/64. HEENT: Pupils are equal, pale. Moist mucous membranes. CHEST: Breath sounds present bilaterally with no added sounds. CVS: Normal S1, S2. Irregularly irregular. ABDOMEN: Obese, soft. Bowel sounds present. EXTREMITIES: There is bilateral moderate to severe lower extremity pitting edema. The patient has left upper extremity AV fistula with positive thrill. NEURO: She is alert and oriented x3. She is able to move all 4 extremities. Face is symmetric. Speech is clear. DIAGNOSTIC STUDIES/LAB DATA: The patient had a CBC that showed a WBC of 7.4, hemoglobin of 7.5, hematocrit of 23 with an MCV of 108, MCH of 36, and platelets of 133. INR was 1.04. Chemistry showed a sodium of 140, potassium of 3.6, chloride of 102, bicarb of 27, BUN is 33, creatinine is 3.29, glucose is 101, calcium is 8.9. LFTs are normal. EKG done on 07/01/19 at 10:55 a.m. showed atrial fibrillation with a ventricular rate of 67, right bundle-branch block and PVCs, no significant change from her prior EKG from October 2018. Chest x-ray showed cardiomegaly with pulmonary vascular congestion and left pleural effusion. ASSESSMENT AND PLAN: Mrs. Manning is an 84-year-old female with a past medical history of recent transcatheter aortic valve replacement and pacemaker placement ; coronary artery disease; chronic atrial fibrillation, not on anticoagulation due to recurrent GI bleed; end-stage renal disease, on hemodialysis; hyperlipidemia; hypothyroidism, who presented to the emergency room with complaints of weakness and lightheadedness, found to have symptomatic anemia. 1. Symptomatic anemia. Probably secondary to further GI losses in the setting of aspirin and Plavix use after a transcatheter aortic valve replacement. The patient's H and H had recovered nicely after her warfarin was discontinued and GI had recommended consideration of not giving her anticoagulation any more due to her recurrent episodes of GI bleed while on anticoagulation. This episode was likely provoked by the aspirin and Plavix started after her transcatheter aortic valve replacement. She will be admitted to telemetry floor. We will transfuse 2 PRBCs and monitor. A Cardiology consultation was requested with Dr. Casper to see how we should proceed regarding the aspirin and Plavix as it is unclear to me at this time if the medications should be discontinued or not. I do not think further GI workup is indicated at this time as she already had an extensive workup done in the past and I do not think repeating an endoscopy or colonoscopy at this point would add any benefit. We will switch her PPI to intravenous pantoprazole and we will continue to monitor her H and H. 2. Status post transcatheter aortic valve replacement. The patient states that she has not had significant symptomatic improvement yet after surgery. She does have signs of vascular congestion on x-ray with a small pleural effusion as well as significant lower extremity edema. She will continue her dialysis as scheduled and she was supposed to increase her furosemide to 60 mg in the morning. For now, I am going to give her furosemide IV while she is receiving transfusions, but we could consider increasing her furosemide to 60 mg daily while in the hospital and monitor her response. 3. Coronary artery disease. As per conversation with Dr. Casper, the plan was for medical management. We will continue aspirin, Plavix and atorvastatin for now. 4. Hypothyroidism. We will check TSH. Continue levothyroxine. 5. End-stage renal disease. Continue dialysis as scheduled. 6. DVT prophylaxis: The patient has a score of 4 on the DVT Prophylaxis Risk Assessment Guide and pharmacological prophylaxis is contraindicated in the setting of gastrointestinal bleed and symptomatic anemia. The patient will have SCDs. 7. Code status was discussed with the patient and she wishes to be a do not resuscitate. A MOLST form was filled up. TIME SPENT: Approximately 60 minutes was spent with the patient interview, medical records review, physical examination to complete this admission; more than half of this time was spent [id number] with the patient and coordination of care. [id number] #: [id number]
--- NOTE | 2019-07-01 22:30 | CONS ---
CC: Dr. Brown; Dr. Whittington, Hospitalist Service; Dr. Casper CARDIOLOGY CONSULTATION NOTE: DATE OF CONSULT: 07/01/19 HISTORY OF PRESENT ILLNESS: I was asked by Dr. Whittington from the hospitalist service to see this 84-ye ar-old female patient who is known to me from before who had TAVR at [facility] by Dr Kalani Khan that was done back on 04/05/19 for severe aortic stenosis. She also does have known history of coronary artery disease, cath'd by Dr. Yi in 2019 before her TAVR showed multivessel coronary artery disease with medical treatment for now. She does have history of chronic atrial fibrillation, history of GI bleed concerns, and end-stage renal disease, she is on dialysis 3 times per week start ed in January 2018, history of multiple falls in the past. I was asked because she had a fall yesterd ay and she was found to be significantly anemic today and cardiology consult was further requested. It was noticed that her hemoglobin was 7.5, hematocrit 23 today. She gives no chest pain. She does h ave shortness of breath. She is not sure if she passed out or not. She gives no fever, no chills, n o skin rash, no tremors, no hematochezia, no nausea, no vomiting, no abdominal pain, no swelling of t he lower extremities, no palpitations, no tachycardia is appreciated. Yesterday was her appointment to have dialysis and apparently she had a fall before she was able to be picked up for the dialysis, then she called EMS who brought her into dialysis. Last night, she talked to Dr. Brown. She was evaluated by him at his office today. She was found to be anemic and subsequently she was transferre d to the emergency room and hospitalized. Currently, she is receiving blood transfusion. PAST MEDICAL HISTORY: Extensive including history of coronary artery disease, history of GI bleed, h istory of TAVR secondary to severe aortic stenosis, history of chronic AFib, end-stage renal disease, on dialysis, mild to moderate aortic insufficiency, mild mitral insufficiency, mild mitral stenosis, hyperlipidemia, hypothyroidism, and dilated thoracic aorta. She does have a history of systemic art erial hypertension, history of right bundle-branch block. PAST SURGICAL HISTORY: History of total replacement of the knee on the left side in 2016, hip replac ement on the right side in 2019. MEDICATIONS: Her medications as an outpatient include: 1. Plavix 75 mg daily. 2. Cartia 120 mg daily. 3. Lipitor 40 mg daily. 4. Baby Aspirin 81 mg daily. 5. She is also on Lasix 40 mg twice a day. 6. Synthroid 50 mcg daily. 7. Vitamin D3 daily. 8. Omeprazole 20 mg daily. ALLERGIES: She is allergic to CELEBREX - rash, BETA-ADRIANA - syncope, CODEINE. FAMILY HISTORY: No family history of premature CAD. SOCIAL HISTORY: She gives no history of smoking, no drinking, no history of illicit drug use. She i s . She lives alone. She is retired. PHYSICAL EXAM: On exam, she is awake, alert and oriented. She had no symptoms of chest pain. Her v itals: Blood pressure 114/58, pulse is 66, respiratory rate 20, temperature 97.3. Head and Neck Exa m: Normocephalic, atraumatic head. Ears, Nose and Throat: Essentially benign. Neck: Supple. JVP is not elevated. No carotid bruits. No masses in the neck are appreciated. Chest: Clear to auscu ltation. No rales, no wheeze. No added sounds appreciated. Heart: Normal. Irregularly irregular, S1, S2. No added sounds. No gallops. No rubs. There is a grade 2/6 systolic murmur in the left s ternal border. Abdomen: Benign, obese, soft, positive bowel sounds. Extremities: No significant e vijay. No cyanosis. No clubbing. Skin exam is normal. Psych: Normal affect and mood. 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 DIAGNOSTIC STUDIES/LAB DATA: Her labs showed the following: White blood cells 7.4, hemoglobin 7.5, hematocrit 23, platelets 133. Her INR is 1.04. Sodium 140, potassium 3.6, total CO2 of 27, BUN 33, creatinine 3.29. LFTs normal, alkaline phosphatase 132. TSH 9.42. Her chest x-ray from today was reported to have cardiomegaly with pulmonary vascular congestion, left pleural effusion. Her EKG from today showed the patient to be in atrial fibrillation, heart rate 67 beats per minute, paced ventricular rhythm, and PVC. Of note is the patient had a permanent pacemak er implanted in [facility] complicated by heart block after her TAVR surgery and that is why she had the pacemaker. IMPRESSION: The patient is an 84-year-old female patient with: 1. Status post a fall with significant anemia and hemoglobin of 7.5, of unclear etiology with a hist ory of gastrointestinal bleed in the past. 2. History of severe aortic stenosis, status post TAVR at [facility] in April 2019 , Dr. Khan. The TAVR was complicated by complete heart block, status post permanent pacemaker impla ntation. 3. Chronic atrial fibrillation. 4. Obesity. 5. History of gastrointestinal bleed. 6. Chronic kidney disease, on dialysis 3 times per week. 7. Known history of coronary artery disease by recent cardiac cath before her TAVR. 8. Systemic arterial hypertension. 9. History of right bundle-branch block. 10. Mild mitral insufficiency. 11. Hyperlipidemia. 12. Hypothyroidism. PLAN: The patient definitely has comorbidities. At the present time, the concern was her Plavix and her aspirin. I have discussed this further with Dr. Khan who is okay if needed to hold her aspirin and Plavix altogether; we will hold this for now. I have discussed this with Dr. Whittington and pending further recommendations by GI. Cardiac moreno, she had no angina. She is not overtly in any congesti ve heart failure. I agree with obtaining transthoracic echo after her TAVR. Continue to follow up h er hemoglobin, hematocrit, kidney function and dialysis as per your instructions and continue to foll ow up electrolytes accordingly. Blood transfusion as you are already doing. Any further recommendat ions from cardiac standpoint would be pending her clinical outcome. Benefits and risks definitely ar e important at the present time given her chronic AFib and CHADS-VASc score at least she is 3 or more . We will follow her closely. TIME SPENT: More than half of at least 60 to 65 plus minutes was in the education and counseling mod e [id number]. I answered all their concerns and questions up to their satisfaction. Thank you very much for asking us to participate in the care of this patient. [id number]/[facility] #: [id number]
[2019-07-02 04:23] LABS: ABS Eosinophils 0.2 10^3/ul (0-0.6); ABS Lymphocytes 0.7 10^3/ul (1.0-4.8); ABS Monocytes 0.5 10^3/ul (0-0.8); ABS Neutrophils 4.6 10^3/ul (1.5-7.7); Eosinophil % 3.6 %; Hematocrit 26 % (35-47); Hemoglobin 8.8 g/dL (12.0-16.0); Lymphocyte % 11.3 %; Mean Corpuscular HGB Conc 35 g/dL (31-36); Mean Corpuscular Hemoglobin 35 pg (27-31); Mean Corpuscular Volume 102 fL (80-97); Nucleated Red Blood Cells % 0.2; Platelet Count 106 10^3/uL (150-450); Red Blood Count 2.51 10^6 /uL (3.70-4.87); Red Cell Distribution Width 21 % (10-15); White Blood Count 6.1 10^3/uL (3.5-10.8)
[2019-07-02 04:24] LABS: Hematocrit 26 % (35-47); Hemoglobin 8.9 g/dL (12.0-16.0)
[2019-07-02 04:34] LABS: Anion Gap 7 mmol/L (2-11); BUN/Creatinine Ratio 10.9 (8-20); Blood Urea Nitrogen 41 mg/dL (6-24); CO2 Carbon Dioxide 30 mmol/L (22-32); Calcium 8.3 mg/dL (8.6-10.3); Chloride 103 mmol/L (101-111); EGFR African American 13.8 (>60); EGFR Non-African American 11.4 (>60); Glucose 92 mg/dL (70-100); Potassium 3.8 mmol/L (3.5-5.0); Sodium 140 mmol/L (135-145)
[2019-07-02 04:49] LABS: % Iron Saturation 63 % (15-55); Iron 179 ug/dL (50-212); Total Iron Binding Capacity 286 mcg/dL (250-450); Transferrin 204 mg/dL (203-362)
[2019-07-02 05:10] LABS: Ferritin > 1500.0 ng/mL (11-307)
[2019-07-02 05:11] LABS: Folate > 20.00 ng/mL (>3.99)
[2019-07-02] MEDS: Levothyroxine TAB* 50 MCG TAB PO SCH (05:16)
[2019-07-02] MEDS ORDERED: Clopidogrel TAB* 75 MG PO SCH (09:00)
[2019-07-02] MEDS: Pantoprazole IV* 40 MG IV SCH ×2 (10:00→20:25)
[2019-07-02] MEDS: Aspirin EC TAB* 81 MG TAB.EC PO SCH (10:01)
[2019-07-02] MEDS: VITAMIN B COMPLEX PO SCH (10:01)
[2019-07-02] MEDS: ASCORBIC ACID PO SCH (10:01)
[2019-07-02] MEDS: Gabapentin CAP(*) 100 MG PO SCH ×2 (10:01→20:24)
[2019-07-02] MEDS: ZINC PO SCH (10:01)
[2019-07-02] MEDS: FOLIC ACID PO SCH (10:01)
[2019-07-02] MEDS: Cholecalciferol TAB* 1000 UNITS PO SCH (10:01)
[2019-07-02] MEDS: Diltiazem CD CAP* 120 MG PO SCH (10:01)
[2019-07-02] MEDS: Atorvastatin* 40 MG TAB PO SCH (10:01)
--- NOTE | 2019-07-02 10:11 | CONS ---
CC: Dr. Noriega; Dr. Casper; Dr. Brown; Dr. Khan, Cardiothoracic Surgery at [facility] CONSULTATION REPORT: DATE OF CONSULT: 07/02/19 REQUESTING PHYSICIAN: Dr. Noriega INDICATION FOR CONSULTATION: Anemia. NARRATIVE: Mrs. Manning is a very pleasant 84-year-old female well known to the GI service. She has seen most of the gastroenterologists in town. She has a very long history of anemia. She had been taken care of by Dr. Mejia up until the time he left the area and that is when other gastroenterologists have become involved. She was last seen by myself in the GI service in the spring- summer of this year. She had been put on Eliquis for atrial fibrillation. She is also maintained on aspirin. At that time, she was anemic and she underwent an EGD in the early spring that was unremarkable and then we attempted to perform a capsule endoscopy in the spring-summer. Unfortunately, the patient was unable to swallow the capsule endoscopy, thus she underwent a push enteroscopy in the midsummer time. 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 After consultations with the patient and all of her physicians, it was decided to stop her Eliquis and see how her anemia reacted. Fortunately, her blood count came up very nicely. She was no longer anemic and by May, her hemoglobin was 12.8. She underwent a TAVR in early June and was put back on Plavix at that time and unfortunately it seems that her bleeding has resumed. The patient came into the emergency room yesterday after falling and was found to be anemic again with hemoglobin of 7.5. The patient does admit that over the past few weeks she has noticed very dark black stools. She did not really think anything about it. She denies any abdominal pain, nausea, or vomiting. She really just does not feel herself and well at all. PAST MEDICAL HISTORY: Significant for aortic stenosis, status post TAVR on ; coronary artery disease; atrial fibrillation, end-stage renal disease, on hemodialysis; hyperlipidemia; hypothyroid; sleep apnea; osteoporosis. PAST SURGICAL HISTORY: Includes right hip replacement, left total knee, AV fistula, TAVR. MEDICATIONS: Upon admission include: 1. Aspirin 81 mg. 2. Atorvastatin. 3. Plavix 75 mg. 4. Diltiazem. 5. Lasix. 6. Gabapentin. 7. Levothyroxine. 8. Omeprazole. ALLERGIES: CODEINE, BETA-BLOCKERS, and CELEBREX. FAMILY HISTORY: Coronary artery disease and breast cancer. SOCIAL HISTORY: The patient denies any alcohol or drug use. She lives by herself. REVIEW OF SYSTEMS: Twelve systems were reviewed, other than that mentioned in the HPI were unremarkable. PHYSICAL EXAM: Temperature is 97.4, blood pressure is 122/56, pulse is 56, respiratory rate of 24, O2 sat is 100% on 2 L. General: Chronically ill- appearing female, appears slightly older than her stated age, alert, oriented, pleasant, and fluent. HEENT: Mucous membranes are moist without lesions, ulcers, or exudate. Neck is supple. Trachea is midline. Heart: Irregular rate and rhythm. Lungs: Clear to auscultation. Abdomen is obese. Positive bowel sounds, soft, nontender, nondistended. Skin is warm and dry. DIAGNOSTIC STUDIES/LAB DATA: Of note, her hemoglobin is 8.9 after 2-unit blood transfusion, white count of 6.1, platelets of 106. INR is 1.04. Her BUN is 41 ; however, her creatinine is 3.77. Iron saturation 63%, TSH 9.42. ASSESSMENT AND PLAN: An 84-year-old female with a very complicated history. I spent greater than 1 hour with her this morning discussing her previous workup and options for the future. Unfortunately, she has had a fairly extensive workup in the past. Her last colonoscopy 2016 with diverticulosis and polyps. She has had multiple upper endoscopies, some of which revealing jejunal arteriovenous malformations, others more recently with no revelation of jejunal arteriovenous malformations. She has had a push enteroscopy and unfortunately she is unable to swallow a capsule endoscopy. It seems like every time she goes on anticoagulation either Eliquis or Plavix, she bleeds and becomes anemic. We stopped the blood thinners and at least the last time after the Eliquis, her blood count came back up into the normal range at 12.8 and she was doing very well from an anemia of standpoint. Unfortunately, she was placed back on Plavix and her hemoglobin has fallen. She does have dark stools, which makes me think it is more of an upper GI bleed most likely, given her history of arteriovenous malformations, somewhere in her small bowel. We discussed how we can further elucidate whether there are arteriovenous malformations there or not. She cannot swallow a pill camera for the capsule endoscopy. We could place it endoscopically; however, if we end up finding further arteriovenous malformations, she would then require a double balloon enteroscopy for cauterization. I discussed with her that one option is to transfer her to a center where they are able and capable of doing a double balloon enteroscopy. I discussed the procedure in detail and its risks given her current multiple medical comorbidities. The other option we discussed was stopping her Plavix and leaving her uncovered. In the past, her anemia has resolved by doing this, however, that has risks too. We discussed many of these risks. Unfortunately, the patient had asked me to make the decision for her. I told her that it is not my decision to be made, that she needs to weigh in on this. She is not quite sure what to do; however, she does trust the opinion of Dr. Brown and would like to discuss things further with him. At this point, I would recommend given the input from Cardiology and Cardiothoracic Surgery, which okay holding the Plavix for now, to continue holding the Plavix. I am fine from a GI standpoint of her being on the aspirin with obviously close monitoring of her hemoglobin. I think the patient needs to discuss all of this with Dr. Brown and the 2 of them need to come to a consensus as to what to do next either stop the anticoagulation and accept its risks versus referral to a tertiary care center where they can perform a double balloon enteroscopy to further look for the suspected arteriovenous malformations and accept the risk involved with that procedure. We will continue to follow along with the patient as long as she is here in the hospital and please do not hesitate to call with any questions or concerns. >65 min spent with pt [id number]/[facility] #: [id number] ROBERT
--- NOTE | 2019-07-02 11:13 | PN ---
Subjective Date of Service: 07/02/19 Interval History: Admitted yesterday for GI bleeding status post 2 units PRBC. This morning reports no BM today- had a dark colored BM yesterday evening, no abdominal pain, no vomiting Family History: Unchanged from Admission Social History: Unchanged from Admission Past Medical History: Unchanged from Admission Objective Active Medications: Aspirin (Aspirin Ec Tab*) 81 mg PO DAILY [facility] Last Admin: 07/02/19 10:01 Dose: 81 mg Atorvastatin Calcium (Lipitor*) 40 mg PO DAILY [facility] Last Admin: 07/02/19 10:01 Dose: 40 mg Cholecalciferol (Vitamin D Tab*) 1,000 units PO DAILY [facility] Last Admin: 07/02/19 10:01 Dose: 1,000 units Diltiazem HCl (Cardizem Cd Cap*) 120 mg PO DAILY [facility] Last Admin: 07/02/19 10:01 Dose: 120 mg Gabapentin (Neurontin Cap(*)) 100 mg PO BID [facility] Last Admin: 07/02/19 10:01 Dose: 100 mg Levothyroxine Sodium (Synthroid Tab*) 50 mcg PO DAILY@0600 [facility] Last Admin: 07/02/19 05:16 Dose: 50 mcg Nft: Vit B Complx C/Folic Acid/Zinc [ Dialyvite 800-Zinc 50 Mg Tab] 1 Tab) 1 tab PO DAILY [facility] Last Admin: 07/02/19 10:01 Dose: Not Given Pantoprazole Sodium (Protonix Iv*) 40 mg IV Q12H [facility] Last Admin: 07/02/19 10:00 Dose: 40 mg Vital Signs - 8 hr 07/02/19 07/02/19 07/02/19 03:15 07:41 10:01 Temperature 97.0 F 97.4 F Pulse Rate 76 56 Respiratory 16 24 16 Rate Blood Pressure 103/50 122/56 (mmHg) O2 Sat by Pulse 98 100 Oximetry Oxygen Devices in Use Now: Nasal Cannula Appearance: Elderly female sitting on chair, not in distress Eyes: PERRLA Respiratory: Symmetrical Chest Expansion and Respiratory Effort, - - crackles 1/ [address] up lung smith. Cardiovascular: RRR, No Edema, - - soft systolic murmur at the LUSB Abdominal: NL Sounds; No Tenderness; No Distention, No Hepatosplenomegaly Extremities: No Edema, - - Left arm AV fistula Neurological: Alert and Oriented x 3 Result Diagrams: 07/02/19 03:56 07/02/19 03:56 Additional Lab and Data: Lab Results 07/01/19 07/01/19 07/01/19 Range/Units 10:59 10:59 10:59 WBC 7.4 (3.5-10.8) 10^3/uL RBC 2.11 L (3.70-4.87) 10^6 /uL Hgb 7.5 L (12.0-16.0) g/dL Hct 23 L (35-47) % MCV 108 H (80-97) fL MCH 36 H (27-31) pg MCHC 33 (31-36) g/dL RDW 18 H (10-15) % Plt Count 133 L (150-450) 10^3/uL MPV 7.4 (7.4-10.4) fL Neut % (Auto) 82.9 % Lymph % (Auto) 7.7 % Zapata % (Auto) 7.1 % Eos % (Auto) 1.4 % Baso % (Auto) 0.9 % Absolute Neuts (auto) 6.2 (1.5-7.7) 10^3/ul Absolute Lymphs (auto) 0.6 L (1.0-4.8) 10^3/ul Absolute Monos (auto) 0.5 (0-0.8) 10^3/ul Absolute Eos (auto) 0.1 (0-0.6) 10^3/ul Absolute Basos (auto) 0.1 (0-0.2) 10^3/ul Absolute Nucleated RBC 0.0 10^3/ul Nucleated RBC % 0.2 INR (Anticoag Therapy) 1.04 (0.82-1.09) APTT 26.5 (26.0-38.0) seconds Sodium (135-145) mmol/L Potassium (3.5-5.0) mmol/L Chloride (101-111) mmol/L Carbon Dioxide (22-32) mmol/L Anion Gap (2-11) mmol/L BUN (6-24) mg/dL Creatinine Est GFR ( Amer) Est GFR (Non-Af Amer) BUN/Creatinine Ratio Glucose (70-100) mg/dL Calcium (8.6-10.3) mg/dL Total Bilirubin (0.2-1.0) mg/dL AST (13-39) U/L ALT (7-52) U/L Alkaline Phosphatase (34-104) U/L Total Protein (6.4-8.9) g/dL Albumin (3.2-5.2) g/dL Globulin (2-4) g/dL Albumin/Globulin Ratio (1-3) Blood Type O Positive Antibody Screen Negative Crossmatch See Detail 07/01/19 Range/Units 10:59 WBC (3.5-10.8) 10^3/uL RBC (3.70-4.87) 10^6 /uL Hgb (12.0-16.0) g/dL Hct (35-47) % MCV (80-97) fL MCH (27-31) pg MCHC (31-36) g/dL RDW (10-15) % Plt Count (150-450) 10^3/uL MPV (7.4-10.4) fL Neut % (Auto) % Lymph % (Auto) % Zapata % (Auto) % Eos % (Auto) % Baso % (Auto) % Absolute Neuts (auto) (1.5-7.7) 10^3/ul Absolute Lymphs (auto) (1.0-4.8) 10^3/ul Absolute Monos (auto) (0-0.8) 10^3/ul Absolute Eos (auto) (0-0.6) 10^3/ul Absolute Basos (auto) (0-0.2) 10^3/ul Absolute Nucleated RBC 10^3/ul Nucleated RBC % INR (Anticoag Therapy) (0.82-1.09) APTT (26.0-38.0) seconds Sodium 140 (135-145) mmol/L Potassium 3.6 (3.5-5.0) mmol/L Chloride 102 (101-111) mmol/L Carbon Dioxide 27 (22-32) mmol/L Anion Gap 11 (2-11) mmol/L BUN 33 H (6-24) mg/dL Creatinine Pending Est GFR ( Amer) Pending Est GFR (Non-Af Amer) Pending BUN/Creatinine Ratio Pending Glucose 101 H (70-100) mg/dL Calcium 8.9 (8.6-10.3) mg/dL Total Bilirubin 0.50 (0.2-1.0) mg/dL AST 28 (13-39) U/L ALT 11 (7-52) U/L Alkaline Phosphatase 132 H (34-104) U/L Total Protein 5.7 L (6.4-8.9) g/dL Albumin 3.5 (3.2-5.2) g/dL Globulin 2.2 (2-4) g/dL Albumin/Globulin Ratio 1.6 (1-3) Blood Type Antibody Screen Crossmatch Microbiology and Other Data: Microbiology 07/01/19 11:37 Stool Occult Blood (RIC) - Final Stool Assess/Plan/Problems-Billing Assessment: - Patient Problems (1) Acute blood loss anemia Current Visit: No Status: Acute Code(s): D62 - ACUTE POSTHEMORRHAGIC ANEMIA SNOMED Code(s): 652846915 Comment: Secondary to GI bleed status post 2 units PRBC Holding home dose plavix, continue Aspirin seen by cardio seen by GI: considering double balloon enteroscopy- for which she would need to be trasnferred to different facility- patient would like to think about this and discuss with her PCP prior to making that decision. continue to monitor h/h. source could be AVM continue PPI Will order an additional unit to be given slowly today with Lasix to follow (2) ESRD (end stage renal disease) Current Visit: No Status: Chronic Code(s): N18.6 - END STAGE RENAL DISEASE SNOMED Code(s): 89736733 Comment: - HD on //Sun (3) S/P TAVR (transcatheter aortic valve replacement) Current Visit: Yes Status: Acute Code(s): Z95.2 - PRESENCE OF PROSTHETIC HEART VALVE SNOMED Code(s): 8210986135939 Comment: with Dr. Khan. 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 She did have pulmonary edema on CXR on admission, per patient she was to change her lasix to 60mg - so have started her on this, and will monitor. (4) Hypothyroidism Current Visit: No Status: Acute Code(s): E03.9 - HYPOTHYROIDISM, UNSPECIFIED SNOMED Code(s): 79443924 Comment: TSH is 9, levothyroxine was increased upon admission from 25mcg to 50mcg.
[2019-07-02 11:48] LABS: Hematocrit 26 % (35-47); Hemoglobin 8.8 g/dL (12.0-16.0)
[2019-07-02] MEDS: Furosemide TAB* 40 MG PO SCH (12:35)
[2019-07-03 05:18] LABS: BUN/Creatinine Ratio 10.4 (8-20); Calcium 8.2 mg/dL (8.6-10.3); EGFR African American 11.2 (>60); EGFR Non-African American 9.2 (>60); Potassium 3.8 mmol/L (3.5-5.0)
[2019-07-03] MEDS: Levothyroxine TAB* 50 MCG TAB PO SCH (06:42)
--- NOTE | 2019-07-03 09:11 | PN ---
Subjective Date of Service: 07/03/19 Interval History: No acute issues overnight No lightheaded, no bloody vomiting, no bloody stools. She is waiting to get in touch with Dr. Brown.- I called Dr. Brown's office this morning, left a message for him to call me back so we can discuss the situation further. Family History: Unchanged from Admission Social History: Unchanged from Admission Past Medical History: Unchanged from Admission Objective Active Medications: Aspirin (Aspirin Ec Tab*) 81 mg PO DAILY [facility] Last Admin: 07/02/19 10:01 Dose: 81 mg Atorvastatin Calcium (Lipitor*) 40 mg PO DAILY [facility] Last Admin: 07/02/19 10:01 Dose: 40 mg Cholecalciferol (Vitamin D Tab*) 1,000 units PO DAILY [facility] Last Admin: 07/02/19 10:01 Dose: 1,000 units Diltiazem HCl (Cardizem Cd Cap*) 120 mg PO DAILY [facility] Last Admin: 07/02/19 10:01 Dose: 120 mg Furosemide (Lasix Tab*) 60 mg PO DAILY [facility] Last Admin: 07/02/19 12:35 Dose: 60 mg Gabapentin (Neurontin Cap(*)) 100 mg PO BID [facility] Last Admin: 07/02/19 20:24 Dose: 100 mg Levothyroxine Sodium (Synthroid Tab*) 50 mcg PO DAILY@0600 [facility] Last Admin: 07/03/19 06:42 Dose: 50 mcg Nft: Vit B Complx C/Folic Acid/Zinc [ Dialyvite 800-Zinc 50 Mg Tab] 1 Tab) 1 tab PO DAILY [facility] Last Admin: 07/02/19 10:01 Dose: Not Given Pantoprazole Sodium (Protonix Iv*) 40 mg IV Q12H [facility] Last Admin: 07/02/19 20:25 Dose: 40 mg Vital Signs - 8 hr 07/03/19 03:15 Temperature 97.6 F Pulse Rate 70 Respiratory 20 Rate Blood Pressure 102/51 (mmHg) O2 Sat by Pulse 98 Oximetry Oxygen Devices in Use Now: Nasal Cannula Appearance: Elderly female, sitting on a chair, not in distress Eyes: PERRLA Ears/Nose/Mouth/Throat: Mucous Membranes Moist Respiratory: Symmetrical Chest Expansion and Respiratory Effort, Clear to Auscultation Cardiovascular: RRR, - - soft murmur at the LUSB Abdominal: NL Sounds; No Tenderness; No Distention, No Hepatosplenomegaly Extremities: - - Trace lower extremity edema bilaterally Neurological: Alert and Oriented x 3 Result Diagrams: 07/02/19 11:43 07/03/19 04:52 Additional Lab and Data: Lab Results 07/01/19 07/01/19 07/01/19 Range/Units 10:59 10:59 10:59 WBC 7.4 (3.5-10.8) 10^3/uL RBC 2.11 L (3.70-4.87) 10^6 /uL Hgb 7.5 L (12.0-16.0) g/dL Hct 23 L (35-47) % MCV 108 H (80-97) fL MCH 36 H (27-31) pg MCHC 33 (31-36) g/dL RDW 18 H (10-15) % Plt Count 133 L (150-450) 10^3/uL MPV 7.4 (7.4-10.4) fL Neut % (Auto) 82.9 % Lymph % (Auto) 7.7 % Bo[place] % (Auto) 7.1 % Eos % (Auto) 1.4 % Baso % (Auto) 0.9 % Absolute Neuts (auto) 6.2 (1.5-7.7) 10^3/ul Absolute Lymphs (auto) 0.6 L (1.0-4.8) 10^3/ul Absolute Monos (auto) 0.5 (0-0.8) 10^3/ul Absolute Eos (auto) 0.1 (0-0.6) 10^3/ul Absolute Basos (auto) 0.1 (0-0.2) 10^3/ul Absolute Nucleated RBC 0.0 10^3/ul Nucleated RBC % 0.2 INR (Anticoag Therapy) 1.04 (0.82-1.09) APTT 26.5 (26.0-38.0) seconds Sodium (135-145) mmol/L Potassium (3.5-5.0) mmol/L Chloride (101-111) mmol/L Carbon Dioxide (22-32) mmol/L Anion Gap (2-11) mmol/L BUN (6-24) mg/dL Creatinine Est GFR ( Amer) Est GFR (Non-Af Amer) BUN/Creatinine Ratio Glucose (70-100) mg/dL Calcium (8.6-10.3) mg/dL Total Bilirubin (0.2-1.0) mg/dL AST (13-39) U/L ALT (7-52) U/L Alkaline Phosphatase (34-104) U/L Total Protein (6.4-8.9) g/dL Albumin (3.2-5.2) g/dL Globulin (2-4) g/dL Albumin/Globulin Ratio (1-3) Blood Type O Positive Antibody Screen Negative Crossmatch See Detail 07/01/19 Range/Units 10:59 WBC (3.5-10.8) 10^3/uL RBC (3.70-4.87) 10^6 /uL Hgb (12.0-16.0) g/dL Hct (35-47) % MCV (80-97) fL MCH (27-31) pg MCHC (31-36) g/dL RDW (10-15) % Plt Count (150-450) 10^3/uL MPV (7.4-10.4) fL Neut % (Auto) % Lymph % (Auto) % Boone % (Auto) % Eos % (Auto) % Baso % (Auto) % Absolute Neuts (auto) (1.5-7.7) 10^3/ul Absolute Lymphs (auto) (1.0-4.8) 10^3/ul Absolute Monos (auto) (0-0.8) 10^3/ul Absolute Eos (auto) (0-0.6) 10^3/ul Absolute Basos (auto) (0-0.2) 10^3/ul Absolute Nucleated RBC 10^3/ul Nucleated RBC % INR (Anticoag Therapy) (0.82-1.09) APTT (26.0-38.0) seconds Sodium 140 (135-145) mmol/L Potassium 3.6 (3.5-5.0) mmol/L Chloride 102 (101-111) mmol/L Carbon Dioxide 27 (22-32) mmol/L Anion Gap 11 (2-11) mmol/L BUN 33 H (6-24) mg/dL Creatinine Pending Est GFR ( Amer) Pending Est GFR (Non-Af Amer) Pending BUN/Creatinine Ratio Pending Glucose 101 H (70-100) mg/dL Calcium 8.9 (8.6-10.3) mg/dL Total Bilirubin 0.50 (0.2-1.0) mg/dL AST 28 (13-39) U/L ALT 11 (7-52) U/L Alkaline Phosphatase 132 H (34-104) U/L Total Protein 5.7 L (6.4-8.9) g/dL Albumin 3.5 (3.2-5.2) g/dL Globulin 2.2 (2-4) g/dL Albumin/Globulin Ratio 1.6 (1-3) Blood Type Antibody Screen Crossmatch Microbiology and Other Data: Microbiology 07/01/19 11:37 Stool Occult Blood (RIC) - Final Stool Assess/Plan/Problems-Billing Assessment: - Patient Problems (1) Acute blood loss anemia Current Visit: No Status: Acute Code(s): D62 - ACUTE POSTHEMORRHAGIC ANEMIA SNOMED Code(s): 043260293 Comment: Secondary to GI bleed status post 2 units PRBC Holding home dose plavix, continue Aspirin seen by cardio seen by GI: considering double balloon enteroscopy- for which she would need to be trasnferred to different facility- patient would like to think about this and discuss with her PCP prior to making that decision. continue to monitor h/h. source could be AVM continue PPI Paged Dr. Brown to discuss further as patient would like his opinion prior to making a decision. (2) ESRD (end stage renal disease) Current Visit: No Status: Chronic Code(s): N18.6 - END STAGE RENAL DISEASE SNOMED Code(s): 97035991 Comment: - HD on /Sun Called nephorlogy office to get her dialysis resumed (3) S/P TAVR (transcatheter aortic valve replacement) Current Visit: Yes Status: Acute Code(s): Z95.2 - PRESENCE OF PROSTHETIC HEART VALVE SNOMED Code(s): 4917117209376 Comment: with Dr. Khan. was stared on asa, plavix after TAVR, here with GI bleeding- assembler installer structures here did d/w Dr. Khan regarding current situation, and he was okay with holding plavix, and continue aspirin for now. She did have pulmonary edema on CXR on admission, per patient she was to change her lasix to 60mg - so have started her on this, and will monitor. (4) Hypothyroidism Current Visit: No Status: Acute Code(s): E03.9 - HYPOTHYROIDISM, UNSPECIFIED SNOMED Code(s): 15599670 Comment: TSH is 9, levothyroxine was increased upon admission from 25mcg to 50mcg. Status and Disposition: will need to come up with a plan for her GI bleeding, need to determine patient' s decision for the balloon enteroscopy. left a message for PCP as patient wants his opinion.
[2019-07-03] MEDS: Cholecalciferol TAB* 1000 UNITS PO SCH (10:26)
[2019-07-03] MEDS: Atorvastatin* 40 MG TAB PO SCH (10:26)
[2019-07-03] MEDS: Pantoprazole IV* 40 MG IV SCH ×2 (10:26→20:58)
[2019-07-03] MEDS: Furosemide TAB* 40 MG PO SCH (10:27)
[2019-07-03] MEDS: Diltiazem CD CAP* 120 MG PO SCH (10:27)
[2019-07-03] MEDS: Aspirin EC TAB* 81 MG TAB.EC PO SCH (10:27)
[2019-07-03] MEDS: Gabapentin CAP(*) 100 MG PO SCH ×2 (10:27→20:57)
[2019-07-03] MEDS: VITAMIN B COMPLEX PO SCH (10:35)
[2019-07-03] MEDS: ZINC PO SCH (10:35)
[2019-07-03] MEDS: ASCORBIC ACID PO SCH (10:35)
[2019-07-03] MEDS: FOLIC ACID PO SCH (10:35)
[2019-07-03 11:32] LABS: Hematocrit 25 % (35-47); Hemoglobin 8.5 g/dL (12.0-16.0); Mean Corpuscular HGB Conc 34 g/dL (31-36); Mean Corpuscular Hemoglobin 35 pg (27-31); Mean Corpuscular Volume 103 fL (80-97); Mean Platelet Volume 6.5 fL (7.4-10.4); Platelet Count 97 10^3/uL (150-450); Red Blood Count 2.46 10^6 /uL (3.70-4.87); Red Cell Distribution Width 20 % (10-15); White Blood Count 5.8 10^3/uL (3.5-10.8)
[2019-07-03] MEDS ORDERED: EPOETIN ALFA-EPBX * 10,000 UNIT/ML VIAL IV ONE (11:45)
--- NOTE | 2019-07-03 14:50 | PN ---
Hospitalist Progress Note Date of Service: 07/03/19 Dr. Brown called me back- discussed the status, and GI recommendation to transfer for double balloon enteroscopy for cauterization and endoscopy. Dr. Brown spoke with the patient and gave his suggestions to the patient, and now she is agreeable for transfer. Spoke to [facility] via the transfer center- and they do not do the procedure. Found out [facility] in [place], [place] does the procedure, but they are at above capacity and their ER is full, they recommended finding a different facility. [facility] does not do the procedure either, Discussed with Chris- has been accepted at [facility] in [place], [place]. GI: Dr. Frank Admitting: Dr. Sosa
--- NOTE | 2019-07-03 18:05 | DS ---
CC: Dr. Khan; Dr. Cesar Brown; Dr. Casper; Dr. Demetrius Cobian * TRANSFER SUMMARY: DATE OF ADMISSION: 07/01/19 DATE OF TRANSFER: 07/03/19 PRIMARY CARE PROVIDER: Dr. Brown. PRIMARY CIGARETTE AND FILTER CHIEF INSPECTOR: Dr. Casper. CARDIOTHORACIC SURGEON: Dr. Khan. ACCEPTING PHYSICIAN: Dr. Sosa. ACCEPTING GI CONSULT: Dr. Frank. REASON FOR THE ADMISSION: "I am feeling weak, GI bleed." HOSPITAL COURSE: This is an 84-year-old female with past medical history of frequent GI bleeds, with a history of atrial fibrillation, was on Coumadin, stopped due to GI bleed; end-stage renal disease, on hemodialysis, Sunday, , Sunday; history of aortic stenosis, status post TAVR in April 2019 ; hypertension; hypothyroidism, who presented to the emergency room because of feeling weak. Of note, the patient's last hemoglobin in our computer system was in May 2019, which was 12.8. On the day of admission, the patient's hemoglobin was 7.5. The patient is now status post 2 units packed RBC. Hemoglobin done on 07/03/19 at 11:10 a.m. is 8.5. The patient was admitted with the diagnosis of symptomatic anemia, with Gastroenterology and Cardiology consulted. The patient was seen by Dr. Cobian, director corporate security. 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 In August 2018, she also had an endoscopy done, which did not find any source of bleeding, she was recommended to have a capsule study, but however was unable to do the capsule study. Dr. Cobian recommended that we consider transfer to a facility that can do a double balloon enteroscopy with possible cauterization as he suspects that this bleed is likely related to an AVM formation. Due to the patient being on aspirin and Plavix with her TAVR procedure, Dr. Khan was contacted at [place], [place], who is the surgeon who performed the procedure. At that point, it was decided that we could hold the Plavix but we should continue the aspirin. The patient was admitted to the hospital, status post 2 units packed RBC. The patient was also dialyzed on 07/03/19 and started on IV PPI. She has been on a clear liquid diet since admission in case a procedure was needed. This morning , the patient discussed the plans with her PCP who was agreeable for this procedure and therefore the patient decided she would be willing to try transfer to a different facility and get the procedure done to help identify the source of the bleeding and help treat the cause. I discussed this with the patient in detail that likely they will work her up for the GI bleeding, but there is a possibility that they may not be able to identify a source of her GI bleeding. Of note, the patient's TSH was elevated during her hospitalization at 9.69, and we increased her levothyroxine from 25 mcg to 50 mcg. With the help of our transfer center, we were able to get in touch with [facility] in [place], [place], who does a single balloon enteroscopy. I spoke with the director corporate security Dr. Frank who suggested that their gastroenterology unit should be able to help out with the source of bleeding and work her up. I then discussed the case with Dr. Sosa, the hospitalist, who is going to be the accepting physician. PHYSICAL EXAMINATION: Blood pressure of 105/51, saturation of 90% on 2 L nasal cannula, respiratory rate of 16, pulse of 71, temperature 97 Fahrenheit. General: This is an elderly female, sitting on a chair, in no acute distress. Pupils are equal, round, reactive to light. Conjunctivae pale. Neck is supple with no JVD. There is no carotid bruit. No chest wall tenderness. Regular rate and rhythm. 2/6 systolic murmur best heard at the left upper sternal border. There is no tachypnea. There is decreased air entry at the lower lung bases, with no wheezing, rales, or rhonchi. Abdomen: Normoactive bowel sounds. Abdomen is soft, nontender, nondistended. There is trace lower extremity edema with no calf tenderness. Dorsalis pedis is 2+ bilaterally. DIAGNOSTIC STUDIES/LAB DATA: Significant labs during this hospitalization included admission hemoglobin of 7.5, hemoglobin this morning was 8.5. The patient's BUN on admission was 33 with BUN today of 47; admission creatinine was 2.29, currently the creatinine is 4.53. There are no major electrolyte issues, with potassium of 3.8, bicarb of 26. The patient's iron level was 179, TIBC is 286, percent saturation is 63, unsaturated iron binding is 107, ferritin is greater than 150. It seems like these numbers were drawn after the patient got her transfusion, so the iron studies at this point are not very helpful as the patient had already gotten blood transfusion. DISCHARGE PLANNING: DISCHARGE DIAGNOSES: Include: 1. Acute symptomatic anemia with likely source of gastrointestinal bleeding. 2. Status post transcatheter aortic valve replacement in April 2019. 3. End-stage renal disease, on hemodialysis. 4. History of atrial fibrillation. 5. History of hypothyroidism with TSH this hospitalization at 9, we adjusted her levothyroxine to 50 mcg. 6. Status post 2 units packed RBCs. 7. End-stage renal disease, on hemodialysis Sunday, , Sunday, last dialysis was today, 07/03/19, which is a . DIET: Diet is equal to clear liquid diet. DISCHARGE MEDICATIONS: Include: 1. Aspirin 81 mg daily. 2. Atorvastatin 40 mg daily. 3. Cholecalciferol 1000 units daily. 4. Cardizem 120 mg daily. 5. Lasix 60 mg daily. 6. Gabapentin 100 mg b.i.d. 7. Levothyroxine 50 mcg daily. 8. Pantoprazole 40 mg IV every 12 hours. 9. Vitamin B complex/C/folic acid/zinc 1 tab daily. DISCHARGE INSTRUCTIONS: The patient is to be transferred to [facility]. After the patient is discharged from [facility], the patient will need to see Dr. Cesar Brown as an outpatient in 1 week, the patient should also see manager shipping in 1 week and also touch base with Dr. Khan, cardiothoracic surgeon in [place], [place] within a week. TIME SPENT: Approximately 90 minutes were spent in the transfer process, including speaking with the patient at bedside and her son via the phone and the transfer center and the receiving hospital. [id number]/[facility] #: [id number] ROBERT
--- NOTE | 2019-07-03 18:57 | CONSULT ---
Consult Consult: REASON FOR CONSULTATION: End stage kidney disease REQUESTING CONSULT: Yary Adamson HISTORY OF PRESENT ILLNESS: Annetta Manning is a very nice 84-year-old woman who was admitted for acute anemia. She has end-stage kidney disease and receives dialysis on a Sunday schedule. She has a history of acute anemia due to possibly GI AVM bleed. She had upper endoscopy and colonoscopy which were negative. Her history is complicated by the need for antiplatelet therapy. She had a TAVR procedure just recently for aortic stenosis. She also has a history of coronary artery disease. She received 2 units of blood since her admission couple days ago. Today is a regular dialysis day. She has no complaints of abdominal pain, chest pain or shortness of breath. ROS: Constitutional: no fevers, chills, night sweats, loss of appetite or weight loss CVS: no CP, SOB, but leg swelling is present Respiratory: no cough, sputum production, wheezing, hemoptysis GI: no abdominal pain, N/V/D/C All systems were reviewed and they were all negative unless otherwise specified PHYSICAL EXAM: Vitals stable: Stable Temp Pulse Resp BP SpO2 FiO2 96.8 F 62 16 108/46 98 07/03/19 15:15 07/03/19 15:15 07/03/19 17:00 07/03/19 15:15 07/03/19 15:15 Constitutional: No acute distress, pleasant chronically ill Head: Atraumatic and normocephalic. Nose, lips and ears appear normal. Eyes: moist conjunctivae, no ptosis, pupils are equal. Neck: Short , Supple, full range of motion, , trachea midline, Respiratory: Chest is clear to auscultation with good respiratory effort. Cardiovascular: Heart auscultation shows normal S1-S2, IIRno murmur rubs or gallops. +1 peripheral edema. Gastrointestinal: Abdomen is soft, nontender and nondistended. No hepatosplenomegaly or masses appreciated, exam limited due to obesity Musculoskeletal: No digital cyanosis or clubbing. No joint swelling or tenderness. Skin: No skin rashes, ulcers or lesions. Normal turgor and temperature. Neurologic: Speech fluent, no tremor, grossly nonfocal. Psychiatric: Appropriate affect, alert and oriented X3 , memory intact Past medical history: 1. End-stage kidney disease on hemodialysis Sunday. 2. Aortic stenosis, status post TAVR a month ago in [place] 3. Coronary artery disease 4. A. fib, off anticoagulation with warfarin due to recurrent GI bleed 5. Anemia of chronic kidney disease 6. Recurrent acute anemia due to GI bleed Past surgical history: 1. Status post left total knee arthroplasty and right hip replacement Status post AV fistula on the left upper arm Allergies: Celebrex, beta-blockers, codeine Family history: Father of acute CT at 68 years of age. Mother had breast cancer Social history: She is retired. She lives alone. Surrogate decision-maker is her son Celio Manning. Denies smoking cigarettes or drinking alcohol or using recreational drugs. Abnormal Lab Results 07/03/19 07/03/19 04:52 11:10 WBC 5.8 RBC 2.46 L Hgb 8.5 L Hct 25 L MCV 103 H MCH 35 H MCHC 34 RDW 20 H Plt Count 97 L MPV 6.5 L Hem Pathologist Commnt Sodium 139 Potassium 3.8 Chloride 104 Carbon Dioxide 26 Anion Gap 9 BUN 47 H Creatinine 4.53 H Est GFR ( Amer) 11.2 Est GFR (Non-Af Amer) 9.2 BUN/Creatinine Ratio 10.4 Glucose 91 Calcium 8.2 L ASSESSMENT AND PLAN: 1. End-stage kidney disease on hemodialysis Sunday - Dialysis today. Discussed her dialysis prescription with dialysis nurse. - We will continue dialysis as an outpatient on her regular dialysis schedule if she gets discharged after dialysis today. 2. Acute GI bleed with resultant anemia. Status post 2 units of red blood - She is considering further workup with enteroscopy either in [place] or [place]. 3. Coronary artery disease- cardiology was consulted
[2019-07-04 05:16] LABS: ABS Eosinophils 0.2 10^3/ul (0-0.6); ABS Lymphocytes 0.5 10^3/ul (1.0-4.8); ABS Monocytes 0.4 10^3/ul (0-0.8); ABS Neutrophils 3.9 10^3/ul (1.5-7.7); Eosinophil % 3.7 %; Hematocrit 27 % (35-47); Hemoglobin 9.3 g/dL (12.0-16.0); Lymphocyte % 9.8 %; Mean Corpuscular HGB Conc 34 g/dL (31-36); Mean Corpuscular Hemoglobin 36 pg (27-31); Mean Corpuscular Volume 104 fL (80-97); Mean Platelet Volume 6.9 fL (7.4-10.4); Nucleated Red Blood Cells % 0.2; Platelet Count 94 10^3/uL (150-450); Red Blood Count 2.62 10^6 /uL (3.70-4.87); Red Cell Distribution Width 20 % (10-15)
[2019-07-04 05:24] LABS: BUN/Creatinine Ratio 7.5 (8-20); Calcium 8.4 mg/dL (8.6-10.3); EGFR African American 17.5 (>60); EGFR Non-African American 14.4 (>60); Potassium 3.6 mmol/L (3.5-5.0)
[2019-07-04] MEDS: Levothyroxine TAB* 50 MCG TAB PO SCH (05:47)
[2019-07-04 07:54] VITALS: BP 115/50
[2019-07-04] MEDS: Pantoprazole IV* 40 MG IV SCH (08:05)
[2019-07-04] MEDS: Cholecalciferol TAB* 1000 UNITS PO SCH (08:05)
[2019-07-04] MEDS: Furosemide TAB* 40 MG PO SCH (08:06)
[2019-07-04] MEDS: Atorvastatin* 40 MG TAB PO SCH (08:06)
[2019-07-04] MEDS: Diltiazem CD CAP* 120 MG PO SCH (08:06)
[2019-07-04] MEDS: Gabapentin CAP(*) 100 MG PO SCH (08:06)
[2019-07-04] MEDS: Aspirin EC TAB* 81 MG TAB.EC PO SCH (08:06)
[2019-07-04] MEDS: ZINC PO SCH (08:17)
[2019-07-04] MEDS: FOLIC ACID PO SCH (08:17)
[2019-07-04] MEDS: ASCORBIC ACID PO SCH (08:17)
[2019-07-04] MEDS: VITAMIN B COMPLEX PO SCH (08:17)
== END 2019-07-04 08:20 | disposition short-term general hospital (02) | DRG 811 ==
LOC: ED 10:23 → MEDTELE 14:17
PROVIDERS: ADMIT Internal Medicine; ATTEND Internal Medicine
PROC: 30233N1 Transfusion of Nonautologous Red Blood Cells into Peripheral Vein, Percutaneous Approach (ICD-10-PCS; principal; 2019-07-01)
PROC: 5A1D80Z Performance of Urinary Filtration, Prolonged Intermittent, 6-18 hours Per Day (ICD-10-PCS; 2019-07-03)
DX: D62 Acute posthemorrhagic anemia (principal); N18.6 End stage renal disease; K55.21 Angiodysplasia of colon with hemorrhage; I12.0 Hypertensive chronic kidney disease with stage 5 chronic kidney disease or end stage renal disease; I48.20 Chronic atrial fibrillation, unspecified; I44.2 Atrioventricular block, complete; E03.9 Hypothyroidism, unspecified; I25.10 Atherosclerotic heart disease of native coronary artery without angina pectoris; E78.5 Hyperlipidemia, unspecified; G47.33 Obstructive sleep apnea (adult) (pediatric); M81.0 Age-related osteoporosis without current pathological fracture; Z96.641 Presence of right artificial hip joint; Z96.652 Presence of left artificial knee joint; E78.00 Pure hypercholesterolemia, unspecified; E66.9 Obesity, unspecified; I45.10 Unspecified right bundle-branch block; I34.0 Nonrheumatic mitral (valve) insufficiency; D63.1 Anemia in chronic kidney disease; Z28.21 Immunization not carried out because of patient refusal; Z99.2 Dependence on renal dialysis; Z95.2 Presence of prosthetic heart valve; Z95.0 Presence of cardiac pacemaker; Z88.8 Allergy status to other drugs, medicaments and biological substances; Z88.5 Allergy status to narcotic agent; Z88.6 Allergy status to analgesic agent; Z68.28 Body mass index [BMI] 28.0-28.9, adult; Z79.82 Long term (current) use of aspirin; Z79.899 Other long term (current) drug therapy; Z79.890 Hormone replacement therapy
CPT/HCPCS: 36415; 71045; 80048; 80053; 82270; 82607; 82668; 82728; 82746; 83540; 83550; 84443; 85014; 85018; 85025; 85027; 85060; 85610; 85730; 86850; 86900; 86901; 86922; 93005; 96361; 96374; 99284; A9270-GY; J1940; P9040; Q5106

== ENCOUNTER 2020-02-22 10:13 | Inpatient (IN) ==
[2020-02-22] MEDS ORDERED: NS 0.9% 500 ml BAG 500 ML IV ONE (10:31)
[2020-02-22] MEDS ORDERED: NS 0.9% 1000 ml BAG 1,000 ML IV ONE (10:39)
[2020-02-22 11:53] LABS: ALT 19 U/L (7-52); AST 39 U/L (13-39); Albumin 3.5 g/dL (3.2-5.2); Albumin/Globulin Ratio 1.5 (1-3); Alkaline Phosphatase 128 U/L (34-104); Anion Gap 18 mmol/L (2-11); BUN/Creatinine Ratio 8.1 (8-20); Blood Urea Nitrogen 33 mg/dL (6-24); C Reactive Protein 13.69 mg/L (<8.01); CO2 Carbon Dioxide 18 mmol/L (22-32); Calcium 9.3 mg/dL (8.6-10.3); Chloride 97 mmol/L (101-111); EGFR African American 12.7 (>60); EGFR Non-African American 10.5 (>60); Globulin 2.3 g/dL (2-4); Glucose 101 mg/dL (70-100); Magnesium 2.1 mg/dL (1.9-2.7); Sodium 133 mmol/L (135-145); Total Protein 5.8 g/dL (6.4-8.9); Troponin I 0.23 ng/mL (<0.03)
[2020-02-22 12:11] LABS: TSH Ultra Thyroid Stim Horm 8.49 mcIU/mL (0.34-5.60)
[2020-02-22 12:13] LABS: Free T4 1.44 ng/dL (0.61-1.12)
[2020-02-22 14:03] LABS: ABS Basophils 0.1 10^3/ul (0-0.2); ABS Lymphocytes 0.6 10^3/ul (1.0-4.8); ABS Monocytes 0.6 10^3/ul (0-0.8); ABS Neutrophils 6.8 10^3/ul (1.5-7.7); Eosinophil % 0.4 %; Hematocrit 45 % (35-47); Hemoglobin 14.7 g/dL (12.0-16.0); Lymphocyte % 7.5 %; Mean Corpuscular HGB Conc 33 g/dL (31-36); Mean Corpuscular Hemoglobin 33 pg (27-31); Mean Corpuscular Volume 100 fL (80-97); Mean Platelet Volume 8.6 fL (7.4-10.4); Nucleated Red Blood Cells % 0.1; Platelet Count 74 10^3/uL (150-450); Red Blood Count 4.48 10^6 /uL (3.70-4.87); Red Cell Distribution Width 17 % (10-15); White Blood Count 8.1 10^3/uL (3.5-10.8)
[2020-02-22 17:04] LABS: Troponin I 0.27 ng/mL (<0.03)
[2020-02-22] MEDS ORDERED: Digoxin IV 0.5 MG/2 ML AMP (0.25 MG/ML) IV SLOW PU ONE (17:11)
[2020-02-22 20:08] LABS: Troponin I 0.43 ng/mL (<0.03)
[2020-02-22] MEDS ORDERED: NS 0.9% 250 ml 250 ML IV ONE ×2 (20:14→23:15)
[2020-02-22] MEDS: Heparin 5000 UNITS/ML 1 mL VIAL SUBCUT SCH (20:43)
[2020-02-22 22:56] LABS: Creatine Kinase 69 U/L (10-223)
[2020-02-23] MEDS ORDERED: NS 0.9% 250 ml 250 ML IV ONE (04:02)
[2020-02-23 04:17] LABS: ALT 18 U/L (7-52); AST 31 U/L (13-39); Albumin/Globulin Ratio 1.5 (1-3); Alkaline Phosphatase 120 U/L (34-104); Anion Gap 10 mmol/L (2-11); Blood Urea Nitrogen 44 mg/dL (6-24); CO2 Carbon Dioxide 25 mmol/L (22-32); Calcium 8.8 mg/dL (8.6-10.3); Chloride 99 mmol/L (101-111); Cholesterol 94 mg/dL; EGFR African American 10.2 (>60); EGFR Non-African American 8.5 (>60); Glucose 111 mg/dL (70-100); HDL Cholesterol 41.6 mg/dL; LDL Cholesterol 29 mg/dL; Potassium 5.1 mmol/L (3.5-5.0); Sodium 134 mmol/L (135-145); Triglycerides 118 mg/dL
[2020-02-23 04:26] LABS: Troponin I 1.11 ng/mL (<0.03)
[2020-02-23 04:51] LABS: ABS Basophils 0.1 10^3/ul (0-0.2); ABS Eosinophils 0.1 10^3/ul (0-0.6); ABS Lymphocytes 0.9 10^3/ul (1.0-4.8); ABS Monocytes 0.8 10^3/ul (0-0.8); ABS Neutrophils 5.5 10^3/ul (1.5-7.7); Hematocrit 43 % (35-47); Hemoglobin 14.3 g/dL (12.0-16.0); Lymphocyte % 12.3 %; Mean Corpuscular HGB Conc 33 g/dL (31-36); Mean Corpuscular Hemoglobin 33 pg (27-31); Mean Corpuscular Volume 99 fL (80-97); Mean Platelet Volume 8.6 fL (7.4-10.4); Nucleated Red Blood Cells % 0.3; Platelet Count 81 10^3/uL (150-450); Red Blood Count 4.33 10^6 /uL (3.70-4.87); Red Cell Distribution Width 17 % (10-15); White Blood Count 7.3 10^3/uL (3.5-10.8)
[2020-02-23] MEDS ORDERED: Albumin Human 25% 12.5 GM/50 ML BTL IV PRN (08:00)
[2020-02-23 08:49] LABS: Troponin I 1.08 ng/mL (<0.03)
[2020-02-23] MEDS ORDERED: Albumin Human 25% 25 GM/100 ML BTL IV PRN (12:07)
[2020-02-23] MEDS: Heparin 5000 UNITS/ML 1 mL VIAL SUBCUT SCH ×2 (18:28→22:23)
[2020-02-23] MEDS: Aspirin EC 81 mg TAB.EC (enteric coated) PO SCH (18:36)
[2020-02-23] MEDS ORDERED: Lidocaine 2.5%/Prilocain 2.5% 5 GM TUBE TOPICAL PRN (19:00)
[2020-02-24] MEDS: Aspirin EC 81 mg TAB.EC (enteric coated) PO SCH (08:36)
[2020-02-24] MEDS: Heparin 5000 UNITS/ML 1 mL VIAL SUBCUT SCH ×2 (08:38→21:13)
[2020-02-25 02:13] LABS: Albumin 3.3 g/dL (3.2-5.2); Albumin/Globulin Ratio 1.5 (1-3); BUN/Creatinine Ratio 9.3 (8-20); Calcium 9.1 mg/dL (8.6-10.3); EGFR African American 9.8 (>60); EGFR Non-African American 8.1 (>60); Globulin 2.2 g/dL (2-4); Total Bilirubin 0.9 mg/dL (0.2-1.0); Total Protein 5.5 g/dL (6.4-8.9)
[2020-02-25 02:38] LABS: TSH Ultra Thyroid Stim Horm 5.42 mcIU/mL (0.34-5.60)
[2020-02-25 02:43] LABS: ABS Eosinophils 0.2 10^3/ul (0-0.6); ABS Lymphocytes 1.2 10^3/ul (1.0-4.8); ABS Monocytes 0.6 10^3/ul (0-0.8); ABS Neutrophils 4.4 10^3/ul (1.5-7.7); Eosinophil % 2.9 %; Hematocrit 45 % (35-47); Hemoglobin 15.1 g/dL (12.0-16.0); Lymphocyte % 18.3 %; Mean Corpuscular HGB Conc 34 g/dL (31-36); Mean Corpuscular Hemoglobin 34 pg (27-31); Mean Corpuscular Volume 100 fL (80-97); Mean Platelet Volume 8.2 fL (7.4-10.4); Nucleated Red Blood Cells % 0.4; Platelet Count 90 10^3/uL (150-450); Red Blood Count 4.44 10^6 /uL (3.70-4.87); Red Cell Distribution Width 18 % (10-15); White Blood Count 6.5 10^3/uL (3.5-10.8)
[2020-02-25] MEDS ORDERED: NS 0.9% IV PRN (06:58)
[2020-02-25 07:08] LABS: ABS Basophils 0.1 10^3/ul (0-0.2); ABS Eosinophils 0.1 10^3/ul (0-0.6); ABS Lymphocytes 0.9 10^3/ul (1.0-4.8); ABS Monocytes 0.7 10^3/ul (0-0.8); ABS Neutrophils 5.3 10^3/ul (1.5-7.7); Eosinophil % 1.9 %; Hematocrit 44 % (35-47); Hemoglobin 14.9 g/dL (12.0-16.0); Lymphocyte % 13.2 %; Mean Corpuscular HGB Conc 34 g/dL (31-36); Mean Corpuscular Hemoglobin 34 pg (27-31); Mean Corpuscular Volume 100 fL (80-97); Mean Platelet Volume 8.3 fL (7.4-10.4); Nucleated Red Blood Cells % 0.5; Platelet Count 99 10^3/uL (150-450); Red Blood Count 4.41 10^6 /uL (3.70-4.87); Red Cell Distribution Width 18 % (10-15); White Blood Count 7.1 10^3/uL (3.5-10.8)
[2020-02-25 07:29] LABS: Albumin 3.4 g/dL (3.2-5.2); Albumin/Globulin Ratio 1.5 (1-3); BUN/Creatinine Ratio 9.3 (8-20); Calcium 9.1 mg/dL (8.6-10.3); EGFR African American 9.4 (>60); EGFR Non-African American 7.8 (>60); Globulin 2.3 g/dL (2-4); Total Bilirubin 0.9 mg/dL (0.2-1.0); Total Protein 5.7 g/dL (6.4-8.9)
[2020-02-25 07:33] LABS: Potassium 5.1 mmol/L (3.5-5.0)
[2020-02-25 07:58] LABS: TSH Ultra Thyroid Stim Horm 5.72 mcIU/mL (0.34-5.60)
[2020-02-25 16:18] LABS: Hepatitis B Surface Ab Immune (Immune)
[2020-02-25] MEDS: Heparin 5000 UNITS/ML 1 mL VIAL SUBCUT SCH ×3 (16:46→21:36)
[2020-02-25] MEDS: Aspirin EC 81 mg TAB.EC (enteric coated) PO SCH (16:51)
[2020-02-26 07:14] LABS: CO2 Carbon Dioxide 20 mmol/L (22-32); Calcium 8.8 mg/dL (8.6-10.3); Chloride 100 mmol/L (101-111); Sodium 132 mmol/L (135-145)
[2020-02-26 07:20] LABS: BUN/Creatinine Ratio 8.1 (8-20); Blood Urea Nitrogen 29 mg/dL (6-24); EGFR African American 14.6 (>60); EGFR Non-African American 12.1 (>60); Glucose 94 mg/dL (70-100); Phosphorus 3.9 mg/dL (2.5-5.0)
[2020-02-26 07:50] LABS: Anion Gap 12 mmol/L (2-11)
[2020-02-26 10:01] LABS: Magnesium 1.8 mg/dL (1.9-2.7); Potassium Redraw 4.1 mmol/L (3.5-5.0)
[2020-02-26] MEDS: Albumin Human 25% 12.5 GM/50 ML BTL IV PRN ×3 (12:37→14:15)
[2020-02-26] MEDS: Heparin 5000 UNITS/ML 1 mL VIAL SUBCUT SCH ×2 (16:40→21:48)
[2020-02-26] MEDS: Aspirin EC 81 mg TAB.EC (enteric coated) PO SCH (16:44)
[2020-02-27 06:14] LABS: BUN/Creatinine Ratio 8.2 (8-20); Calcium 9.9 mg/dL (8.6-10.3); EGFR African American 21.7 (>60); EGFR Non-African American 17.9 (>60)
[2020-02-27 08:21] LABS: Phosphorus 2.9 mg/dL (2.5-5.0)
[2020-02-27] MEDS: Aspirin EC 81 mg TAB.EC (enteric coated) PO SCH (14:03)
[2020-02-27] MEDS: Heparin 5000 UNITS/ML 1 mL VIAL SUBCUT SCH (14:05)
[2020-02-27 16:03] VITALS: BP 86/45
== END 2020-02-27 16:36 | DRG 291 ==
LOC: ED 10:13 → MEDTELE 17:28
PROVIDERS: ADMIT Internal Medicine; ATTEND Internal Medicine

== ENCOUNTER 2020-04-03 13:30 | Inpatient (IN) ==
[2020-04-03 14:35] LABS: ABS Basophils 0.1 10^3/ul (0-0.2); ABS Lymphocytes 1.6 10^3/ul (1.0-4.8); ABS Monocytes 0.5 10^3/ul (0-0.8); ABS Neutrophils 7.4 10^3/ul (1.5-7.7); ABS Nucleated RBC 0.2 10^3/ul; Eosinophil % 0.3 %; Hematocrit 35 % (35-47); Hemoglobin 11.1 g/dL (12.0-16.0); Lymphocyte % 16.5 %; Mean Corpuscular HGB Conc 32 g/dL (31-36); Mean Corpuscular Hemoglobin 32 pg (27-31); Mean Corpuscular Volume 100 fL (80-97); Mean Platelet Volume 8.1 fL (7.4-10.4); Nucleated Red Blood Cells % 1.8; Platelet Count 113 10^3/uL (150-450); Red Blood Count 3.45 10^6 /uL (3.70-4.87); Red Cell Distribution Width 16 % (10-15); White Blood Count 9.6 10^3/uL (3.5-10.8)
[2020-04-03 14:55] LABS: ALT 12 U/L (7-52); AST 21 U/L (13-39); Albumin 2.9 g/dL (3.2-5.2); Albumin/Globulin Ratio 1.5 (1-3); Alkaline Phosphatase 98 U/L (34-104); Anion Gap 17 mmol/L (2-11); Blood Urea Nitrogen 29 mg/dL (6-24); CO2 Carbon Dioxide 23 mmol/L (22-32); Calcium 8.2 mg/dL (8.6-10.3); Chloride 98 mmol/L (101-111); EGFR African American 20.9 (>60); EGFR Non-African American 17.3 (>60); Globulin 1.9 g/dL (2-4); Glucose 158 mg/dL (70-100); Magnesium 1.8 mg/dL (1.9-2.7); Potassium 3.6 mmol/L (3.5-5.0); Sodium 138 mmol/L (135-145); Total Protein 4.8 g/dL (6.4-8.9)
[2020-04-03 15:07] LABS: INR 1.11 (0.82-1.09)
[2020-04-03 15:23] LABS: Troponin I 0.34 ng/mL (<0.03)
[2020-04-03] MEDS: cefTRIAXone 1 gm/50 mL NS BAG 1 GM/50 ML BAG IVPB SCH (18:26)
[2020-04-03] MEDS ORDERED: Heparin 5000 UNITS/ML 1 mL VIAL SUBCUT SCH (21:00)
[2020-04-04 00:11] LABS: Troponin I 2.08 ng/mL (<0.03)
[2020-04-04] MEDS ORDERED: NS 0.9% 500 ml BAG 500 ML IV ONE ×2 (00:21→03:23)
[2020-04-04 03:17] LABS: Hematocrit 36 % (35-47); Hemoglobin 11.9 g/dL (12.0-16.0); Mean Corpuscular HGB Conc 33 g/dL (31-36); Mean Corpuscular Hemoglobin 33 pg (27-31); Mean Corpuscular Volume 101 fL (80-97); Mean Platelet Volume 8.4 fL (7.4-10.4); Platelet Count 120 10^3/uL (150-450); Red Blood Count 3.56 10^6 /uL (3.70-4.87); Red Cell Distribution Width 16 % (10-15); White Blood Count 11.8 10^3/uL (3.5-10.8)
[2020-04-04 03:30] LABS: INR 1.18 (0.82-1.09)
[2020-04-04 03:36] LABS: Anion Gap 16 mmol/L (2-11); BUN/Creatinine Ratio 9.8 (8-20); Blood Urea Nitrogen 35 mg/dL (6-24); CO2 Carbon Dioxide 25 mmol/L (22-32); Calcium 8.8 mg/dL (8.6-10.3); Chloride 97 mmol/L (101-111); EGFR African American 14.7 (>60); EGFR Non-African American 12.1 (>60); Glucose 105 mg/dL (70-100); Magnesium 1.9 mg/dL (1.9-2.7); Phosphorus 5.3 mg/dL (2.5-5.0); Potassium 4.4 mmol/L (3.5-5.0); Sodium 138 mmol/L (135-145)
[2020-04-04 03:46] LABS: Troponin I 3.43 ng/mL (<0.03)
[2020-04-04] MEDS ORDERED: Heparin DRIP 25,000 UNITS BAG 25,000 UNITS/500 ML BAG IV SCH ×2 (04:15→22:15)
[2020-04-04] MEDS ORDERED: Heparin 5000 UNITS/ML 1 mL VIAL IV SCH ×2 (05:00→23:00)
[2020-04-04] MEDS ORDERED: Hydrocortisone INJ 100 MG/2ML 2 ML VIAL IV ONE (05:06)
[2020-04-04 07:02] LABS: Troponin I 3.18 ng/mL (<0.03)
[2020-04-04] MEDS ORDERED: Norepinephrine 16MCG/ML IVPRE 4,000 MCG/250 ML BAG IV SCH (08:00)
[2020-04-04 11:27] LABS: Troponin I 4.11 ng/mL (<0.03)
[2020-04-04 16:55] LABS: Anion Gap 21 mmol/L (2-11); BUN/Creatinine Ratio 10.8 (8-20); Blood Urea Nitrogen 42 mg/dL (6-24); CO2 Carbon Dioxide 18 mmol/L (22-32); Calcium 8.3 mg/dL (8.6-10.3); Chloride 98 mmol/L (101-111); EGFR African American 13.4 (>60); Glucose 121 mg/dL (70-100); Sodium 137 mmol/L (135-145)
[2020-04-04 17:01] LABS: Troponin I 4.38 ng/mL (<0.03)
[2020-04-04] MEDS: cefTRIAXone 1 gm/50 mL NS BAG 1 GM/50 ML BAG IVPB SCH (17:17)
[2020-04-04 20:46] LABS: Troponin I 3.56 ng/mL (<0.03)
[2020-04-05] MEDS ORDERED: Norepinephrine 16MCG/ML IVPRE 4,000 MCG/250 ML BAG IV SCH (00:22)
[2020-04-05 05:05] LABS: Hematocrit 36 % (35-47); Hemoglobin 11.7 g/dL (12.0-16.0); Mean Corpuscular HGB Conc 33 g/dL (31-36); Mean Corpuscular Hemoglobin 33 pg (27-31); Mean Corpuscular Volume 101 fL (80-97); Mean Platelet Volume 8.8 fL (7.4-10.4); Platelet Count 128 10^3/uL (150-450); Red Blood Count 3.55 10^6 /uL (3.70-4.87); Red Cell Distribution Width 16 % (10-15); White Blood Count 13.1 10^3/uL (3.5-10.8)
[2020-04-05 05:25] LABS: Blood Urea Nitrogen 53 mg/dL (6-24); CO2 Carbon Dioxide 20 mmol/L (22-32); Calcium 8.5 mg/dL (8.6-10.3); Chloride 97 mmol/L (101-111); EGFR African American 11.5 (>60); EGFR Non-African American 9.5 (>60); Glucose 113 mg/dL (70-100); Magnesium 1.8 mg/dL (1.9-2.7); Sodium 136 mmol/L (135-145)
[2020-04-05 05:29] LABS: Anion Gap 19 mmol/L (2-11)
[2020-04-05 07:34] LABS: ABS Lymphocytes 1.6 10^3/ul (1.0-4.8); ABS Monocytes 1.3 10^3/ul (0-0.8); ABS Neutrophils 10.6 10^3/ul (1.5-7.7); ABS Nucleated RBC 1.2 10^3/ul; Eosinophil % 0.2 %; Lymphocyte % 12.1 %; Nucleated Red Blood Cells % 9.1
[2020-04-05 07:41] LABS: Polychromasia 1+
[2020-04-05] MEDS ORDERED: Ondansetron 4 mg VIAL 2 MG/ML 2 ml VIAL IV PRN (07:55)
[2020-04-05] MEDS ORDERED: Phenylephrine IV 10 MG/ML 1 ml VIAL ONE (09:07)
[2020-04-05] MEDS ORDERED: Midazolam 10 mg/10 ml VIAL 1 mg/ml 10 ml VIAL (10 mg) ONE (09:12)
[2020-04-05] MEDS ORDERED: Midazolam 10 mg/10 ml VIAL 1 mg/ml 10 ml VIAL (10 mg) IV SLOW PU ONE ×2 (09:14→09:17)
[2020-04-05] MEDS ORDERED: Amiodarone 150 mg IVPREMIX 150 MG/100 ML BAG IV ONE (09:18)
[2020-04-05] MEDS ORDERED: Magnesium Sulfate 2 gm BAG 2 GM/50 ML BAG ONE (09:21)
[2020-04-05] MEDS ORDERED: Amiodarone DRIP 150 MG in D5W 100 ML *LOADING DOSE* OVER 10 MIN IV ONE (09:21)
[2020-04-05] MEDS ORDERED: Magnesium Sulfate 2 GM IV (Premix) IVPB ONE (09:25)
[2020-04-05] MEDS ORDERED: Phenylephrine IV 50 MG in NS 0.9% 250 ml 245 ML IV SCH ×2 (09:30→11:00)
[2020-04-05] MEDS: Hydrocortisone INJ 100 MG/2ML 2 ML VIAL IV SCH ×2 (10:51→19:30)
[2020-04-05] MEDS: cefTRIAXone 1 gm/50 mL NS BAG 1 GM/50 ML BAG IVPB SCH (16:23)
[2020-04-05] MEDS ORDERED: Morphine 2 MG/ML SYRINGE IV PRN (20:26)
[2020-04-05 21:10] VITALS: BP 86/42
== END 2020-04-05 21:48 | disposition expired ==
LOC: ED 13:30 → ICU 17:11
PROVIDERS: ADMIT Internal Medicine; ATTEND Hospitalist